=== PATIENT | female | born 1935 | race African-American/Black ===

== ENCOUNTER 2016-11-09 13:06 | Inpatient (IN) | payer MEDICARE, BC ==
[2016-11-09] MEDS ORDERED: NS 0.9% 1000 ML* 1,000 ML IV SCH (14:45)
[2016-11-09 14:47] LABS: Hematocrit 35 % (35-47); Hemoglobin 11.5 g/dl (12.0-16.0); Mean Corpuscular HGB Conc 33 g/dl (31-36); Mean Corpuscular Hemoglobin 30 pg (27-31); Mean Corpuscular Volume 89 fL (80-97); Mean Platelet Volume 7 um3 (7.4-10.4); Red Blood Count 3.87 10^6/ul (4.0-5.4); Red Cell Distribution Width 14 % (10.5-15)
[2016-11-09 14:59] LABS: Troponin I 0.01 ng/mL (<0.04)
[2016-11-09 15:09] LABS: TSH (Thyroid Stimulating Horm) 0.28 mcIU/mL (0.34-5.60)
[2016-11-09 15:13] LABS: ALT 6 U/L (7-52); Albumin 3.2 g/dL (3.2-5.2); Alkaline Phosphatase 106 U/L (34-104); Blood Urea Nitrogen 13 mg/dL (6-24); CO2 Carbon Dioxide 25 mmol/L (22-32); Calcium 10.3 mg/dL (8.6-10.3); Chloride 97 mmol/L (101-111); Creatine Kinase 19 U/L (10-223); EGFR African American 87.5 (>60); Globulin 4.2 g/dL (2-4); Glucose 292 mg/dL (70-100); Lipase 26 U/L (11.0-82.0); Sodium 131 mmol/L (133-145); Total Protein 7.4 g/dL (6.4-8.9)
--- NOTE | 2016-11-09 15:19 | RAD ---
HISTORY: Weakness COMPARISONS: November 04, 2014 VIEWS:1: Single frontal portable view of the chest at 2:57 PM FINDINGS: LINES AND TUBES: None. CARDIOMEDIASTINAL SILHOUETTE: The cardiomediastinal silhouette is normal for portable technique. PLEURA: The costophrenic angles are sharp. No pleural abnormalities are noted. LUNG PARENCHYMA: The lungs are clear. ABDOMEN: The upper abdomen is clear. There is no subphrenic gas. BONES AND SOFT TISSUES: Degenerative changes noted of the spine IMPRESSION: NO ACTIVE CARDIOPULMONARY DISEASE.
[2016-11-09 15:31] LABS: Anion Gap 9 mmol/L (2-11)
[2016-11-09 15:47] LABS: Urine Bacteria 1+ (Absent); Urine Bilirubin Negative (Negative); Urine Glucose Negative (Negative); Urine Nitrite Negative (Negative)
[2016-11-09] MEDS ORDERED: Acetaminophen TAB* 325 MG PO PRN (16:23)
[2016-11-09] MEDS ORDERED: Ondansetron INJ* 2 MG/ML VIAL IV PRN (16:23)
[2016-11-09] MEDS ORDERED: Diazepam TAB(*) 5 MG PO ONE (16:23)
[2016-11-09] MEDS ORDERED: Cefepime(*) 2 GM in NS 0.9% 50 ML* 50 ML IVPB ONE (16:30)
[2016-11-09] MEDS ORDERED: Meclizine TAB* 12.5 MG ONE (16:30)
[2016-11-09] MEDS: Meclizine TAB* 12.5 MG PO SCH ×2 (16:33→21:25)
[2016-11-09] MEDS ORDERED: NS 0.9% 50 ML* 50 ML ONE (16:37)
--- NOTE | 2016-11-09 17:23 | ED ---
Stanton Coyle Benjamin, scribed for Ike Longoria MD on 11/09/16 at 1443 . Dizziness - HPI Summary HPI Summary: 81yo female with hx of vertigo c/o having vertigo like symptoms this morning. Pt states that she couldnt get out of her apartment so she called EMS for help. Pt felt nauseous and is unable to keep anything down due to N/V. Pt is diabetic and hasnt been taking her meds because she cant keep anything down. Pt also reports fainting once few days ago when she tried to get to her chair from bed. Pt hasnt had any BM, again because she hasnt been able to eat lately. Pt has a colostomy bag put in. Pt reports weakness and room spinning, and has hx of CHF. Pt took Meclizine 50mg today at 11am. - History Of Current Complaint Chief Complaint: EDDizziness Stated Complaint: VERTIGO Time Seen by Provider: 11/09/16 13:39 Hx Obtained From: Patient Onset/Duration: Still Present, Suddenly Timing: Constant Severity Initially: Mild Severity Currently: Mild Character: Room Spinning, Weak Aggravating Factor(s): Nothing Alleviating Factor(s): Lying Down Associated Signs And Symptoms: Positive: Nausea, Vomiting, Decreased Oral Intake - Allergies/Home Medications Allergies/Adverse Reactions: Allergies Allergy/AdvReac Type Severity Reaction Status Date / Time Adhesive Tape Allergy Blisters Verified 11/11/15 15:23 Nitrofurantoin Allergy vomitting Verified 11/11/15 15:23 [From Furadantin] Nystatin Allergy Blisters Verified 11/11/15 15:23 Penicillins Allergy Anaphylatic Verified 11/11/15 15:23 Shock Home Medications: Home Medications Ergocalciferol CAP* [Drisdol CAP*] 50,000 unit PO WEEKLY 11/09/16 [History Confirmed 11/09/16] Methimazole TAB* [Tapazole TAB*] 10 mg PO DAILY 11/09/16 [History Confirmed ] Ondansetron TAB* [Zofran 4 MG Tab*] 4 mg PO Q8HR PRN 11/09/16 [History Confirmed 11/09/16] PMH/Surg Hx/FS Hx/Imm Hx Endocrine/Hematology History: Reports: Hx Diabetes, Hx Thyroid Disease, Hx Unexplained Bleeding - during wound dressing changes. Denies: Hx Systemic Lupus Erythematosus, Hx Anemia Cardiovascular History: Reports: Hx Congestive Heart Failure, Hx Hypercholesterolemia, Hx Hypertension, Other Cardiovascular Problems/Disorders - SEPSIS Denies: Hx Pacemaker/ICD Respiratory History: Reports: Hx Asthma, Hx Chronic Bronchitis GI History: Reports: Hx Gastroesophageal Reflux Disease, Hx Ileostomy - diverted colostomy, Other GI Disorders History: Reports: Hx Acute Renal Failure, Hx Kidney Stones, Other Problems /Disorders - renal failure Denies: Hx Dialysis, Hx Renal Disease Musculoskeletal History: Reports: Hx Arthritis, Hx Back Problems - Spinal stenosis, Other Musculoskeletal History - CERVICAL FUSION Denies: Hx Rheumatoid Arthritis Sensory History: Reports: Hx Cataracts - cataracts removed, Hx Contacts or Glasses Denies: Hx Glaucoma, Hx Legally Blind, Hx Deafness, Hx Hearing Aid Opthamlomology History: Reports: Hx Cataracts - cataracts removed, Hx Contacts or Glasses Denies: Hx Glaucoma, Hx Legally Blind Neurological History: Reports: 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 ABDONINAL TUMOR POSTERIOR UTERUS REMOVED(1975). HYSTERECTOMY(1975), CERVICAL SPINE(2000), cataract removal, diverted colostomy Hx Anesthesia Reactions: No Infectious Disease History: No Infectious Disease History: Reports: Hx of Known/Suspected MRSA, Hx Tuberculosis Denies: Hx Shingles, Traveled Outside the [place] in Last 30 Days - Family History Known Family History: Positive: Diabetes Negative: Hypertension - Social History Occupation: Disabled Lives: Alone Alcohol Use: None Substance Use Type: Reports: None Smoking Status (MU): Former Smoker Type: Cigarettes Have You Smoked in the Last Year: No Review of Systems Constitutional: Negative Negative: Fever, Chills Eyes: Negative ENT: Negative Cardiovascular: Negative Respiratory: Negative Positive: Vomiting, Nausea Genitourinary: Negative Musculoskeletal: Negative Skin: Negative Neurological: Other - room spinning Positive: Weakness - generalized , Syncope - vertigo Psychological: Normal All Other Systems Reviewed And Are Negative: Yes Physical Exam Triage Information Reviewed: Yes Vital Signs On Initial Exam: Initial Vitals Temp Pulse Resp BP Pulse Ox 97.2 F 86 15 103/65 100 11/09/16 13:30 11/09/16 13:30 11/09/16 13:30 11/09/16 13:30 11/09/16 13:30 Vital Signs Reviewed: Yes Appearance: Positive: No Pain Distress, Well-Nourished. Negative: Well- Appearing - dehydrated Skin: Positive: Warm, Skin Color Reflects Adequate Perfusion, Dry Head/Face: Positive: Normal Head/Face Inspection Eyes: Positive: Normal ENT: Positive: Hearing grossly normal, Pharynx normal, Other - dry oral musoca Neck: Positive: Supple, Nontender Respiratory/Lung Sounds: Positive: Clear to Auscultation, Breath Sounds Present Cardiovascular: Positive: RRR, Pulses are Symmetrical in both Upper and Lower Extremities Abdomen Description: Positive: Nontender, Soft, Other: - colostomy bag placed Bowel Sounds: Positive: Present Musculoskeletal: Negative: Strength/ROM Intact - generalized weakness Neurological: Positive: Sensory/Motor Intact - able to move all four extremities , Alert, Oriented to Person Place, Time. Negative: Facial Droop, Focal Deficit @ Psychiatric: Positive: Affect/Mood Appropriate - Sebastien Coma Scale Coma Scale Total: 15 Diagnostics - Vital Signs Vital Signs Temp Pulse Resp BP Pulse Ox 11/09/16 13:30 97.2 F 86 15 103/65 100 - Laboratory Lab Results: Lab Results 11/09/16 11/09/16 11/09/16 Range/Units 14:15 14:15 14:15 WBC 14.0 H (3.5-10.8) 10^3/ul RBC 3.87 L (4.0-5.4) 10^6/ul Hgb 11.5 L (12.0-16.0) g/dl Hct 35 (35-47) % MCV 89 (80-97) fL MCH 30 (27-31) pg MCHC 33 (31-36) g/dl RDW 14 (10.5-15) % Plt Count 414 (150-450) 10^3/ul MPV 7 L (7.4-10.4) um3 Neut % (Auto) 81.5 (38-83) % Lymph % (Auto) 10.3 L (25-47) % [place] % (Auto) 7.6 (1-9) % Eos % (Auto) 0.4 (0-6) % Baso % (Auto) 0.2 (0-2) % Absolute Neuts (auto) 11.4 H (1.5-7.7) 10^3/ul Absolute Lymphs (auto) 1.4 (1.0-4.8) 10^3/ul Absolute Monos (auto) 1.1 H (0-0.8) 10^3/ul Absolute Eos (auto) 0.1 (0-0.6) 10^3/ul Absolute Basos (auto) 0 (0-0.2) 10^3/ul Absolute Nucleated RBC 0 10^3/ul Nucleated RBC % 0 INR (Anticoag Therapy) 1.06 (0.89-1.11) APTT 27.9 (26.0-36.3) seconds Sodium 131 L (133-145) mmol/L Potassium TNP Chloride 97 L (101-111) mmol/L Carbon Dioxide 25 (22-32) mmol/L Anion Gap 9 (2-11) mmol/L BUN 13 (6-24) mg/dL Creatinine 0.81 (0.51-0.95) mg/dL Est GFR ( Amer) 87.5 (>60) Est GFR (Non-Af Amer) 68.0 (>60) BUN/Creatinine Ratio 16.0 (8-20) Glucose 292 H (70-100) mg/dL Lactic Acid (0.5-2.0) mmol/L Calcium 10.3 (8.6-10.3) mg/dL Magnesium TNP Total Bilirubin 0.60 (0.2-1.0) mg/dL AST TNP ALT 6 L (7-52) U/L Alkaline Phosphatase 106 H (34-104) U/L Total Creatine Kinase 19 (10-223) U/L CK-MB (CK-2) 2.1 (0.6-6.3) ng/mL Troponin I 0.01 (<0.04) ng/mL C-Reactive Protein 29.70 H (< 5.00) mg/L B-Natriuretic Peptide ( - 100) pg/mL Total Protein 7.4 (6.4-8.9) g/dL Albumin 3.2 (3.2-5.2) g/dL Globulin 4.2 H (2-4) g/dL Albumin/Globulin Ratio 0.8 L (1-3) Lipase 26 (11.0-82.0) U/L TSH 0.28 L (0.34-5.60) mcIU/mL Urine Color Urine Appearance Urine pH (5-9) Ur Specific [place] (1.010-1.030) Urine Protein (Negative) Urine Ketones (Negative) Urine Blood (Negative) Urine Nitrate (Negative) Urine Bilirubin (Negative) Urine Urobilinogen (Negative) Ur Leukocyte Esterase (Negative) Urine WBC (Auto) (Absent) Urine RBC (Auto) (Absent) Urine Bacteria (Absent) Urine Glucose (Negative) Urine Ascorbic Acid (Negative) 11/09/16 11/09/16 11/09/16 Range/Units 14:15 14:15 15:30 WBC (3.5-10.8) 10^3/ul RBC (4.0-5.4) 10^6/ul Hgb (12.0-16.0) g/dl Hct (35-47) % MCV (80-97) fL MCH (27-31) pg MCHC (31-36) g/dl RDW (10.5-15) % Plt Count (150-450) 10^3/ul MPV (7.4-10.4) um3 Neut % (Auto) (38-83) % Lymph % (Auto) (25-47) % [place] % (Auto) (1-9) % Eos % (Auto) (0-6) % Baso % (Auto) (0-2) % Absolute Neuts (auto) (1.5-7.7) 10^3/ul Absolute Lymphs (auto) (1.0-4.8) 10^3/ul Absolute Monos (auto) (0-0.8) 10^3/ul Absolute Eos (auto) (0-0.6) 10^3/ul Absolute Basos (auto) (0-0.2) 10^3/ul Absolute Nucleated RBC 10^3/ul Nucleated RBC % INR (Anticoag Therapy) (0.89-1.11) APTT (26.0-36.3) seconds Sodium (133-145) mmol/L Potassium Chloride (101-111) mmol/L Carbon Dioxide (22-32) mmol/L Anion Gap (2-11) mmol/L BUN (6-24) mg/dL Creatinine (0.51-0.95) mg/dL Est GFR ( Amer) (>60) Est GFR (Non-Af Amer) (>60) BUN/Creatinine Ratio (8-20) Glucose (70-100) mg/dL Lactic Acid 2.1 H* (0.5-2.0) mmol/L Calcium (8.6-10.3) mg/dL Magnesium Total Bilirubin (0.2-1.0) mg/dL AST ALT (7-52) U/L Alkaline Phosphatase (34-104) U/L Total Creatine Kinase (10-223) U/L CK-MB (CK-2) (0.6-6.3) ng/mL Troponin I (<0.04) ng/mL C-Reactive Protein (< 5.00) mg/L B-Natriuretic Peptide 97 ( - 100) pg/mL Total Protein (6.4-8.9) g/dL Albumin (3.2-5.2) g/dL Globulin (2-4) g/dL Albumin/Globulin Ratio (1-3) Lipase (11.0-82.0) U/L TSH (0.34-5.60) mcIU/mL Urine Color Yellow Urine Appearance Turbid Urine pH 5.0 (5-9) Ur Specific [place] 1.019 (1.010-1.030) Urine Protein 2+(100 mg/dl) H (Negative) Urine Ketones Trace H (Negative) Urine Blood 2+ H (Negative) Urine Nitrate Negative (Negative) Urine Bilirubin Negative (Negative) Urine Urobilinogen Negative (Negative) Ur Leukocyte Esterase 3+ H (Negative) Urine WBC (Auto) 3+(>20/hpf) H (Absent) Urine RBC (Auto) 3+(>10/hpf) H (Absent) Urine Bacteria 1+ H (Absent) Urine Glucose Negative (Negative) Urine Ascorbic Acid * H (Negative) 11/09/16 Range/Units 15:50 WBC (3.5-10.8) 10^3/ul RBC (4.0-5.4) 10^6/ul Hgb (12.0-16.0) g/dl Hct (35-47) % MCV (80-97) fL MCH (27-31) pg MCHC (31-36) g/dl RDW (10.5-15) % Plt Count (150-450) 10^3/ul MPV (7.4-10.4) um3 Neut % (Auto) (38-83) % Lymph % (Auto) (25-47) % [place] % (Auto) (1-9) % Eos % (Auto) (0-6) % Baso % (Auto) (0-2) % Absolute Neuts (auto) (1.5-7.7) 10^3/ul Absolute Lymphs (auto) (1.0-4.8) 10^3/ul Absolute Monos (auto) (0-0.8) 10^3/ul Absolute Eos (auto) (0-0.6) 10^3/ul Absolute Basos (auto) (0-0.2) 10^3/ul Absolute Nucleated RBC 10^3/ul Nucleated RBC % INR (Anticoag Therapy) (0.89-1.11) APTT (26.0-36.3) seconds Sodium (133-145) mmol/L Potassium 3.9 Chloride (101-111) mmol/L Carbon Dioxide (22-32) mmol/L Anion Gap (2-11) mmol/L BUN (6-24) mg/dL Creatinine (0.51-0.95) mg/dL Est GFR ( Amer) (>60) Est GFR (Non-Af Amer) (>60) BUN/Creatinine Ratio (8-20) Glucose (70-100) mg/dL Lactic Acid (0.5-2.0) mmol/L Calcium (8.6-10.3) mg/dL Magnesium Total Bilirubin (0.2-1.0) mg/dL AST 14 ALT (7-52) U/L Alkaline Phosphatase (34-104) U/L Total Creatine Kinase (10-223) U/L CK-MB (CK-2) (0.6-6.3) ng/mL Troponin I (<0.04) ng/mL C-Reactive Protein (< 5.00) mg/L B-Natriuretic Peptide ( - 100) pg/mL Total Protein (6.4-8.9) g/dL Albumin (3.2-5.2) g/dL Globulin (2-4) g/dL Albumin/Globulin Ratio (1-3) Lipase (11.0-82.0) U/L TSH (0.34-5.60) mcIU/mL Urine Color Urine Appearance Urine pH (5-9) Ur Specific [place] (1.010-1.030) Urine Protein (Negative) Urine Ketones (Negative) Urine Blood (Negative) Urine Nitrate (Negative) Urine Bilirubin (Negative) Urine Urobilinogen (Negative) Ur Leukocyte Esterase (Negative) Urine WBC (Auto) (Absent) Urine RBC (Auto) (Absent) Urine Bacteria (Absent) Urine Glucose (Negative) Urine Ascorbic Acid (Negative) Result Diagrams: 11/09/16 14:15 11/09/16 15:50 Lab Statement: Any lab studies that have been ordered have been reviewed, and results considered in the medical decision making process. - Radiology CXR Xray Interpretation: No Acute Changes Radiology Interpretation Completed By: Radiologist - ED physician has reviewed this radiology report and agrees. - EKG 1356. Cardiac Rate: NL - 82bpm Ectopy: None EKG Interpretation: borderline T abnormalities in diffuse leads. Dizzy Course/Dx - Course Course Of Treatment: Reviewed pts medication and allergy lists. Blood pressure noted. ADMIT HOSPITALIST STABLE. NO CRITICAL CARE TIME. - Diagnoses Provider Diagnoses: Weakness, Dehydration Discharge - Discharge Plan Condition: Stable Disposition: ADMITTED TO [facility] documentation as recorded by the Stanton may Benjamin accurately reflects the service I personally performed and the decisions made by me, Ike Longoria MD.
[2016-11-09] MEDS: Cefepime(*) 2 GM in NS 0.9% 50 ML* 50 ML IVPB SCH ×2 (17:47→19:33)
[2016-11-09 19:07] LABS: Troponin I 0.01 ng/mL (<0.04)
[2016-11-09] MEDS: NS 0.9% 1000 ML* 1,000 ML IV SCH (19:35)
--- NOTE | 2016-11-09 20:45 | RAD ---
HISTORY: Dizziness, vertigo and weakness COMPARISONS: None TECHNIQUE: The following sequences were obtained of the head: Sagittal T1-weighted images, axial T2-weighted images, axial FLAIR images, axial susceptibility weighted images, axial T1-weighted images. Additionally, axial diffusion-weighted images were obtained with calculated apparent diffusion coefficients. FINDINGS: The study is limited by patient motion artifact. HEMORRHAGE/INFARCT: There is a punctate focus of restricted diffusion within the inferior vermis. Elsewhere, there is no hemorrhage or acute infarct MASSES/SHIFT: There is no mass or shift. EXTRA-AXIAL SPACES/MENINGES: There are no extra-axial fluid collections. SULCI AND VENTRICLES: The sulci and ventricles are normal in size and position for the patient's stated age. CEREBRUM: There are multiple scattered small foci of elevated T2/FLAIR signal within the periventricular and subcortical white matter. BRAINSTEM: There is elevated T2/FLAIR signal within the benigno.. CEREBELLUM: As noted above, there is a punctate focus of restricted diffusion within the inferior vermis to the right of midline The cerebellar tonsils are normal in size and position. SELLA: There is an approximately 1.7 x 1.5 cm sellar and suprasellar mass with mass effect on optic chiasm. PINEAL: The pineal region is clear. CP ANGLE/TEMPORAL BONES: The labyrinthine structures are grossly normal. VESSELS: Normal flow-voids are noted within the visualized vertebral vasculature. DIFFUSION ABNORMALITIES: As noted above, there is a punctate focus of restricted diffusion within the inferior vermis to the right of midline. PARANASAL SINUSES/MASTOIDS: The paranasal sinuses are clear. ORBITS: The orbits are unremarkable. BONES AND SOFT TISSUE: No bone or soft tissue abnormalities are noted. OTHER: None IMPRESSION: 1. 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 2. 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 RECOMMEND CONSIDERATION OF FURTHER EVALUATION WITH CONTRAST-ENHANCED PITUITARY PROTOCOL MRI OF THE BRAIN. 3. CHRONIC SMALL VESSEL ISCHEMIC CHANGES
[2016-11-09] MEDS ORDERED: Insulin GLARGINE(*) 1 UNITS UNIT SUBCUT SCH (21:00)
[2016-11-09] MEDS: Insulin LISPRO* 1 UNITS UNIT SUBCUT SCH (21:26)
[2016-11-09] MEDS: Insulin GLARGINE(*) 1 UNITS UNIT SUBCUT SCH (21:26)
[2016-11-09] MEDS ORDERED: Aspirin Low Dose CHEW TAB* 81 MG PO ONE (21:51)
[2016-11-09] MEDS ORDERED: Heparin VIAL(*) 5000 UNITS/ML VIAL (FIVE THOUSAND) SUBCUT SCH (22:00)
--- NOTE | 2016-11-09 23:23 | HP ---
CC: Dr. Davidson * HISTORY AND PHYSICAL: DATE OF ADMISSION: 11/09/16 PRIMARY CARE PROVIDER: Dr. Davidson. ATTENDING PHYSICIAN WHILE IN THE HOSPITAL: Dr. Ramona Clinton * (report dictated by Aren Willis NP). CHIEF COMPLAINT: 1. Dizziness. 2. Weakness. HISTORY OF PRESENT ILLNESS: Ms. Hurd is an 81-year-old female patient. She is diabetic, hypertensive, has chronic decubitus ulcer. She has not seen the wound clinic since April of this year. She has a chronic indwelling Valera catheter. She has a history of paraplegia, hypothyroidism, CAD, CHF, and history of NC. She really has not seen any medical care since the spring. She comes in to the ER today stating that she has been feeling dizzy now for the last several months, but it has gotten worse over the last few days. She has been noticing that at any times she try to change the positions, it gets worse and she becomes nauseated. She has not actually been taking her medications because she has been feeling nauseated. She says the only thing she takes is a Percocet and Zanaflex. She says that she has not been having any fevers or chills. She did vomit with position change and it feels like the room has been spinning. She does states that she has to take an Antivert at times and she says it does not usually help and she says she also been having double vision for several weeks now and she has noticed that at times she has had difficulty with swallowing particularly on the right side. She denied any facial drooping and she denied having any weakness to one side, although she cannot move her lower extremities because of the paraplegia. She was getting dressed today with her aide and her aide got her into the wheelchair and she started using the wheelchair, but she could not open her eyes because any time she opened them , she was feeling dizzy and when she was controlling the wheelchair, she was bumping into the trevino. She was trying to go to see her primary, but unfortunately she could not make it, so she came into the ER. She says that she again stopped taking most of her medications because she was feeling nauseated. She was concerned today because of dizziness was not getting any better and she decided to come into the ER. PAST MEDICAL HISTORY: Significant for: 1. Diabetes. 2. Hypertension. 3. Chronic sacral decubitus. 4. Chronic Valera catheter. 5. Paraplegia. 6. Hypothyroidism. 7. CAD. 8. CHF. 9. History of NC. 10. Her last echo from 3 years ago revealed an EF of 50% to 55%. PAST SURGICAL HISTORY: 1. She has a history of cervical fusion. 2. Appendectomy. 3. Tonsillectomy. 4. Colostomy. 5. She has had a partial bowel resection. HOME MEDICATIONS: This is the list that we got from her doctor's office, but all she said she is taking is: 1. Percocet 5/325 mg t.i.d. as needed. 2. Zanaflex 4 mg p.o. t.i.d. as needed, which she is supposed to be taking, but has not been. 3. Lantus 25 units subcu at bedtime. 4. Metformin 1000 mg p.o. b.i.d. 5. Zofran 4 mg p.o. every 8 hours as needed. 6. Tapazole 10 mg p.o. daily. 7. Lasix 40 mg daily. 8. Ergocalciferol 50,000 units p.o. weekly. 9. Tylenol 650 mg p.r.n. every 4 hours as needed. ALLERGIES TO MEDICATIONS: Include TAPE, NITROFURANTOIN, NYSTATIN, and PENICILLIN. FAMILY HISTORY: Both her parents had a history of heart disease. SOCIAL HISTORY: She is a former smoker. She quit back in the 70s. She does not drink alcohol. Her surrogate decision maker is her friend, Polina. REVIEW OF SYSTEMS: There is no documented fever. She denied having any significant weight change. There was no double vision. She denies having any rhinorrhea, no sore throat or thyroid enlargement. Denies having any chest pain. There was no orthopnea, no nocturnal dyspnea. She denies having any abdominal pain. There was nausea and also vomiting particularly with the dizziness. No loss of consciousness. No pruritus and no skin ulcerations. Review of 14 systems completed, all others negative. PHYSICAL EXAMINATION GENERAL: At this time, Mrs. Hurd is an 81-year-old female patient. She appears to be chronically ill appearing. She appears to be malnourished. She is sitting in the ER stretcher. She does not appear to be in any acute distress. VITAL SIGNS: Reveal blood pressure 127/67, pulse 79, respirations 20, O2 sat 100%, temperature 97.2. HEENT: Head: Atraumatic. Eyes: Pupils are equal and reactive to light. Sclerae anicteric. Throat: Oral mucosa appeared to be dry. No oropharyngeal erythema. NECK: Supple. LUNGS: Clear to auscultation bilaterally. No wheezes, rales, or rhonchi. HEART: Sounds S1, S2. Regular rate and rhythm. No murmurs, rubs, or gallops. ABDOMEN: Soft, it was flat. Her colostomy, which appeared to be benign. EXTREMITIES: She did have what appeared to be atrophy to the lower extremities. She does have sensation, but she is unable to lift the lower extremities. She had no peripheral edema. Upper extremity, she did have 5/5 strength. NEUROLOGIC: She is awake, alert, and oriented x3. Her speech is clear. Tongue is midline. She had no facial drooping. She had limited ataxia with [id number] in the upper extremities bilaterally. We are trying to perform EOMs. Anytime she tried to follow my fingers, she became very dizzy, nauseated , and had to close her eyes immediately and she said my finger did appear to be double. She had no facial drooping. Her tongue was not deviated and again her speech was fluent and clear. She had no other gross focal deficits. SKIN: She had a stage 3 decubitus ulcer to the sacrum, which measures about approximately 10 cm x 8 cm. She has seen the [facility]ound Clinic in the past, but has not seen them since April of this year. No other wounds were noted. Otherwise, skin was intact. DIAGNOSTIC STUDIES/LAB DATA: Labs WBC of 14.0, RBC of 3.87, hemoglobin 11.5, hematocrit of 35, platelet count of 414. INR 1.06. PTT of 27.9. Sodium of 131 , potassium 3.9, chloride of 97, bicarb 25, BUN 13, creatinine 0.81, glucose of 292, lactic 2.1, calcium 10.3. Mag pending. Total bili 0.6, AST 14, ALT 6, alk phos 106, CK 19, CK-MB 2.1, troponin 0.01. CRP of 29. BNP of 97. Albumin of 3.2. TSH of 0.28. She had 2+ protein, 2+ blood, 3+ leukocyte esterase, 3+ wbc's, 3+ rbc's, 1+ bacteria in her urine. She had a chest x-ray obtained today , which revealed no active cardiopulmonary disease. There was an EKG obtained today as well, which showed a normal sinus rhythm, rate of 82. She did have some slight ST depressions in lead I and II and also leads V5 and V6. I did review it from an EKG 2 years ago, that depression is now new in V5 and V6, it was present in leads I and II in the past. She did have an echo again 3 years ago, which showed an EF of 50% to 55%. Old medical records were reviewed. ASSESSMENT AND PLAN: Mrs. Hurd is an 81-year-old female patient with multiple medical problems coming into the ER today with complaints of dizziness worsening with position change and double vision. Hospitalist service was asked to evaluate for admission. She will be admitted under inpatient status for: 1. Dizziness: Again, my concern now it has been going on for a long time, it seems to be chronic and now with the double vision, I do worry about possible posterior strokes. I would like to get an MRI of the brain. If this is positive, then obviously I will get Neurology involved and do a more excessive neuro work. My plan is to go ahead and give her some 5 of Valium, some meclizine to see if this helps her symptoms and we will do neuro checks, place her on telemetry and we will continue to follow her. 2. Diabetes: We will put her on a lispro sliding scale and continue her Lantus. 3. Chronic decubitus ulcer: I did order a wound consult. 4. Leukocytosis: Again, I do worry that she might have an underlying infection. The source may be her urine or her wounds, so I thought cefepime would be a good choice. I did order blood cultures and we will continue to follow this closely. 5. Dehydration: She does appear to be profoundly dehydrated, I am going to get orthostatics. I will hydrate her and see if the hydration may improve her dizziness. 6. Paraplegia: Supportive care. 7. Hypothyroidism: Continue home meds as prescribed. 8. Coronary artery disease: I did order an aspirin. She is not having any chest pain. We will monitor. 9. Congestive heart failure: Again, I am going to give her fluids. She normally does take a diuretic, but we are going to hold that for now and hydrate her. 10. DVT prophylaxis. She is high risk. She will be placed on heparin subcu. 11. Code status. She is a full code. 12. Fluids, electrolytes, and nutrition. She can have a consistent carb diet. TIME SPENT: Time spent on the admission was approximately 60 minutes, greater than half the time was spent [id number] with the patient obtaining my history and physical; the other half time was spent going over the plan of care with the patient and implementing the plan of care. I did discuss the plan of care with my attending, Dr. Clinton; who is in agreement. AREN WILLIS NP [id number]/CPS #: [id number] WILBUR
[2016-11-10] MEDS: tiZANidine TAB* 2 MG PO PRN (00:13)
[2016-11-10] MEDS: oxyCODONE/Acetamin 5/325 MG* TAB PO PRN ×2 (00:13→09:07)
[2016-11-10] MEDS ORDERED: predniSONE TAB* 50 MG PO ONE ×3 (02:00→14:00)
[2016-11-10] MEDS: NS 0.9% 1000 ML* 1,000 ML IV SCH (04:43)
[2016-11-10 04:55] LABS: Hematocrit 30 % (35-47); Hemoglobin 10.2 g/dl (12.0-16.0); Mean Corpuscular HGB Conc 34 g/dl (31-36); Mean Corpuscular Hemoglobin 30 pg (27-31); Mean Corpuscular Volume 89 fL (80-97); Mean Platelet Volume 7 um3 (7.4-10.4); Red Blood Count 3.41 10^6/ul (4.0-5.4); Red Cell Distribution Width 15 % (10.5-15); White Blood Count 10.1 10^3/ul (3.5-10.8)
[2016-11-10] MEDS: Cefepime(*) 2 GM in NS 0.9% 50 ML* 50 ML IVPB SCH ×2 (05:01→17:22)
[2016-11-10] MEDS: Meclizine TAB* 12.5 MG PO SCH ×3 (05:01→21:12)
[2016-11-10 05:10] LABS: BUN/Creatinine Ratio 16.4 (8-20); Calcium 9.3 mg/dL (8.6-10.3); EGFR African American 108.9 (>60); EGFR Non-African American 84.7 (>60); HDL Cholesterol 22.7 mg/dL
[2016-11-10] MEDS: Methimazole TAB* 5 MG PO SCH (08:25)
[2016-11-10] MEDS: Aspirin EC Low Dose* 81 MG TAB.EC PO SCH (08:25)
[2016-11-10] MEDS: Insulin LISPRO* 1 UNITS UNIT SUBCUT SCH ×3 (08:26→17:22)
[2016-11-10] MEDS ORDERED: Gadoteridol* (CONTRAST) 279.3 MG/ML 10 ML IV ONE (10:32)
--- NOTE | 2016-11-10 12:51 | PN ---
Subjective Date of Service: 11/10/16 Interval History: This is an 81 yo female with multiple medical problems who presented with c/o worsening vertigo and double vision. These complaints are somewhat chronic for her, but worse recently. She has been having increasing dizziness over the last week and the double vision has become worse in the last few days, which prompted her evaluation. 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 The pituitary tumor is previously known, but she has not been seen by her track repairer in ~12 years. Today, she reports she has persist vertigo that is not resolved with closing her eyes. She denies any new weakness, but she chronically weak with some use of her UEs but no use of her LEs. No new symptoms noted today. Objective Active Medications: Acetaminophen (Tylenol Tab*) 650 mg PO Q4H PRN PRN Reason: FEVER/PAIN Aspirin (Aspirin Ec Low Dose*) 81 mg PO DAILY [facility] Last Admin: 11/10/16 08:25 Dose: 81 mg Dextrose (D50w Syringe 50 Ml*) 12.5 gm IV PUSH .FOR FS < 60 - SS PRN PRN Reason: FS < 60 Diphenhydramine HCl (Benadryl Po*) 50 mg PO 1400 ONE Stop: 11/10/16 14:01 Sodium Chloride (Ns 0.9% 1000 Ml*) 1,000 mls @ 100 mls/hr IV PER RATE [facility] Last Admin: 11/10/16 04:43 Dose: 100 mls/hr Cefepime HCl 2 gm/ Sodium (Chloride) 50 mls @ 100 mls/hr IVPB Q12HR@0600,1800 HARJIT Last Admin: 11/10/16 05:01 Dose: 100 mls/hr Insulin Glargine (Lantus(*)) 12 units SUBCUT BEDTIME [facility] Last Admin: 11/09/16 21:26 Dose: 12 units Insulin Human Lispro (Humalog*) 0 units SUBCUT AC HARJIT PRN Reason: Protocol Last Admin: 11/10/16 12:40 Dose: 6 units Meclizine HCl (Antivert Tab*) 25 mg PO Q8HR [facility] Last Admin: 11/10/16 05:01 Dose: 25 mg Methimazole (Tapazole Tab*) 10 mg PO DAILY [facility] Last Admin: 11/10/16 08:25 Dose: 10 mg Ondansetron HCl (Zofran Inj*) 4 mg IV Q6H PRN PRN Reason: NAUSEA Oxycodone/Acetaminophen (Percocet 5/325 Tab*) 2 tab PO TID PRN PRN Reason: PAIN Last Admin: 11/10/16 09:07 Dose: 2 tab Prednisone (Deltasone Tab*) 50 mg PO 1400 ONE Stop: 11/10/16 14:01 Tizanidine HCl (Zanaflex Tab*) 4 mg PO TID PRN PRN Reason: SPASMS Last Admin: 11/10/16 00:13 Dose: 4 mg Vital Signs: Temp Pulse Resp BP Pulse Ox 97.5 F 66 18 106/46 99 11/10/16 11:15 11/10/16 11:15 11/10/16 11:15 11/10/16 11:15 11/10/16 11:15 Oxygen Devices in Use Now: None Appearance: Well appearing elderly female in NAD, lying flat in her hospital bed. Respiratory: Symmetrical Chest Expansion and Respiratory Effort, Clear to Auscultation Cardiovascular: NL Sounds; No Murmurs; No JVD, RRR Extremities: No Edema Neurological: Alert and Oriented x 3, - - symmetric UE weakness and little strength in LEs which is not new for her Result Diagrams: 11/10/16 04:32 11/10/16 04:32 Additional Lab and Data: . Diagnostic Imaging: MRI brain - subacute infarct of the vermis with a 1.7 cm spurcellar mass with compression of the optic chiasm MRI brain with contrast - pend CTA neck/brain - pend Echo - pend Assess/Plan/Problems-Billing Assessment: This is an 81 yo female with multiple medical problems including 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 - Patient Problems (1) Cerebellar infarct Comment: Subacute cerebellar infarct noted on MRI with c/o vertigo Vertigo is not entirely acute, but rather worse than prior episodes No significant response to meclizine, she does not want to trial benzos CTA and echo are pending at this time Appreciate neuro involvement LDL <70 mg/dl Start ASA Provide supportive measures for persistent vertigo while waiting for symptom improvement (2) Pituitary tumor Comment: 1.7 cm tumor with impingement of optic chiasm Pituitary tumor is previously known, but she has not seen her neurologist in 12 years Working to track down old MRI for comparison Will request neurosurgery consultation, but this is not emergent at this time (3) HTN (hypertension) Comment: Normotensive Cont home medications, she is outside the window where permissive hypertension is indicated (4) Decubitus ulcer Comment: Chronic sacral decubitus ulcer (5) Hypothyroidism Comment: TSH 0.28 (6) Paraplegia Comment: Prior cervical injury WC bound (7) S/P colostomy Comment: diverting colostomy for chronic sacral decubitis ulcer (8) Diastolic heart failure Comment: No acute exacerbation (9) DVT prophylaxis Comment: SQ heparin (10) Full code status Status and Disposition: Inpatient. Persistent symptoms and pending further workup. Anticipate dc in 1- 2 d
[2016-11-10] MEDS ORDERED: diPHENhydraMINE PO* 50 MG PO ONE (14:00)
[2016-11-10] MEDS ORDERED: Iodixanol* (CONTRAST) 320 MG/ML 100 ML SDV IV ONE (14:06)
--- NOTE | 2016-11-10 14:24 | RAD ---
HISTORY: Blurred vision, pituitary tumor COMPARISONS: MRI of the brain dated November 09, 2016 TECHNIQUE: The following sequences were obtained of the head: Thin section sagittal T2-weighted images and sagittal and coronal T1-weighted images were obtained through the sella. Additionally, axial diffusion-weighted images were obtained with calculated apparent diffusion coefficients. Additionally, axial T1-weighted images were obtained through the brain after contrast enhancement with a gadolinium-based intravenous contrast agent. Thin section coronal and sagittal T1-weighted images were obtained through the sella, with coronal dynamic enhanced scans through the sella. FINDINGS: HEMORRHAGE/INFARCT: There is no hemorrhage or acute infarct. MASSES/SHIFT: There is a sellar and suprasellar mass further described below. There is no shift. EXTRA-AXIAL SPACES/MENINGES: There are no extra-axial fluid collections. SULCI AND VENTRICLES: The sulci and ventricles are normal in size and position for the patient's stated age. CEREBRUM: The T2/FLAIR signal changes noted on the previous study are not well visualized on this pituitary protocol examination. BRAINSTEM: There are no focal parenchymal abnormalities. CEREBELLUM: There are no focal parenchymal abnormalities. The cerebellar tonsils are normal in size and position. SELLA: There is lobulated mass of the sella with suprasellar extension. This is isointense to the adenohypophysis on all sequences and is heterogeneously enhancing. There is superior displacement of the optic chiasm. Including the sellar portion, this lesion measures approximately 2.2 x 1.6 x 1.2 cm in size. There is probable bilateral cavernous extension. This mass partially circumscribes the cavernous segments of internal carotid arteries bilaterally. The vessels are patent without narrowing. There is a mild dural tail noted along the planum sphenoidale. PINEAL: The pineal region is clear. CP ANGLE/TEMPORAL BONES: The labyrinthine structures are grossly normal. VESSELS: Normal flow-voids are noted within the visualized vertebral vasculature. DIFFUSION ABNORMALITIES: There are no diffusion abnormalities. PARANASAL SINUSES/MASTOIDS: The paranasal sinuses are clear. ORBITS: The orbits are unremarkable. BONES AND SOFT TISSUE: No bone or soft tissue abnormalities are noted. OTHER: None IMPRESSION: THERE IS A LOBULATED 2.2 CM SELLAR AND SUPRASELLAR MASS WITH MASS EFFECT UPON THE OPTIC CHIASM. 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 THERE IS PROBABLE BILATERAL CAVERNOUS EXTENSION
[2016-11-10] MEDS: Heparin VIAL(*) 5000 UNITS/ML VIAL (FIVE THOUSAND) SUBCUT SCH ×2 (14:25→21:13)
--- NOTE | 2016-11-10 16:01 | CONS ---
CONSULTATION REPORT: DATE OF CONSULT: 11/10/16 LOCATION: She is currently in bed 452 bed 1. REASON FOR CONSULT: Worsening dizziness. HISTORY OF PRESENT ILLNESS: Ms. Hurd is a very nice 81-year-old female patient with a history of multiple medical problems including a history of cervical spine injury with resultant paraplegia, and loss of sensation from the neck down. This happened years ago. She also has a history of hypertension, diabetes, sacral ulcers, hypothyroidism, CAD, CHF, history of WA in the past. She apparently has been poorly compliant with her medications, and came to the ER yesterday with dizziness and a complaint of "I can't get out of bed." She noted vomiting that had worsened over the last several days, but seemed to be acutely worsened that day. She is somewhat of a poor historian. She states that she had dizziness for years and that it waxed and waned. She is on meclizine which does not help much. She notes occasional nausea. She also has a history of diplopia and has known pituitary tumor. She states that this has been followed for some time by an wholesale account executive, and that her double vision has seems have worsened over the last few weeks. She was previously able to focus, but at this point she has double vision at all times. She has little to no movement of her legs, as some functioning in her arms bilaterally. She has noticed no new weakness in her arms. No new numbness or tingling in her arms. She feels that when she looks left to right she gets more dizzy. She describes the room spinning, somewhat better with her eyes closed, worse with her eyes open, associated with nausea and vomiting. She denies any headaches. She denies any speech changes but notes that she has been having some problem swallowing thin liquids. She denies any new vision symptoms other than the worsening of her diplopia. No changes in her voice or speech. She notes some heaviness in her chest when she breaths, shortness of breath when she is trying to talk. She has a colostomy in placed and a chronic Valera in place. But has no control of her bladder or bowel. She states that she really cannot feel much from her C3-4 level down, but does feel pain. She denies any worsening pain in her upper and lower extremities. She states that she has chronic spasticity of her lower extremities and took baclofen in the past which helped her but was subsequently were put on Zanaflex because insurance would approve it , which does help some. She normally uses a power wheelchair to mobilize and notes that in the last few days she has been bumping into things, having a difficult time focusing. PAST MEDICAL HISTORY: As above. PAST SURGICAL HISTORY: Includes partial bowel resection with colostomy, tonsillectomy, appendectomy. She has a history of cervical spine surgery as well. ALLERGIES: She has allergies to TAPE, PENICILLIN, NYSTATIN, NITROFURANTOIN. HOME MEDICATIONS: 1. Tylenol 650 mg p.r.n. 4 hours as needed. 2. Ergocalciferol 5000 units weekly. 3. Zofran 4 mg p.o. q. 8 hours p.r.n. 4. Metformin 1000 mg p.o. b.i.d. 5. Kefzol 10 mg p.o. daily. 6 Lasix 40 mg daily. 7. Lantus. 8. Zanaflex 4 mg p.o. t.i.d. 9. Percocet 5/325 mg t.i.d. There are additional medications apparently but she is not been taking them regularly. FAMILY HISTORY: She notes a history of coronary artery disease in her family. SOCIAL HISTORY: She denies any tobacco, alcohol, or drug use, previous smoker. REVIEW OF SYSTEMS: A 14-organ systems as above, otherwise negative. PHYSICAL EXAMINATION Vital Signs: Temperature 97.5, blood pressure 106/46, ranging in the upper 90s to low 100s in general systolic, 40 to 60 diastolic; O2 saturation 99%; respiratory rate is 18. In general she is a well-nourished, well-developed obese female in no acute distress. She is lying in her hospital bed. She is pleasant. HEENT: She is normocephalic, atraumatic. Her sclerae are anicteric. Her mucous membranes are moist. Her oropharynx is clear. Nares are patent. Neck is somewhat stiff. No meningismus. Chest is clear to auscultation bilaterally. Cardiovascular: Regular rate and rhythm. Abdomen is obese. Extremities: She has significant edema in the lower extremities, generally nonpitting. But had no movement in her legs. Her skin is dry and flaky. Decubitus ulcers in the sacral area. On neurologic exam she is awake, alert and oriented x3. Her speech is fluent. There is no dysarthria, repetition is intact. Recall of recent and remote events is intact. Cranial Nerves: Her pupils were equally round and reactive to light. Her visual cooney are full. Extraocular muscles appear intact but she notes double vision , in all visual cooney. There is no nystagmus noted with lateral gaze or vertical gaze. No rotational nystagmus noted. Her face has symmetric sensation to light touch. Appears symmetric with movement in the upper and lower face. Her hearing is intact. Her palate elevates symmetrically. Her tongue is midline. She notes worsening of her dizziness with movement of her head from side to side. Her motor exam she has little movement of her legs. She can wiggle her toes but otherwise has no movement. She is spastic in her lower extremities throughout. In the upper extremities she has some movement against gravity, 4/5 in the proximal upper extremities, 4/5 distally in the upper extremities. She is able to lift her arms off the bed, but does drift bilaterally. The tone in her arms appears normal. She has lost significant muscle mass in her legs as well as her arms. Sensation, she has a sensory level at C3-4 is able to feel pain, but otherwise has no feeling below that level. In her hands she has diminished light touch and pinprick symmetrically. [id number]-cycv and rapid alternating movements were difficult and slow. She has no significant dysdiadochokinesis, some mild dysmetria bilaterally. But again a difficult examination. DTR's I cannot elicit them in the lower extremities. She had no movement with Babinski, upper extremities 2+ at the biceps, brachioradialis, triceps. Gait cannot be tested. LABORATORY DATA: Lab work includes CBC, a hemoglobin of 10.2, hematocrit is 30. INR of 1.06, PTT of 27.9. Chemistry, potassium at 3.0, glucose of 118, hemoglobin A1c is 7.9. HDL cholesterol 22.7, LDL 64, cholesterol 117, triglycerides of 154. TH of 0.28, calcium at 9.3. Urine showed 3+ leukocyte esterase, 3+ white blood cells, 1+ bacteria. 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 Recommend consideration of further evaluation with contrast enhanced pituitary protocol MRI of the brain, which she received today. ASSESSMENT AND PLAN: Ms. Hurd is an 81-year-old female with significant past medical history multiple medical problems, history of cervical spine injury with paraplegia of the lower extremities, some movement of the upper extremities , loss of sensation at C3-4 level. Also a long history of double vision with a known pituitary tumor. A long history of vertigo, positional in nature,which waxes and wanes, presents to the hospital with worsening vertigo, some nausea and vomiting, feels that it has worsened dramatically in the last several days, but is unable to pinpoint the exact time. MRI of the brain showed a stroke in the vermis which is likely contributing to her symptoms. At this point, I would treat conservatively. She is getting a stroke work up, she is to have another MRI of her brain to evaluate the pituitary, although this is a known issue. Consider endocrine consultation as well as neurosurgery. From a stroke standpoint we will start her on a baby aspirin. Her LDL cholesterol is 64. I will hold on a statin at this point, given her poly pharmacy. We can try for good blood pressure control as this is a subacute stroke. Strive for tight blood sugar control, we will need for reinforce compliance as an outpatient. She is a nonsmoker. As far as her dizziness is concerned I would continue to treat with meclizine/benzodiazepines as necessary, the less we have to use these medications, generally the faster she will start to recover, although this is a very chronic issue can use antiemetics as necessary. We will obtain a swallowing study as well given her recent history of dysphagia. She is to have an echocardiogram as well. Consider the possibility of paradoxical emboli with limited movement in her lower extremities, bubble will be done. I will continue to follow her closely and make further recommendations as necessary. Thank you for the opportunity to participate in the care of this very interesting patient. [id number]/[facility] #: [id number] WILBUR
--- NOTE | 2016-11-10 16:24 | RAD ---
HISTORY: Stroke COMPARISONS: MRI dated November 10, 2016 TECHNIQUE: Multiple contiguous axial CT scans were obtained of the head and neck After the administration of nonionic intravenous contrast timed to the systemic arterial phase of contrast enhancement. Coronal and sagittal multiplanar reformations are submitted for review. Multiple 3-D maximum intensity projection reconstructions are also submitted for review. FINDINGS: CTA NECK: AORTIC ARCH: The aortic arch is not completely visualized within the [id number] the current examination. There is no proximal stenosis of the cephalic great vessels. RIGHT VERTEBRAL ARTERY: The right vertebral artery is patent along its course, without stenosis. LEFT VERTEBRAL ARTERY: The left vertebral artery is patent along its course, without stenosis. DOMINANCE: The vertebral arteries are codominant. RIGHT COMMON CAROTID ARTERY: The right common carotid artery is patent. The right carotid bifurcation occurs at C5-C6 RIGHT INTERNAL CAROTID ARTERY: There is atheromatous disease of the right carotid bifurcation, without right internal carotid artery stenosis by NASCET criteria. RIGHT EXTERNAL CAROTID ARTERY: The right external carotid artery is unremarkable. LEFT COMMON CAROTID ARTERY: The left common carotid artery is patent. The left carotid bifurcation occurs at C4-C5 LEFT INTERNAL CAROTID ARTERY: There is atheromatous disease of the left carotid bifurcation, without left internal carotid artery stenosis by NASCET criteria. LEFT EXTERNAL CAROTID ARTERY: The left external carotid artery is unremarkable. VENOUS CIRCULATION: The venous system is unremarkable. SALIVARY GLANDS: There is fatty atrophy of the parotid and submandibular glands bilaterally. NASAL CAVITY/NASOPHARYNX: The nasal cavity and nasopharynx are normal. ORAL CAVITY/OROPHARYNX: The oral cavity and oropharynx are unremarkable. LARYNGEAL APPARATUS/HYPOPHARYNX: The laryngeal apparatus and hypopharynx are normal. UPPER AIRWAY/UPPER ESOPHAGUS: The visualized upper airway and esophagus are normal. LUNG APICES: The lung apices are clear. THYROID GLAND: The thyroid gland is diffusely and heterogeneously enlarged, measuring up to 9.5 cm in greatest dimension LYMPH NODES: There are scattered small, less than 1 cm short axis, lymph nodes noted along the anterior and posterior cervical chain. There is no lymphadenopathy by size criteria. BONES AND SOFT TISSUES: The patient is status post decompressive laminectomy of the upper cervical spine. Degenerative changes are noted. CTA HEAD: INTRACRANIAL CIRCULATION: There is no aneurysm, vascular malformation, occlusion, or stenosis of the visualized intracranial circulation. As noted on MRI, there is a sellar and suprasellar mass with cavernous extension. This partially circumscribed but does not occlude the internal carotid arteries the left cavernous internal carotid artery is ectatic. The anterior communicating artery complex is clear. Bilateral posterior communicating arteries are identified. VENOUS CIRCULATION: The venous system is unremarkable. PERFUSION: There is no obvious parenchymal perfusion deficit. HEMORRHAGE/INFARCT: There is no hemorrhage or acute infarct. MASSES/SHIFT: As noted on MRI, there is a sellar and suprasellar mass. There is no shift. EXTRA-AXIAL SPACES: There are no extra-axial fluid collections. SULCI AND VENTRICLES: The sulci and ventricles are normal in size and position for the patient's stated age. CEREBRUM: As noted on MRI, there is a sellar and suprasellar mass BRAINSTEM: There are no focal parenchymal abnormalities. CEREBELLUM: There are no focal parenchymal abnormalities. PARANASAL SINUSES: The paranasal sinuses are clear. ORBITS: The orbits are unremarkable. BONES AND SOFT TISSUE: No bone or soft tissue abnormalities are noted. OTHER: There is no abnormal enhancement. IMPRESSION: 1. NO INTERNAL CAROTID ARTERY STENOSIS BY NASCET CRITERIA. 2. NO ANEURYSM, VASCULAR MALFORMATION, OCCLUSION, OR STENOSIS OF THE VISUALIZED INTRACRANIAL CIRCULATION.. 3. AGAIN NOTED IS A SELLAR AND SUPRASELLAR MASS WITH CAVERNOUS SINUS EXTENSION. 4. THE THYROID GLAND IS MARKEDLY AND HETEROGENEOUSLY ENLARGED BILATERALLY. CPT II Codes: 3100F
--- NOTE | 2016-11-10 17:17 | ECHO ---
Patient: TRUDY FERNANDES [facility] Rec#: [id number] : 1935 Date: 11/10/2016 Age: 81y Height: 160.02 cm / 63.0 in Weight: 77.11 kg / 170.0 lbs Sex: F BSA: 1.8 Room#: 452 Admit Date#: 11/09/2016 Type: Inpatient Referring: Aren Willis NP Reading: Chance Talley DO Production Aide: Dyan Armenta RDCS CC: LOTTIE DUGAN Transthoracic Echocardiogram Indication: CVA BP: 102/44 HR: 65 Rhythm: NSR Findings History: DM, HTN, chronic decubitus ulcer, paraplegia, hypothyroidism, CAD, CHF, former smoker. Technical Comments: The study quality is fair. The study is technically limited due to patient body habitus. Completed at 1535. The study was technically limited due to the patient's inability to lay in the left lateral decubitus position. Left Ventricle: The left ventricular chamber size is decreased. Mild concentric left ventricular hypertrophy is observed. There is normal left ventricular systolic function. The estimated ejection fraction is 60-65%. Abnormal left ventricular diastolic function is observed. There is an E to A reversal in the mitral valve flow pattern suggestive of diastolic dysfunction. Left Atrium: The left atrium is slightly dilated. Right Ventricle: The right ventricle is slightly dilated. The right ventricular global systolic function is normal. Right Atrium: The right atrial cavity size is normal. Interatrial septum appears intact without evidence of shunting. A patent foramen ovale is not demonstrated with color Doppler and agitated contrast. Aortic Valve: The aortic valve is trileaflet. The aortic valve leaflets are mildly thickened. There is a trace of aortic regurgitation. There is no evidence of aortic stenosis. Mitral Valve: Mild mitral annular calcification present. The mitral valve leaflets are mildly thickened. There is a trace of mitral regurgitation. There is no evidence of mitral stenosis. Tricuspid Valve: The tricuspid valve structure is not well visualized. There is a physiologic tricuspid regurgitation. No pulmonary hypertension is noted. There is no tricuspid stenosis. Pulmonic Valve: The pulmonic valve structure is not well visualized. There is a trace pulmonic regurgitation. There is no pulmonic stenosis. Pericardium: There is no significant pericardial effusion. A pericardial fat pad is visualized. Aorta: There is no dilatation of the ascending aorta. There is no dilatation of the aortic arch. There is no dilation of the aortic root. Pulmonary Artery: The main pulmonary artery is not well visualized. Venous: The inferior vena cava is not visualized. Contrast: Normal saline was used as contrast for the bubble study. Images 1 and 2. Intravenous contrast was used to help determine presence of intracardiac shunting. Conclusions The left ventricular chamber size is decreased. Mild concentric left ventricular hypertrophy is observed. There is normal left ventricular systolic function. The estimated ejection fraction is 60-65%. The left atrium is slightly dilated. The right ventricle is slightly dilated. The right ventricular global systolic function is normal. A patent foramen ovale is not demonstrated with color Doppler and agitated saline (negative bubble study) No functionally significant valvular abnormalities noted No pulmonary hypertension is noted. Compared to prior study from 07/2013, no significant changes noted Measurements Name Value Normal Range RVIDd (AP) 2D 2.4 cm (0.9 - 2.6) RVDdMajor (2D) 4.2 cm (2.2 - 4.4) RVAW (2D) 0.9 cm (0.2 - 0.5) RAd ISD 4CH 4.6 cm (3.4 - 4.9) RA (A4C)W 4.1 cm (2.9 - 4.6) IVSd (2D) 1.1 cm (0.6 - 1) LVPWd (2D) 1.1 cm (0.6 - 1) LVIDd (2D) 3.4 cm (3.6 - 5.4) LVIDs (2D) 2.7 cm - LV FS (2D) 18 % (25 - 45) Aortic Annulus 1.7 cm (1.4 - 2.6) Ao root diameter (2D) 2.6 cm (2.1 - 3.5) Ascending Ao 2.8 cm (2.1 - 3.4) Aortic arch 2.4 cm (1.8 - 3.4) LA dimension (AP) 2D 3.5 cm (2.3 - 3.8) LAd ISD 4CH 3.8 cm (2.9 - 5.3) LA ISD 4CH W 4.2 cm (2.5 - 4.5) Name Value Normal Range LA ESV SP 4CH (A/L) 48 ml - LA ESV SP 2CH (A/L) 55 ml - LA ESV BP (A/L) 57 ml - LA ESV BP (A/L) index 31.45 ml/m2 - LA ESV SP 4CH (MOD) 44 ml - LA ESV SP 2CH (MOD) 51 ml - Name Value Normal Range MV E-wave Vmax 0.7 m/sec - MV deceleration time 221.8 msec - MV A-wave Vmax 1.22 m/sec - MV E:A ratio 0.57 ratio - LV septal e' Vmax 0.05 m/sec - LV lateral e' Vmax 0.05 m/sec - LV E:e' septal ratio 14 ratio - LV E:e' lateral ratio 14 ratio - Name Value Normal Range AV Vmax 1.26 m/sec - AV VTI 24.2 cm - AV peak gradient 6.3 mmHg - AV mean gradient 3.88 mmHg - LVOT Vmax 1.1 m/sec - LVOT VTI 22.64 cm - LVOT peak gradient 5.26 mmHg - LVOT mean gradient 2.3 mmHg - JUAN Vmax 0.59 m/sec - Name Value Normal Range TR Vmax 1.84 m/sec - TR peak gradient 14 mmHg - RAP 8 mmHg - RVSP 22 mmHg - Name Value Normal Range PV Vmax 1.1 m/sec - PV peak gradient 5.1 mmHg -
[2016-11-10 19:00] LABS: Free T4 2.86 ng/dL (0.61-1.12)
[2016-11-10] MEDS: Insulin GLARGINE(*) 1 UNITS UNIT SUBCUT SCH (21:12)
[2016-11-11] MEDS: tiZANidine TAB* 2 MG PO PRN (00:33)
[2016-11-11] MEDS: oxyCODONE/Acetamin 5/325 MG* TAB PO PRN (00:34)
[2016-11-11] MEDS: Cefepime(*) 2 GM in NS 0.9% 50 ML* 50 ML IVPB SCH ×2 (05:18→17:50)
[2016-11-11] MEDS: Meclizine TAB* 12.5 MG PO SCH ×3 (05:20→21:29)
[2016-11-11] MEDS: Heparin VIAL(*) 5000 UNITS/ML VIAL (FIVE THOUSAND) SUBCUT SCH ×3 (05:22→21:29)
[2016-11-11] MEDS: Aspirin EC Low Dose* 81 MG TAB.EC PO SCH (08:50)
[2016-11-11] MEDS: Methimazole TAB* 5 MG PO SCH (08:51)
[2016-11-11] MEDS: Insulin LISPRO* 1 UNITS UNIT SUBCUT SCH ×3 (08:56→16:54)
[2016-11-11] MEDS ORDERED: Diazepam TAB(*) 5 MG PO ONE (12:32)
[2016-11-11] MEDS ORDERED: Diazepam TAB(*) 2 MG PO PRN (12:32)
--- NOTE | 2016-11-11 14:50 | PN ---
Subjective Date of Service: 11/11/16 Interval History: Patient seen and examined at bedside. She reports persistent vertiginous symptoms, unrelieved by meclizine. Denies fever/chills, new weakness, CP, SOB. No new symptoms today Family History: Unchanged from Admission Social History: Unchanged from Admission Past Medical History: Unchanged from Admission Objective Active Medications: Acetaminophen (Tylenol Tab*) 650 mg PO Q4H PRN PRN Reason: FEVER/PAIN Aspirin (Aspirin Ec Low Dose*) 81 mg PO DAILY [facility] Last Admin: 11/11/16 08:50 Dose: 81 mg Dextrose (D50w Syringe 50 Ml*) 12.5 gm IV PUSH .FOR FS < 60 - SS PRN PRN Reason: FS < 60 Diazepam (Valium Tab(*)) 2.5 mg PO Q8H PRN PRN Reason: DIZZINESS Heparin Sodium (Porcine) (Heparin Vial(*)) 5,000 units SUBCUT Q8HR [facility] Last Admin: 11/11/16 14:22 Dose: 5,000 units Sodium Chloride (Ns 0.9% 1000 Ml*) 1,000 mls @ 100 mls/hr IV PER RATE [facility] Last Admin: 11/10/16 04:43 Dose: 100 mls/hr Cefepime HCl 2 gm/ Sodium (Chloride) 50 mls @ 100 mls/hr IVPB Q12HR@0600,1800 [facility] Last Admin: 11/11/16 05:18 Dose: 100 mls/hr Insulin Glargine (Lantus(*)) 12 units SUBCUT BEDTIME [facility] Last Admin: 11/10/16 21:12 Dose: 12 units Insulin Human Lispro (Humalog*) 0 units SUBCUT AC [facility] PRN Reason: Protocol Last Admin: 11/11/16 13:04 Dose: 3 units Meclizine HCl (Antivert Tab*) 25 mg PO Q8HR [facility] Last Admin: 11/11/16 14:21 Dose: 25 mg Methimazole (Tapazole Tab*) 10 mg PO DAILY [facility] Last Admin: 11/11/16 08:51 Dose: 10 mg Ondansetron HCl (Zofran Inj*) 4 mg IV Q6H PRN PRN Reason: NAUSEA Oxycodone/Acetaminophen (Percocet 5/325 Tab*) 2 tab PO TID PRN PRN Reason: PAIN Last Admin: 11/11/16 00:34 Dose: 2 tab Tizanidine HCl (Zanaflex Tab*) 4 mg PO TID PRN PRN Reason: SPASMS Last Admin: 11/11/16 00:33 Dose: 4 mg Vital Signs 11/10/16 11/10/16 11/10/16 15:37 16:24 19:57 Temperature 98.7 F 98.1 F Pulse Rate 82 85 Respiratory 16 16 16 Rate Blood Pressure 126/51 131/47 (mmHg) O2 Sat by Pulse 100 100 Oximetry 11/10/16 11/11/16 11/11/16 20:00 00:24 00:34 Temperature 98.2 F Pulse Rate 94 Respiratory 16 16 16 Rate Blood Pressure 160/77 (mmHg) O2 Sat by Pulse 100 Oximetry 11/11/16 11/11/16 11/11/16 02:34 04:49 07:39 Temperature 97.4 F 97.5 F Pulse Rate 64 55 Respiratory 18 16 18 Rate Blood Pressure 113/56 124/54 (mmHg) O2 Sat by Pulse 99 100 Oximetry 11/11/16 11/11/16 08:00 13:56 Temperature Pulse Rate Respiratory 18 16 Rate Blood Pressure (mmHg) O2 Sat by Pulse Oximetry Oxygen Devices in Use Now: None Appearance: Female patient, lying in bed, NAD Eyes: PERRLA Ears/Nose/Mouth/Throat: Mucous Membranes Moist Neck: NL Appearance and Movements; NL JVP Respiratory: Symmetrical Chest Expansion and Respiratory Effort, Clear to Auscultation Cardiovascular: NL Sounds; No Murmurs; No JVD, RRR Neurological: Alert and Oriented x 3, - - BUE weakness that is symmetric, BLE with minimal activity Lines/Tubes/Other Access: Clean, Dry and Intact Peripheral IV Nutrition: Taking PO's Result Diagrams: 11/10/16 04:32 11/10/16 04:32 Additional Lab and Data: . Microbiology and Other Data: Microbiology 11/10/16 01:01 Urine Culture - Preliminary Urine Escherichia Coli Pseudomonas Aeruginosa 11/09/16 21:47 Aerobic Blood Culture - Preliminary Blood Venous No Growth Day 1 Anaerobic Blood Culture - Preliminary No Growth Day 1 11/09/16 18:40 Aerobic Blood Culture - Preliminary Blood Venous No Growth Day 1 Anaerobic Blood Culture - Preliminary No Growth Day 1 Diagnostic Imaging: MRI brain - subacute infarct of the vermis with a 1.7 cm spurcellar mass with compression of the optic chiasm MRI brain with contrast - pend CTA neck/brain - pend Echo - pend Assess/Plan/Problems-Billing Assessment: This is an 81 yo female with multiple medical problems including 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 - Patient Problems (1) Cerebellar infarct Code(s): I63.9 - CEREBRAL INFARCTION, UNSPECIFIED Comment: Subacute cerebellar infarct noted on MRI with c/o vertigo Vertigo is not entirely acute, but rather worse than prior episodes No significant response to meclizine, pt agrees to try diazepam CTA head/neck shows no significant carotid artery stenosis Echo shows preserved EF 60-65% and negative bubble study, no significant valvular abnormalities and no pulm htn. Appreciate neuro involvement LDL <70 mg/dl Start ASA Provide supportive measures for persistent vertigo while waiting for symptom improvement (2) Pituitary tumor Comment: 1.7 cm tumor with impingement of optic chiasm Pituitary tumor is previously known, but she has not seen her neurologist in 12 years MRI (2000) - identified pituitary mass measuring 1.2cm at that time. Strong neurosurgery phone consultation on 11/[address] Bagley, who suggested getting pituitary function studies to determine whether the tumor is non- functional. He did not think the mass was related to her acute complaints. He was happy to see her in follow up in the pituitary clinic which can be reached at [phone] for an appointment. She does not require urgent intervention (3) HTN (hypertension) Code(s): I10 - ESSENTIAL (PRIMARY) HYPERTENSION Comment: Normotensive Cont home medications, she is outside the window where permissive hypertension is indicated (4) Decubitus ulcer Code(s): L89.90 - PRESSURE ULCER OF UNSPECIFIED SITE, UNSPECIFIED STAGE Comment: Chronic sacral decubitus ulcer (5) Hypothyroidism Code(s): E03.9 - HYPOTHYROIDISM, UNSPECIFIED Comment: TSH 0.28 (6) Paraplegia Code(s): G82.20 - PARAPLEGIA, UNSPECIFIED Comment: Prior cervical injury WC bound (7) S/P colostomy Code(s): Z93.3 - COLOSTOMY STATUS Comment: diverting colostomy for chronic sacral decubitis ulcer (8) Diastolic heart failure Code(s): I50.30 - UNSPECIFIED DIASTOLIC (CONGESTIVE) HEART FAILURE Comment: No acute exacerbation (9) DVT prophylaxis Comment: SQ heparin (10) Full code status Code(s): Z78.9 - OTHER SPECIFIED HEALTH STATUS Status and Disposition: Inpatient. Persistent symptoms and pending further workup. Anticipate dc in 1- 2 d
--- NOTE | 2016-11-11 15:10 | PN ---
Subjective Family History: Unchanged from Admission Social History: Unchanged from Admission Past Medical History: Unchanged from Admission Objective Active Medications: Acetaminophen (Tylenol Tab*) 650 mg PO Q4H PRN PRN Reason: FEVER/PAIN Aspirin (Aspirin Ec Low Dose*) 81 mg PO DAILY [facility] Last Admin: 11/11/16 08:50 Dose: 81 mg Dextrose (D50w Syringe 50 Ml*) 12.5 gm IV PUSH .FOR FS < 60 - SS PRN PRN Reason: FS < 60 Diazepam (Valium Tab(*)) 2.5 mg PO Q8H PRN PRN Reason: DIZZINESS Heparin Sodium (Porcine) (Heparin Vial(*)) 5,000 units SUBCUT Q8HR [facility] Last Admin: 11/11/16 14:22 Dose: 5,000 units Sodium Chloride (Ns 0.9% 1000 Ml*) 1,000 mls @ 100 mls/hr IV PER RATE [facility] Last Admin: 11/10/16 04:43 Dose: 100 mls/hr Cefepime HCl 2 gm/ Sodium (Chloride) 50 mls @ 100 mls/hr IVPB Q12HR@0600,1800 [facility] Last Admin: 11/11/16 05:18 Dose: 100 mls/hr Insulin Glargine (Lantus(*)) 12 units SUBCUT BEDTIME [facility] Last Admin: 11/10/16 21:12 Dose: 12 units Insulin Human Lispro (Humalog*) 0 units SUBCUT AC [facility] PRN Reason: Protocol Last Admin: 11/11/16 13:04 Dose: 3 units Meclizine HCl (Antivert Tab*) 25 mg PO Q8HR [facility] Last Admin: 11/11/16 14:21 Dose: 25 mg Methimazole (Tapazole Tab*) 10 mg PO DAILY [facility] Last Admin: 11/11/16 08:51 Dose: 10 mg Ondansetron HCl (Zofran Inj*) 4 mg IV Q6H PRN PRN Reason: NAUSEA Oxycodone/Acetaminophen (Percocet 5/325 Tab*) 2 tab PO TID PRN PRN Reason: PAIN Last Admin: 11/11/16 00:34 Dose: 2 tab Tizanidine HCl (Zanaflex Tab*) 4 mg PO TID PRN PRN Reason: SPASMS Last Admin: 11/11/16 00:33 Dose: 4 mg Vital Signs 11/10/16 11/10/16 11/10/16 15:37 16:24 19:57 Temperature 98.7 F 98.1 F Pulse Rate 82 85 Respiratory 16 16 16 Rate Blood Pressure 126/51 131/47 (mmHg) O2 Sat by Pulse 100 100 Oximetry 11/10/16 11/11/16 11/11/16 20:00 00:24 00:34 Temperature 98.2 F Pulse Rate 94 Respiratory 16 16 16 Rate Blood Pressure 160/77 (mmHg) O2 Sat by Pulse 100 Oximetry 11/11/16 11/11/16 11/11/16 02:34 04:49 07:39 Temperature 97.4 F 97.5 F Pulse Rate 64 55 Respiratory 18 16 18 Rate Blood Pressure 113/56 124/54 (mmHg) O2 Sat by Pulse 99 100 Oximetry 11/11/16 11/11/16 08:00 13:56 Temperature Pulse Rate Respiratory 18 16 Rate Blood Pressure (mmHg) O2 Sat by Pulse Oximetry Oxygen Devices in Use Now: None Result Diagrams: 11/10/16 04:32 11/10/16 04:32 Additional Lab and Data: . Microbiology and Other Data: Microbiology 11/10/16 01:01 Urine Culture - Preliminary Urine Escherichia Coli Pseudomonas Aeruginosa 11/09/16 21:47 Aerobic Blood Culture - Preliminary Blood Venous No Growth Day 1 Anaerobic Blood Culture - Preliminary No Growth Day 1 11/09/16 18:40 Aerobic Blood Culture - Preliminary Blood Venous No Growth Day 1 Anaerobic Blood Culture - Preliminary No Growth Day 1 Diagnostic Imaging: MRI brain - subacute infarct of the vermis with a 1.7 cm spurcellar mass with compression of the optic chiasm MRI brain with contrast - pend CTA neck/brain - pend Echo - pend Assess/Plan/Problems-Billing Assessment: This is an 81 yo female with multiple medical problems including 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 Status and Disposition: Inpatient. Persistent symptoms and pending further workup. Anticipate dc in 1- 2 d
[2016-11-11] MEDS: Insulin GLARGINE(*) 1 UNITS UNIT SUBCUT SCH (21:28)
[2016-11-12] MEDS: tiZANidine TAB* 2 MG PO PRN ×2 (00:37→22:09)
[2016-11-12] MEDS: oxyCODONE/Acetamin 5/325 MG* TAB PO PRN ×2 (00:39→22:10)
--- NOTE | 2016-11-12 02:30 | PN ---
PROGRESS NOTE: DATE OF PROGRESS NOTE: 11/11/16 LOCATION: Currently in [facility], bed 1. SUBJECTIVE: The patient has had no new changes overnight. She states that her dizziness is slightly better, but she has been very still overnight. She notes no new focal weakness in her arms. She continues to have diplopia, which she states has been there for years. She states that the room continues to spin when she turns her head. This started sometime during the summer. No other new issues overnight. OBJECTIVE: Vital Signs: Temperatures have been afebrile, pulse rate in the 60s to 80s in general, blood pressures high of 166 systolic, low of 47 diastolic ; respiratory rate 16 to 18; O2 sats have been high 90s to 100%. Current vital signs: Temperature of 97.4, pulse rate of 64, respiratory rate of 16, O2 sat of 99%, blood pressure of 113/56. In general: She is a well-nourished, obese female, lying in her hospital bed. She is pleasant, awake, on her phone. HEENT : She is normocephalic, atraumatic. Sclerae anicteric. Mucous membranes moist. Neck is somewhat stiff. Oropharynx is clear. Chest: Clear to auscultation bilaterally. Cardiovascular: Regular rate and rhythm. Abdomen: Obese, nontender. Extremities: She has marked edema of the lower extremities to the knees. Her skin is dry and flaky. Neurologic Exam: She is awake, alert , oriented x3. Her speech is fluent. There is no dysarthria. Repetition is intact. Cranial nerves II through XII: Her visual cooney are limited. She has no strong evidence of a bitemporal hemianopsia, but does have some limited vision loss in all quadrants, appears to be symmetric, although the examination is difficult. She states she has diplopia in all visual cooney at all times. Pupils are equal, round, and reactive to light. Her face is symmetric. Sensation in her face is intact. Tongue is midline. Oropharynx, her palate raises symmetrically. Motor Exam: She can wiggle her toes slightly on the lower extremities, otherwise, no movement in the lower extremities. He has a history of cervical spine fracture. Upper extremity, she has some movement 4/5 distally, 4/5 proximally. She has no changes on exam. Her DTRs are increased on the left side, 3+ at the left biceps, 1+ at the right biceps, 1+ at the left knee, trace at the right knee, and no Babinski response. Sensation: She has C3- 4 level on examination, but a difficult exam. DIAGNOSTIC STUDIES/LAB DATA: Blood sugars 185 to 215 to 175. LDL 64. Free T4 of 2.86. TSH of 0.28. FSH, luteinizing hormone, and cortisol were normal. She did have a transthoracic echocardiogram, which showed no significant changes from July of 2013. She does have chronic changes, likely hypertension related. No PFO was noted. No functionally significant valvular abnormalities noted. No pulmonary hypertension noted. Ejection fraction 60% to 65%. Her CT angiogram showed no evidence of carotid or intracerebral aneurysm or significant stenosis. Her brain MRI without contrast from 11/09/16 showed a punctate subacute nonhemorrhagic infarct in the vermis and a sella mass. 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 ASSESSMENT AND PLAN: Ms. Hurd is an 81-year-old female who presents with a number of medical issues including a history of a cervical spine injury with resultant paraplegia and sensory level. She has significant diabetes, hypertension, sacral ulcers, hypothyroidism, coronary artery disease, CHF. 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 She was admitted with worsening dizziness and vertigo and MRI of the brain showed a small punctate nonhemorrhagic stroke in the vermis. 1. I suspect that her nonhemorrhagic punctate infarct in the vermis is not playing a large role in her worsening dizziness. She has had vertigo and dizziness for years, she states that it started to worsen in the early summer, but over the last few days worsened more. She states that she deals with this on and off, currently better without much head movement. I would continue conservative care for this. She does get meclizine. 2. 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 She has had a workup. Echocardiogram has no change. CTA shows no evidence of stenosis. At this point, secondary stroke risk factor reduction including tight blood pressure control, tight diabetes control, her LDL is good, continue her low dose aspirin, and she is a nonsmoker. 3. Pituitary mass. Apparently, this has been present for years. I do think it needs to be followed by Neurosurgery. She does have diplopia. I do not get a good sense for bitemporal hemianopsia, but certainly this mass could be enlarging and I think she needs to be followed with serial studies. It should be noted that her examination, specifically her visual examination is extremely difficult to get a good picture. 4. Her hypothyroidism is being followed by her primary care physician. 5. Her history of cervical spine injury with resultant paraplegia, this is a chronic condition. She does take Zanaflex for spasms and she takes pain medications as well. Dr. Cruz is coming on service this afternoon. I will discuss the case with him. [id number]/[facility] #: [id number] WILBUR
[2016-11-12] MEDS: Cefepime(*) 2 GM in NS 0.9% 50 ML* 50 ML IVPB SCH (06:22)
[2016-11-12] MEDS: Meclizine TAB* 12.5 MG PO SCH ×3 (06:24→21:59)
[2016-11-12] MEDS: Heparin VIAL(*) 5000 UNITS/ML VIAL (FIVE THOUSAND) SUBCUT SCH ×3 (06:24→22:00)
[2016-11-12] MEDS: Insulin LISPRO* 1 UNITS UNIT SUBCUT SCH ×3 (08:41→17:47)
[2016-11-12] MEDS ORDERED: Ondansetron INJ* 2 MG/ML VIAL IV ONE (10:15)
--- NOTE | 2016-11-12 10:15 | PN ---
Subjective Date of Service: 11/12/16 Interval History: Patient seen and examined at bedside. Ms. Hurd reports nausea and increased dizziness. Also reports increased muscle spasms in legs overnight and this AM. She reports that she takes Zanaflex 12 mg at night time at home. Denies any other new complaints. Family History: Unchanged from Admission Social History: Unchanged from Admission Past Medical History: Unchanged from Admission Objective Active Medications: Acetaminophen (Tylenol Tab*) 650 mg PO Q4H PRN PRN Reason: FEVER/PAIN Aspirin (Aspirin Ec Low Dose*) 81 mg PO DAILY [facility] Last Admin: 11/11/16 08:50 Dose: 81 mg Dextrose (D50w Syringe 50 Ml*) 12.5 gm IV PUSH .FOR FS < 60 - SS PRN PRN Reason: FS < 60 Diazepam (Valium Tab(*)) 5 mg PO Q8H [facility] Heparin Sodium (Porcine) (Heparin Vial(*)) 5,000 units SUBCUT Q8HR [facility] Last Admin: 11/12/16 06:24 Dose: 5,000 units Sodium Chloride (Ns 0.9% 1000 Ml*) 1,000 mls @ 100 mls/hr IV PER RATE [facility] Last Admin: 11/10/16 04:43 Dose: 100 mls/hr Cefepime HCl 2 gm/ Sodium (Chloride) 50 mls @ 100 mls/hr IVPB Q12HR@0600,1800 [facility] Last Admin: 11/12/16 06:22 Dose: 100 mls/hr Insulin Glargine (Lantus(*)) 12 units SUBCUT BEDTIME [facility] Last Admin: 11/11/16 21:28 Dose: 12 units Insulin Human Lispro (Humalog*) 0 units SUBCUT AC [facility] PRN Reason: Protocol Last Admin: 11/12/16 08:41 Dose: Not Given Meclizine HCl (Antivert Tab*) 25 mg PO Q8HR [facility] Last Admin: 11/12/16 06:24 Dose: 25 mg Methimazole (Tapazole Tab*) 10 mg PO DAILY [facility] Last Admin: 11/11/16 08:51 Dose: 10 mg Ondansetron HCl (Zofran Inj*) 4 mg IV Q6H PRN PRN Reason: NAUSEA Ondansetron HCl (Zofran Inj*) 4 mg IV ONCE ONE Stop: 11/12/16 10:16 Oxycodone/Acetaminophen (Percocet 5/325 Tab*) 2 tab PO TID PRN PRN Reason: PAIN Last Admin: 11/12/16 00:39 Dose: 2 tab Tizanidine HCl (Zanaflex Tab*) 4 mg PO TID PRN PRN Reason: SPASMS Last Admin: 11/12/16 00:37 Dose: 4 mg Tizanidine HCl (Zanaflex Tab*) 12 mg PO BEDTIME PRN PRN Reason: SPASMS Vital Signs 11/11/16 11/11/16 11/11/16 11:05 13:56 15:24 Temperature 97.8 F 98.5 F Pulse Rate 81 78 Respiratory 18 16 12 Rate Blood Pressure 138/50 112/47 (mmHg) O2 Sat by Pulse 100 100 Oximetry 11/11/16 11/11/16 11/11/16 15:56 19:12 20:00 Temperature 98.8 F Pulse Rate 87 Respiratory 18 16 16 Rate Blood Pressure 125/47 (mmHg) O2 Sat by Pulse 100 Oximetry 11/12/16 11/12/16 11/12/16 00:22 00:39 02:39 Temperature 98.2 F Pulse Rate 90 Respiratory 16 18 16 Rate Blood Pressure 144/59 (mmHg) O2 Sat by Pulse 100 Oximetry 11/12/16 11/12/16 03:59 04:07 Temperature 97.8 F Pulse Rate 63 Respiratory 16 Rate Blood Pressure 85/40 108/46 (mmHg) O2 Sat by Pulse 97 Oximetry Oxygen Devices in Use Now: None Appearance: Elderly female, lying in bed, in NAD Eyes: No Scleral Icterus Ears/Nose/Mouth/Throat: Mucous Membranes Moist Neck: NL Appearance and Movements; NL JVP Respiratory: Symmetrical Chest Expansion and Respiratory Effort, Clear to Auscultation Cardiovascular: NL Sounds; No Murmurs; No JVD, RRR Neurological: Alert and Oriented x 3 Lines/Tubes/Other Access: Clean, Dry and Intact Peripheral IV Nutrition: Taking PO's Result Diagrams: 11/10/16 04:32 11/10/16 04:32 Additional Lab and Data: . Microbiology and Other Data: Microbiology 11/10/16 01:01 Urine Culture - Preliminary Urine Escherichia Coli Pseudomonas Aeruginosa 11/09/16 21:47 Aerobic Blood Culture - Preliminary Blood Venous No Growth Day 1 Anaerobic Blood Culture - Preliminary No Growth Day 1 11/09/16 18:40 Aerobic Blood Culture - Preliminary Blood Venous No Growth Day 1 Anaerobic Blood Culture - Preliminary No Growth Day 1 Diagnostic Imaging: MRI brain - subacute infarct of the vermis with a 1.7 cm spurcellar mass with compression of the optic chiasm MRI brain with contrast - pend CTA neck/brain - pend Echo - pend Assess/Plan/Problems-Billing Assessment: This is an 81 yo female with multiple medical problems including 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 - Patient Problems (1) Cerebellar infarct Code(s): I63.9 - CEREBRAL INFARCTION, UNSPECIFIED Comment: Subacute cerebellar infarct noted on MRI with c/o vertigo Vertigo is not entirely acute, but rather worse than prior episodes Improved with 5 mg diazepam dose but then worsened, nausea improved Will increase to diazepam 5 mg q8h CTA head/neck shows no significant carotid artery stenosis Echo shows preserved EF 60-65% and negative bubble study, no significant valvular abnormalities and no pulm htn. Appreciate neuro involvement LDL <70 mg/dl Start ASA Provide supportive measures for persistent vertigo while waiting for symptom improvement (2) Pituitary tumor Comment: 1.7 cm tumor with impingement of optic chiasm Pituitary tumor is previously known, but she has not seen her neurologist in 12 years MRI (2000) - identified pituitary mass measuring 1.2cm at that time. Strong neurosurgery phone consultation on 11/[address] Bagley, who suggested getting pituitary function studies to determine whether the tumor is non- functional. He did not think the mass was related to her acute complaints. He was happy to see her in follow up in the pituitary clinic which can be reached at [phone] for an appointment. She does not require urgent intervention (3) HTN (hypertension) Code(s): I10 - ESSENTIAL (PRIMARY) HYPERTENSION Comment: Normotensive Cont home medications, she is outside the window where permissive hypertension is indicated (4) Decubitus ulcer Code(s): L89.90 - PRESSURE ULCER OF UNSPECIFIED SITE, UNSPECIFIED STAGE Comment: Chronic sacral decubitus ulcer (5) Hypothyroidism Code(s): E03.9 - HYPOTHYROIDISM, UNSPECIFIED Comment: TSH 0.28 (6) Paraplegia Code(s): G82.20 - PARAPLEGIA, UNSPECIFIED Comment: Prior cervical injury WC bound (7) S/P colostomy Code(s): Z93.3 - COLOSTOMY STATUS Comment: diverting colostomy for chronic sacral decubitis ulcer (8) Diastolic heart failure Code(s): I50.30 - UNSPECIFIED DIASTOLIC (CONGESTIVE) HEART FAILURE Comment: No acute exacerbation (9) DVT prophylaxis Comment: SQ heparin (10) Full code status Code(s): Z78.9 - OTHER SPECIFIED HEALTH STATUS Status and Disposition: Inpatient. PT/OT eval to aide with c/o vertigo. Dc planning in progress.
[2016-11-12] MEDS: Methimazole TAB* 5 MG PO SCH (10:21)
[2016-11-12] MEDS: Aspirin EC Low Dose* 81 MG TAB.EC PO SCH (10:21)
[2016-11-12] MEDS: Diazepam TAB(*) 5 MG PO SCH ×2 (11:17→20:30)
[2016-11-12] MEDS: Meropenem 500MG PREMIX(*) 500 MG/50 ML BAG IV SCH ×2 (15:01→20:23)
[2016-11-12] MEDS: Insulin GLARGINE(*) 1 UNITS UNIT SUBCUT SCH (20:30)
[2016-11-12] MEDS: Dextrose 50% Syringe 50 ML* 25 GM/50 ML SYRINGE IV PUSH PRN ×2 (22:17→23:13)
--- NOTE | 2016-11-12 22:36 | PN ---
Progress Note - Progress Note Date of Service: 11/12/16 Note: Nursing reports irregular rhythm. ECG shows sinus tachycardia with frequent PACs. Diffuse non-diagnostic ST-T abnormalities similar to previous.
[2016-11-12] MEDS ORDERED: Dextrose 50% Syringe 50 ML* 25 GM/50 ML SYRINGE IV PUSH ONE (23:00)
[2016-11-13] MEDS ORDERED: NS 0.9% 250 ML* 250 ML IV SCH (00:40)
[2016-11-13] MEDS: Diazepam TAB(*) 5 MG PO SCH ×3 (04:22→20:03)
[2016-11-13] MEDS: Meclizine TAB* 12.5 MG PO SCH ×3 (05:25→21:54)
[2016-11-13] MEDS: Meropenem 500MG PREMIX(*) 500 MG/50 ML BAG IV SCH ×3 (05:25→21:48)
[2016-11-13] MEDS: Heparin VIAL(*) 5000 UNITS/ML VIAL (FIVE THOUSAND) SUBCUT SCH ×3 (05:25→21:52)
[2016-11-13] MEDS: Insulin LISPRO* 1 UNITS UNIT SUBCUT SCH ×3 (08:14→16:54)
[2016-11-13] MEDS: Aspirin EC Low Dose* 81 MG TAB.EC PO SCH (08:23)
[2016-11-13] MEDS: Methimazole TAB* 5 MG PO SCH (08:23)
--- NOTE | 2016-11-13 10:16 | PN ---
Subjective Date of Service: 11/13/16 Interval History: Patient seen and examined at bedside. She endorses feeling tired - had hypoglycemia last night. Reports "not eating much" for dinner but was still covered with insulin. We discussed talking with nursing if she is not going to eat much in order to adjust insulin dosing. Reports worsening dizziness this morning, skipped overnight diazepam dose. I expressed concern that patient does not appear to be improving and is not safe for discharge home by herself. She is adamant about not going to senior care or rehab. We discussed using the medications to help with symptom control. Patient is to get up to chair today; she uses demetris at home at baseline. Family History: Unchanged from Admission Social History: Unchanged from Admission Past Medical History: Unchanged from Admission Objective Active Medications: Acetaminophen (Tylenol Tab*) 650 mg PO Q4H PRN PRN Reason: FEVER/PAIN Aspirin (Aspirin Ec Low Dose*) 81 mg PO DAILY [facility] Last Admin: 11/13/16 08:23 Dose: 81 mg Dextrose (D50w Syringe 50 Ml*) 12.5 gm IV PUSH .FOR FS < 60 - SS PRN PRN Reason: FS < 60 Last Admin: 11/12/16 23:13 Dose: 12.5 gm Diazepam (Valium Tab(*)) 5 mg PO Q8H [facility] Last Admin: 11/13/16 04:22 Dose: Not Given Heparin Sodium (Porcine) (Heparin Vial(*)) 5,000 units SUBCUT Q8HR [facility] Last Admin: 11/13/16 05:25 Dose: 5,000 units Sodium Chloride (Ns 0.9% 1000 Ml*) 1,000 mls @ 100 mls/hr IV PER RATE [facility] Last Admin: 11/10/16 04:43 Dose: 100 mls/hr Meropenem (Merrem 500mg Premix(*)) 500 mg in 50 mls @ 100 mls/hr IV Q8H [facility] Last Admin: 11/13/16 05:25 Dose: 100 mls/hr Insulin Glargine (Lantus(*)) 12 units SUBCUT BEDTIME [facility] Last Admin: 11/12/16 20:30 Dose: 12 units Insulin Human Lispro (Humalog*) 0 units SUBCUT AC [facility] PRN Reason: Protocol Last Admin: 11/13/16 08:14 Dose: 6 units Meclizine HCl (Antivert Tab*) 25 mg PO Q8HR [facility] Last Admin: 11/13/16 05:25 Dose: 25 mg Methimazole (Tapazole Tab*) 10 mg PO DAILY [facility] Last Admin: 11/13/16 08:23 Dose: 10 mg Ondansetron HCl (Zofran Inj*) 4 mg IV Q6H PRN PRN Reason: NAUSEA Oxycodone/Acetaminophen (Percocet 5/325 Tab*) 2 tab PO TID PRN PRN Reason: PAIN Last Admin: 11/12/16 22:10 Dose: 2 tab Tizanidine HCl (Zanaflex Tab*) 4 mg PO TID PRN PRN Reason: SPASMS Last Admin: 11/12/16 00:37 Dose: 4 mg Tizanidine HCl (Zanaflex Tab*) 12 mg PO BEDTIME PRN PRN Reason: SPASMS Last Admin: 11/12/16 22:09 Dose: 12 mg Vital Signs 11/12/16 11/12/16 11/12/16 11:17 12:03 13:17 Temperature 97.7 F Pulse Rate 69 Respiratory 16 16 16 Rate Blood Pressure 102/47 (mmHg) O2 Sat by Pulse 99 Oximetry 11/12/16 11/12/16 11/12/16 15:27 19:29 20:00 Temperature 99.3 F 99.1 F Pulse Rate 88 92 Respiratory 16 16 16 Rate Blood Pressure 107/39 116/54 (mmHg) O2 Sat by Pulse 99 100 Oximetry 11/12/16 11/12/16 11/12/16 20:30 22:10 22:18 Temperature Pulse Rate 104 Respiratory 16 18 Rate Blood Pressure 147/50 (mmHg) O2 Sat by Pulse Oximetry 11/12/16 11/13/16 11/13/16 22:30 00:10 00:22 Temperature 98.0 F Pulse Rate 73 Respiratory 16 16 18 Rate Blood Pressure 73/37 (mmHg) O2 Sat by Pulse 100 Oximetry 11/13/16 11/13/16 00:30 03:22 Temperature 97.6 F Pulse Rate 60 Respiratory 18 Rate Blood Pressure 88/50 108/48 (mmHg) O2 Sat by Pulse 100 Oximetry Oxygen Devices in Use Now: None Appearance: Female patient, lying in bed, appears tired but in NAD Eyes: No Scleral Icterus, PERRLA Ears/Nose/Mouth/Throat: Mucous Membranes Moist Respiratory: Symmetrical Chest Expansion and Respiratory Effort, Clear to Auscultation Cardiovascular: NL Sounds; No Murmurs; No JVD, RRR Abdominal: NL Sounds; No Tenderness; No Distention Neurological: Alert and Oriented x 3 Lines/Tubes/Other Access: Clean, Dry and Intact Peripheral IV Nutrition: Taking PO's Result Diagrams: 11/10/16 04:32 11/10/16 04:32 Additional Lab and Data: . Microbiology and Other Data: Microbiology 11/10/16 01:01 Urine Culture - Preliminary Urine Escherichia Coli Pseudomonas Aeruginosa 11/09/16 21:47 Aerobic Blood Culture - Preliminary Blood Venous No Growth Day 1 Anaerobic Blood Culture - Preliminary No Growth Day 1 11/09/16 18:40 Aerobic Blood Culture - Preliminary Blood Venous No Growth Day 1 Anaerobic Blood Culture - Preliminary No Growth Day 1 Diagnostic Imaging: MRI brain - subacute infarct of the vermis with a 1.7 cm spurcellar mass with compression of the optic chiasm MRI brain with contrast - pend CTA neck/brain - pend Echo - pend Assess/Plan/Problems-Billing Assessment: This is an 81 yo female with multiple medical problems including 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 - Patient Problems (1) Cerebellar infarct Code(s): I63.9 - CEREBRAL INFARCTION, UNSPECIFIED Comment: Subacute cerebellar infarct noted on MRI with c/o vertigo Vertigo is not entirely acute, but rather worse than prior episodes Continue meclizine, diazepam - encourage activity with PT/OT ? dc plan, as patient is reluctant to get OOB CTA head/neck shows no significant carotid artery stenosis Echo shows preserved EF 60-65% and negative bubble study, no significant valvular abnormalities and no pulm htn. Appreciate neuro involvement LDL <70 mg/dl Start ASA Provide supportive measures for persistent vertigo while waiting for symptom improvement (2) Pituitary tumor Comment: 1.7 cm tumor with impingement of optic chiasm Pituitary tumor is previously known, but she has not seen her neurologist in 12 years MRI (2000) - identified pituitary mass measuring 1.2cm at that time. Strong neurosurgery phone consultation on 11/[address] Bagley, who suggested getting pituitary function studies to determine whether the tumor is non- functional. He did not think the mass was related to her acute complaints. He was happy to see her in follow up in the pituitary clinic which can be reached at [phone] for an appointment. She does not require urgent intervention (3) HTN (hypertension) Code(s): I10 - ESSENTIAL (PRIMARY) HYPERTENSION Comment: Normotensive Cont home medications, she is outside the window where permissive hypertension is indicated (4) Decubitus ulcer Code(s): L89.90 - PRESSURE ULCER OF UNSPECIFIED SITE, UNSPECIFIED STAGE Comment: Chronic sacral decubitus ulcer (5) Hypothyroidism Code(s): E03.9 - HYPOTHYROIDISM, UNSPECIFIED Comment: TSH 0.28 (6) Paraplegia Code(s): G82.20 - PARAPLEGIA, UNSPECIFIED Comment: Prior cervical injury WC bound (7) S/P colostomy Code(s): Z93.3 - COLOSTOMY STATUS Comment: diverting colostomy for chronic sacral decubitis ulcer (8) Diastolic heart failure Code(s): I50.30 - UNSPECIFIED DIASTOLIC (CONGESTIVE) HEART FAILURE Comment: No acute exacerbation (9) DVT prophylaxis Comment: SQ heparin (10) Full code status Code(s): Z78.9 - OTHER SPECIFIED HEALTH STATUS Status and Disposition: Inpatient. PT/OT eval to aide with c/o vertigo. Dc planning in progress.
[2016-11-13] MEDS: oxyCODONE/Acetamin 5/325 MG* TAB PO PRN ×2 (10:26→23:10)
[2016-11-13] MEDS ORDERED: NS 0.9% 500 ML BAG* 500 ML IV ONE (15:21)
[2016-11-13] MEDS: Insulin GLARGINE(*) 1 UNITS UNIT SUBCUT SCH (21:52)
[2016-11-13] MEDS: tiZANidine TAB* 2 MG PO PRN (23:10)
[2016-11-14] MEDS: Diazepam TAB(*) 5 MG PO SCH (03:26)
[2016-11-14] MEDS: Meropenem 500MG PREMIX(*) 500 MG/50 ML BAG IV SCH (04:57)
[2016-11-14] MEDS: Heparin VIAL(*) 5000 UNITS/ML VIAL (FIVE THOUSAND) SUBCUT SCH ×3 (05:38→21:30)
[2016-11-14] MEDS: Meclizine TAB* 12.5 MG PO SCH ×2 (05:38→13:49)
[2016-11-14 06:08] LABS: Hematocrit 29 % (35-47); Hemoglobin 9.6 g/dl (12.0-16.0); Mean Corpuscular HGB Conc 33 g/dl (31-36); Mean Corpuscular Hemoglobin 30 pg (27-31); Mean Corpuscular Volume 90 fL (80-97); Mean Platelet Volume 7 um3 (7.4-10.4); Red Blood Count 3.21 10^6/ul (4.0-5.4); Red Cell Distribution Width 15 % (10.5-15); White Blood Count 13.4 10^3/ul (3.5-10.8)
[2016-11-14 06:18] LABS: BUN/Creatinine Ratio 19.6 (8-20); Calcium 8.9 mg/dL (8.6-10.3); EGFR Non-African American 104.2 (>60); Potassium 3.1 mmol/L (3.5-5.0)
[2016-11-14] MEDS: Methimazole TAB* 5 MG PO SCH ×2 (08:36→12:06)
[2016-11-14] MEDS: Potassium Chlor TAB* 20 MEQ TAB.ER PO SCH ×2 (09:08→21:30)
[2016-11-14] MEDS: Aspirin EC Low Dose* 81 MG TAB.EC PO SCH (09:09)
--- NOTE | 2016-11-14 10:00 | PN ---
Subjective Date of Service: 11/14/16 Interval History: This is an 81 yo female admitted with vertigo related to cerebellar infarct. Patient has been unable/unwilling to move from a supine position. She has been treated with scheduled meclizine and diazepam for symptom relief. She did participate with PT yesterday but reported her dizziness was unbearable with sitting upright. Recommendations at this time include bed repositioning and rolling from side to side. Was asked to evaluated the patient by nursing staff this am for lethargy and hypotension. Patient reports that she is "having trouble organizing her thoughts" but denies "lethargy". She reports no change to her dizziness. Objective Active Medications: Acetaminophen (Tylenol Tab*) 650 mg PO Q4H PRN PRN Reason: FEVER/PAIN Aspirin (Aspirin Ec Low Dose*) 81 mg PO DAILY [facility] Last Admin: 11/14/16 09:09 Dose: 81 mg Dextrose (D50w Syringe 50 Ml*) 12.5 gm IV PUSH .FOR FS < 60 - SS PRN PRN Reason: FS < 60 Last Admin: 11/12/16 23:13 Dose: 12.5 gm Diazepam (Valium Tab(*)) 2.5 mg PO Q8H [facility] Heparin Sodium (Porcine) (Heparin Vial(*)) 5,000 units SUBCUT Q8HR [facility] Last Admin: 11/14/16 05:38 Dose: 5,000 units Sodium Chloride (Ns 0.9% 1000 Ml*) 1,000 mls @ 100 mls/hr IV PER RATE [facility] Last Admin: 11/10/16 04:43 Dose: 100 mls/hr Insulin Glargine (Lantus(*)) 12 units SUBCUT BEDTIME [facility] Last Admin: 11/13/16 21:52 Dose: 12 units Insulin Human Lispro (Humalog*) 0 units SUBCUT AC [facility] PRN Reason: Protocol Last Admin: 11/13/16 16:54 Dose: 3 units Meclizine HCl (Antivert Tab*) 25 mg PO Q8HR [facility] Last Admin: 11/14/16 05:38 Dose: 25 mg Methimazole (Tapazole Tab*) 10 mg PO DAILY [facility] Last Admin: 11/14/16 08:36 Dose: Not Given Ondansetron HCl (Zofran Inj*) 4 mg IV Q6H PRN PRN Reason: NAUSEA Oxycodone/Acetaminophen (Percocet 5/325 Tab*) 2 tab PO TID PRN PRN Reason: PAIN Last Admin: 11/13/16 23:10 Dose: 2 tab Potassium Chloride (Klor Con Er Tab*) 20 meq PO BID [facility] Stop: 11/15/16 21:01 Last Admin: 11/14/16 09:08 Dose: 20 meq Tizanidine HCl (Zanaflex Tab*) 4 mg PO TID PRN PRN Reason: SPASMS Last Admin: 11/12/16 00:37 Dose: 4 mg Tizanidine HCl (Zanaflex Tab*) 12 mg PO BEDTIME PRN PRN Reason: SPASMS Last Admin: 11/13/16 23:10 Dose: 12 mg Vital Signs: Temp Pulse Resp BP Pulse Ox 98 F 63 16 90/54 100 11/14/16 08:01 11/14/16 07:31 11/14/16 07:31 11/14/16 08:31 11/14/16 07:31 Oxygen Devices in Use Now: None Appearance: Lethargic, clear speech, no acute distress. Asking to end interview early so she may enjoy her "poached eggs before they get cold" Result Diagrams: 11/14/16 05:15 11/14/16 05:15 Additional Lab and Data: . Microbiology and Other Data: Microbiology 11/10/16 01:01 Urine Culture - Preliminary Urine Escherichia Coli Pseudomonas Aeruginosa 11/09/16 21:47 Aerobic Blood Culture - Preliminary Blood Venous No Growth Day 1 Anaerobic Blood Culture - Preliminary No Growth Day 1 11/09/16 18:40 Aerobic Blood Culture - Preliminary Blood Venous No Growth Day 1 Anaerobic Blood Culture - Preliminary No Growth Day 1 Diagnostic Imaging: MRI brain - subacute infarct of the vermis with a 1.7 cm spurcellar mass with compression of the optic chiasm MRI brain with contrast - pend CTA neck/brain - pend Echo - pend Assess/Plan/Problems-Billing Assessment: This is an 81 yo female with multiple medical problems including 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 - Patient Problems (1) Cerebellar infarct Comment: Subacute cerebellar infarct noted on MRI with c/o vertigo Vertigo is not entirely acute, but rather worse than prior episodes CTA head/neck shows no significant carotid artery stenosis Echo shows preserved EF 60-65% and negative bubble study, no significant valvular abnormalities and no pulm htn. Appreciate neuro involvement LDL <70 mg/dl Started ASA Unable to tolerate sitting up - continue to encourage activity with PT/OT Noted lethargy without significant improvement in symptoms, plan to decrease dose of diazepam (2) Pituitary tumor Comment: 1.7 cm tumor with impingement of optic chiasm Pituitary tumor is previously known, but she has not seen her neurologist in 12 years MRI (2000) - identified pituitary mass measuring 1.2cm at that time. Strong neurosurgery phone consultation on 11/[address] Bagley. He did not think the mass was related to her acute complaints. He was happy to see her in follow up in the pituitary clinic which can be reached at [phone] for an appointment. She does not require urgent intervention Tumor appears non-functional at this time, slightly low TSH, high T4, nl FSH, LH , and cortisol Prolactin and ILGF pending at this time (3) UTI (urinary tract infection) Comment: Initial UA suggestive of UTI Culture grew ESBL + EColi, initial empiric treatment was cefepime, switched to meropenem Discussed with ID MD, Evan Rose, who suggested in the setting of a chronic indwelling Valera catheter without fever or leukocytosis to stop abx at this time (4) HTN (hypertension) Comment: Hypotensive over the last 48 hrs Perhaps related to benzo use Holding lasix at this time (5) Decubitus ulcer Comment: Chronic sacral decubitus ulcer (6) Hypothyroidism Comment: TSH 0.28 (7) Paraplegia Comment: Prior cervical injury WC bound (8) S/P colostomy Comment: diverting colostomy for chronic sacral decubitis ulcer (9) Diastolic heart failure Comment: No acute exacerbation (10) DVT prophylaxis Comment: SQ heparin (11) Full code status Status and Disposition: Inpatient. Cont to work on symptom management
[2016-11-14] MEDS: Insulin LISPRO* 1 UNITS UNIT SUBCUT SCH ×3 (10:08→17:25)
[2016-11-14] MEDS ORDERED: Diazepam TAB(*) 5 MG PO SCH (11:00)
[2016-11-14 11:17] LABS: IGF1 Z-score <-3.00 SD
[2016-11-14] MEDS ORDERED: Scopolamine 1.5 mg* PATCH TRANSDERM SCH (17:00)
[2016-11-14] MEDS: Insulin GLARGINE(*) 1 UNITS UNIT SUBCUT SCH (22:01)
[2016-11-14] MEDS: oxyCODONE/Acetamin 5/325 MG* TAB PO PRN (22:07)
[2016-11-14] MEDS: tiZANidine TAB* 2 MG PO PRN (22:07)
[2016-11-15] MEDS: Heparin VIAL(*) 5000 UNITS/ML VIAL (FIVE THOUSAND) SUBCUT SCH ×3 (06:11→20:46)
[2016-11-15] MEDS: Insulin LISPRO* 1 UNITS UNIT SUBCUT SCH ×3 (07:52→17:44)
[2016-11-15] MEDS: Potassium Chlor TAB* 20 MEQ TAB.ER PO SCH ×2 (09:21→20:45)
[2016-11-15] MEDS: Aspirin EC Low Dose* 81 MG TAB.EC PO SCH (09:23)
[2016-11-15] MEDS: Clotrimazole 1% CREAM* 45 GM TOPICAL SCH ×2 (09:24→20:46)
[2016-11-15] MEDS: Methimazole TAB* 5 MG PO SCH (09:25)
--- NOTE | 2016-11-15 10:27 | PN ---
Subjective Date of Service: 11/15/16 Interval History: Patient reports a new RUIZ with nausea and L sided ear/facial pain. Symptoms started overnight. She was able to eat breakfast this am. Denies new weakness. She is lethargic this am, reporting that she did not sleep well last night. She states she is still dizzy this am, but the quality of the dizziness is different somehow. Objective Active Medications: Acetaminophen (Tylenol Tab*) 650 mg PO Q4H PRN PRN Reason: FEVER/PAIN Aspirin (Aspirin Ec Low Dose*) 81 mg PO DAILY [facility] Last Admin: 11/15/16 09:23 Dose: 81 mg Clotrimazole (Clotrimazole 1%*) 1 applic TOPICAL BID [facility] Last Admin: 11/15/16 09:24 Dose: 1 applic Dextrose (D50w Syringe 50 Ml*) 12.5 gm IV PUSH .FOR FS < 60 - SS PRN PRN Reason: FS < 60 Last Admin: 11/12/16 23:13 Dose: 12.5 gm Heparin Sodium (Porcine) (Heparin Vial(*)) 5,000 units SUBCUT Q8HR [facility] Last Admin: 11/15/16 06:11 Dose: 5,000 units Insulin Glargine (Lantus(*)) 12 units SUBCUT BEDTIME [facility] Last Admin: 11/14/16 22:01 Dose: 12 units Insulin Human Lispro (Humalog*) 0 units SUBCUT AC [facility] PRN Reason: Protocol Last Admin: 11/15/16 07:52 Dose: Not Given Methimazole (Tapazole Tab*) 10 mg PO DAILY [facility] Last Admin: 11/15/16 09:25 Dose: 10 mg Ondansetron HCl (Zofran Inj*) 4 mg IV Q6H PRN PRN Reason: NAUSEA Oxycodone/Acetaminophen (Percocet 5/325 Tab*) 2 tab PO TID PRN PRN Reason: PAIN Last Admin: 11/14/16 22:07 Dose: 2 tab Potassium Chloride (Klor Con Er Tab*) 20 meq PO BID [facility] Stop: 11/15/16 21:01 Last Admin: 11/15/16 09:21 Dose: 20 meq Scopolamine (Transderm-Scop 1.5 Mg Patch*) 1 patch TRANSDERM Q72H [facility] Last Admin: 11/14/16 21:29 Dose: 1 patch Tizanidine HCl (Zanaflex Tab*) 4 mg PO TID PRN PRN Reason: SPASMS Last Admin: 11/12/16 00:37 Dose: 4 mg Tizanidine HCl (Zanaflex Tab*) 12 mg PO BEDTIME PRN PRN Reason: SPASMS Last Admin: 11/14/16 22:07 Dose: 12 mg Vital Signs: Temp Pulse Resp BP Pulse Ox 98.2 F 57 20 86/44 99 11/15/16 03:12 11/15/16 07:36 11/15/16 07:36 11/15/16 08:31 11/15/16 07:36 Oxygen Devices in Use Now: None Appearance: Lethargic appearing elderly female in NAD Respiratory: Symmetrical Chest Expansion and Respiratory Effort, Clear to Auscultation, - - limited exam secondary to body habitus Cardiovascular: NL Sounds; No Murmurs; No JVD, RRR Abdominal: NL Sounds; No Tenderness; No Distention Extremities: No Edema Skin: No Rash or Ulcers Neurological: Alert and Oriented x 3, - - lethargic appearing, 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 Microbiology and Other Data: Microbiology 11/10/16 01:01 Urine Culture - Preliminary Urine Escherichia Coli Pseudomonas Aeruginosa 11/09/16 21:47 Aerobic Blood Culture - Preliminary Blood Venous No Growth Day 1 Anaerobic Blood Culture - Preliminary No Growth Day 1 11/09/16 18:40 Aerobic Blood Culture - Preliminary Blood Venous No Growth Day 1 Anaerobic Blood Culture - Preliminary No Growth Day 1 Diagnostic Imaging: MRI brain - subacute infarct of the vermis with a 1.7 cm spurcellar mass with compression of the optic chiasm MRI brain with contrast - pend CTA neck/brain - pend Echo - pend Assess/Plan/Problems-Billing Assessment: This is an 81 yo female with multiple medical problems including 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 - Patient Problems (1) Cerebellar infarct Comment: Subacute cerebellar infarct noted on MRI with c/o vertigo Vertigo is not entirely acute, but rather worse than prior episodes CTA head/neck shows no significant carotid artery stenosis Echo shows preserved EF 60-65% and negative bubble study, no significant valvular abnormalities and no pulm htn. Appreciate neuro involvement LDL <70 mg/dl Started ASA Unable to tolerate sitting up - continue to encourage activity with PT/OT She reports new RUIZ and nausea this am, will repeat CT of the head to evaluate for hemorrhage, no new neuro deficits Requested re-evaluation by neurology today, appreciate input Diazepam and meclizine have been stopped, scopolamine patch in place in hopes of controlling vertigo sx's (2) Hypotension Comment: Patient has been hypotensive intermittently over the last 48-72 hrs Mentating well, but lethargic this am which patient blames on poor sleep last night Am cortisol checked earlier in her hosp stay and WNL Diazepam has been stopped Consider infectious etiology, will repeat CBC, BMP, CRP and blood cultures at this time (3) Pituitary tumor Comment: 1.7 cm tumor with impingement of optic chiasm Pituitary tumor is previously known, but she has not seen her neurologist in 12 years MRI (2000) - identified pituitary mass measuring 1.2cm at that time. Strong neurosurgery phone consultation on 11/[address] Bagley. He did not think the mass was related to her acute complaints. He was happy to see her in follow up in the pituitary clinic which can be reached at [phone] for an appointment. She does not require urgent intervention Tumor appears non-functional at this time, slightly low TSH, high T4, nl FSH, LH , prolactin, and cortisol ILGF pending at this time (4) UTI (urinary tract infection) Comment: Initial UA suggestive of UTI Culture grew ESBL + EColi, initial empiric treatment was cefepime, switched to meropenem Discussed with ID MD, Evan Rose, who suggested in the setting of a chronic indwelling Valera catheter without other signs of infection Repeat labs pending in the setting of persistent hypotension (5) HTN (hypertension) Comment: Hypotensive over the last 48 hrs Perhaps related to benzo use Holding lasix at this time (6) Decubitus ulcer Comment: Chronic sacral decubitus ulcer Stage III, 10cm in diameter without associated infection (7) Hypothyroidism Comment: TSH 0.28 (8) Paraplegia Comment: Prior cervical injury WC bound (9) S/P colostomy Comment: diverting colostomy for chronic sacral decubitis ulcer (10) Diastolic heart failure Comment: No acute exacerbation (11) DVT prophylaxis Comment: SQ heparin (12) Full code status Status and Disposition: Inpatient. Pending repeat CT and repeat neuro eval. Patient will likely require MARBIN/LTC which she is quite resistant to
--- NOTE | 2016-11-15 11:12 | RAD ---
Indication: New headache and nausea. Status post ischemic CVA. Sellar and suprasellar mass. Comparison: November 10, 2016 Technique: Noncontrast CT vertex of skull through foramen magnum. Report: Mild prominence of the cerebral sulci reflecting atrophy. Unremarkable ventricles. 1.3 x 1.3 cm hyperdense mass extending from the pituitary fossa into the suprasellar cistern as previously documented without change. No additional abnormality of the basal cisterns. Decreased density in the periventricular and subcortical white matter while non-specific is most likely due to chronic microangiopathy. Atherosclerotic calcification of the intracranial internal carotid arteries and vertebral arteries at the skull base. Negative for paredes matter white matter obscuration, intra or extra-axial hemorrhage, or mass effect. No suspicious calvarial or skull base lesion. Clear visualized paranasal sinuses and mastoid air spaces. IMPRESSION: 1. Negative for CT stigmata of ischemic stroke or intracranial hemorrhage. 2. Mild atrophy and stigmata of chronic small vessel ischemic disease. 3. 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
[2016-11-15 11:26] LABS: Hematocrit 28 % (35-47); Hemoglobin 9.4 g/dl (12.0-16.0); Mean Corpuscular HGB Conc 33 g/dl (31-36); Mean Corpuscular Hemoglobin 30 pg (27-31); Mean Corpuscular Volume 91 fL (80-97); Mean Platelet Volume 7 um3 (7.4-10.4); Red Cell Distribution Width 15 % (10.5-15); White Blood Count 13.9 10^3/ul (3.5-10.8)
[2016-11-15 11:27] LABS: Add Diff/Slide Review? Slide Review Added; Comments Flag Yes
[2016-11-15 11:53] LABS: Eosinophils % 4 % (0-6); Immature Granulocytes 2 % (0-9); Myelocytes % 2 % (0-1); Neutrophil % 69 % (38-83); RBC Morphology Normal (Normal)
[2016-11-15 13:56] LABS: BUN/Creatinine Ratio 24.4 (8-20); C Reactive Protein 26.08 mg/L (< 5.00); Calcium 9.3 mg/dL (8.6-10.3); EGFR Non-African American 149.3 (>60)
--- NOTE | 2016-11-15 15:49 | CONS ---
NEUROLOGY FOLLOWUP NOTE: DATE OF FOLLOWUP: 11/15/16 HOSPITALIST: BRANDON Tobias. LOCATION: She is an inpatient in [place]. CHIEF COMPLAINT: Dizziness. INTERVAL HISTORY: I was asked to follow up on Ms. Hurd because of persistent dizziness. She was seen initially on our service by Dr. Tristin Hernandez. She has continued to complain of dizziness in spite of trials of benzodiazepine and meclizine. Currently, she reports dizziness that she has had for quite a long time, but it is much worse. She states any movement aggravates it. She describes both a "seasick" type of sensation and a to and fro sensation and also a sense that she might faint. Of note, her blood pressure is quite labile as has been as low as 86/44 and at other times, is upwards of 160/60. MEDICATIONS: Medications were reviewed and she is on: 1. Methimazole. 2. Tizanidine. 3. Scopolamine patch, which was just started. 4. Percocet 5/325 two t.i.d. p.r.n. pain. 5. Insulin. 6. Heparin 5000 units subcu q.8 hours. 7. Aspirin 81 mg. PHYSICAL EXAM: On most recent blood pressure is 94/43, temperature 97.6, heart rates running in the 50s. Neck is supple. Skin is warm and dry. Eye movement seen full when she is visually tracking and carrying on a conversation with me, but when formally tested, she squints and exhibits erratic eye movements. I cannot see evidence of nystagmus and I cannot get her to look to the right or left or up. She appears to have full versions. Visual field testing is unreliable. Specifically, with double simultaneous stimulation , she reports seeing one image to her left, one to her right, and one in the middle of her visual field. Facial musculature is symmetric and speech is clear. 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 She has minimal movement in her legs. DIAGNOSTIC STUDIES/LAB DATA: Laboratory data is reviewed and her urinalysis is abnormal and on urine culture, she had multiple organisms including an extended spectrum beta lactamase egg producer, E. coli, and Pseudomonas. Other laboratory data is notable for glucose of 135 today, fairly unremarkable chemistry profile otherwise. CRP was elevated at 26.08 today, cortisol when she just came in was in the lower range of 7.68. TSH is low and free T4 is elevated. Prolactin level from 11/14/16 was normal at 19.1. IMPRESSION: Her exam is difficult to sort out as there appears to be a functional component; however, she has a number of medical problems including a pituitary macroadenoma, paraplegia, and diabetes. Her blood pressure is very labile as well. Currently, scopolamine is just been a try today. She might benefit by treatment of a possible urinary tract infection, although she has a chronic indwelling Valera and it is hard to say if she actually has an active infection or just colonization. Her macroadenoma will need addressing, but apparently the case was discussed with Dr. Yudi mo in [place] who has felt this could be done as an outpatient. I will discuss the case with Jeff Loza. [id number]/[facility] #: [id number] WILBUR
[2016-11-15] MEDS: Insulin GLARGINE(*) 1 UNITS UNIT SUBCUT SCH (20:46)
[2016-11-15] MEDS: oxyCODONE/Acetamin 5/325 MG* TAB PO PRN (23:49)
[2016-11-15] MEDS: tiZANidine TAB* 2 MG PO PRN (23:49)
[2016-11-16] MEDS: Heparin VIAL(*) 5000 UNITS/ML VIAL (FIVE THOUSAND) SUBCUT SCH ×3 (06:21→22:25)
[2016-11-16] MEDS: Insulin LISPRO* 1 UNITS UNIT SUBCUT SCH ×3 (08:21→16:40)
[2016-11-16] MEDS: Aspirin EC Low Dose* 81 MG TAB.EC PO SCH (08:21)
[2016-11-16] MEDS: Methimazole TAB* 5 MG PO SCH (08:21)
[2016-11-16] MEDS: Clotrimazole 1% CREAM* 45 GM TOPICAL SCH ×2 (12:44→22:24)
--- NOTE | 2016-11-16 14:09 | PN ---
Subjective Date of Service: 11/16/16 Interval History: Patient offers no new complaints. She is persistently dizzy and reports "not feeling well" today. Objective Active Medications: Acetaminophen (Tylenol Tab*) 650 mg PO Q4H PRN PRN Reason: FEVER/PAIN Aspirin (Aspirin Ec Low Dose*) 81 mg PO DAILY [facility] Last Admin: 11/16/16 08:21 Dose: 81 mg Clotrimazole (Clotrimazole 1%*) 1 applic TOPICAL BID [facility] Last Admin: 11/16/16 12:44 Dose: 1 applic Dextrose (D50w Syringe 50 Ml*) 12.5 gm IV PUSH .FOR FS < 60 - SS PRN PRN Reason: FS < 60 Last Admin: 11/12/16 23:13 Dose: 12.5 gm Heparin Sodium (Porcine) (Heparin Vial(*)) 5,000 units SUBCUT Q8HR [facility] Last Admin: 11/16/16 06:21 Dose: 5,000 units Insulin Glargine (Lantus(*)) 12 units SUBCUT BEDTIME [facility] Last Admin: 11/15/16 20:46 Dose: 12 units Insulin Human Lispro (Humalog*) 0 units SUBCUT AC [facility] PRN Reason: Protocol Last Admin: 11/16/16 12:44 Dose: 2 units Methimazole (Tapazole Tab*) 10 mg PO DAILY [facility] Last Admin: 11/16/16 08:21 Dose: 10 mg Ondansetron HCl (Zofran Inj*) 4 mg IV Q6H PRN PRN Reason: NAUSEA Last Admin: 11/15/16 10:28 Dose: 4 mg Oxycodone/Acetaminophen (Percocet 5/325 Tab*) 2 tab PO TID PRN PRN Reason: PAIN Last Admin: 11/15/16 23:49 Dose: 2 tab Scopolamine (Transderm-Scop 1.5 Mg Patch*) 1 patch TRANSDERM Q72H [facility] Last Admin: 11/14/16 21:29 Dose: 1 patch Tizanidine HCl (Zanaflex Tab*) 4 mg PO TID PRN PRN Reason: SPASMS Last Admin: 11/12/16 00:37 Dose: 4 mg Tizanidine HCl (Zanaflex Tab*) 12 mg PO BEDTIME PRN PRN Reason: SPASMS Last Admin: 11/15/16 23:49 Dose: 12 mg Vital Signs: Temp Pulse Resp BP Pulse Ox 98.2 F 64 15 100/43 100 11/16/16 11:42 11/16/16 11:42 11/16/16 11:42 11/16/16 11:42 11/16/16 11:42 Oxygen Devices in Use Now: None Appearance: Elderly female in NAD lying in hospital bed Respiratory: Symmetrical Chest Expansion and Respiratory Effort, Clear to Auscultation Cardiovascular: RRR Abdominal: NL Sounds; No Tenderness; No Distention Extremities: No Edema Neurological: Alert and Oriented x 3 Result Diagrams: 11/15/16 11:14 11/15/16 11:15 Additional Lab and Data: . Microbiology and Other Data: Microbiology 11/10/16 01:01 Urine Culture - Preliminary Urine Escherichia Coli Pseudomonas Aeruginosa 11/09/16 21:47 Aerobic Blood Culture - Preliminary Blood Venous No Growth Day 1 Anaerobic Blood Culture - Preliminary No Growth Day 1 11/09/16 18:40 Aerobic Blood Culture - Preliminary Blood Venous No Growth Day 1 Anaerobic Blood Culture - Preliminary No Growth Day 1 Diagnostic Imaging: MRI brain - subacute infarct of the vermis with a 1.7 cm spurcellar mass with compression of the optic chiasm CTA neck/brain - no sig stenosis or aneurysm Echo - mild LVH, nl LVEF 60-65% Assess/Plan/Problems-Billing Assessment: This is an 81 yo female with multiple medical problems including 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 - Patient Problems (1) Cerebellar infarct Comment: Subacute cerebellar infarct noted on MRI with c/o vertigo Vertigo is not entirely acute, but rather worse than prior episodes CTA head/neck shows no significant carotid artery stenosis Echo shows preserved EF 60-65% and negative bubble study, no significant valvular abnormalities and no pulm htn. Appreciate neuro involvement LDL <70 mg/dl Started ASA Unable to tolerate sitting up - continue to encourage activity with PT/OT No acute changes noted on CT yesterday Patient has showed no improvement with trials of meclizine, diazepam and scopolamine patch (2) Hypotension Comment: Seems to have resolved without specific intervention, likely due to diazepam W/u unremarkable (3) Pituitary tumor Comment: 1.7 cm tumor with impingement of optic chiasm Pituitary tumor is previously known, but she has not seen her neurologist in 12 years MRI (2000) - identified pituitary mass measuring 1.2cm at that time. Strong neurosurgery phone consultation on 11/[address] Bagley. He did not think the mass was related to her acute complaints. He was happy to see her in follow up in the pituitary clinic which can be reached at [phone] for an appointment. She does not require urgent intervention Tumor appears non-functional at this time, slightly low TSH, high T4, nl FSH, LH , prolactin, and cortisol ILGF pending at this time (4) UTI (urinary tract infection) Comment: Initial UA suggestive of UTI Culture grew ESBL + EColi, initial empiric treatment was cefepime, switched to meropenem Discussed with ID MD, Evan Rose, who suggested in the setting of a chronic indwelling Valera catheter without other signs of infection Repeat labs pending in the setting of persistent hypotension (5) HTN (hypertension) Comment: Now normotensive, but recently hypotensive Holding lasix at this time (6) Decubitus ulcer Comment: Chronic sacral decubitus ulcer Stage III, 10cm in diameter without associated infection (7) Hypothyroidism Comment: TSH 0.28 (8) Paraplegia Comment: Prior cervical injury WC bound (9) S/P colostomy Comment: diverting colostomy for chronic sacral decubitis ulcer (10) Diastolic heart failure Comment: No acute exacerbation (11) DVT prophylaxis Comment: SQ heparin (12) Full code status Status and Disposition: Inpatient. No additional treatment options, patient is stable for dc but unsafe to return home. Patient is agreeable to consider [facility] for a rehab stay, pending referral
[2016-11-16] MEDS ORDERED: Insulin GLARGINE(*) 1 UNITS UNIT SUBCUT ONE (22:00)
[2016-11-17] MEDS: oxyCODONE/Acetamin 5/325 MG* TAB PO PRN ×2 (00:47→21:15)
[2016-11-17] MEDS: tiZANidine TAB* 2 MG PO PRN ×2 (00:51→21:15)
[2016-11-17] MEDS: Insulin GLARGINE(*) 1 UNITS UNIT SUBCUT SCH ×2 (02:08→21:17)
[2016-11-17] MEDS: Heparin VIAL(*) 5000 UNITS/ML VIAL (FIVE THOUSAND) SUBCUT SCH ×3 (05:35→21:15)
--- NOTE | 2016-11-17 08:17 | PN ---
Subjective Date of Service: 11/17/16 Interval History: Patient seen and examined at bedside. Pt states that her nausea is better this morning then it was yesterday. Pt still continues to complain of dizziness that she describes as an up and down motion. She states that she removed the scopolamine patch because of an allergy to adhesive. Denies fever, chills, shortness of breath, chest discomfort, V/D. Pt states that she was able to sit up last night for a few hours, but felt very nauseous while sitting up. Family History: Unchanged from Admission Social History: Unchanged from Admission Past Medical History: Unchanged from Admission Objective Active Medications: Acetaminophen (Tylenol Tab*) 650 mg PO Q4H PRN Reason: FEVER/PAIN Aspirin (Aspirin Ec Low Dose*) 81 mg PO DAILY [facility] Clotrimazole (Clotrimazole 1%*) 1 applic TOPICAL BID [facility] Dextrose (D50w Syringe 50 Ml*) 12.5 gm IV PUSH .FOR FS < 60 - SS PRN Reason: FS < 60 Heparin Sodium (Porcine) (Heparin Vial(*)) 5,000 units SUBCUT Q8HR [facility] Insulin Glargine (Lantus(*)) 12 units SUBCUT BEDTIME [facility] Insulin Human Lispro (Humalog*) 0 units SUBCUT AC [facility] Methimazole (Tapazole Tab*) 10 mg PO DAILY [facility] Ondansetron HCl (Zofran Inj*) 4 mg IV Q6H PRN Reason: NAUSEA Oxycodone/Acetaminophen (Percocet 5/325 Tab*) 2 tab PO TID PRN Reason: PAIN Tizanidine HCl (Zanaflex Tab*) 4 mg PO TID PRN Reason: SPASMS Tizanidine HCl (Zanaflex Tab*) 12 mg PO BEDTIME PRN Reason: SPASMS Vital Signs 11/16/16 11/16/16 11/16/16 11:42 15:31 19:29 Temperature 98.2 F 98.0 F 98.5 F Pulse Rate 64 58 25 Respiratory 15 20 20 Rate Blood Pressure 100/43 88/39 113/45 (mmHg) O2 Sat by Pulse 100 97 85 Oximetry 11/16/16 11/16/16 11/16/16 19:31 20:00 23:08 Temperature 98.4 F Pulse Rate 74 83 Respiratory 18 14 Rate Blood Pressure 125/45 (mmHg) O2 Sat by Pulse 100 95 Oximetry 11/17/16 11/17/16 11/17/16 00:47 03:29 07:25 Temperature 98.2 F 98.5 F Pulse Rate 68 63 Respiratory 18 14 16 Rate Blood Pressure 96/38 127/37 (mmHg) O2 Sat by Pulse 96 98 Oximetry Oxygen Devices in Use Now: None Appearance: NAD, laying in bed Ears/Nose/Mouth/Throat: Mucous Membranes Moist Respiratory: Symmetrical Chest Expansion and Respiratory Effort, Clear to Auscultation Cardiovascular: NL Sounds; No Murmurs; No JVD, RRR Abdominal: NL Sounds; No Tenderness; No Distention Extremities: No Edema Neurological: Alert and Oriented x 3 Lines/Tubes/Other Access: Clean, Dry and Intact Peripheral IV - site benign Nutrition: Taking PO's Result Diagrams: 11/15/16 11:14 11/15/16 11:15 Microbiology and Other Data: Microbiology 11/10/16 01:01 Urine Culture - Preliminary Urine Escherichia Coli Pseudomonas Aeruginosa 11/09/16 21:47 Aerobic Blood Culture - Preliminary Blood Venous No Growth Day 1 Anaerobic Blood Culture - Preliminary No Growth Day 1 11/09/16 18:40 Aerobic Blood Culture - Preliminary Blood Venous No Growth Day 1 Anaerobic Blood Culture - Preliminary No Growth Day 1 Diagnostic Imaging: MRI brain - subacute infarct of the vermis 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 - Patient Problems (1) Cerebellar infarct Code(s): I63.9 - CEREBRAL INFARCTION, UNSPECIFIED SNOMED Code(s): 73520580 Comment: - Subacute cerebellar infarct noted on MRI with c/o vertigo - Vertigo is not entirely acute, but rather worse than prior episodes - CTA head/neck shows no significant carotid artery stenosis - Echo shows preserved EF 60-65% and negative bubble study, no significant valvular abnormalities and no pulm htn. - Appreciate neuro involvement - LDL <70 mg/dl - Unable to tolerate sitting up - continue to encourage activity with PT/OT - No acute changes noted on CT 11/15 - Patient has showed no improvement with trials of meclizine, diazepam and scopolamine patch - Continue ASA (2) Hypotension Comment: - Seems to have resolved without specific intervention, likely due to diazepam - Workup unremarkable (3) Pituitary tumor Comment: - Pituitary tumor is previously known, but she has not seen her neurologist in 12 years MRI (2000) - identified pituitary mass measuring 1.2cm at that time. 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 He did not think the mass was related to her acute complaints. He was happy to see her in follow up in the pituitary clinic which can be reached at [phone] for an appointment. She does not require urgent intervention - Tumor appears non-functional at this time, slightly low TSH, high T4, nl FSH, LH, prolactin, and cortisol - ILGF pending at this time (4) UTI (urinary tract infection) Comment: - Initial UA suggestive of UTI - Culture grew ESBL + EColi, initial empiric treatment was cefepime, switched to meropenem - Discussed with ID, Dr. Evan Rose, who suggested in the setting of a chronic indwelling Valera catheter without other signs of infection, she may be colonized (5) HTN (hypertension) Code(s): I10 - ESSENTIAL (PRIMARY) HYPERTENSION SNOMED Code(s): 85277159 Comment: - Now normotensive, but hypotensive at times over the last 24 hours - Holding lasix at this time (6) Decubitus ulcer Code(s): L89.90 - PRESSURE ULCER OF UNSPECIFIED SITE, UNSPECIFIED STAGE SNOMED Code(s): 345596074 Comment: - Chronic sacral decubitus ulcer - Stage III, 10cm in diameter without associated infection (7) Diastolic heart failure Code(s): I50.30 - UNSPECIFIED DIASTOLIC (CONGESTIVE) HEART FAILURE SNOMED Code (s): 227538034 Comment: - No acute exacerbation - Daily weights and strict I+O's (8) Paraplegia Code(s): G82.20 - PARAPLEGIA, UNSPECIFIED SNOMED Code(s): 10011488 Comment: - Prior cervical injury - WC bound (9) S/P colostomy Code(s): Z93.3 - COLOSTOMY STATUS SNOMED Code(s): 244520519 Comment: - Diverting colostomy for chronic sacral decubitis ulcer (10) Type II diabetes mellitus Comment: - Glucose 80-130's - Continue to hold metformin - Continue Lantus with Lispro SS and glucose checks AC (11) Hypothyroidism Code(s): E03.9 - HYPOTHYROIDISM, UNSPECIFIED SNOMED Code(s): 73831383 Comment: - 11/09/16 TSH 0.28 (12) DVT prophylaxis Code(s): FWV4204 - SNOMED Code(s): 961527016 Comment: - SQ heparin (13) Full code status Onset Date: 05/01/14 Code(s): Z78.9 - OTHER SPECIFIED HEALTH STATUS SNOMED Code(s): 980957846 Status and Disposition: Inpatient. No additional treatment options, patient is stable for dc but unsafe to return home. Patient is agreeable to consider [facility] for a rehab stay, pending referral.
[2016-11-17] MEDS: Insulin LISPRO* 1 UNITS UNIT SUBCUT SCH ×3 (08:26→17:30)
[2016-11-17] MEDS: Aspirin EC Low Dose* 81 MG TAB.EC PO SCH (08:27)
[2016-11-17] MEDS: Methimazole TAB* 5 MG PO SCH (08:27)
[2016-11-17] MEDS: Clotrimazole 1% CREAM* 45 GM TOPICAL SCH ×2 (08:30→21:20)
[2016-11-18] MEDS: Heparin VIAL(*) 5000 UNITS/ML VIAL (FIVE THOUSAND) SUBCUT SCH ×2 (06:29→13:32)
[2016-11-18] MEDS: Aspirin EC Low Dose* 81 MG TAB.EC PO SCH (08:27)
[2016-11-18] MEDS: Insulin LISPRO* 1 UNITS UNIT SUBCUT SCH ×2 (08:27→13:31)
[2016-11-18] MEDS: Methimazole TAB* 5 MG PO SCH (08:27)
[2016-11-18] MEDS: Clotrimazole 1% CREAM* 45 GM TOPICAL SCH (08:28)
--- NOTE | 2016-11-18 12:10 | PN ---
Subjective Date of Service: 11/18/16 Interval History: Patient seen and examined at bedside. Pt states that she continues to have dizziness and nausea. She describes her dizziness as a spinning and rocking sensation. Denies fever, chills, shortness of breath, chest discomfort, V/D. Pt has a chronic indwelling and colostomy. Pt feels that she will be able to go home and manage with an aide coming in 3 times daily to check on her. She feels that she can go 3 days without any help from aides at home. Discussed with Pt that this is a poor plan and that she risks getting skin breakdown if she is unable to move for 3 days in bed (Pt is unable to roll in the bed herself). It is also unclear how she would get meals if she returns home alone. Family History: Unchanged from Admission Social History: Unchanged from Admission Past Medical History: Unchanged from Admission Objective Active Medications: Acetaminophen (Tylenol Tab*) 650 mg PO Q4H PRN Reason: FEVER/PAIN Aspirin (Aspirin Ec Low Dose*) 81 mg PO DAILY [facility] Clotrimazole (Clotrimazole 1%*) 1 applic TOPICAL BID [facility] Dextrose (D50w Syringe 50 Ml*) 12.5 gm IV PUSH .FOR FS < 60 - SS PRN Reason: FS < 60 Heparin Sodium (Porcine) (Heparin Vial(*)) 5,000 units SUBCUT Q8HR [facility] Insulin Glargine (Lantus(*)) 12 units SUBCUT BEDTIME [facility] Insulin Human Lispro (Humalog*) 0 units SUBCUT AC [facility] Methimazole (Tapazole Tab*) 10 mg PO DAILY [facility] Ondansetron HCl (Zofran Inj*) 4 mg IV Q6H PRN Reason: NAUSEA Oxycodone/Acetaminophen (Percocet 5/325 Tab*) 2 tab PO TID PRN Reason: PAIN Tizanidine HCl (Zanaflex Tab*) 4 mg PO TID PRN Reason: SPASMS Tizanidine HCl (Zanaflex Tab*) 12 mg PO BEDTIME PRN Reason: SPASMS Vital Signs 11/17/16 11/17/16 11/17/16 15:21 19:35 21:00 Temperature 98.5 F 99.3 F Pulse Rate 79 109 Respiratory 16 14 20 Rate Blood Pressure 110/41 130/39 (mmHg) O2 Sat by Pulse 99 100 Oximetry 08/31/17 08/31/17 08/31/17 21:15 23:04 23:15 Temperature 98.6 F Pulse Rate 77 Respiratory 18 16 16 Rate Blood Pressure 106/44 (mmHg) O2 Sat by Pulse 96 Oximetry 11/18/16 11/18/16 11/18/16 03:30 07:24 08:51 Temperature 98.2 F 98.2 F Pulse Rate 65 63 Respiratory 16 16 16 Rate Blood Pressure 132/49 120/50 (mmHg) O2 Sat by Pulse 99 100 Oximetry Oxygen Devices in Use Now: None Appearance: NAD, laying in bed Eyes: PERRLA, - - No nystagmus Ears/Nose/Mouth/Throat: Mucous Membranes Moist Respiratory: Symmetrical Chest Expansion and Respiratory Effort, Clear to Auscultation Cardiovascular: NL Sounds; No Murmurs; No JVD, RRR Abdominal: NL Sounds; No Tenderness; No Distention Extremities: No Edema Neurological: Alert and Oriented x 3 Lines/Tubes/Other Access: Clean, Dry and Intact Peripheral IV - site benign Nutrition: Taking PO's Result Diagrams: 11/15/16 11:14 11/15/16 11:15 Microbiology and Other Data: Microbiology 11/10/16 01:01 Urine Culture - Preliminary Urine Escherichia Coli Pseudomonas Aeruginosa 11/09/16 21:47 Aerobic Blood Culture - Preliminary Blood Venous No Growth Day 1 Anaerobic Blood Culture - Preliminary No Growth Day 1 11/09/16 18:40 Aerobic Blood Culture - Preliminary Blood Venous No Growth Day 1 Anaerobic Blood Culture - Preliminary No Growth Day 1 Diagnostic Imaging: MRI brain - subacute infarct of the vermis 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 - Patient Problems (1) Cerebellar infarct Code(s): I63.9 - CEREBRAL INFARCTION, UNSPECIFIED SNOMED Code(s): 26542807 Comment: - Subacute cerebellar infarct noted on MRI with c/o vertigo - Vertigo is not entirely acute, but rather worse than prior episodes - CTA head/neck shows no significant carotid artery stenosis - Echo shows preserved EF 60-65% and negative bubble study, no significant valvular abnormalities and no pulm htn. - Appreciate neuro involvement - LDL <70 mg/dl - Unable to tolerate sitting up - continue to encourage activity with PT/OT - No acute changes noted on CT 11/15 - Patient has showed no improvement with trials of meclizine, diazepam and scopolamine patch - Continue ASA (2) Hypotension Comment: - Seems to have resolved without specific intervention, likely due to diazepam - Workup unremarkable (3) Pituitary tumor Comment: - Pituitary tumor is previously known, but she has not seen her neurologist in 12 years MRI (2000) - identified pituitary mass measuring 1.2cm at that time. 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 He did not think the mass was related to her acute complaints. He was happy to see her in follow up in the pituitary clinic which can be reached at [phone] for an appointment. She does not require urgent intervention - Tumor appears non-functional at this time, slightly low TSH, high T4, nl FSH, LH, prolactin, and cortisol - ILGF pending at this time (4) UTI (urinary tract infection) Comment: - Initial UA suggestive of UTI - Culture grew ESBL + EColi, initial empiric treatment was cefepime, switched to meropenem - Discussed with ID, Dr. Evan Rose, who suggested in the setting of a chronic indwelling Valera catheter without other signs of infection, she may be colonized (5) HTN (hypertension) Code(s): I10 - ESSENTIAL (PRIMARY) HYPERTENSION SNOMED Code(s): 44398355 Comment: - Now normotensive - Resume lasix in the AM (6) Decubitus ulcer Code(s): L89.90 - PRESSURE ULCER OF UNSPECIFIED SITE, UNSPECIFIED STAGE SNOMED Code(s): 235435014 Comment: - Chronic sacral decubitus ulcer - Stage III, 10cm in diameter without associated infection (7) Diastolic heart failure Code(s): I50.30 - UNSPECIFIED DIASTOLIC (CONGESTIVE) HEART FAILURE SNOMED Code (s): 207719807 Comment: - No acute exacerbation - Daily weights and strict I+O's - Resume Lasix (8) Paraplegia Code(s): G82.20 - PARAPLEGIA, UNSPECIFIED SNOMED Code(s): 00610325 Comment: - Prior cervical injury - WC bound (9) S/P colostomy Code(s): Z93.3 - COLOSTOMY STATUS SNOMED Code(s): 237096200 Comment: - Diverting colostomy for chronic sacral decubitis ulcer (10) Type II diabetes mellitus Comment: - Glucose 80-130's - Continue to hold metformin - Continue Lantus with Lispro SS and glucose checks AC (11) Hypothyroidism Code(s): E03.9 - HYPOTHYROIDISM, UNSPECIFIED SNOMED Code(s): 75726910 Comment: - 11/09/16 TSH 0.28 (12) DVT prophylaxis Code(s): DXS7199 - SNOMED Code(s): 508590650 Comment: - SQ heparin (13) Full code status Onset Date: 05/01/14 Code(s): Z78.9 - OTHER SPECIFIED HEALTH STATUS SNOMED Code(s): 846811247 Status and Disposition: Inpatient. No additional treatment options, patient is stable for dc but unsafe to return home. Patient is agreeable to consider [facility] for a rehab stay, pending referral.
--- NOTE | 2016-11-18 16:23 | CONSULT ---
Consult Consult: S: Consult for Medical Decision Making Capacity Psychiatry is asked to determine decision making capacity on this 81 y.o. AA female with multiple medical problems, admitted secondary to dizziness and need for neurological workup. Patient is essentially bed-ridden with limited mobility and several fdc needs in all areas of ADLs. Primary team feels that the patient, who has [place] home health aid coverage, would benefit from placement in an SNF. My understanding is that, at times, the patient has been agreeable with this disposition, but is declining it today and is essentially medically ready for discharge. On exam the patient is cooperative and quite sharp, cognitively, for her age. She is able to enumerate many of the primary team's concerns about her safety in the home setting, including inability to address ADLs, reposition herself to avoid further stasis ulcers or get assistance when she needs it. She insists that she has friends, neighbors, home health providers and community supports such as the local fire department, that will help her maintain her independence in her apartment. O: overweight, aging AA female lying supine in bed; calm and cooperative. Scores 30/30 on MMSE that is modified for her lack of movement. A/P: Capacity: Psychiatry feels that the patient maintains medical decision making capacity, although her judgment is certainly suspect. We can be reconsulted if her circumstances change.
[2016-11-18 17:03] VITALS: BP 121/46
--- NOTE | 2016-11-18 21:57 | DS ---
CC: Viviana Davidson MD; [facility] * DISCHARGE SUMMARY: DATE OF ADMISSION: 11/09/16 DATE OF DISCHARGE: 11/18/16 ATTENDING PHYSICIAN: Demar Thornton MD * (dictated by Evan Palafox NP) PRIMARY CARE PROVIDER: Viviana Davidson MD PRIMARY DIAGNOSES: 1. Subacute cerebrovascular accident. 2. Vertigo. 3. Hypotension, resolved. 4. Pituitary tumor. 5. Urinary tract infection. SECONDARY DIAGNOSES: 1. Hypertension. 2. Decubitus ulcer, chronic, sacral. 3. Diastolic heart failure. 4. Paraplegia. 5. Status post colostomy. 6. Diabetes mellitus type 2. 7. Hypothyroidism. CONSULTATIONS WHILE IN THE HOSPITAL: 1. Dr. Cyril Hernandez with Neurology. 2. Dr. Carlitos Raza with neurology. STUDIES WHILE IN THE HOSPITAL: 1. Chest x-ray on 11/09/16. Radiologist's impression: No active cardiopulmonary disease. 2. Brain MRI on 11/09/16. Radiologist's impression: Punctate subacute nonhemorrhagic infarct of the vermis. 1.7 cm sellar and suprasellar mass with mass effect upon the optic chiasm. Recommend consideration of further evaluation with contrast enhanced pituitary protocol MRI of the brain. Chronic small vessel ischemic changes. 3. Transthoracic echocardiogram on 10/21/16. 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 There is normal left ventricular systolic function. The estimated ejection fraction is 60% to 65%. The left atrium is slightly dilated. The right ventricle is slightly dilated. The right ventricular global systolic function is normal. A patent foramen ovale is not demonstrated with color Doppler and agitated saline (negative bubble study). No functionally significant valvular abnormalities noted. No pulmonary hypertension is noted. Compared to prior study from 08/06/13, no significant changes noted. 4. Brain MRI on 11/10/16. Radiologist's impression: There is a lobulated 2.2 cm sellar and suprasellar mass with mass effect upon the optic chiasm. 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 There is a probable bilateral cavernous extension. 5. Head CTA on 11/10/16. Radiologist's impression: No internal carotid artery stenosis by NASCET criteria. No aneurysmal, vascular malformation, occlusion or stenosis of visualized intracranial circulation. Again, noted is a sellar and suprasellar mass with cavernous sinus extension. The thyroid gland is markedly and heterogeneously enlarged, bilateral. 6. Brain CT on 11/15/16. Radiologist's impression: Negative CT stigmata of ischemic stroke or intracranial hemorrhage. Mild atrophy and stigmata of chronic small vessel ischemic disease. A 1.3 x 1.3 cm hyperdense mass extending from the pituitary fossa into the suprasellar cistern and previously documented most consistent with a pituitary macroadenoma or possibly a meningioma without change. DISCHARGE MEDICATIONS: New home medications: 1. Aspirin 81 mg oral daily. 2. Clotrimazole 1% cream apply twice daily under the breasts and abdominal fold. Continued home medications: 1. Furosemide 40 mg oral daily. 2. Tizanidine 4 mg oral 3 times daily. 3. Acetaminophen 650 mg oral every 4 hours as needed for pain. 4. Lantus insulin 25 units subcutaneous daily at bedtime. 5. Percocet 5/325 two tablets oral 3 times daily as needed for pain. 6. Metformin 1000 mg oral twice daily. 7. Ergocalciferol 50,000 units oral weekly. 8. Methimazole 10 mg oral daily. Changed home medications: Zofran 4 mg oral every 6 hours as needed for nausea. HISTORY OF PRESENT ILLNESS/HOSPITAL COURSE: Ms. Hurd is an 81-year-old female with past medical history significant for diabetes mellitus, hypertension, chronic decubitus ulcer, chronic indwelling catheter, status post colostomy placement, paraplegia, hypothyroidism, coronary artery disease, congestive heart failure, history of myocardial infarction, who presented to the emergency room with complaints of dizziness over the last several months that had gotten worse over the past few days. The patient has also noticed increased dizziness when she changed positions. She also noted nausea. The patient had not been taking her medications due to the nausea she was having. The only thing she had been taking was her Percocet and Zanaflex. The patient denied any fever, chills. She described the room is spinning. The patient had tried Antivert and that did not help. She was also reporting double vision for several weeks and noticed at times she had weakness on one side, although she is unable to move her lower extremities at baseline due to her paraplegia. When the patient' s home health aide was helping her get dressed and into her wheelchair, she would not open her eyes and she felt that she was dizzy. She was also unable to properly control her wheelchair and was bumping into trevino. The patient was trying to be seen by her primary care provider, but was unable to get into the office, so she decided to present to the emergency room for further evaluation of her symptoms. While in the emergency room, the patient had labs significant for an elevated white blood cell count of 14. She had a urinalysis positive for 2+ protein, 2+ blood, 3+ leukocyte esterase, 3+ wbc's, 3+ rbc's, and 1+ bacteria. She had a chest x-ray showing no active cardiopulmonary disease. She had an EKG showing a normal sinus rhythm and a rate of 82. There was some slight ST depressions in leads I and II and leads V5 and 6. The ST depressions were new when compared to previous EKG from 2 years ago. The patient's last echo was approximately 3 years ago showing an EF of 50% to 55%. The hospitalists are asked to evaluate the patient for admission. While in the hospital, the patient was seen in consultation by Dr. Cyril Hernandez with Neurology. The patient has a known pituitary tumor. As far as the patient's cerebrovascular accident, she was started on a baby aspirin. No statin was started due to the patient's LDL being 64. It is recommended for tight blood glucose control and good blood pressure control. As far as the patient's dizziness, it is recommended to continue meclizine and benzodiazepines as necessary. It was felt that the less the patient was given these medications, the faster she would recover, although it is noted that vertigo is a chronic issue and not necessarily an acute issue, just seemed to be worse. She had a swallow study. During the patient's time, she also had a CT of her neck with no significant carotid artery stenosis. She had an echo showing a preserved EF of 60% to 65% and a negative bubble study and no significant valvular abnormalities. The patient continued to be unable to tolerate sitting up, even though she was encouraged activity and was being seen by Physical Therapy and Occupational Therapy. The patient had a repeat CT on showing no acute changes. The patient had no improvement with trials of meclizine, diazepam, and scopolamine patch. The patient removed her own scopolamine patches. She reported a history of a contact dermatitis from the adhesive. Diazepam was discontinued as the patient was hypotensive. It was felt that this was likely causing the patient's hypotension. As far as the patient's pituitary tumor, [facility], Dr. Bagley was phone consulted. He did not feel the mass was related to her acute complaints, but he would be happy to follow her up in the pituitary clinic as an outpatient. The tumor appeared to be nonfunctional at this time. The patient's urine culture grew ESBL E. coli. Initially, empiric treatment was started of cefepime and then switched to meropenem. The case was discussed with Dr. Emre Rose with Infectious Disease who suggested that in the setting of a chronic indwelling Valera catheter, no other signs of infections that she may be colonized and it was recommended to discontinue antibiotics. The patient continued to be unable to sit up, was minimally participating with physical therapy and occupational therapy. It was felt that it was unsafe for her to go home at this time. She does not have 24-hour care, is unable to get meals or up to her wheelchair. The patient was seen in consultation by Dr. Carlitos Raza who felt that she was competent to make her own decisions. The patient was offered a bed at [facility] today and she will be discharged to [facility] today. Ms. Hurd is stable for discharge to [facility] today. Vital signs are as follows: Temperature 97.8, heart rate 67, respiratory rate 16, O2 sat 99% on room air, blood pressure 119/61. DISCHARGE PLAN: Ms. Hurd will be discharged to [facility] today. Activity as tolerated. The patient should be on a low sodium, heart healthy, consistent carbohydrate diet. As far as the patient's vertigo, I think she just needs further time. She has trialed meclizine, scopolamine patch and diazepam with no help with her symptoms. As far as the patient's cerebellar infarct, she has been started on an aspirin. Her LDL is at goal at less than 70. She does not need to be placed on a statin at this time. As far as the patient's pituitary tumor, she should be seen as an outpatient by Dr. Bagley. He can be reached at [phone] to be set up for an appointment. As far as the patient's urine culture growing an ESBL, positive E. coli, the patient has a chronic indwelling urinary catheter. This was just changed on her admission and is suspected she is colonized and does not need further treatment for that. For the patient's chronic sacral decubitus ulcer, it is a stage 3, approximately 10 cm in diameter without associated infection. She should be encouraged to change positions frequently to prevent any further breakdown. For the patient's diastolic heart failure, she is resumed on her furosemide. She should have daily weights and strict I's and O's. The patient's paraplegia is a result of a prior cervical injury. She is wheelchair bound. For the patient's diabetes mellitus, she will be resumed on her metformin and continued on Lantus at discharge. For her hypothyroidism, she is not currently on any medications and her last TSH was 0.28. The patient should be seen in followup by her primary care provider, Dr. Viviana Davidson, a provider at [facility] in the next week. The patient should return to the emergency room for any chest pain, shortness of breath, or signs of further cerebrovascular accidents. This is a summarized report of a complex medical history and hospital stay. Please see the entire medical record for further details. TIME SPENT: Time for this discharge was approximately 50 minutes, greater than half of that was spent with the patient discussing discharge plans and instructions. CONDITION ON DISCHARGE: Stable. EVAN PRESTON NP [id number]/[facility] #: [id number] WILBUR
[2016-11-19] MEDS ORDERED: Furosemide TAB* 20 MG PO SCH (09:00)
== END 2016-11-18 17:05 | DRG 64 ==
LOC: ED 13:06 → MEDTELE 15:44 → OBSVTOIN 16:43 → MED 11-14 03:47
PROVIDERS: ADMIT Internal Medicine; ATTEND Internal Medicine
DX: I63.9 Cerebral infarction, unspecified (principal); L89.153 Pressure ulcer of sacral region, stage 3; I95.9 Hypotension, unspecified; I11.0 Hypertensive heart disease with heart failure; I50.32 Chronic diastolic (congestive) heart failure; N31.9 Neuromuscular dysfunction of bladder, unspecified; E86.0 Dehydration; N39.0 Urinary tract infection, site not specified; T83.518A Infection and inflammatory reaction due to other urinary catheter, initial encounter; E11.9 Type 2 diabetes mellitus without complications; D72.829 Elevated white blood cell count, unspecified; E03.9 Hypothyroidism, unspecified; D35.2 Benign neoplasm of pituitary gland; F44.4 Conversion disorder with motor symptom or deficit; Z93.3 Colostomy status; Z88.0 Allergy status to penicillin; Z88.8 Allergy status to other drugs, medicaments and biological substances; Z91.048 Other nonmedicinal substance allergy status; E78.00 Pure hypercholesterolemia, unspecified; J45.909 Unspecified asthma, uncomplicated; J42 Unspecified chronic bronchitis; K21.9 Gastro-esophageal reflux disease without esophagitis; Z87.442 Personal history of urinary calculi; M19.90 Unspecified osteoarthritis, unspecified site; Z98.1 Arthrodesis status; Z98.42 Cataract extraction status, left eye; Z98.41 Cataract extraction status, right eye; Z86.14 Personal history of Methicillin resistant Staphylococcus aureus infection; Z83.3 Family history of diabetes mellitus; Z87.891 Personal history of nicotine dependence; I25.10 Atherosclerotic heart disease of native coronary artery without angina pectoris; I25.2 Old myocardial infarction; H53.2 Diplopia; Z82.49 Family history of ischemic heart disease and other diseases of the circulatory system; R42 Dizziness and giddiness; Y73.1 Therapeutic (nonsurgical) and rehabilitative gastroenterology and urology devices associated with adverse incidents; Y92.9 Unspecified place or not applicable; B96.20 Unspecified Escherichia coli [E. coli] as the cause of diseases classified elsewhere; Z79.82 Long term (current) use of aspirin; Z79.4 Long term (current) use of insulin; Z99.3 Dependence on wheelchair
CPT/HCPCS: 36415; 70450; 70496; 70498; 70551; 70553; 71010; 80048; 80053; 80061; 81003; 81015; 82533; 82550; 82553; 82947; 83001; 83002; 83036; 83605; 83690; 83880; 84146; 84305; 84439; 84443; 84484; 85025; 85610; 85730; 86140; 87040; 87077; 87086; 87186; 93005; 93306; A9270-GY; A9579; J0692; J1644; J2405; J7512; Q9967

== ENCOUNTER 2017-04-22 12:13 | Inpatient (IN) | payer MEDICARE, BC ==
[2017-04-22] MEDS ORDERED: NS 0.9% 1000 ML* 1,000 ML IV ONE ×2 (12:25→16:17)
[2017-04-22 13:04] LABS: Hematocrit 33 % (35-47); Hemoglobin 10.3 g/dl (12.0-16.0); Mean Corpuscular HGB Conc 32 g/dl (31-36); Mean Corpuscular Hemoglobin 27 pg (27-31); Mean Corpuscular Volume 84 fL (80-97); Mean Platelet Volume 7 um3 (7.4-10.4); Platelet Count 914 10^3/ul (150-450); Red Blood Count 3.87 10^6/ul (4.0-5.4); Red Cell Distribution Width 16 % (10.5-15); White Blood Count 27.8 10^3/ul (3.5-10.8)
[2017-04-22 13:13] LABS: INR 1.14 (0.77-1.02)
[2017-04-22 13:14] LABS: EGFR Non-African American 29.9 (>60)
--- NOTE | 2017-04-22 13:18 | RAD ---
INDICATION: 2 days of epigastric pain COMPARISON: Chest x-ray dated November 09, 2016 TECHNIQUE: Single AP portable view of the chest was obtained. FINDINGS: Image quality is compromised due to the relative inferiority of a portable chest x-ray. The heart and mediastinum exhibit normal size and contour. The lungs are grossly clear. There is no evidence of a large pleural effusion. Visualized bones are normal for the patient's age. IMPRESSION: No radiographic evidence for acute cardiopulmonary abnormality on this portable chest x-ray.
[2017-04-22 13:27] LABS: ABS Basophils 0.1 10^3/ul (0-0.2); ABS Eosinophils 0 10^3/ul (0-0.6); ABS Lymphocytes 2.7 10^3/ul (1.0-4.8); ABS Monocytes 1.7 10^3/ul (0-0.8); ABS Neutrophils 23.3 10^3/ul (1.5-7.7); ABS Nucleated RBC 0 10^3/ul; Eosinophil % 0 % (0-6); Lymphocyte % 9.7 % (25-47); Nucleated Red Blood Cells % 0.1
--- NOTE | 2017-04-22 15:15 | RAD ---
CLINICAL HISTORY: Abdominal pain and emesis and a patient with a colostomy. Additional surgical history includes appendectomy, hysterectomy and a ventriculostomy. COMPARISON: CT abdomen pelvis April 08, 2014 TECHNIQUE: Noncontrast CT examination of the abdomen and pelvis from the lung bases through the initial tuberosities. FINDINGS: Streak artifact by the patient's wrist watch overlying the lung bases and upper abdomen somewhat limits evaluation. VISUALIZED LUNG BASES: Stable linear based density is seen at the dependent left lower lobe unchanged in the prior CT most consistent with atelectasis or scarring. Atherosclerotic calcification is noted in the coronary arteries and aortic ring. ABDOMEN AND PELVIS: Evaluation of the solid organs and vasculature is limited without intravenous contrast. The liver, spleen and adrenal glands are grossly normal in appearance. Hyperattenuating material in the dependent gallbladder is consistent with sludge and/or stones. There is questionable fatty infiltration surrounding the head and midline body the pancreas. The pancreas is otherwise largely replaced by fatty involution. There is fairly symmetric mild atrophy of the bilateral kidneys. Renal calculi are noted bilaterally without signs of hydronephrosis. A Valera catheter is noted in the urinary bladder decompressing the bladder and limiting evaluation. There is no pathologic bowel dilatation. A small amount of dry appearing stool is noted in the rectum. There is no free peritoneal gas. There is no gross retroperitoneal or mesenteric lymphadenopathy. The uterus is surgically absent. The abdominal aorta and iliac arteries are normal in course and diameter. Degenerative changes include multilevel loss of intervertebral disc height involving the lower thoracic and lumbar spine.There are no sinister bone lesions. IMPRESSION: 1. Mild infiltration at the head of the pancreas can be seen in the setting of pancreatitis. 2. Bilateral renal calculi without signs of obstruction. 3. Likely cholelithiasis without signs of biliary obstruction. 4. Additional chronic, degenerative and iatrogenic changes described in body the report unlikely to be directly related to the patient's current presentation.
[2017-04-22 15:30] LABS: Urine Appearance Turbid; Urine Blood 3+ (Negative); Urine Color Yellow; Urine Ketones Trace (Negative); Urine Protein 2+(100 mg/dL) (Negative); Urine Specific Gravity 1.026 (1.010-1.030); Urine Urobilinogen Negative (Negative)
[2017-04-22] MEDS ORDERED: Acetaminophen TAB* 325 MG PO PRN (16:17)
[2017-04-22] MEDS ORDERED: Dextrose 50% Syringe 50 ML* 25 GM/50 ML SYRINGE IV PUSH PRN (16:17)
[2017-04-22] MEDS ORDERED: oxyCODONE/Acetamin 5/325 MG* TAB PO PRN (16:22)
[2017-04-22] MEDS ORDERED: Magnesium Sulfate 2 GM IV* 2 GM/50 ML BAG IVPB ONE (16:26)
[2017-04-22] MEDS ORDERED: NS 0.9% 1000 ML* 1,000 ML IV SCH (16:30)
--- NOTE | 2017-04-22 16:53 | ED ---
Alexandro Coyle Jennifer, scribed for Ike Longoria MD on 04/22/17 at 1235 . Complex/Multi-Sys Presentation - HPI Summary HPI Summary: The patient is an 82 year old female who was brought to the ED for general illness in the last two days. The patient has poor appetite and fluid intake, nausea, and vomiting. She additionally complains of a abdominal pain and dry mouth. The patient has a colostomy and catheter and has her appendix removed. She reports normal bowel movement and urination. The patient denies fever, chills, blood in the stool, shortness of breath, and chest pain. She is currently living at [facility]. - History Of Current Complaint Time Seen by Provider: 04/22/17 12:15 Hx Obtained From: Patient Onset/Duration: Lasting Days - two days, Still Present Timing: Constant Severity Currently: Mild Severity Initially: Mild Associated Signs And Symptoms: Positive: Other - Nausea, vomiting, dry mouth, abdominal pain. NEGATIVE: fever, chills, blood in the stool, shortness of breath , and chest painl. - Allergies/Home Medications Allergies/Adverse Reactions: Allergies Allergy/AdvReac Type Severity Reaction Status Date / Time Adhesive Tape Allergy Blisters Verified 11/11/15 15:23 MS Metronidazole Allergy Vomiting Verified 11/11/16 14:36 [From Flagyl] MS Nitrofurantoin Allergy vomitting Verified 11/11/15 15:23 [From Furadantin] MS Nystatin [Nystatin] Allergy Blisters Verified 11/11/15 15:23 MS Penicillins [Penicillins] Allergy Anaphylatic Verified 11/11/15 15:23 Shock Home Medications: Home Medications Aspirin EC Low Dose* [Ecotrin EC Low Dose 81 MG*] 81 mg PO DAILY 04/22/17 [ History Confirmed 04/22/17] Atorvastatin* [Lipitor*] 40 mg PO BEDTIME 04/22/17 [History Confirmed 04/22/17] Furosemide TAB* [Lasix TAB*] 80 mg PO DAILY 04/22/17 [History Confirmed 04/22/17 ] Meclizine TAB* [Antivert 12.5 TAB*] 25 mg PO QAM 04/22/17 [History Confirmed 06/04] Sulfamethox/Trimethoprim DS* [Bactrim DS 800/160 TAB*] 1 tab PO BID 04/22/17 [ History Confirmed 04/22/17] oxyCODONE/Acetamin 5/325 MG* [Percocet 5/325 TAB*] 2 tab PO TID PRN 04/22/17 [ History Confirmed 04/22/17] tiZANidine TAB* [Zanaflex TAB*] 4 mg PO BEDTIME 04/22/17 [History Confirmed 06/04] PMH/Surg Hx/FS Hx/Imm Hx Endocrine/Hematology History: Reports: Hx Diabetes, Hx Thyroid Disease, Hx Unexplained Bleeding - during wound dressing changes. Denies: Hx Systemic Lupus Erythematosus, Hx Anemia Cardiovascular History: Reports: Hx Congestive Heart Failure, Hx Hypercholesterolemia, Hx Hypertension, Other Cardiovascular Problems/Disorders - SEPSIS Denies: Hx Pacemaker/ICD Respiratory History: Reports: Hx Asthma, Hx Chronic Bronchitis GI History: Reports: Hx Gastroesophageal Reflux Disease, Hx Ileostomy - diverted colostomy, Other GI Disorders History: Reports: Hx Acute Renal Failure, Hx Kidney Stones, Other Problems /Disorders - renal failure Denies: Hx Dialysis, Hx Renal Disease Musculoskeletal History: Reports: Hx Arthritis, Hx Back Problems - Spinal stenosis, Other Musculoskeletal History - CERVICAL FUSION Denies: Hx Rheumatoid Arthritis Sensory History: Reports: Hx Cataracts - cataracts removed, Hx Contacts or Glasses Denies: Hx Glaucoma, Hx Legally Blind, Hx Deafness, Hx Hearing Aid Opthamlomology History: Reports: Hx Cataracts - cataracts removed, Hx Contacts or Glasses Denies: Hx Glaucoma, Hx Legally Blind Neurological History: Reports: 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 ABDONINAL TUMOR POSTERIOR UTERUS REMOVED(1975). HYSTERECTOMY(1975), CERVICAL SPINE(2000), cataract removal, diverted colostomy Hx Anesthesia Reactions: No Infectious Disease History: Reports: Hx of Known/Suspected MRSA, Hx Tuberculosis Denies: Hx Shingles - Family History Known Family History: Positive: Diabetes Negative: Hypertension - Social History Alcohol Use: None Substance Use Type: Reports: None Smoking Status (MU): Former Smoker Type: Cigarettes Have You Smoked in the Last Year: No Review of Systems Positive: Other - Poor appetite and fluid intake. Negative: Fever, Chills Negative: Chest Pain Negative: Shortness Of Breath Positive: Abdominal Pain, Vomiting, Nausea Genitourinary: Negative - bloody stool All Other Systems Reviewed And Are Negative: Yes Physical Exam - Summary Physical Exam Summary: General: well-appearing, no pain distress, no acute distress, mild confusion Skin: warm, color reflects adequate perfusion, dry Head: normal Eyes: EOMI, YUNG ENT: oral mucosa dry Neck: supple, nontender Respiratory: CTA, breath sounds present Cardiovascular: RRR Abdomen: soft, mild upper abdominal tenderness to palpation. Bowel: present, empty colostomy bag Musculoskeletal: normal, strength/ROM intact Neurological: normal, sensory/motor intact, A&O x3 Psychological: affect/mood appropriate Triage Information Reviewed: Yes Vital Signs On Initial Exam: Initial Vitals Temp Pulse Resp BP Pulse Ox 99.2 F 98 20 131/72 100 04/22/17 12:23 04/22/17 12:23 04/22/17 12:23 04/22/17 12:23 04/22/17 12:23 Vital Signs Reviewed: Yes Diagnostics - Vital Signs Vital Signs Temp Pulse Resp BP Pulse Ox 04/22/17 15:00 12 130/68 04/22/17 14:30 7 140/75 04/22/17 14:00 7 144/74 04/22/17 13:30 7 142/72 04/22/17 13:00 7 132/80 04/22/17 12:57 95 04/22/17 12:30 6 132/72 04/22/17 12:27 106 100 04/22/17 12:23 99.2 F 98 20 131/72 100 - Laboratory Lab Results: Lab Results 04/22/17 04/22/17 04/22/17 Range/Units 12:42 12:42 12:42 WBC (3.5-10.8) 10^3/ul RBC (4.0-5.4) 10^6/ul Hgb (12.0-16.0) g/dl Hct (35-47) % MCV (80-97) fL MCH (27-31) pg MCHC (31-36) g/dl RDW (10.5-15) % Plt Count (150-450) 10^3/ul MPV (7.4-10.4) um3 Neut % (Auto) (38-83) % Lymph % (Auto) (25-47) % Charlton % (Auto) (1-9) % Eos % (Auto) (0-6) % Baso % (Auto) (0-2) % Absolute Neuts (auto) (1.5-7.7) 10^3/ul Absolute Lymphs (auto) (1.0-4.8) 10^3/ul Absolute Monos (auto) (0-0.8) 10^3/ul Absolute Eos (auto) (0-0.6) 10^3/ul Absolute Basos (auto) (0-0.2) 10^3/ul Absolute Nucleated RBC 10^3/ul Nucleated RBC % INR (Anticoag Therapy) 1.14 H (0.77-1.02) APTT 26.3 (26.0-36.3) seconds Sodium 133 (133-145) mmol/L Potassium 3.8 (3.5-5.0) mmol/L Chloride 92 L (101-111) mmol/L Carbon Dioxide 19 L (22-32) mmol/L Anion Gap 22 H (2-11) mmol/L BUN 36 H (6-24) mg/dL Creatinine 1.65 H (0.51-0.95) mg/dL Est GFR ( Amer) 38.4 (>60) Est GFR (Non-Af Amer) 29.9 (>60) BUN/Creatinine Ratio 21.8 H (8-20) Glucose 132 H (70-100) mg/dL Lactic Acid (0.5-2.0) mmol/L Calcium 10.6 H (8.6-10.3) mg/dL Magnesium 1.6 L (1.9-2.7) mg/dL Total Bilirubin 0.20 (0.2-1.0) mg/dL AST 9 L (13-39) U/L ALT 4 L (7-52) U/L Alkaline Phosphatase 108 H (34-104) U/L Troponin I 0.04 H* (<0.04) ng/mL C-Reactive Protein 70.96 H (< 5.00) mg/L B-Natriuretic Peptide 106 H ( - 100) pg/mL Total Protein 7.8 (6.4-8.9) g/dL Albumin 3.2 (3.2-5.2) g/dL Globulin 4.6 H (2-4) g/dL Albumin/Globulin Ratio 0.7 L (1-3) Lipase 520 H (11.0-82.0) U/L TSH 0.51 (0.34-5.60) mcIU/mL 04/22/17 04/22/17 Range/Units 12:42 12:42 WBC 27.8 H (3.5-10.8) 10^3/ul RBC 3.87 L (4.0-5.4) 10^6/ul Hgb 10.3 L (12.0-16.0) g/dl Hct 33 L (35-47) % MCV 84 (80-97) fL MCH 27 (27-31) pg MCHC 32 (31-36) g/dl RDW 16 H (10.5-15) % Plt Count 914 H D (150-450) 10^3/ul MPV 7 L (7.4-10.4) um3 Neut % (Auto) 83.9 H (38-83) % Lymph % (Auto) 9.7 L (25-47) % Charlton % (Auto) 6.0 (1-9) % Eos % (Auto) 0 (0-6) % Baso % (Auto) 0.4 (0-2) % Absolute Neuts (auto) 23.3 H (1.5-7.7) 10^3/ul Absolute Lymphs (auto) 2.7 (1.0-4.8) 10^3/ul Absolute Monos (auto) 1.7 H (0-0.8) 10^3/ul Absolute Eos (auto) 0 (0-0.6) 10^3/ul Absolute Basos (auto) 0.1 (0-0.2) 10^3/ul Absolute Nucleated RBC 0 10^3/ul Nucleated RBC % 0.1 INR (Anticoag Therapy) (0.77-1.02) APTT (26.0-36.3) seconds Sodium (133-145) mmol/L Potassium (3.5-5.0) mmol/L Chloride (101-111) mmol/L Carbon Dioxide (22-32) mmol/L Anion Gap (2-11) mmol/L BUN (6-24) mg/dL Creatinine (0.51-0.95) mg/dL Est GFR ( Amer) (>60) Est GFR (Non-Af Amer) (>60) BUN/Creatinine Ratio (8-20) Glucose (70-100) mg/dL Lactic Acid 1.8 (0.5-2.0) mmol/L Calcium (8.6-10.3) mg/dL Magnesium (1.9-2.7) mg/dL Total Bilirubin (0.2-1.0) mg/dL AST (13-39) U/L ALT (7-52) U/L Alkaline Phosphatase (34-104) U/L Troponin I (<0.04) ng/mL C-Reactive Protein (< 5.00) mg/L B-Natriuretic Peptide ( - 100) pg/mL Total Protein (6.4-8.9) g/dL Albumin (3.2-5.2) g/dL Globulin (2-4) g/dL Albumin/Globulin Ratio (1-3) Lipase (11.0-82.0) U/L TSH (0.34-5.60) mcIU/mL Result Diagrams: 04/22/17 12:42 04/22/17 12:42 Lab Statement: Any lab studies that have been ordered have been reviewed, and results considered in the medical decision making process. - Radiology CXR Xray Interpretation: No Acute Changes - No radiographic evidence for acute cardiopulmonary abnormality on this portable chest x-ray. Dr. Longoria has reviewed this report. Radiology Interpretation Completed By: Radiologist - CT CT Abd/Pel CT Interpretation: Positive (See Comments) - 1. Mild infiltration at the head of the pancreas can be seen in the setting of pancreatitis. 2. Bilateral renal calculi without signs of obstruction. 3. Likely cholelithiasis without signs of biliary obstruction. 4. Additional chronic, degenerative and iatrogenic changes described in body the report unlikely to be directly related to the patient's current presentation. Dr. Longoria has reviewed this report. CT Interpretation Completed By: Radiologist - EKG 12:27 Cardiac Rate: Tachycardia EKG Rhythm: Sinus Tachycardia - 103 BPM EKG Interpretation: Diffuse T wave abnormalities Complex Multi-Symp Course/Dx Course Of Treatment: BP noted and advised to follow up with PCP. Allergies noted. Medications reviewed. DISCUSSED STARTING ANTIBIOTIC WHEN CBC RETURNED. AT THAT TIME THERE WAS NO SOURCE IDENTIFIED. ANTIBIOTIC HELD UNTIL URINE RETURNED POSITIVE. ADMIT HOSPITALIST. CRITICAL CARE TIME LESS THAN 30 MINUTES. - Diagnoses Provider Diagnoses: Uncontrolled hypertension, Abdominal pain, Pancreatitis, UTI (urinary tract infection) Discharge - Discharge Plan Condition: Stable Disposition: ADMITTED TO [facility] documentation as recorded by the Alexandro may Jennifer accurately reflects the service I personally performed and the decisions made by me, Ike Longoria MD.
[2017-04-22] MEDS ORDERED: Vancomycin(*) 1,000 MG in NS 0.9% 250 ML* 250 ML IVPB ONE (18:00)
[2017-04-22] MEDS: Insulin LISPRO* 1 UNITS UNIT SUBCUT SCH (18:12)
[2017-04-22] MEDS: Meropenem 1 GM PREMIX(*) 1 GM/50 ML BAG IV SCH (18:51)
[2017-04-22] MEDS ORDERED: Atorvastatin* 40 MG TAB PO SCH (21:00)
[2017-04-22] MEDS: tiZANidine TAB* 2 MG PO SCH (21:21)
[2017-04-22] MEDS: Heparin VIAL(*) 5000 UNITS/ML VIAL (FIVE THOUSAND) SUBCUT SCH (21:21)
--- NOTE | 2017-04-22 22:33 | HP ---
CC: Dr. Chapman * HISTORY AND PHYSICAL: DATE OF ADMISSION: 04/22/17 PRIMARY CARE PROVIDER: Dr. Chapman. ATTENDING PHYSICIAN WHILE IN THE HOSPITAL: Temitope Pardo MD * (report dictated by Ivan Willis NP). CHIEF COMPLAINT: 1. Dizziness. 2. Not feeling well. HISTORY OF PRESENT ILLNESS: Mrs. Hurd is an 82-year-old female patient. She has a history of diabetes, hypertension. She also carries a history of CAD. She does have a remote history of CHF, last EF of 50% to 55%, history of CVA, pituitary tumor, chronic indwelling Valera. She is paraplegic. She has a history of hypothyroidism and history of chronic sacral decubitus. She comes in to the ED today stating that over the last 24 hours, she has had increasing worsening dizziness. Of note, she did have a recent increase in her Lasix from 40 mg to 80 mg. She states she has been on this for the last couple of weeks. She states that today she wanted to come to the ED because she noticed that she was feeling increasingly dizzy and not feeling well. There has been no report of vomiting. No reports of abdominal pain. She denied having any chest pain. She denies having any shortness of breath. No orthopnea. She denies having any weight gain. She states she has had a decreased appetite and decreased intake over the last 24 hours. She states that she has also been told that her urine has been foul smelling. She is unaware how long this has been going on for. She denies any pain, again below her rib cage because she has no sensation here. She denied having any chest pain or any palpitations. There was concern though because she was just continuing to feel dizzy like she had with her previous CVA back in November. The patient came in to the ED today, it was noted that she appeared to have elevated white count of 27,000. She appeared to be dehydrated. Her BUN and creatinine were elevated significantly and in addition to this, her lipase was elevated and there was concern for UTI. We were asked to evaluate for admission. PAST MEDICAL HISTORY: Significant for: 1. Diabetes. 2. Hypertension. 3. Sacral decubitus. 4. Chronic Valera. 5. Paraplegia. 6. Hypothyroidism. 7. CAD. 8. History of [place]. 9. CHF, EF of 55% to 60% 10. CVA. 11. Pituitary tumor. PAST SURGICAL HISTORY: 1. The patient has had a cervical spine fusion. 2. She has had an appendectomy. 3. Tonsillectomy. 4. She has had bowel resection with colostomy. HOME MEDICATIONS: Include: 1. Percocet 2 tablets p.o. t.i.d. as needed. 2. Metformin 1000 mg p.o. b.i.d. 3. Meclizine 25 mg p.o. daily. 4. Aspirin 81 mg daily. 5. Zanaflex 4 mg p.o. at bedtime. 6. Bactrim 1 tablet p.o. b.i.d. 7. Tapazole 10 mg p.o. b.i.d. 8. Lasix 80 mg daily. 9. Lipitor 40 mg p.o. b.i.d. ALLERGIES: Allergies to medications include TAPE, FLAGYL, NITROFURANTOIN, PENICILLIN, and NYSTATIN. FAMILY HISTORY: Both her parents had heart disease. SOCIAL HISTORY: She is a former smoker, she quit in 1969. She does not drink alcohol. Surrogate decision maker is her daughter, Polina. REVIEW OF SYSTEMS: There is no significant weight change. She denied having any double vision. She does admit to feeling dizzy like the room is spinning. She denies having any ear discharge. There was no rhinorrhea. No sore throat. No thyroid enlargement. Denies having any chest pain. There is no orthopnea. There is no nocturnal dyspnea. She denies having any abdominal pain. There has been no nausea or vomiting. She denied having again any dysuria, but again she has no sensation of this. She does have a colostomy, which she states, her output has not changed from this. She denies having any lower extremity swelling. No loss of consciousness. No pruritus. No skin ulcerations. Review of 14 systems was completed, all others negative. PHYSICAL EXAMINATION GENERAL: At this time, Mrs. Hurd is an 82-year-old female patient. She is chronically ill appearing. She is sitting in the ED stretcher. She does not appear to be in any acute distress. VITAL SIGNS: Blood pressure 132/75, pulse 109, respirations were 18, O2 sat 100 %, temperature 99.2. HEENT: Head atraumatic. Eyes: Sclerae are anicteric and not pale. Throat: Oral mucosa appears to be dry. No oropharyngeal erythema. NECK: Supple. LUNGS: Clear to auscultation bilaterally. No wheezes, rales, or rhonchi. HEART: Sounds S1 and S2. Regular rate and rhythm. She is tachycardic. ABDOMEN: Soft, flat. There is tenderness in the right upper quadrant. She does have a colostomy noted in the left lower quadrant, which again appears to be in place and the stoma does not appear to be dusky. EXTREMITIES: Pulses were 2+ throughout. She is moving all upper extremities with 5/5 strength. She is not moving the lower extremities as she is paraplegic. NEUROLOGIC: She is awake, alert, oriented x3. She has no gross focal deficits. No nystagmus. Pupils are equal and reactive to light. Again, not moving the lower extremities due to the paraplegia. She has upper extremity strength 5/5. SKIN: Intact with the exception she has a stage 3 pressure ulcer noted to the sacrum and she has also pressure ulcer noted to her thoracic spine area as well. LABORATORY DATA/DIAGNOSTIC STUDIES: WBC of 23.8, RBC of 3.87, hemoglobin of 10.3, hematocrit of 33, and platelet count of 914,000. Her INR was 1.14. PTT of 26.3. Sodium 133, potassium 3.8, chloride 92, bicarb 19, BUN 36, creatinine 1.65 which is up from her baseline of 0.6. Glucose is 132, lactate 1.8, calcium 10.6, mag 1.6, total bili 0.2, AST 9, ALT 4, alk phos 108, troponin 0.04. CRP was 70. BNP of 106, lipase was 520. Urine showed 2+ protein, trace ketones, 3+ blood, 3+ leukocyte esterase, 3+ wbc's, 3+ bacteria. She did have abdominal pelvis CT obtained today, impression: Mild infiltration of the head of the pancreas can be seen in the setting of pancreatitis. Bilateral renal calculi without signs of obstruction. Likely cholelithiasis without signs of biliary obstruction. Additional chronic degenerative and iatrogenic changes as described in the body of the report. She had chest x-ray obtained as well. Impression: No radiographic evidence for acute cardiopulmonary disease. She had an EKG as well which is showing sinus tachycardia. She had inverted T waves in V4, V5, and V6 which she has had in the past. Old medical records were reviewed. ASSESSMENT AND PLAN: Mrs. Hurd is an 82-year-old female patient with multiple medical problems coming in to the ED today with complaints of dizziness, recently had an increase in her Lasix. We were asked to evaluate for admission. She will be admitted under inpatient status for: 1. Pancreatitis. Again, the etiology could be related to increase in the Lasix as this med has been associated with this. Plan is to go ahead and hydrate her, repeat the lipase in the morning. I do not think that this is obstructive as her bili is normal and her LFTs are normal, so we will monitor her LFTs in the morning. We will place her on n.p.o. We will repeat the lipase in the morning and we will continue to follow this closely. 2. Sepsis. Severe sepsis as evidenced by she has acute renal failure, indeterminate troponin which is probably demand ischemia related to the underlying dehydration and pancreatitis and also appears to have urinary tract infection. We will go ahead and put her on meropenem and vancomycin as she did grow out ESBL previously and Enterococcus as well in her urine. We will replace the Valera, hydrate her, repeat the white cell count in the morning and we will continue to follow. 3. Acute renal failure. This is probably multifactorial, there is probably some acute tubular necrosis and dehydration going on here and some prerenal failure. I will get a FENA. We will go ahead and hydrate her and we will continue to follow. Hold the Lasix. 4. Diabetes. We will place her on a lispro sliding scale. 5. Hypertension. We will continue to hold her meds. 6. Sacral decubitus. We will go ahead and get a wound care consult. We will continue to follow. 7. Chronic Valera. We will go ahead and change this out. 8. Paraplegia. Continue supportive care. 9. Hypothyroidism. Continue Synthroid. 10. History of CAD. She is on aspirin therapy and atorvastatin. 11. History of congestive heart failure. We will hydrate her slowly and we will diurese as needed, but at this point I am holding the Lasix. 12. History of cerebrovascular accident. We will go ahead and continue with secondary prevention. 13. Pituitary tumor. Follow with the primary. 14. Dizziness. I suspect this is probably related to the fact that she is dehydrated and the increase in her Lasix. We will hydrate her. We will see if this improves with hydration. We will follow. 15. DVT prophylaxis. Heparin subcu. 16. Code status. Full code. 17. Fluids, electrolytes, and nutrition. She is n.p.o. Given the pancreatitis , we will hydrate her and we will follow. TIME SPENT: On the admission was approximately 60 minutes, greater than half the time spent [id number] with the patient obtaining my history and physical, other half time spent going over the plan of care with the patient and implementing plan of care. I did discuss the plan of care with my attending, Dr. Pardo; she is in agreement. IVAN WILLIS NP [id number]/CPS #: [id number] MTDD
[2017-04-22] MEDS: Methimazole TAB* 5 MG PO SCH (23:10)
[2017-04-23 04:04] LABS: Urine Appearance Cloudy; Urine Blood 3+ (Negative); Urine Color Yellow; Urine Ketones Trace (Negative); Urine Protein 2+(100 mg/dL) (Negative); Urine Specific Gravity 1.016 (1.010-1.030); Urine Urobilinogen Negative (Negative)
[2017-04-23] MEDS: Meropenem 1 GM PREMIX(*) 1 GM/50 ML BAG IV SCH ×2 (06:07→17:36)
[2017-04-23] MEDS: Heparin VIAL(*) 5000 UNITS/ML VIAL (FIVE THOUSAND) SUBCUT SCH ×3 (06:10→20:14)
[2017-04-23 07:43] LABS: Hematocrit 27 % (35-47); Hemoglobin 8.6 g/dl (12.0-16.0); Mean Corpuscular HGB Conc 31 g/dl (31-36); Mean Corpuscular Hemoglobin 27 pg (27-31); Mean Corpuscular Volume 86 fL (80-97); Mean Platelet Volume 6 um3 (7.4-10.4); Platelet Count 620 10^3/ul (150-450); Red Blood Count 3.21 10^6/ul (4.0-5.4); Red Cell Distribution Width 16 % (10.5-15); White Blood Count 24.3 10^3/ul (3.5-10.8)
[2017-04-23 07:50] LABS: ABS Basophils 0 10^3/ul (0-0.2); ABS Eosinophils 0 10^3/ul (0-0.6); ABS Lymphocytes 1.4 10^3/ul (1.0-4.8); ABS Monocytes 1.4 10^3/ul (0-0.8); ABS Neutrophils 21.5 10^3/ul (1.5-7.7); ABS Nucleated RBC 0 10^3/ul; Eosinophil % 0 % (0-6); Lymphocyte % 5.9 % (25-47); Nucleated Red Blood Cells % 0
[2017-04-23 07:54] LABS: INR 1.22 (0.77-1.02)
[2017-04-23] MEDS: Insulin LISPRO* 1 UNITS UNIT SUBCUT SCH ×3 (08:10→17:59)
[2017-04-23] MEDS: Methimazole TAB* 5 MG PO SCH ×3 (08:48→20:02)
[2017-04-23] MEDS: Vancomycin(*) 750 MG in NS 0.9% 250 ML* 250 ML IVPB SCH ×2 (08:49→19:53)
[2017-04-23] MEDS: Pantoprazole IV* 40 MG IV SCH (08:49)
[2017-04-23] MEDS ORDERED: Meclizine TAB* 12.5 MG PO SCH (09:00)
[2017-04-23] MEDS ORDERED: KCL 20 MEQ/100 ML IVPREMIX* 20 MEQ/100 ML BAG IV SCH (09:00)
[2017-04-23] MEDS ORDERED: KCL premix 10MEQ/50 ML x 3 RUNS IV SCH (09:00)
[2017-04-23] MEDS ORDERED: Aspirin EC Low Dose* 81 MG TAB.EC PO SCH (09:00)
[2017-04-23] MEDS ORDERED: POTASSIUM CHLORIDE IVPB ONE (09:30)
[2017-04-23] MEDS ORDERED: NS 0.9% IVPB ONE (09:30)
--- NOTE | 2017-04-23 15:01 | PN ---
Subjective Date of Service: 04/23/17 Interval History: Pt c/o no abd pain but during exam turning lathe tender. Objective Active Medications: Dextrose (D50w Syringe 50 Ml*) 12.5 gm IV PUSH .FOR FS < 60 - SS PRN PRN Reason: FS < 60 Heparin Sodium (Porcine) (Heparin Vial(*)) 5,000 units SUBCUT Q8HR [facility] Last Admin: 04/23/17 13:22 Dose: 5,000 units Meropenem (Merrem 1 Gm Premix(*)) 1 gm in 50 mls @ 100 mls/hr IV Q12H [facility] Last Admin: 04/23/17 06:07 Dose: 100 mls/hr Sodium Chloride (Ns 0.9% 1000 Ml*) 1,000 mls @ 100 mls/hr IV PER RATE [facility] Last Admin: 04/22/17 16:54 Dose: 100 mls/hr Vancomycin HCl 750 mg/ Sodium (Chloride) 250 mls @ 166.667 mls/hr IVPB Q12H [facility] Last Admin: 04/23/17 08:49 Dose: 166.667 mls/hr Potassium Chloride 60 meq/ (Sodium Chloride) 300 mls @ 50 mls/hr IVPB ONCE ONE Stop: 04/23/17 15:29 Last Admin: 04/23/17 10:14 Dose: 50 mls/hr Insulin Human Lispro (Humalog*) 0 units SUBCUT Q6HR HARJ[facility] PRN Reason: Protocol Last Admin: 04/23/17 12:43 Dose: Not Given Methimazole (Tapazole Tab*) 10 mg PO BID [facility] Last Admin: 04/23/17 08:51 Dose: Not Given Ondansetron HCl (Zofran Inj*) 4 mg IV Q6H PRN PRN Reason: NAUSEA Pantoprazole Sodium (Protonix Iv*) 40 mg IV Q24H [facility] Last Admin: 04/23/17 08:49 Dose: 40 mg Pharmacy Profile Note (Vancomycin Trough Check) 1 note FOLLOW UP 729 ONE Stop: 04/24/17 07:31 Tizanidine HCl (Zanaflex Tab*) 4 mg PO BEDTIME [facility] Last Admin: 04/22/17 21:21 Dose: 4 mg Vital Signs - 8 hr 04/23/17 04/23/17 04/23/17 07:23 07:58 08:32 Temperature 97.1 F Pulse Rate Respiratory 16 Rate Blood Pressure (mmHg) O2 Sat by Pulse 94 Oximetry 04/23/17 09:23 Temperature Pulse Rate 80 Respiratory 12 Rate Blood Pressure 113/50 (mmHg) O2 Sat by Pulse 95 Oximetry Oxygen Devices in Use Now: Nasal Cannula Appearance: 82 yo f in nAD, aAOx3 Eyes: No Scleral Icterus, PERRLA Ears/Nose/Mouth/Throat: NL Teeth, Lips, Gums, Mucous Membranes Moist Neck: NL Appearance and Movements; NL JVP, Trachea Midline Respiratory: Symmetrical Chest Expansion and Respiratory Effort, Clear to Auscultation Cardiovascular: NL Sounds; No Murmurs; No JVD, RRR Abdominal: - - tender in epigastrium and LUQ, no rebound, no guarding, BS+, colostomy in place in r mid abdomen Lymphatic: No Cervical Adenopathy Extremities: No Edema, No Clubbing, Cyanosis Skin: - - large sacral decub at 20 x 15 cm -stage 4, 2 lower buttock decubiti covered with mepilex and one smaller on lower thoracic spine at 4 cm in diam Neurological: Alert and Oriented x 3, - - paraplegic Result Diagrams: 04/23/17 07:27 04/23/17 07:27 Additional Lab and Data: Lab Results 04/22/17 04/22/17 04/22/17 Range/Units 12:42 12:42 12:42 WBC (3.5-10.8) 10^3/ul RBC (4.0-5.4) 10^6/ul Hgb (12.0-16.0) g/dl Hct (35-47) % MCV (80-97) fL MCH (27-31) pg MCHC (31-36) g/dl RDW (10.5-15) % Plt Count (150-450) 10^3/ul MPV (7.4-10.4) um3 Neut % (Auto) (38-83) % Lymph % (Auto) (25-47) % Kemper % (Auto) (1-9) % Eos % (Auto) (0-6) % Baso % (Auto) (0-2) % Absolute Neuts (auto) (1.5-7.7) 10^3/ul Absolute Lymphs (auto) (1.0-4.8) 10^3/ul Absolute Monos (auto) (0-0.8) 10^3/ul Absolute Eos (auto) (0-0.6) 10^3/ul Absolute Basos (auto) (0-0.2) 10^3/ul Absolute Nucleated RBC 10^3/ul Nucleated RBC % INR (Anticoag Therapy) 1.14 H (0.77-1.02) APTT 26.3 (26.0-36.3) seconds Sodium 133 (133-145) mmol/L Potassium 3.8 (3.5-5.0) mmol/L Chloride 92 L (101-111) mmol/L Carbon Dioxide 19 L (22-32) mmol/L Anion Gap 22 H (2-11) mmol/L BUN 36 H (6-24) mg/dL Creatinine 1.65 H (0.51-0.95) mg/dL Est GFR ( Amer) 38.4 (>60) Est GFR (Non-Af Amer) 29.9 (>60) BUN/Creatinine Ratio 21.8 H (8-20) Glucose 132 H (70-100) mg/dL Lactic Acid (0.5-2.0) mmol/L Calcium 10.6 H (8.6-10.3) mg/dL Magnesium 1.6 L (1.9-2.7) mg/dL Total Bilirubin 0.20 (0.2-1.0) mg/dL AST 9 L (13-39) U/L ALT 4 L (7-52) U/L Alkaline Phosphatase 108 H (34-104) U/L Troponin I 0.04 H* (<0.04) ng/mL C-Reactive Protein 70.96 H (< 5.00) mg/L B-Natriuretic Peptide 106 H ( - 100) pg/mL Total Protein 7.8 (6.4-8.9) g/dL Albumin 3.2 (3.2-5.2) g/dL Globulin 4.6 H (2-4) g/dL Albumin/Globulin Ratio 0.7 L (1-3) Lipase 520 H (11.0-82.0) U/L TSH 0.51 (0.34-5.60) mcIU/mL 04/22/17 04/22/17 Range/Units 12:42 12:42 WBC 27.8 H (3.5-10.8) 10^3/ul RBC 3.87 L (4.0-5.4) 10^6/ul Hgb 10.3 L (12.0-16.0) g/dl Hct 33 L (35-47) % MCV 84 (80-97) fL MCH 27 (27-31) pg MCHC 32 (31-36) g/dl RDW 16 H (10.5-15) % Plt Count 914 H D (150-450) 10^3/ul MPV 7 L (7.4-10.4) um3 Neut % (Auto) 83.9 H (38-83) % Lymph % (Auto) 9.7 L (25-47) % Kemper % (Auto) 6.0 (1-9) % Eos % (Auto) 0 (0-6) % Baso % (Auto) 0.4 (0-2) % Absolute Neuts (auto) 23.3 H (1.5-7.7) 10^3/ul Absolute Lymphs (auto) 2.7 (1.0-4.8) 10^3/ul Absolute Monos (auto) 1.7 H (0-0.8) 10^3/ul Absolute Eos (auto) 0 (0-0.6) 10^3/ul Absolute Basos (auto) 0.1 (0-0.2) 10^3/ul Absolute Nucleated RBC 0 10^3/ul Nucleated RBC % 0.1 INR (Anticoag Therapy) (0.77-1.02) APTT (26.0-36.3) seconds Sodium (133-145) mmol/L Potassium (3.5-5.0) mmol/L Chloride (101-111) mmol/L Carbon Dioxide (22-32) mmol/L Anion Gap (2-11) mmol/L BUN (6-24) mg/dL Creatinine (0.51-0.95) mg/dL Est GFR ( Amer) (>60) Est GFR (Non-Af Amer) (>60) BUN/Creatinine Ratio (8-20) Glucose (70-100) mg/dL Lactic Acid 1.8 (0.5-2.0) mmol/L Calcium (8.6-10.3) mg/dL Magnesium (1.9-2.7) mg/dL Total Bilirubin (0.2-1.0) mg/dL AST (13-39) U/L ALT (7-52) U/L Alkaline Phosphatase (34-104) U/L Troponin I (<0.04) ng/mL C-Reactive Protein (< 5.00) mg/L B-Natriuretic Peptide ( - 100) pg/mL Total Protein (6.4-8.9) g/dL Albumin (3.2-5.2) g/dL Globulin (2-4) g/dL Albumin/Globulin Ratio (1-3) Lipase (11.0-82.0) U/L TSH (0.34-5.60) mcIU/mL Microbiology and Other Data: Microbiology 04/22/17 15:13 Urine Culture - Preliminary Urine Escherichia Coli Morganella Morganii 04/22/17 18:12 Nasal Screen MRSA (PCR)(LENNY) - Final Nasal Mrsa Detected Assess/Plan/Problems-Billing Assessment: Ms. Hurd is an 81 yo female with multiple medical problems including paraplegia with functional paraplegia, sacral decubitus ulcer, neurogenic bladder with chronic Valera in place, HTN, hyperthyroidism, CAD and CHF, pituitary adenoma, ESBL UTI's presents with c/o abd pain - Patient Problems (1) Acute pancreatitis Comment: Asked DR. Denton to see pt in consult suspect Bactrim could be the culprit. Cont NPO except sips of water. cont IVF and IV Prototnix for GI prophylaxis. lipase is improving (2) Decubitus ulcer Comment: Chronic sacral decubitus ulcer Stage 4, cont Vancomycin for now for h/o MRSA wound consult requested (3) UTI (urinary tract infection) Comment: h/o recent ESBL E.coli cont meropenem. WBC level slightly decreased today Valera associated (4) Hyperthyroidism Comment: cont methimazole, TSH WNL at 0.5 (5) Acute kidney injury Comment: due to UTI and pancreatitis, resolving with IVF tx. (6) Type II diabetes mellitus Comment: Lispro SS and glucose checks AC (7) Troponin level elevated Comment: no CP, at 0.04-suspect demand ischemia, d/c telem (8) DVT prophylaxis Comment: - SQ heparin Status and Disposition: inpatient
[2017-04-23] MEDS: tiZANidine TAB* 2 MG PO SCH (20:02)
--- NOTE | 2017-04-23 22:49 | CONS ---
GASTROENTEROLOGY CONSULT: DATE: 04/23/17 CONSULTING PHYSICIAN: Temitope Pardo MD REASON FOR CONSULT: Abdominal pain with elevated lipase. 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 She was seen by Dr. Chapman, her primary on 06/04 and he felt that she just was not thriving and sent her to the emergency room. In the ER, her white count was up at 27.8 and lipase 520. LFTs were normal. CT scan showed stranding around the head of the pancreas. She has no prior history of pancreatitis on chart review and she does have a history of gallstones. The pancreas is atrophic and shrunken on the CT of 04/22. Her most recent admission here October 2016 was for dizziness ascribed to a "subacute cerebrovascular accident." She is known to have a pituitary tumor. At the skilled nursing she has been on Lasix 40 mg b.i.d. The first mention of Lasix appears to be in Aren Willis NP's admission note in 2013 where it was 40 and 20 for a total daily dose of 60. Bactrim appears in the hospital pharmacy record 5 times in 2013 and 2014, was a part of her outpatient meds. Other meds are methimazole, atorvastatin, low-dose aspirin, metformin 1000 b.i.d., and oxycodone. PAST MEDICAL HISTORY: Extensive: 1. History of CVA - October 2016. 2. Pituitary tumor. 3. Chronic sacral decubitus - followed in the wound clinic and known to Dr. Alonso. 4. Status post diverting colostomy - to assist in the decubitus care. 5. AODM. 6. Debilitation and chronic immobility. 7. Known gallstones. 8. Hypothyroidism. 9. History of laparotomy and resection of benign tumor - details unavailable. 10. History of appendectomy. 11. Hypertension. MEDICATIONS: See above and patient care summary reviewed. SOCIAL HISTORY: She is from [place], never and has no children. 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 REVIEW OF SYSTEMS: No prior history of pancreatitis with 7 or 8 prior lipase values, all normal prior to this admission. No history of alcohol abuse. She is a nonsmoker. No history of seizures, remote CVAs, [place], hepatitis, or jaundice. She had a workup for iron-deficiency anemia by Dr. Francisco in 1999. At that time, he had been followed by Dr. Danika Cadena for many years. Iron deficiency anemia workup was repeated in 2009. PHYSICAL EXAM: She is a debilitated obese woman in bed, immobile, though able to answer questions slowly with a fair amount of detail. She is afebrile, pulse 80 and regular, blood pressure 113/50. Mucous membranes are moist. She has no adenopathy. Breath sounds are present bilaterally, but exam is limited by her configuration. Heart sounds are regular. Breath sounds, no masses. The abdomen has a well-healed midline scar in the left lower quadrant ostomy. The bag is empty. Bowel sounds are diminished, but present in her lower abdomen. Her decubitus was not uncovered. Extremities show 2+ edema. DIAGNOSTIC STUDIES/LAB DATA: Today white count 24.3; hemoglobin 8.6; hematocrit 27, down from hemoglobin 10.3 yesterday; platelets 620,000, down from 914,000; MCV 86. It is notable her MCV was 77 to 78 in October 2014. LFTs normal. IMPRESSION: Pancreatitis, etiology unclear. Two of her medications had been identified as somewhat suspect, Lasix and Bactrim. It seems doubtful that they are related since she has had Bactrim numerous times through the years and similarly there are doubts about furosemide being causative since it has been given for 3.5 years at least. Raising the dose from 60 to 80 would not be expected to lead to pancreatitis. Even though the LFTs are normal, gallstones have to be at the top of the list. Given her general debilitation, I would not , however, recommend cholecystectomy at this time. Conservative care as has already been started is appropriate. [id number]/[facility] #: [id number] [facility]
[2017-04-24] MEDS ORDERED: NS 0.9% 1000 ML* 1,000 ML IV ONE (01:25)
[2017-04-24] MEDS: Meropenem 1 GM PREMIX(*) 1 GM/50 ML BAG IV SCH (05:47)
[2017-04-24] MEDS: Heparin VIAL(*) 5000 UNITS/ML VIAL (FIVE THOUSAND) SUBCUT SCH ×3 (06:05→20:03)
[2017-04-24] MEDS: Insulin LISPRO* 1 UNITS UNIT SUBCUT SCH ×4 (06:40→18:09)
[2017-04-24] MEDS ORDERED: Vancomycin Trough Check NOTE FOLLOW UP ONE (07:30)
[2017-04-24 07:56] LABS: EGFR Non-African American 74.2 (>60)
[2017-04-24] MEDS ORDERED: Promethazine TAB* 25 MG PO PRN (08:48)
[2017-04-24] MEDS: Pantoprazole IV* 40 MG IV SCH (09:19)
[2017-04-24] MEDS: Methimazole TAB* 5 MG PO SCH ×2 (09:19→20:02)
[2017-04-24] MEDS: Vancomycin(*) 750 MG in NS 0.9% 250 ML* 250 ML IVPB SCH (09:20)
[2017-04-24] MEDS ORDERED: NS 0.9% 1000 ML* 1,000 ML IV SCH (09:39)
[2017-04-24 12:35] LABS: Hematocrit 26 % (35-47); Hemoglobin 8.1 g/dl (12.0-16.0); Mean Corpuscular HGB Conc 31 g/dl (31-36); Mean Corpuscular Hemoglobin 26 pg (27-31); Mean Corpuscular Volume 85 fL (80-97); Mean Platelet Volume 8 um3 (7.4-10.4); Platelet Count 540 10^3/ul (150-450); Red Blood Count 3.08 10^6/ul (4.0-5.4); Red Cell Distribution Width 16 % (10.5-15); White Blood Count 30.3 10^3/ul (3.5-10.8)
[2017-04-24 12:42] LABS: Monocytes % 9 % (0-13)
--- NOTE | 2017-04-24 17:35 | PN ---
Subjective Date of Service: 04/24/17 Interval History: poor po intake, nausea. she says zofran usually does not work for her. has scheduled f/u in [place] to discuss her pituitary tumor 04/26. Dr. Alonso wanting her to go to [place] for plastic surgery flap for chronic sacral decub. Dr. Renner not currently treating with any antibiotics for this. wbc up. lipase improving. states she was given 1 dose of bactrim day prior to admission. Objective Active Medications: Dextrose (D50w Syringe 50 Ml*) 12.5 gm IV PUSH .FOR FS < 60 - SS PRN PRN Reason: FS < 60 Heparin Sodium (Porcine) (Heparin Vial(*)) 5,000 units SUBCUT Q8HR [facility] Last Admin: 04/24/17 13:23 Dose: 5,000 units Sodium Chloride (Ns 0.9% 1000 Ml*) 1,000 mls @ 50 mls/hr IV PER RATE [facility] Stop: 04/24/17 19:38 Last Admin: 04/24/17 10:24 Dose: 50 mls/hr Insulin Human Lispro (Humalog*) 0 units SUBCUT Q6HR [facility] PRN Reason: Protocol Last Admin: 04/24/17 12:01 Dose: Not Given Methimazole (Tapazole Tab*) 10 mg PO BID [facility] Last Admin: 04/24/17 09:19 Dose: 10 mg Ondansetron HCl (Zofran Inj*) 4 mg IV Q6H PRN PRN Reason: NAUSEA Pantoprazole Sodium (Protonix Iv*) 40 mg IV Q24H [facility] Last Admin: 04/24/17 09:19 Dose: 40 mg Promethazine HCl (Phenergan Tab*) 25 mg PO Q6H PRN PRN Reason: NAUSEA Tizanidine HCl (Zanaflex Tab*) 4 mg PO BEDTIME [facility] Last Admin: 04/23/17 20:02 Dose: 4 mg Vital Signs - 8 hr 04/24/17 04/24/17 04/24/17 09:35 15:15 16:00 Temperature Pulse Rate 104 Respiratory 16 16 Rate Blood Pressure 108/45 (mmHg) O2 Sat by Pulse 100 100 Oximetry 04/24/17 16:23 Temperature 99.7 F Pulse Rate Respiratory Rate Blood Pressure (mmHg) O2 Sat by Pulse Oximetry Oxygen Devices in Use Now: Nasal Cannula Appearance: chronically ill appearing Eyes: No Scleral Icterus, PERRLA Ears/Nose/Mouth/Throat: NL Teeth, Lips, Gums Neck: NL Appearance and Movements; NL JVP Respiratory: Symmetrical Chest Expansion and Respiratory Effort, Clear to Auscultation Cardiovascular: NL Sounds; No Murmurs; No JVD, RRR Abdominal: NL Sounds; No Tenderness; No Distention, - - s/p colectomy Extremities: No Edema, No Clubbing, Cyanosis Skin: - - sacral decub stage 4. small area of necrosis on toe Neurological: Alert and Oriented x 3, - - 0/5 strength b/l LE. Lines/Tubes/Other Access: Clean, Dry and Intact Valera - chronic Nutrition: Taking PO's Result Diagrams: 04/24/17 07:27 04/24/17 07:27 Additional Lab and Data: Laboratory Results - last 24 hr 04/23/17 04/24/17 04/24/17 23:55 05:55 07:27 WBC RBC Hgb Hct MCV MCH MCHC RDW Plt Count MPV Neutrophils % Lymphocytes % Monocytes % Eosinophils % Basophils % Abs Neuts (Manual) Abs Monocytes (Manual) Absolute Eos (Manual) Abs Basophils (Manual) Normal RBC Morphology Sodium Potassium Chloride Carbon Dioxide Anion Gap BUN Creatinine Est GFR ( Amer) Est GFR (Non-Af Amer) BUN/Creatinine Ratio Glucose POC Glucose (mg/dL) 129 H 143 H Calcium Total Bilirubin AST ALT Alkaline Phosphatase Total Protein Albumin Globulin Albumin/Globulin Ratio Lipase Vancomycin Trough 15.6 04/24/17 04/24/17 04/24/17 07:27 07:27 11:56 WBC 30.3 H RBC 3.08 L Hgb 8.1 L Hct 26 L MCV 85 MCH 26 L MCHC 31 RDW 16 H Plt Count 540 H D MPV 8 Neutrophils % 86 H Lymphocytes % 5 L Monocytes % 9 Eosinophils % 0 Basophils % 0 Abs Neuts (Manual) 26.1 H Abs Monocytes (Manual) 2.7 H Absolute Eos (Manual) 0 Abs Basophils (Manual) 0 Normal RBC Morphology Normal Sodium 140 Potassium 3.7 Chloride 105 Carbon Dioxide 16 L Anion Gap 19 H BUN 20 Creatinine 0.75 Est GFR ( Amer) 95.4 Est GFR (Non-Af Amer) 74.2 BUN/Creatinine Ratio 26.7 H Glucose 106 H POC Glucose (mg/dL) 184 H Calcium 9.6 Total Bilirubin 0.20 AST 8 L ALT 4 L Alkaline Phosphatase 87 Total Protein 6.1 L Albumin 2.6 L Globulin 3.5 Albumin/Globulin Ratio 0.7 L Lipase 224 H Vancomycin Trough 04/24/17 18:06 WBC RBC Hgb Hct MCV MCH MCHC RDW Plt Count MPV Neutrophils % Lymphocytes % Monocytes % Eosinophils % Basophils % Abs Neuts (Manual) Abs Monocytes (Manual) Absolute Eos (Manual) Abs Basophils (Manual) Normal RBC Morphology Sodium Potassium Chloride Carbon Dioxide Anion Gap BUN Creatinine Est GFR ( Amer) Est GFR (Non-Af Amer) BUN/Creatinine Ratio Glucose POC Glucose (mg/dL) 171 H Calcium Total Bilirubin AST ALT Alkaline Phosphatase Total Protein Albumin Globulin Albumin/Globulin Ratio Lipase Vancomycin Trough Microbiology and Other Data: Microbiology 04/22/17 15:13 Urine Urine Culture - Final Esbl Escherichia Coli Morganella Morganii Aerococcus Species 04/23/17 00:44 Blood Venous Aerobic Blood Culture - Preliminary No Growth Day 1 04/23/17 00:44 Blood Venous Anaerobic Blood Culture - Preliminary No Growth Day 1 04/23/17 00:44 Blood Venous Aerobic Blood Culture - Preliminary No Growth Day 1 04/23/17 00:44 Blood Venous Anaerobic Blood Culture - Preliminary No Growth Day 1 04/22/17 18:12 Nasal Nasal Screen MRSA (PCR)(LENNY) - Final Mrsa Detected Assess/Plan/Problems-Billing Assessment: 81 yo female PMH paraplegia with functional paraplegia, sacral decubitus ulcer stage 4, neurogenic bladder with chronic Valera in place, HTN, hyperthyroidism, CAD and CHF, pituitary adenoma, ESBL UTI's presents with c/o abd pain. Pancreatitis. - Patient Problems (1) Acute pancreatitis Current Visit: Yes Status: Acute Code(s): K85.90 - ACUTE PANCREATITIS WITHOUT NECROSIS OR INFECTION, UNSP SNOMED Code(s): 057075027 Comment: appreciate GI recs. f/u IgG4 and Trigyclerides. ?Bactrim could be the culprit. says got just 1 dose clear liquid diet lipase is improving LFTs wnl (2) Acute kidney injury Current Visit: No Status: Acute Priority: High Onset Date: 05/01/14 Code (s): N17.9 - ACUTE KIDNEY FAILURE, UNSPECIFIED SNOMED Code(s): 94628232 Comment: due to UTI and pancreatitis, resolved with IVF tx. (3) UTI (urinary tract infection) Current Visit: No Status: Acute Comment: - Initial UA suggestive of UTI - Culture grew ESBL + EColi and morganlla, initial empiric treatment was meropenem - Discussed with ID, Dr. Evan Renner, - in setting of indwelling Valera catheter this may be colonization. concurrent pancreatitis muddies picture. does have leukocytosis and occascional tachycardia. (4) Decubitus ulcer Current Visit: No Status: Chronic Priority: High Onset Date: 02/05/14 Code(s): L89.90 - PRESSURE ULCER OF UNSPECIFIED SITE, UNSPECIFIED STAGE SNOMED Code(s): 515492983 Comment: Chronic sacral decubitus ulcer Stage 4, hold Vancomycin for now wound consult requested (5) Pituitary tumor Current Visit: No Status: Chronic Comment: Had appointment 04/26 in [place] to discuss. - Pituitary tumor is previously known, but she has not seen her neurologist in 12 years MRI (2000) - identified pituitary mass measuring 1.2cm at that time. 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 He did not think the mass was related to her acute complaints. He was happy to see her in follow up in the pituitary clinic which can be reached at [phone] for an appointment. She does not require urgent intervention - Tumor appeared non-functional Oct 2016: slightly low TSH, high T4, nl FSH, LH , prolactin, and cortisol (6) Hyperthyroidism Current Visit: Yes Status: Acute Code(s): E05.90 - THYROTOXICOSIS, UNSP WITHOUT THYROTOXIC CRISIS OR STORM SNOMED Code(s): 35454198 Comment: cont methimazole, TSH WNL at 0.5 (7) Troponin level elevated Current Visit: Yes Status: Acute Code(s): R74.8 - ABNORMAL LEVELS OF OTHER SERUM ENZYMES SNOMED Code(s): 681434822 Comment: no CP, at 0.04-suspect demand ischemia, (8) Type II diabetes mellitus Current Visit: No Status: Chronic Comment: Lispro SS and glucose checks AC Status and Disposition: inpatient
[2017-04-24] MEDS: tiZANidine TAB* 2 MG PO SCH (20:03)
[2017-04-25] MEDS: Insulin LISPRO* 1 UNITS UNIT SUBCUT SCH ×4 (03:04→18:41)
[2017-04-25] MEDS: Heparin VIAL(*) 5000 UNITS/ML VIAL (FIVE THOUSAND) SUBCUT SCH ×3 (05:32→22:05)
[2017-04-25 07:00] LABS: ABS Basophils 0 10^3/ul (0-0.2); ABS Eosinophils 0 10^3/ul (0-0.6); ABS Lymphocytes 1.9 10^3/ul (1.0-4.8); ABS Monocytes 1.5 10^3/ul (0-0.8); ABS Nucleated RBC 0 10^3/ul; Eosinophil % 0.1 % (0-6); Hematocrit 23 % (35-47); Hemoglobin 7.3 g/dl (12.0-16.0); Lymphocyte % 9.1 % (25-47); Mean Corpuscular HGB Conc 32 g/dl (31-36); Mean Corpuscular Hemoglobin 26 pg (27-31); Mean Corpuscular Volume 82 fL (80-97); Mean Platelet Volume 6 um3 (7.4-10.4); Nucleated Red Blood Cells % 0.1; Platelet Count 514 10^3/ul (150-450); Red Blood Count 2.76 10^6/ul (4.0-5.4); Red Cell Distribution Width 16 % (10.5-15); White Blood Count 20.4 10^3/ul (3.5-10.8)
[2017-04-25] MEDS: Methimazole TAB* 5 MG PO SCH ×2 (09:10→22:05)
[2017-04-25] MEDS: Pantoprazole IV* 40 MG IV SCH (09:10)
[2017-04-25] MEDS: tiZANidine TAB* 2 MG PO SCH (22:05)
--- NOTE | 2017-04-25 23:29 | PN ---
Subjective Date of Service: 04/25/17 Interval History: Does not feel improved. Nausea unchanged, not improved with phenergan or zofran. Abdominal pain still in LUQ. Leukocytosis improved. Afebrile. TG 103 refusing some meds and interventions (like repositioning) with RNs. "wants to be left alone" Objective Active Medications: Dextrose (D50w Syringe 50 Ml*) 12.5 gm IV PUSH .FOR FS < 60 - SS PRN PRN Reason: FS < 60 Heparin Sodium (Porcine) (Heparin Vial(*)) 5,000 units SUBCUT Q8HR [facility] Last Admin: 04/25/17 22:05 Dose: 5,000 units Insulin Human Lispro (Humalog*) 0 units SUBCUT Q6HR [facility]JIT PRN Reason: Protocol Last Admin: 04/25/17 18:41 Dose: Not Given Methimazole (Tapazole Tab*) 10 mg PO BID [facility] Last Admin: 04/25/17 22:05 Dose: 10 mg Ondansetron HCl (Zofran Inj*) 4 mg IV Q6H PRN PRN Reason: NAUSEA Pantoprazole Sodium (Protonix Iv*) 40 mg IV Q24H [facility] Last Admin: 04/25/17 09:10 Dose: 40 mg Promethazine HCl (Phenergan Tab*) 25 mg PO Q6H PRN PRN Reason: NAUSEA Tizanidine HCl (Zanaflex Tab*) 4 mg PO BEDTIME [facility] Last Admin: 04/25/17 22:05 Dose: 4 mg Vital Signs - 8 hr 04/25/17 04/25/17 04/25/17 15:32 22:05 22:48 Temperature 98.5 F Pulse Rate 95 97 Respiratory 16 Rate Blood Pressure 114/48 (mmHg) O2 Sat by Pulse 100 100 100 Oximetry 04/25/17 04/25/17 22:49 23:15 Temperature 99.6 F Pulse Rate 105 Respiratory 16 16 Rate Blood Pressure 127/51 (mmHg) O2 Sat by Pulse 100 Oximetry Oxygen Devices in Use Now: None Appearance: chronically ill appearing. Eyes: No Scleral Icterus, PERRLA Neck: NL Appearance and Movements; NL JVP Respiratory: Symmetrical Chest Expansion and Respiratory Effort, Clear to Auscultation Cardiovascular: NL Sounds; No Murmurs; No JVD, RRR Abdominal: - - LUQ tenderness, soft, no guarding Extremities: No Edema Skin: - - per report sacral decubitis stage 4, large. small necrosis b/l 1st toes laterally. Neurological: Alert and Oriented x 3, - - paraplegic below waist. Nutrition: Taking PO's Result Diagrams: 04/25/17 06:39 04/24/17 07:27 Additional Lab and Data: Laboratory Results - last 24 hr 04/25/17 04/25/17 04/25/17 00:32 05:22 05:22 WBC Cancelled RBC Cancelled Hgb Cancelled Hct Cancelled MCV Cancelled MCH Cancelled MCHC Cancelled RDW Cancelled Plt Count Cancelled MPV Cancelled Neut % (Auto) Cancelled Lymph % (Auto) Cancelled [place] % (Auto) Cancelled Eos % (Auto) Cancelled Baso % (Auto) Cancelled Absolute Neuts (auto) Cancelled Absolute Lymphs (auto) Cancelled Absolute Monos (auto) Cancelled Absolute Eos (auto) Cancelled Absolute Basos (auto) Cancelled Absolute Nucleated RBC Cancelled CBC Comment Cancelled Nucleated RBC % Cancelled Diff Slide Review Cancelled Hypogranular Platelets Cancelled Clumped Platelets Cancelled Large Platelets Cancelled Giant Platelets Cancelled POC Glucose (mg/dL) 220 H Triglycerides 103 04/25/17 04/25/17 04/25/17 05:32 06:39 12:04 WBC 20.4 H RBC 2.76 L Hgb 7.3 L Hct 23 L MCV 82 MCH 26 L MCHC 32 RDW 16 H Plt Count 514 H MPV 6 L Neut % (Auto) 83.1 H Lymph % (Auto) 9.1 L [place] % (Auto) 7.5 Eos % (Auto) 0.1 Baso % (Auto) 0.2 Absolute Neuts (auto) 17.0 H Absolute Lymphs (auto) 1.9 Absolute Monos (auto) 1.5 H Absolute Eos (auto) 0 Absolute Basos (auto) 0 Absolute Nucleated RBC 0 CBC Comment Nucleated RBC % 0.1 Diff Slide Review Hypogranular Platelets Clumped Platelets Large Platelets Giant Platelets POC Glucose (mg/dL) 182 H 184 H Triglycerides 04/25/17 18:38 WBC RBC Hgb Hct MCV MCH MCHC RDW Plt Count MPV Neut % (Auto) Lymph % (Auto) [place] % (Auto) Eos % (Auto) Baso % (Auto) Absolute Neuts (auto) Absolute Lymphs (auto) Absolute Monos (auto) Absolute Eos (auto) Absolute Basos (auto) Absolute Nucleated RBC CBC Comment Nucleated RBC % Diff Slide Review Hypogranular Platelets Clumped Platelets Large Platelets Giant Platelets POC Glucose (mg/dL) 119 H Triglycerides Microbiology and Other Data: Microbiology 04/23/17 00:44 Blood Venous Aerobic Blood Culture - Preliminary No Growth Day 2 04/23/17 00:44 Blood Venous Anaerobic Blood Culture - Preliminary No Growth Day 2 04/23/17 00:44 Blood Venous Aerobic Blood Culture - Preliminary No Growth Day 2 04/23/17 00:44 Blood Venous Anaerobic Blood Culture - Preliminary No Growth Day 2 04/22/17 15:13 Urine Urine Culture - Final Esbl Escherichia Coli Morganella Morganii Aerococcus Species 04/22/17 18:12 Nasal Nasal Screen MRSA (PCR)(LENNY) - Final Mrsa Detected Assess/Plan/Problems-Billing Assessment: 81 yo female PMH paraplegia with functional paraplegia, sacral decubitus ulcer stage 4, neurogenic bladder with chronic Valera in place, HTN, hyperthyroidism, CAD and CHF, pituitary adenoma, ESBL UTI's (thought colonization) presents with c/o abd pain and acute on chronic nausea. Pancreatitis of unknown etiology. - Patient Problems (1) Acute pancreatitis Current Visit: Yes Status: Acute Code(s): K85.90 - ACUTE PANCREATITIS WITHOUT NECROSIS OR INFECTION, UNSP SNOMED Code(s): 498436332 Comment: appreciate GI recs. f/u IgG4. Trigyclerides wnl. ?Bactrim could be the culprit. says got just 1 dose consideration for MRCP? clear liquid diet lipase is improving LFTs wnl (2) Nausea Current Visit: Yes Status: Acute Code(s): R11.0 - NAUSEA SNOMED Code(s): 264469805 Comment: zofran and now phenergan appear not effective. trial of compazine. (3) Acute kidney injury Current Visit: No Status: Acute Priority: High Onset Date: 05/01/14 Code (s): N17.9 - ACUTE KIDNEY FAILURE, UNSPECIFIED SNOMED Code(s): 38586516 Comment: due to UTI and pancreatitis, resolved with IVF tx. (4) UTI (urinary tract infection) Current Visit: No Status: Acute Comment: - Initial UA suggestive of UTI - Culture grew ESBL + EColi and morganlla, initial empiric treatment was meropenem - Discussed with ID, Dr. Evan Rose, who recommended no abx. - in setting of indwelling Valera catheter this may be colonization. concurrent pancreatitis muddies picture. does have leukocytosis (improving) and occascional tachycardia. (5) Decubitus ulcer Current Visit: No Status: Chronic Priority: High Onset Date: 02/05/14 Code(s): L89.90 - PRESSURE ULCER OF UNSPECIFIED SITE, UNSPECIFIED STAGE SNOMED Code(s): 053901726 Comment: Chronic sacral decubitus ulcer Stage 4, hold Vancomycin for now wound consult requested (6) Pituitary tumor Current Visit: No Status: Chronic Comment: Has appointment 04/26 9:30 AM in [place] to discuss with Neurosurgeon Dr. Bagley. Unfortunately will miss it. Rearrange when not in acute pancreatitis prior w/u: - Pituitary tumor is previously known, but she has not seen her neurologist in 12 years MRI (2000) - identified pituitary mass measuring 1.2cm at that time. 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 He did not think the mass was related to her acute complaints. He was happy to see her in follow up in the pituitary clinic which can be reached at [phone] for an appointment. She does not require urgent intervention - Tumor appeared non-functional Oct 2016: slightly low TSH, high T4, nl FSH, LH , prolactin, and cortisol (7) Hyperthyroidism Current Visit: Yes Status: Acute Code(s): E05.90 - THYROTOXICOSIS, UNSP WITHOUT THYROTOXIC CRISIS OR STORM SNOMED Code(s): 85666898 Comment: cont methimazole, TSH WNL at 0.5 (8) Troponin level elevated Current Visit: Yes Status: Acute Code(s): R74.8 - ABNORMAL LEVELS OF OTHER SERUM ENZYMES SNOMED Code(s): 384725333 Comment: no CP, at 0.04-suspect demand ischemia, (9) Type II diabetes mellitus Current Visit: No Status: Chronic Comment: Lispro SS and glucose checks AC Status and Disposition: inpatient Attending: Salty Velasco
[2017-04-25] MEDS ORDERED: Prochlorperazine TAB* 5 MG PO PRN (23:57)
[2017-04-26] MEDS ORDERED: oxyCODONE/Acetamin 5/325 MG* TAB ONE (00:12)
[2017-04-26] MEDS: oxyCODONE/Acetamin 5/325 MG* TAB PO PRN ×2 (00:25→22:49)
[2017-04-26] MEDS: Insulin LISPRO* 1 UNITS UNIT SUBCUT SCH ×4 (00:27→17:51)
[2017-04-26] MEDS: Heparin VIAL(*) 5000 UNITS/ML VIAL (FIVE THOUSAND) SUBCUT SCH ×3 (05:37→22:50)
[2017-04-26 07:24] LABS: Hematocrit 22 % (35-47); Hemoglobin 7.1 g/dl (12.0-16.0); Mean Corpuscular HGB Conc 32 g/dl (31-36); Mean Corpuscular Hemoglobin 27 pg (27-31); Mean Corpuscular Volume 82 fL (80-97); Mean Platelet Volume 7 um3 (7.4-10.4); Platelet Count 460 10^3/ul (150-450); Red Blood Count 2.67 10^6/ul (4.0-5.4); Red Cell Distribution Width 16 % (10.5-15); White Blood Count 17.1 10^3/ul (3.5-10.8)
[2017-04-26 07:37] LABS: ABS Basophils 0 10^3/ul (0-0.2); ABS Eosinophils 0 10^3/ul (0-0.6); ABS Lymphocytes 1.4 10^3/ul (1.0-4.8); ABS Monocytes 1.2 10^3/ul (0-0.8); ABS Neutrophils 14.5 10^3/ul (1.5-7.7); ABS Nucleated RBC 0 10^3/ul; Eosinophil % 0.1 % (0-6); Lymphocyte % 8.1 % (25-47); Nucleated Red Blood Cells % 0
[2017-04-26 07:39] LABS: EGFR Non-African American 137.2 (>60)
[2017-04-26] MEDS ORDERED: NS 0.9% 500 ML* 500 ML IV ONE (07:39)
[2017-04-26] MEDS: Pantoprazole IV* 40 MG IV SCH (07:50)
[2017-04-26] MEDS: Methimazole TAB* 5 MG PO SCH ×2 (07:50→20:46)
[2017-04-26] MEDS ORDERED: Magnesium Sulfate IV* 3 GM in NS 0.9% 100 ML* 100 ML IVPB ONE (08:22)
[2017-04-26] MEDS ORDERED: Vancomycin(*) 1,250 MG in NS 0.9% 250 ML* 250 ML IVPB ONE (08:35)
[2017-04-26] MEDS ORDERED: Vancomycin per Pharmacy* NOTE FOLLOW UP PRN (08:58)
[2017-04-26] MEDS ORDERED: Vancomycin(*) 0 MG in NS 0.9% 250 ML* 250 ML IVPB SCH (09:00)
--- NOTE | 2017-04-26 09:23 | PN ---
Subjective Date of Service: 04/26/17 Interval History: hypotensive this AM. improved after 500cc bolus. low grade fevers hgb to 7.1. typed and screened. pt consents to blood transfusion. vancomycin restarted. still with nausea (compazine added last night but has not gotten. ) abdominal pain in band across top of abdomen. refusing insulin Objective Active Medications: Dextrose (D50w Syringe 50 Ml*) 12.5 gm IV PUSH .FOR FS < 60 - SS PRN PRN Reason: FS < 60 Heparin Sodium (Porcine) (Heparin Vial(*)) 5,000 units SUBCUT Q8HR [facility] Last Admin: 04/26/17 05:37 Dose: 5,000 units Magnesium Sulfate 3 gm/ Sodium (Chloride) 106 mls @ 53 mls/hr IVPB ONCE ONE Stop: 04/26/17 10:21 Vancomycin HCl 1,250 mg/ (Sodium Chloride) 250 mls @ 166.667 mls/hr IVPB ONCE ONE Stop: 04/26/17 10:04 Insulin Human Lispro (Humalog*) 0 units SUBCUT Q6HR [facility] PRN Reason: Protocol Last Admin: 04/26/17 06:20 Dose: Not Given Methimazole (Tapazole Tab*) 10 mg PO BID [facility] Last Admin: 04/26/17 07:50 Dose: 10 mg Ondansetron HCl (Zofran Inj*) 4 mg IV Q6H PRN PRN Reason: NAUSEA Oxycodone/Acetaminophen (Percocet 5/325 Tab*) 1 tab PO Q4H PRN PRN Reason: PAIN Last Admin: 04/26/17 00:25 Dose: 1 tab Pantoprazole Sodium (Protonix Iv*) 40 mg IV Q24H [facility] Last Admin: 04/26/17 07:50 Dose: 40 mg Pharmacy Consult (Vancomycin Per Pharmacy*) 1 note FOLLOW UP . PRN PRN Reason: PER PROTOCOL Prochlorperazine (Compazine Tab*) 5 mg PO Q8H PRN PRN Reason: NAUSEA Promethazine HCl (Phenergan Tab*) 25 mg PO Q6H PRN PRN Reason: NAUSEA Tizanidine HCl (Zanaflex Tab*) 4 mg PO BEDTIME [facility] Last Admin: 04/25/17 22:05 Dose: 4 mg Vital Signs - 8 hr 04/26/17 04/26/17 04/26/17 03:14 03:34 07:34 Temperature 97.8 F 97.5 F Pulse Rate 74 62 Respiratory 16 16 18 Rate Blood Pressure 97/47 84/34 (mmHg) O2 Sat by Pulse 100 100 Oximetry Oxygen Devices in Use Now: None Appearance: Eyes closed. no acute distress. Eyes: No Scleral Icterus Respiratory: Symmetrical Chest Expansion and Respiratory Effort, Clear to Auscultation Cardiovascular: NL Sounds; No Murmurs; No JVD, RRR Abdominal: - - slight tenderness LUQ, epigastric. Extremities: No Edema Skin: No Rash or Ulcers Neurological: Alert and Oriented x 3, - - paraplegic below waist. Nutrition: Taking PO's Result Diagrams: 04/26/17 06:51 04/26/17 06:51 Additional Lab and Data: Laboratory Results - last 24 hr 04/25/17 04/26/17 04/26/17 18:38 00:16 06:20 WBC RBC Hgb Hct MCV MCH MCHC RDW Plt Count MPV Neut % (Auto) Lymph % (Auto) [place] % (Auto) Eos % (Auto) Baso % (Auto) Absolute Neuts (auto) Absolute Lymphs (auto) Absolute Monos (auto) Absolute Eos (auto) Absolute Basos (auto) Absolute Nucleated RBC Nucleated RBC % Sodium Potassium Chloride Carbon Dioxide Anion Gap BUN Creatinine Est GFR ( Amer) Est GFR (Non-Af Amer) BUN/Creatinine Ratio Glucose POC Glucose (mg/dL) 119 H 179 H 210 H Calcium Magnesium Total Bilirubin Direct Bilirubin Indirect Bilirubin AST ALT Alkaline Phosphatase Total Protein Albumin Globulin Albumin/Globulin Ratio Lipase Blood Type Antibody Screen 04/26/17 04/26/17 04/26/17 06:51 06:51 06:51 WBC 17.1 H RBC 2.67 L Hgb 7.1 L Hct 22 L MCV 82 MCH 27 MCHC 32 RDW 16 H Plt Count 460 H D MPV 7 L Neut % (Auto) 84.4 H Lymph % (Auto) 8.1 L [place] % (Auto) 7.1 Eos % (Auto) 0.1 Baso % (Auto) 0.3 Absolute Neuts (auto) 14.5 H Absolute Lymphs (auto) 1.4 Absolute Monos (auto) 1.2 H Absolute Eos (auto) 0 Absolute Basos (auto) 0 Absolute Nucleated RBC 0 Nucleated RBC % 0 Sodium 141 Potassium 2.9 L Chloride 110 Carbon Dioxide 24 Anion Gap 7 BUN 11 Creatinine 0.44 L Est GFR ( Amer) 176.5 Est GFR (Non-Af Amer) 137.2 BUN/Creatinine Ratio 25.0 H Glucose 180 H POC Glucose (mg/dL) Calcium 9.3 Magnesium 1.5 L Total Bilirubin 0.30 Direct Bilirubin 0.10 Indirect Bilirubin 0.2 L AST 9 L ALT 5 L Alkaline Phosphatase 109 H Total Protein 5.4 L Albumin 2.3 L Globulin 3.1 Albumin/Globulin Ratio 0.7 L Lipase 159 H Blood Type B Positive Antibody Screen Negative 04/26/17 04/26/17 12:02 17:28 WBC RBC Hgb Hct MCV MCH MCHC RDW Plt Count MPV Neut % (Auto) Lymph % (Auto) [place] % (Auto) Eos % (Auto) Baso % (Auto) Absolute Neuts (auto) Absolute Lymphs (auto) Absolute Monos (auto) Absolute Eos (auto) Absolute Basos (auto) Absolute Nucleated RBC Nucleated RBC % Sodium Potassium Chloride Carbon Dioxide Anion Gap BUN Creatinine Est GFR ( Amer) Est GFR (Non-Af Amer) BUN/Creatinine Ratio Glucose POC Glucose (mg/dL) 176 H 158 H Calcium Magnesium Total Bilirubin Direct Bilirubin Indirect Bilirubin AST ALT Alkaline Phosphatase Total Protein Albumin Globulin Albumin/Globulin Ratio Lipase Blood Type Antibody Screen Microbiology and Other Data: Microbiology 04/23/17 00:44 Blood Venous Aerobic Blood Culture - Preliminary No Growth Day 3 04/23/17 00:44 Blood Venous Anaerobic Blood Culture - Preliminary No Growth Day 3 04/23/17 00:44 Blood Venous Aerobic Blood Culture - Preliminary No Growth Day 3 04/23/17 00:44 Blood Venous Anaerobic Blood Culture - Preliminary No Growth Day 3 04/22/17 15:13 Urine Urine Culture - Final Esbl Escherichia Coli Morganella Morganii Aerococcus Species 04/22/17 18:12 Nasal Nasal Screen MRSA (PCR)(LENNY) - Final Mrsa Detected Assess/Plan/Problems-Billing Assessment: 81 yo female H paraplegia with functional paraplegia, sacral decubitus ulcer stage 4, neurogenic bladder with chronic Valera in place, HTN, hyperthyroidism, CAD and CHF, pituitary adenoma, ESBL UTI's (thought colonization) presents with c/o abd pain and acute on chronic nausea. Pancreatitis of unknown etiology. Back on vanc - Patient Problems (1) Acute pancreatitis Current Visit: Yes Status: Acute Code(s): K85.90 - ACUTE PANCREATITIS WITHOUT NECROSIS OR INFECTION, UNSP SNOMED Code(s): 493569004 Comment: appreciate GI recs. f/u IgG4. Trigyclerides wnl. ?Bactrim could be the culprit. says got just 1 dose consideration for MRCP? clear liquid diet lipase is improving still. LFTs wnl IVF bolus for hypotension. (2) Nausea Current Visit: Yes Status: Acute Code(s): R11.0 - NAUSEA SNOMED Code(s): 507211326 Comment: zofran and now phenergan appear not effective. trial of compazine. (3) Acute kidney injury Current Visit: No Status: Acute Priority: High Onset Date: 05/01/14 Code (s): N17.9 - ACUTE KIDNEY FAILURE, UNSPECIFIED SNOMED Code(s): 87415101 Comment: due to UTI and pancreatitis, resolved with IVF tx. (4) UTI (urinary tract infection) Current Visit: No Status: Acute Comment: - Initial UA suggestive of UTI - Culture grew ESBL + EColi and morganlla, initial empiric treatment was meropenem - Discussed with ID, Dr. Evan Rose, who recommended no abx. - in setting of indwelling Valera catheter this may be colonization. concurrent pancreatitis muddies picture. does have leukocytosis (improving) and occascional tachycardia. (5) Decubitus ulcer Current Visit: No Status: Chronic Priority: High Onset Date: 02/05/14 Code(s): L89.90 - PRESSURE ULCER OF UNSPECIFIED SITE, UNSPECIFIED STAGE SNOMED Code(s): 561076575 Comment: Chronic sacral decubitus ulcer Stage 4, restarted Vancomycin given hypotension today. wound consult requested (6) Pituitary tumor Current Visit: No Status: Chronic Comment: Has appointment 04/26 9:30 AM in [place] to discuss with Neurosurgeon Dr. Bagley. Unfortunately missed it (and with winter storm might not have made it there anyway). Rearrange when not in acute pancreatitis prior w/u: - Pituitary tumor is previously known, but she has not seen her neurologist in 12 years MRI (2000) - identified pituitary mass measuring 1.2cm at that time. 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 He did not think the mass was related to her acute complaints. He was happy to see her in follow up in the pituitary clinic which can be reached at [phone] for an appointment. She does not require urgent intervention - Tumor appeared non-functional Oct 2016: slightly low TSH, high T4, nl FSH, LH , prolactin, and cortisol (7) Hyperthyroidism Current Visit: Yes Status: Acute Code(s): E05.90 - THYROTOXICOSIS, UNSP WITHOUT THYROTOXIC CRISIS OR STORM SNOMED Code(s): 54960533 Comment: cont methimazole, TSH WNL at 0.5 (8) Troponin level elevated Current Visit: Yes Status: Acute Code(s): R74.8 - ABNORMAL LEVELS OF OTHER SERUM ENZYMES SNOMED Code(s): 176974587 Comment: no CP, at 0.04-suspect demand ischemia, (9) Type II diabetes mellitus Current Visit: No Status: Chronic Comment: Lispro SS and glucose checks AC Status and Disposition: inpatient Attending: Salty Velasco
[2017-04-26] MEDS ORDERED: NS 0.9% IVPB ONE (18:00)
[2017-04-26] MEDS ORDERED: KCL 20 MEQ/100 ML IVPREMIX* 20 MEQ/100 ML BAG IV SCH (18:00)
[2017-04-26] MEDS ORDERED: POTASSIUM CHLORIDE IVPB ONE (18:00)
[2017-04-26] MEDS: tiZANidine TAB* 2 MG PO SCH (20:46)
[2017-04-26] MEDS: Vancomycin(*) 750 MG in NS 0.9% 250 ML* 250 ML IVPB SCH (22:50)
[2017-04-27] MEDS: Insulin LISPRO* 1 UNITS UNIT SUBCUT SCH ×4 (00:08→17:17)
[2017-04-27] MEDS: Heparin VIAL(*) 5000 UNITS/ML VIAL (FIVE THOUSAND) SUBCUT SCH ×2 (06:21→15:03)
[2017-04-27 07:01] LABS: ABS Basophils 0 10^3/ul (0-0.2); ABS Eosinophils 0.1 10^3/ul (0-0.6); ABS Lymphocytes 1.5 10^3/ul (1.0-4.8); ABS Monocytes 1.3 10^3/ul (0-0.8); ABS Neutrophils 13.2 10^3/ul (1.5-7.7); ABS Nucleated RBC 0 10^3/ul; Eosinophil % 0.4 % (0-6); Hematocrit 22 % (35-47); Lymphocyte % 9.2 % (25-47); Mean Corpuscular HGB Conc 32 g/dl (31-36); Mean Corpuscular Hemoglobin 27 pg (27-31); Mean Corpuscular Volume 83 fL (80-97); Mean Platelet Volume 7 um3 (7.4-10.4); Nucleated Red Blood Cells % 0; Platelet Count 457 10^3/ul (150-450); Red Blood Count 2.61 10^6/ul (4.0-5.4); Red Cell Distribution Width 16 % (10.5-15); White Blood Count 16.1 10^3/ul (3.5-10.8)
[2017-04-27] MEDS: Methimazole TAB* 5 MG PO SCH ×2 (09:44→21:46)
[2017-04-27] MEDS: Vancomycin(*) 750 MG in NS 0.9% 250 ML* 250 ML IVPB SCH ×2 (09:45→21:47)
[2017-04-27] MEDS: Pantoprazole IV* 40 MG IV SCH (09:45)
--- NOTE | 2017-04-27 16:54 | PN ---
Subjective Date of Service: 04/27/17 Interval History: Nausea, abdominal pain continue. agreed to compazine then refused. Hgb 7.0 wound examined. ID saw. blood pressure better, wbc 16.1 Objective Active Medications: Dextrose (D50w Syringe 50 Ml*) 12.5 gm IV PUSH .FOR FS < 60 - SS PRN PRN Reason: FS < 60 Vancomycin HCl 750 mg/ Sodium (Chloride) 250 mls @ 166.667 mls/hr IVPB Q12H [facility] Last Admin: 04/27/17 09:45 Dose: 166.667 mls/hr Insulin Human Lispro (Humalog*) 0 units SUBCUT Q6HR [facility] PRN Reason: Protocol Last Admin: 04/27/17 12:43 Dose: Not Given Methimazole (Tapazole Tab*) 10 mg PO BID [facility] Last Admin: 04/27/17 09:44 Dose: 10 mg Ondansetron HCl (Zofran Inj*) 4 mg IV Q6H PRN PRN Reason: NAUSEA Oxycodone/Acetaminophen (Percocet 5/325 Tab*) 1 tab PO Q4H PRN PRN Reason: PAIN Last Admin: 04/26/17 22:49 Dose: 1 tab Pantoprazole Sodium (Protonix Iv*) 40 mg IV Q24H [facility] Last Admin: 04/27/17 09:45 Dose: 40 mg Pharmacy Consult (Vancomycin Per Pharmacy*) 1 note FOLLOW UP . PRN PRN Reason: PER PROTOCOL Pharmacy Profile Note (Vancomycin Trough Check) 1 note FOLLOW UP ONCE ONE Stop: 04/28/17 09:31 Prochlorperazine (Compazine Tab*) 5 mg PO Q8H PRN PRN Reason: NAUSEA Promethazine HCl (Phenergan Tab*) 25 mg PO Q6H PRN PRN Reason: NAUSEA Tizanidine HCl (Zanaflex Tab*) 4 mg PO BEDTIME [facility] Last Admin: 04/26/17 20:46 Dose: 4 mg Vital Signs - 8 hr 04/27/17 16:14 Temperature 99 F Pulse Rate 84 Blood Pressure 135/60 (mmHg) O2 Sat by Pulse 100 Oximetry Oxygen Devices in Use Now: None Appearance: NAD, deferred full exam as pt rotated on side with sacral decub care. Eyes: No Scleral Icterus Neck: NL Appearance and Movements; NL JVP Extremities: No Edema Skin: - - Sacral decubitis examined. approximately 7-8 inches diameter with pink muscle and exposed tendon near coccyx. no isaac purulence. two ~1in ulcers b/l lateral buttocks. Neurological: Alert and Oriented x 3, NL Sensation, NL Gait Result Diagrams: 04/27/17 06:23 04/26/17 06:51 Additional Lab and Data: Laboratory Results - last 24 hr 04/26/17 04/27/17 04/27/17 23:28 06:15 06:23 WBC 16.1 H RBC 2.61 L Hgb 7.0 L Hct 22 L MCV 83 MCH 27 MCHC 32 RDW 16 H Plt Count 457 H MPV 7 L Neut % (Auto) 82.4 Lymph % (Auto) 9.2 L [place] % (Auto) 7.9 Eos % (Auto) 0.4 Baso % (Auto) 0.1 Absolute Neuts (auto) 13.2 H Absolute Lymphs (auto) 1.5 Absolute Monos (auto) 1.3 H Absolute Eos (auto) 0.1 Absolute Basos (auto) 0 Absolute Nucleated RBC 0 Nucleated RBC % 0 POC Glucose (mg/dL) 105 H 122 H 04/27/17 04/27/17 04/27/17 07:25 12:30 17:16 WBC RBC Hgb Hct MCV MCH MCHC RDW Plt Count MPV Neut % (Auto) Lymph % (Auto) [place] % (Auto) Eos % (Auto) Baso % (Auto) Absolute Neuts (auto) Absolute Lymphs (auto) Absolute Monos (auto) Absolute Eos (auto) Absolute Basos (auto) Absolute Nucleated RBC Nucleated RBC % POC Glucose (mg/dL) 206 H 176 H 246 H Microbiology and Other Data: Microbiology 04/23/17 00:44 Blood Venous Aerobic Blood Culture - Preliminary No Growth Day 4 04/23/17 00:44 Blood Venous Anaerobic Blood Culture - Preliminary No Growth Day 4 04/23/17 00:44 Blood Venous Aerobic Blood Culture - Preliminary No Growth Day 4 04/23/17 00:44 Blood Venous Anaerobic Blood Culture - Preliminary No Growth Day 4 04/22/17 15:13 Urine Urine Culture - Final Esbl Escherichia Coli Morganella Morganii Aerococcus Species 04/22/17 18:12 Nasal Nasal Screen MRSA (PCR)(LENNY) - Final Mrsa Detected Assess/Plan/Problems-Billing Assessment: 81 yo female PMH paraplegia, sacral decubitus ulcer stage 4, neurogenic bladder with chronic Valera in place, HTN, hyperthyroidism, CAD, pituitary adenoma, ESBL UTI's (thought colonization) presents with c/o abd pain and acute on chronic nausea. Pancreatitis of unknown etiology. Anemic. - Patient Problems (1) Acute pancreatitis Current Visit: Yes Status: Acute Code(s): K85.90 - ACUTE PANCREATITIS WITHOUT NECROSIS OR INFECTION, UNSP SNOMED Code(s): 033547368 Comment: appreciate GI recs. f/u IgG4. Trigyclerides wnl. ?Bactrim could be the culprit. says got just 1 dose consideration for MRCP if continued abdominal pain advnced diet from clear liquid diet to mechanical ground 2/8 lipase improvid. LFTs wnl (2) Nausea Current Visit: Yes Status: Acute Code(s): R11.0 - NAUSEA SNOMED Code(s): 049409752 Comment: zofran and now phenergan appear not effective. trial of compazine. she has refused to try. (3) Acute kidney injury Current Visit: No Status: Acute Priority: High Onset Date: 05/01/14 Code (s): N17.9 - ACUTE KIDNEY FAILURE, UNSPECIFIED SNOMED Code(s): 43683866 Comment: due to UTI and pancreatitis, resolved with IVF tx. (4) UTI (urinary tract infection) Current Visit: No Status: Acute Comment: - Initial UA suggestive of UTI - Culture grew ESBL + EColi and morganlla, initial empiric treatment was meropenem - Discussed with ID, Dr. Evan Rose, who recommended no abx. - in setting of indwelling Valera catheter this may be colonization. concurrent pancreatitis muddies picture. does have leukocytosis (improving) and occascional tachycardia. (5) Decubitus ulcer Current Visit: No Status: Chronic Priority: High Onset Date: 02/05/14 Code(s): L89.90 - PRESSURE ULCER OF UNSPECIFIED SITE, UNSPECIFIED STAGE SNOMED Code(s): 164401983 Comment: Chronic sacral decubitus ulcer Stage 4, appreciate ID recs. will stop Vancomycin. wound consult requested (6) Pituitary tumor Current Visit: No Status: Chronic Comment: Has appointment 04/26 9:30 AM in [place] to discuss with Neurosurgeon Dr. Bagley. Unfortunately missed it (and with winter storm might not have made it there anyway). Rearrange when not in acute pancreatitis prior w/u: - Pituitary tumor is previously known, but she has not seen her neurologist in 12 years MRI (2000) - identified pituitary mass measuring 1.2cm at that time. 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 He did not think the mass was related to her acute complaints. He was happy to see her in follow up in the pituitary clinic which can be reached at [phone] for an appointment. She does not require urgent intervention - Tumor appeared non-functional Oct 2016: slightly low TSH, high T4, nl FSH, LH , prolactin, and cortisol (7) Hyperthyroidism Current Visit: Yes Status: Acute Code(s): E05.90 - THYROTOXICOSIS, UNSP WITHOUT THYROTOXIC CRISIS OR STORM SNOMED Code(s): 49862999 Comment: cont methimazole, TSH WNL at 0.5 (8) Troponin level elevated Current Visit: Yes Status: Acute Code(s): R74.8 - ABNORMAL LEVELS OF OTHER SERUM ENZYMES SNOMED Code(s): 632320369 Comment: no CP, at 0.04-suspect demand ischemia, (9) Type II diabetes mellitus Current Visit: No Status: Chronic Comment: Lispro SSI (refusing) and glucose checks AC (10) Anemia in chronic illness Current Visit: No Status: Chronic Priority: High Code(s): D63.8 - ANEMIA IN OTHER CHRONIC DISEASES CLASSIFIED ELSEWHERE SNOMED Code(s): 519744284 Comment: downtrending slowly. normocytic. Typed and screened. Transfuse >7. borderline. consider re-CT abd/pelvis to rule out pancreatic pseudocysts. no e/o gi bleeding. Status and Disposition: inpatient Attending: Salty Velasco
--- NOTE | 2017-04-27 21:33 | CONS ---
CONSULTATION REPORT: DATE OF CONSULT: 04/27/17 REQUESTING PHYSICIAN: Dr. Velasco. CONSULTING SERVICE: Infectious Disease. REASON FOR CONSULT: Leukocytosis. IMPRESSION: 1. Leukocytosis and thrombocytosis due to pancreatitis. She has a chronic Valera catheter and multiple organisms grew there, those were colonization of the catheter, non-infection. She has a large chronic decubitus ulceration, which is not grossly infected; I do not think that is the source of infection either. Her blood cultures were negative. 2. Chronic sacral and lower back decubitus ulcer. 3. Diabetes. 4. Paraplegia. 5. Chronic Valera catheter. 6. Coronary artery disease. RECOMMENDATION: 1. Day 2 of 4 of vancomycin assuming the recent blood culture comes back negative. 2. Topical wound treatments as you have been doing and directed by the wound center. HISTORY OF PRESENT ILLNESS: An 82-year-old woman with chronic decubitus ulcer admitted to the hospital on 04/22/17 with abdominal pain, nausea, vomiting. CT of the abdomen and pelvis showed inflammation of the head of the pancreas. Her white count was 27,000. Her lipase was 520, which was trended down to 100. ALT was 4, bilirubin 0.1. She was initially on meropenem, which was stopped about 3 days ago. Urine culture growing ESBL E. coli, morganella, and aerococcus from the chronic Valera catheter. Urinalysis shows trace ketones, blood, leukocyte esterase; no nitrites. Her blood cultures on admission have been negative and nasal swab for MRSA was positive. Her white count was high as 30,000 on 04/24/17 and it is down to 16,000 today, platelet count was high as 625; 450 today. She has ongoing ischial pain. No pain at her chronic wound site. PAST MEDICAL HISTORY: 1. Paraplegia. 2. Chronic Valera catheter in the setting of neurogenic bladder. 3. Type 2 diabetes. 4. Hypertension. 5. Chronic sacral decubitus ulceration. 6. Coronary artery disease with history of AR and congestive heart failure. 7. History of stroke. 8. Pituitary tumor. 9. Status post cervical spine fusion. 10. Status post appendectomy. 11. Status post tonsillectomy. 12. Status post colectomy and colostomy. MEDICATIONS: 1. Heparin subcutaneous injection. 2. Methimazole. 3. Pantoprazole. 4. Promethazine. 5. Tizanidine. 6. Vancomycin 750 mg every 12 hours. ALLERGIES: TAPE, FLAGYL, NITROFURANTOIN, PENICILLIN, NYSTATIN. FAMILY HISTORY: Both parents had coronary artery disease. SOCIAL HISTORY: She lives at [facility]. She is a nonsmoker. REVIEW OF SYSTEMS: A 14-point review of systems was negative except as noted above in the history of present illness. PHYSICAL EXAM: Vital Signs: Temperature 37, heart rate 70, respiratory rate 16 , blood pressure 100/40, oxygen saturation 100% on room air. General: She is awake, and not in distress. Neurologic: She is oriented x3. Follows all commands. HEENT: There is no conjunctival hemorrhage. Oropharynx without lesions. Neck: Supple. Lymph Nodes: There is no inguinal, axillary, or epitrochlear lymphadenopathy. Heart has regular rate and rhythm without murmurs , rubs, or gallops. Lungs are clear to auscultation bilaterally. Abdomen: Soft, nontender, nondistended. There are bowel sounds present. Skin: There is no rash or splinter hemorrhages. Musculoskeletal: There is no spine tenderness to palpation. There is lumbar and sacral about 8-cm decubitus ulceration with well-demarcated borders underlying some granulation tissue, no surrounding erythema, no foul odor or drainage or discharge. LABORATORY DATA: White blood cell count 16, hemoglobin 7, platelets 457. Creatinine is 0.4. Please see impressions and recommendations as outlined above, which I have discussed with Dr. Velasco. Thank you for asking me to see Ms. Hurd in consultation. [id number]/[facility] #: [id number] WILBUR
[2017-04-27] MEDS: tiZANidine TAB* 2 MG PO SCH (21:46)
[2017-04-27] MEDS ORDERED: NS 0.9% 500 ML* 500 ML IV ONE (23:16)
[2017-04-28] MEDS: Insulin LISPRO* 1 UNITS UNIT SUBCUT SCH ×5 (00:29→22:11)
[2017-04-28] MEDS ORDERED: NS 0.9% 500 ML* 500 ML IV ONE (05:47)
[2017-04-28] MEDS: Methimazole TAB* 5 MG PO SCH (08:13)
[2017-04-28] MEDS: Pantoprazole IV* 40 MG IV SCH (08:13)
[2017-04-28] MEDS ORDERED: Vancomycin Trough Check NOTE FOLLOW UP ONE (09:30)
[2017-04-28 09:31] LABS: Hematocrit 23 % (35-47); Hemoglobin 7.4 g/dl (12.0-16.0); Mean Corpuscular HGB Conc 32 g/dl (31-36); Mean Corpuscular Hemoglobin 26 pg (27-31); Mean Corpuscular Volume 83 fL (80-97); Mean Platelet Volume 7 um3 (7.4-10.4); Platelet Count 382 10^3/ul (150-450); Red Blood Count 2.81 10^6/ul (4.0-5.4); Red Cell Distribution Width 17 % (10.5-15); White Blood Count 18.1 10^3/ul (3.5-10.8)
[2017-04-28 09:45] LABS: EGFR Non-African American 127.2 (>60)
[2017-04-28 09:59] LABS: ABS Basophils 0.1 10^3/ul (0-0.2); ABS Eosinophils 0.3 10^3/ul (0-0.6); ABS Lymphocytes 1.7 10^3/ul (1.0-4.8); ABS Monocytes 1.5 10^3/ul (0-0.8); ABS Neutrophils 14.6 10^3/ul (1.5-7.7); ABS Nucleated RBC 0 10^3/ul; Eosinophil % 1.4 % (0-6); Lymphocyte % 9.5 % (25-47); Nucleated Red Blood Cells % 0.1
--- NOTE | 2017-04-28 17:14 | PN ---
Subjective Date of Service: 04/28/17 Interval History: no events, still complains of terrible abdominal pain that is worse on the right but diffuse. some nausea, but she has always had nausea. no fevers Family History: Unchanged from Admission Social History: Unchanged from Admission Past Medical History: Unchanged from Admission Objective Active Medications: Dextrose (D50w Syringe 50 Ml*) 12.5 gm IV PUSH .FOR FS < 60 - SS PRN PRN Reason: FS < 60 Insulin Human Lispro (Humalog*) 0 units SUBCUT Q6HR [facility] PRN Reason: Protocol Last Admin: 04/28/17 13:12 Dose: Not Given Methimazole (Tapazole Tab*) 10 mg PO BID [facility] Last Admin: 04/28/17 08:13 Dose: 10 mg Ondansetron HCl (Zofran Inj*) 4 mg IV Q6H PRN PRN Reason: NAUSEA Oxycodone/Acetaminophen (Percocet 5/325 Tab*) 1 tab PO Q4H PRN PRN Reason: PAIN Last Admin: 04/26/17 22:49 Dose: 1 tab Pantoprazole Sodium (Protonix Iv*) 40 mg IV Q24H [facility] Last Admin: 04/28/17 08:13 Dose: 40 mg Prochlorperazine (Compazine Tab*) 5 mg PO Q8H PRN PRN Reason: NAUSEA Promethazine HCl (Phenergan Tab*) 25 mg PO Q6H PRN PRN Reason: NAUSEA Tizanidine HCl (Zanaflex Tab*) 4 mg PO BEDTIME [facility] Last Admin: 04/27/17 21:46 Dose: 4 mg Vital Signs - 8 hr 04/28/17 04/28/17 11:53 15:01 Temperature 98.8 F 98.3 F Pulse Rate 85 86 Respiratory 17 16 Rate Blood Pressure 128/51 134/59 (mmHg) O2 Sat by Pulse 100 100 Oximetry Oxygen Devices in Use Now: None Appearance: resting in bed, no distress, flat affect Eyes: No Scleral Icterus Ears/Nose/Mouth/Throat: - - edentulous Neck: NL Appearance and Movements; NL JVP Respiratory: Symmetrical Chest Expansion and Respiratory Effort, Clear to Auscultation Cardiovascular: NL Sounds; No Murmurs; No JVD, RRR Abdominal: - - tender diffusely, but she does not guard. no rebound. no murphys Lymphatic: No Cervical Adenopathy Extremities: No Edema Skin: - - i did not roll her to look at decub Lines/Tubes/Other Access: Clean, Dry and Intact Valera Result Diagrams: 04/28/17 09:24 04/28/17 09:24 Additional Lab and Data: Laboratory Results - last 24 hr 04/26/17 04/27/17 04/27/17 23:28 06:15 06:23 WBC 16.1 H RBC 2.61 L Hgb 7.0 L Hct 22 L MCV 83 MCH 27 MCHC 32 RDW 16 H Plt Count 457 H MPV 7 L Neut % (Auto) 82.4 Lymph % (Auto) 9.2 L Crook % (Auto) 7.9 Eos % (Auto) 0.4 Baso % (Auto) 0.1 Absolute Neuts (auto) 13.2 H Absolute Lymphs (auto) 1.5 Absolute Monos (auto) 1.3 H Absolute Eos (auto) 0.1 Absolute Basos (auto) 0 Absolute Nucleated RBC 0 Nucleated RBC % 0 POC Glucose (mg/dL) 105 H 122 H 04/27/17 04/27/17 04/27/17 07:25 12:30 17:16 WBC RBC Hgb Hct MCV MCH MCHC RDW Plt Count MPV Neut % (Auto) Lymph % (Auto) Crook % (Auto) Eos % (Auto) Baso % (Auto) Absolute Neuts (auto) Absolute Lymphs (auto) Absolute Monos (auto) Absolute Eos (auto) Absolute Basos (auto) Absolute Nucleated RBC Nucleated RBC % POC Glucose (mg/dL) 206 H 176 H 246 H Microbiology and Other Data: Microbiology 04/23/17 00:44 Blood Venous Aerobic Blood Culture - Preliminary No Growth Day 4 04/23/17 00:44 Blood Venous Anaerobic Blood Culture - Preliminary No Growth Day 4 04/23/17 00:44 Blood Venous Aerobic Blood Culture - Preliminary No Growth Day 4 04/23/17 00:44 Blood Venous Anaerobic Blood Culture - Preliminary No Growth Day 4 04/22/17 15:13 Urine Urine Culture - Final Esbl Escherichia Coli Morganella Morganii Aerococcus Species 04/22/17 18:12 Nasal Nasal Screen MRSA (PCR)(LENNY) - Final Mrsa Detected Assess/Plan/Problems-Billing Assessment: 81 yo female H paraplegia, sacral decubitus ulcer stage 4, neurogenic bladder with chronic Valera in place, HTN, hyperthyroidism, CAD, pituitary adenoma, ESBL in the urine presents with c/o abd pain and acute on chronic nausea. Pancreatitis of unknown etiology. Anemic. - Patient Problems (1) Acute pancreatitis Current Visit: Yes Status: Acute Code(s): K85.90 - ACUTE PANCREATITIS WITHOUT NECROSIS OR INFECTION, UNSP SNOMED Code(s): 459900457 Comment: IgG4 normal. Trigyclerides wnl. No clear inciting medication that would have caused it May need MRCP advnced diet from clear liquid diet to mechanical ground 04/27 but only taking liquids still LFTs wnl (2) Nausea Current Visit: Yes Status: Acute Code(s): R11.0 - NAUSEA SNOMED Code(s): 260987195 Comment: this is a chronic problem for her and predates the pain (3) Acute kidney injury Current Visit: No Status: Acute Priority: High Onset Date: 05/01/14 Code (s): N17.9 - ACUTE KIDNEY FAILURE, UNSPECIFIED SNOMED Code(s): 05470985 Comment: due to UTI and pancreatitis, resolved with IVF tx. (4) Cerebellar infarct Current Visit: No Status: Acute Code(s): I63.9 - CEREBRAL INFARCTION, UNSPECIFIED SNOMED Code(s): 88215445 Comment: old. (found october 2016) she suffers from chronic "dizziness" from this which may contribute to her nausea abnormalities and no pulm htn. Continue ASA (5) Decubitus ulcer Current Visit: No Status: Chronic Priority: High Onset Date: 02/05/14 Code(s): L89.90 - PRESSURE ULCER OF UNSPECIFIED SITE, UNSPECIFIED STAGE SNOMED Code(s): 116805052 Comment: Chronic sacral decubitus ulcer Stage 4, not thought to be infected continue dressing changes per wound care (6) Diastolic heart failure Current Visit: No Status: Chronic Code(s): I50.30 - UNSPECIFIED DIASTOLIC ( CONGESTIVE) HEART FAILURE SNOMED Code(s): 597649591 Comment: stable, not decompensated (7) Pituitary tumor Current Visit: No Status: Chronic Comment: Missed appointment 04/26 9:30 AM in [place] to discuss with Neurosurgeon Dr. Bagley. Rearrange when not in acute pancreatitis prior w/u: - Pituitary tumor is previously known, but she has not seen her neurologist in 12 years MRI (2000) - identified pituitary mass measuring 1.2cm at that time. 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 He did not think the mass was related to her acute complaints. He was happy to see her in follow up in the pituitary clinic which can be reached at [phone] for an appointment. She does not require urgent intervention - Tumor appeared non-functional Oct 2016: slightly low TSH, high T4, nl FSH, LH , prolactin, and cortisol (8) Type II diabetes mellitus - poor control Current Visit: No Status: Chronic Code(s): E11.65 - TYPE 2 DIABETES MELLITUS WITH HYPERGLYCEMIA SNOMED Code(s): 99347983 Status and Disposition: inpatient
[2017-04-29] MEDS: Methimazole TAB* 5 MG PO SCH ×2 (00:28→09:46)
[2017-04-29] MEDS: oxyCODONE/Acetamin 5/325 MG* TAB PO PRN (00:29)
[2017-04-29] MEDS: tiZANidine TAB* 2 MG PO SCH (00:29)
[2017-04-29 08:45] LABS: ABS Basophils 0 10^3/ul (0-0.2); ABS Eosinophils 0.3 10^3/ul (0-0.6); ABS Monocytes 1.5 10^3/ul (0-0.8); ABS Nucleated RBC 0 10^3/ul; Eosinophil % 1.9 % (0-6); Hematocrit 22 % (35-47); Hemoglobin 6.9 g/dl (12.0-16.0); Lymphocyte % 11.1 % (25-47); Mean Corpuscular HGB Conc 31 g/dl (31-36); Mean Corpuscular Hemoglobin 26 pg (27-31); Mean Corpuscular Volume 85 fL (80-97); Mean Platelet Volume 7 um3 (7.4-10.4); Nucleated Red Blood Cells % 0; Platelet Count 359 10^3/ul (150-450); Red Blood Count 2.63 10^6/ul (4.0-5.4); Red Cell Distribution Width 17 % (10.5-15); White Blood Count 17.9 10^3/ul (3.5-10.8)
[2017-04-29 08:52] LABS: INR 1.26 (0.77-1.02)
[2017-04-29 08:56] LABS: EGFR Non-African American 118.4 (>60)
[2017-04-29] MEDS: Insulin LISPRO* 1 UNITS UNIT SUBCUT SCH ×3 (09:00→18:55)
[2017-04-29] MEDS: Pantoprazole IV* 40 MG IV SCH (09:46)
[2017-04-29] MEDS ORDERED: Potassium Chloride LIQUID* 20 MEQ PACKET PO SCH (13:00)
--- NOTE | 2017-04-29 14:40 | PN ---
Subjective Date of Service: 04/29/17 Interval History: feels the same, tearful when asked about the pain. Says she just wants the pain to go away. Complains of severe pain in the LUQ that is constant. Unable to eat except had some radha mist and tomato soup. Nausea but no vomiting. Family History: Unchanged from Admission Social History: Unchanged from Admission Past Medical History: Unchanged from Admission Objective Active Medications: Dextrose (D50w Syringe 50 Ml*) 12.5 gm IV PUSH .FOR FS < 60 - SS PRN PRN Reason: FS < 60 Potassium Chloride (Potassium Chloride 10 Meq/50 Ml Ivpremix*) 10 meq in 50 mls @ 50 mls/hr IV Q1H [facility] Stop: 04/29/17 18:29 Insulin Human Lispro (Humalog*) 0 units SUBCUT ACHS [facility] PRN Reason: Protocol Last Admin: 04/29/17 12:24 Dose: Not Given Methimazole (Tapazole Tab*) 10 mg PO BID [facility] Last Admin: 04/29/17 09:46 Dose: 10 mg Ondansetron HCl (Zofran Inj*) 4 mg IV Q6H PRN PRN Reason: NAUSEA Oxycodone/Acetaminophen (Percocet 5/325 Tab*) 1 tab PO Q4H PRN PRN Reason: PAIN Last Admin: 04/29/17 00:29 Dose: 1 tab Pantoprazole Sodium (Protonix Iv*) 40 mg IV Q24H [facility] Last Admin: 04/29/17 09:46 Dose: 40 mg Prochlorperazine (Compazine Tab*) 5 mg PO Q8H PRN PRN Reason: NAUSEA Promethazine HCl (Phenergan Tab*) 25 mg PO Q6H PRN PRN Reason: NAUSEA Tizanidine HCl (Zanaflex Tab*) 4 mg PO BEDTIME [facility] Last Admin: 04/29/17 00:29 Dose: 4 mg Vital Signs - 8 hr 04/29/17 04/29/17 04/29/17 07:49 08:00 11:42 Temperature 98.7 F 98.4 F Pulse Rate 84 80 Respiratory 18 16 16 Rate Blood Pressure 102/44 113/50 (mmHg) O2 Sat by Pulse 99 99 100 Oximetry Oxygen Devices in Use Now: None Appearance: chronically ill appearing. no distress Eyes: No Scleral Icterus Ears/Nose/Mouth/Throat: - - edentulous Neck: NL Appearance and Movements; NL JVP Respiratory: Symmetrical Chest Expansion and Respiratory Effort Cardiovascular: NL Sounds; No Murmurs; No JVD, RRR Abdominal: - - ostomy LLQ, diffusely tender to light palpation but no guarding or rebound Lymphatic: No Cervical Adenopathy Extremities: No Edema Skin: - - sacral wound dressed, with one wound on right low back and one on right upper thigh Result Diagrams: 04/29/17 08:10 04/29/17 08:10 Additional Lab and Data: Laboratory Results - last 24 hr 04/26/17 04/27/17 04/27/17 23:28 06:15 06:23 WBC 16.1 H RBC 2.61 L Hgb 7.0 L Hct 22 L MCV 83 MCH 27 MCHC 32 RDW 16 H Plt Count 457 H MPV 7 L Neut % (Auto) 82.4 Lymph % (Auto) 9.2 L Sullivan % (Auto) 7.9 Eos % (Auto) 0.4 Baso % (Auto) 0.1 Absolute Neuts (auto) 13.2 H Absolute Lymphs (auto) 1.5 Absolute Monos (auto) 1.3 H Absolute Eos (auto) 0.1 Absolute Basos (auto) 0 Absolute Nucleated RBC 0 Nucleated RBC % 0 POC Glucose (mg/dL) 105 H 122 H 04/27/17 04/27/17 04/27/17 07:25 12:30 17:16 WBC RBC Hgb Hct MCV MCH MCHC RDW Plt Count MPV Neut % (Auto) Lymph % (Auto) Sullivan % (Auto) Eos % (Auto) Baso % (Auto) Absolute Neuts (auto) Absolute Lymphs (auto) Absolute Monos (auto) Absolute Eos (auto) Absolute Basos (auto) Absolute Nucleated RBC Nucleated RBC % POC Glucose (mg/dL) 206 H 176 H 246 H Microbiology and Other Data: Microbiology 04/23/17 00:44 Blood Venous Aerobic Blood Culture - Preliminary No Growth Day 4 04/23/17 00:44 Blood Venous Anaerobic Blood Culture - Preliminary No Growth Day 4 04/23/17 00:44 Blood Venous Aerobic Blood Culture - Preliminary No Growth Day 4 04/23/17 00:44 Blood Venous Anaerobic Blood Culture - Preliminary No Growth Day 4 04/22/17 15:13 Urine Urine Culture - Final Esbl Escherichia Coli Morganella Morganii Aerococcus Species 04/22/17 18:12 Nasal Nasal Screen MRSA (PCR)(LENNY) - Final Mrsa Detected Assess/Plan/Problems-Billing Assessment: 81 yo female PMH paraplegia, sacral decubitus ulcer stage 4, neurogenic bladder with chronic Valera in place, HTN, hyperthyroidism, CAD, pituitary adenoma, ESBL in the urine presents with c/o abd pain and acute on chronic nausea. Pancreatitis of unknown etiology. Anemic. - Patient Problems (1) Acute pancreatitis Current Visit: Yes Status: Acute Code(s): K85.90 - ACUTE PANCREATITIS WITHOUT NECROSIS OR INFECTION, UNSP SNOMED Code(s): 021177876 Comment: IgG4 normal. Trigyclerides wnl. She had been on atorvastatin, which is known to cause drug-induced pancreatitis , but her pain is not improving off it, and her leukocytosis is not improving. She does have mild hypercalcemia, which can cause pancreatitis, but it is only mild and unlikely to cause it, but will work up hypercalcemia as below *Recheck CT with contrast today to rule out necrosis or pseudocyst. LFTs wnl Will discuss need for MRCP on Monday when GI is back (2) Normocytic anemia Current Visit: Yes Status: Acute Code(s): D64.9 - ANEMIA, UNSPECIFIED SNOMED Code(s): 794137506 Comment: no evidence of blood loss check iron/tibc, ferritin, b12 suspect chronic disease, she has required blood transfusions in the past transfuse 1U PRBCs now; her goal is >8 due to CAD (3) Nausea Current Visit: Yes Status: Acute Code(s): R11.0 - NAUSEA SNOMED Code(s): 168087625 Comment: this is a chronic problem for her and predates the pain (4) Acute kidney injury Current Visit: No Status: Acute Priority: High Onset Date: 05/01/14 Code (s): N17.9 - ACUTE KIDNEY FAILURE, UNSPECIFIED SNOMED Code(s): 15443974 Comment: due to UTI and pancreatitis, resolved with IVF tx. (5) Cerebellar infarct Current Visit: No Status: Acute Code(s): I63.9 - CEREBRAL INFARCTION, UNSPECIFIED SNOMED Code(s): 34582146 Comment: old. (found october 2016) she suffers from chronic "dizziness" from this which may contribute to her nausea abnormalities and no pulm htn. Continue ASA (6) Decubitus ulcer Current Visit: No Status: Chronic Priority: High Onset Date: 02/05/14 Code(s): L89.90 - PRESSURE ULCER OF UNSPECIFIED SITE, UNSPECIFIED STAGE SNOMED Code(s): 016933574 Comment: Chronic sacral decubitus ulcer Stage 4, not thought to be infected continue dressing changes per wound care (7) Hypercalcemia Current Visit: Yes Status: Acute Code(s): E83.52 - HYPERCALCEMIA SNOMED Code(s): 05236583 Comment: check iPTH, vitamin d, phos may need spep/upep (8) Diastolic heart failure Current Visit: No Status: Chronic Code(s): I50.30 - UNSPECIFIED DIASTOLIC ( CONGESTIVE) HEART FAILURE SNOMED Code(s): 884674915 Comment: stable, not decompensated (9) Pituitary tumor Current Visit: No Status: Chronic Comment: Missed appointment 04/26 9:30 AM in [place] to discuss with Neurosurgeon Dr. Bagley. Rearrange when not in acute pancreatitis prior w/u: - Pituitary tumor is previously known, but she has not seen her neurologist in 12 years MRI (2000) - identified pituitary mass measuring 1.2cm at that time. 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 He did not think the mass was related to her acute complaints. He was happy to see her in follow up in the pituitary clinic which can be reached at [phone] for an appointment. She does not require urgent intervention - Tumor appeared non-functional Oct 2016: slightly low TSH, high T4, nl FSH, LH , prolactin, and cortisol (10) Type II diabetes mellitus - poor control Current Visit: No Status: Chronic Code(s): E11.65 - TYPE 2 DIABETES MELLITUS WITH HYPERGLYCEMIA SNOMED Code(s): 99112935 (11) Nonsustained ventricular tachycardia Current Visit: Yes Status: Acute Code(s): I47.2 - VENTRICULAR TACHYCARDIA SNOMED Code(s): 954066078 Comment: she has a normal LV replete K, check mag Status and Disposition: inpatient
[2017-04-29] MEDS: KCL 10 MEQ/50 ML IVPREMIX* 10 MEQ/50 ML BAG IV SCH ×3 (15:43→22:03)
[2017-04-29] MEDS ORDERED: Iodixanol* (CONTRAST) 320 MG/ML 100 ML SDV IV ONE (18:18)
--- NOTE | 2017-04-29 20:08 | RAD ---
INDICATION: Pancreatitis. Assess for pancreatic necrosis and pseudocyst. Post appendectomy and hysterectomy. History of abdominal tumor resection. COMPARISON: April 22, 2017 TECHNIQUE: Multidetector CT images were obtained from the lung bases to the ischial tuberosities without and with 96 mL Visipaque 320 IV contrast. Oral contrast administered. Multiplanar reformation. REPORT: Small bilateral dependent pleural effusions with proportional atelectasis. Negative for pericardial effusion. Variant diminutive LEFT hepatic lobe. No suspicious CT rounded the liver. Innumerable small dependent stones in the gallbladder without additional CT abnormality of the gallbladder. Negative for biliary dilatation. Anteriorly positioned pancreas due to abundance of retroperitoneal fat. Moderate inflammatory change at the pancreatic head. Heterogeneous decrease in enhancement of the pancreatic head consistent with mild degree of pancreatic necrosis. Negative for pancreatic duct dilatation. No loculated peripancreatic fluid collections evident. Unremarkable spleen. Patent splenic artery and vein. Postsurgical change of Kobi pouch and LEFT lower quadrant descending colostomy. No CT abnormality of the upper GI or small bowel. Post appendectomy. Small volume of perihepatic ascites. Negative for free air. Laxity of the ventral abdominal wall. No hernia evident. Small nonobstructing bilateral renal stones. Small cortical cyst inferior pole RIGHT kidney. No suspicious focal renal lesions or hydronephrosis. Unremarkable nondilated ureters. Catheterized decompressed urinary bladder. Post hysterectomy. Unremarkable adnexal regions. Negative for lymphadenopathy. Atherosclerotic plaque of normal diameter abdominal aorta and iliac arteries. Physiologic distention of the IVC. Extensive nonfocal subcutaneous edema increasing in severity extending caudal. No superficial or deep soft tissue hematoma evident. Diffuse marked skeletal muscle atrophy. Permeative pattern of small lucencies throughout the visualized axial and appendicular skeleton. Negative for fracture. Polyarticular degenerative arthropathy. IMPRESSION: 1. New small bilateral dependent pleural effusions. 2. Cholelithiasis. Negative for biliary dilatation. 3. Findings of acute pancreatitis with increased inflammatory change compared with the prior exam and suggestion of patchy small foci of necrosis of the pancreatic head. No loculated peripancreatic fluid collection evident 4. Small volume of perihepatic ascites. 5. Negative for stigmata of ileus or bowel obstruction. 6. Nephrolithiasis without obstructive uropathy. 7. Permeative pattern of small lucencies throughout the visualized axial and appendicular skeleton. Lytic bone metastasis are not excluded.
[2017-04-30] MEDS ORDERED: KCL 10 MEQ/50 ML IVPREMIX* 10 MEQ/50 ML BAG ONE (02:30)
[2017-04-30] MEDS: KCL 10 MEQ/50 ML IVPREMIX* 10 MEQ/50 ML BAG IV SCH (02:31)
[2017-04-30] MEDS: oxyCODONE/Acetamin 5/325 MG* TAB PO PRN (02:37)
[2017-04-30] MEDS: Insulin LISPRO* 1 UNITS UNIT SUBCUT SCH ×5 (02:39→21:27)
[2017-04-30] MEDS: Methimazole TAB* 5 MG PO SCH ×3 (02:40→21:27)
[2017-04-30] MEDS: tiZANidine TAB* 2 MG PO SCH ×2 (02:40→21:27)
[2017-04-30 06:55] LABS: Hematocrit 29 % (35-47); Hemoglobin 9.4 g/dl (12.0-16.0); Mean Corpuscular HGB Conc 33 g/dl (31-36); Mean Corpuscular Hemoglobin 27 pg (27-31); Mean Corpuscular Volume 83 fL (80-97); Mean Platelet Volume 7 um3 (7.4-10.4); Platelet Count 373 10^3/ul (150-450); Red Blood Count 3.47 10^6/ul (4.0-5.4); Red Cell Distribution Width 16 % (10.5-15); White Blood Count 26.4 10^3/ul (3.5-10.8)
[2017-04-30 07:08] LABS: EGFR Non-African American 127.2 (>60)
[2017-04-30 07:27] LABS: ABS Basophils 0 10^3/ul (0-0.2); ABS Eosinophils 0.4 10^3/ul (0-0.6); ABS Lymphocytes 1.7 10^3/ul (1.0-4.8); ABS Monocytes 2.3 10^3/ul (0-0.8); ABS Neutrophils 21.9 10^3/ul (1.5-7.7); ABS Nucleated RBC 0 10^3/ul; Eosinophil % 1.4 % (0-6); Lymphocyte % 6.6 % (25-47); Nucleated Red Blood Cells % 0.1
[2017-04-30] MEDS ORDERED: Potassium Phosphate IV* 30 MMOLE in NS 0.9% 250 ML* 250 ML IVPB ONE (08:00)
--- NOTE | 2017-04-30 08:18 | PN ---
Subjective Date of Service: 04/30/17 Interval History: still with nausea, vomiting overnight. has ongoing severe abdominal pain. tearful. Family History: Unchanged from Admission Social History: Unchanged from Admission Past Medical History: Unchanged from Admission Objective Active Medications: Dextrose (D50w Syringe 50 Ml*) 12.5 gm IV PUSH .FOR FS < 60 - SS PRN PRN Reason: FS < 60 Potassium Phosphate 30 mmole/ (Sodium Chloride) 260 mls @ 42 mls/hr IVPB ONCE ONE Stop: 04/30/17 14:11 Ciprofloxacin/Dextrose (Cipro 400 Mg Ivpremix(*)) 400 mg in 200 mls @ 200 mls/ hr IVPB Q12H HARJIT Clindamycin HCl/Dextrose (Cleocin 600 Mg Ivpremix(*) Sdv) 600 mg in 50 mls @ 100 mls/hr IV Q8H [facility] Insulin Human Lispro (Humalog*) 0 units SUBCUT ACHS [facility] PRN Reason: Protocol Last Admin: 04/30/17 07:51 Dose: Not Given Methimazole (Tapazole Tab*) 10 mg PO BID [facility] Last Admin: 04/30/17 02:40 Dose: Not Given Ondansetron HCl (Zofran Inj*) 4 mg IV Q6H PRN PRN Reason: NAUSEA Oxycodone/Acetaminophen (Percocet 5/325 Tab*) 1 tab PO Q4H PRN PRN Reason: PAIN Last Admin: 04/30/17 02:37 Dose: 1 tab Pantoprazole Sodium (Protonix Iv*) 40 mg IV Q24H [facility] Last Admin: 04/29/17 09:46 Dose: 40 mg Prochlorperazine (Compazine Tab*) 5 mg PO Q8H PRN PRN Reason: NAUSEA Promethazine HCl (Phenergan Tab*) 25 mg PO Q6H PRN PRN Reason: NAUSEA Tizanidine HCl (Zanaflex Tab*) 4 mg PO BEDTIME [facility] Last Admin: 04/30/17 02:40 Dose: Not Given Vital Signs - 8 hr 04/30/17 04/30/17 04/30/17 00:24 02:37 03:44 Temperature 98.4 F 98.4 F Pulse Rate 100 97 Respiratory 13 18 18 Rate Blood Pressure 137/60 121/53 (mmHg) O2 Sat by Pulse 100 99 Oximetry 04/30/17 04/30/17 07:51 07:52 Temperature Pulse Rate Respiratory 18 18 Rate Blood Pressure (mmHg) O2 Sat by Pulse 94 Oximetry Oxygen Devices in Use Now: None Appearance: alert, ill appearing, no distress Eyes: No Scleral Icterus Ears/Nose/Mouth/Throat: - - edentulous, moist mucosa Neck: NL Appearance and Movements; NL JVP Respiratory: Symmetrical Chest Expansion and Respiratory Effort, Clear to Auscultation Cardiovascular: - - tachycardic, no murmurs Abdominal: - - diffusely tender to light palpation, no guarding. LLQ ostomy. Lymphatic: No Cervical Adenopathy Extremities: No Edema, - - flaccid lower extremities b/l Skin: - - sacral decub dressed, right posterior upper thigh and right mid-back Neurological: Alert and Oriented x 3 Lines/Tubes/Other Access: Clean, Dry and Intact Valera Result Diagrams: 04/30/17 06:39 04/30/17 06:39 Additional Lab and Data: Laboratory Results - last 24 hr 04/26/17 04/27/17 04/27/17 23:28 06:15 06:23 WBC 16.1 H RBC 2.61 L Hgb 7.0 L Hct 22 L MCV 83 MCH 27 MCHC 32 RDW 16 H Plt Count 457 H MPV 7 L Neut % (Auto) 82.4 Lymph % (Auto) 9.2 L [place] % (Auto) 7.9 Eos % (Auto) 0.4 Baso % (Auto) 0.1 Absolute Neuts (auto) 13.2 H Absolute Lymphs (auto) 1.5 Absolute Monos (auto) 1.3 H Absolute Eos (auto) 0.1 Absolute Basos (auto) 0 Absolute Nucleated RBC 0 Nucleated RBC % 0 POC Glucose (mg/dL) 105 H 122 H 04/27/17 04/27/17 04/27/17 07:25 12:30 17:16 WBC RBC Hgb Hct MCV MCH MCHC RDW Plt Count MPV Neut % (Auto) Lymph % (Auto) [place] % (Auto) Eos % (Auto) Baso % (Auto) Absolute Neuts (auto) Absolute Lymphs (auto) Absolute Monos (auto) Absolute Eos (auto) Absolute Basos (auto) Absolute Nucleated RBC Nucleated RBC % POC Glucose (mg/dL) 206 H 176 H 246 H Microbiology and Other Data: Microbiology 04/23/17 00:44 Blood Venous Aerobic Blood Culture - Preliminary No Growth Day 04/23/17 00:44 Blood Venous Anaerobic Blood Culture - Preliminary No Growth Day 04/23/17 00:44 Blood Venous Aerobic Blood Culture - Preliminary No Growth Day 4 04/23/17 00:44 Blood Venous Anaerobic Blood Culture - Preliminary No Growth Day 4 04/22/17 15:13 Urine Urine Culture - Final Esbl Escherichia Coli Morganella Morganii Aerococcus Species 04/22/17 18:12 Nasal Nasal Screen MRSA (PCR)(LENNY) - Final Mrsa Detected Assess/Plan/Problems-Billing Assessment: 81 yo female PMH paraplegia, sacral decubitus ulcer stage 4, neurogenic bladder with chronic Valera in place, HTN, hyperthyroidism, CAD, pituitary adenoma, ESBL in the urine presents with c/o abd pain and acute on chronic nausea. Pancreatitis of unknown etiology. Anemic. - Patient Problems (1) Acute pancreatitis Current Visit: Yes Status: Acute Code(s): K85.90 - ACUTE PANCREATITIS WITHOUT NECROSIS OR INFECTION, UNSP SNOMED Code(s): 166123614 Comment: Now with necrosis on CT with contrast. Consult surgery Start cipro/clinda (anaphylaxis to penicillins, allergy to metronidazole) Increase volume resuscitation Etiology unclear, may be hypercalcemia (mildly elevated) versus med related ( had been on atorvastatin and tmp/smx) IgG4 normal. Trigyclerides wnl. LFTs okay (2) Hypercalcemia Current Visit: Yes Status: Acute Code(s): E83.52 - HYPERCALCEMIA SNOMED Code(s): 59790008 Comment: phos is low, iPTH is low-normal, so will check spep/upep ( especially with the finding on ct concerning for lytic lesions) (3) Normocytic anemia Current Visit: Yes Status: Acute Code(s): D64.9 - ANEMIA, UNSPECIFIED SNOMED Code(s): 809717444 Comment: s/p 1U PRBCs yesterday with good response no evidence of blood loss check iron/tibc, ferritin, b12 suspect chronic disease her goal is >8 due to CAD (4) Nausea Current Visit: Yes Status: Acute Code(s): R11.0 - NAUSEA SNOMED Code(s): 476429316 Comment: this is a chronic problem for her and predates the pain, but is worsened due to pancreatitis. she declines anti-emetics (5) Acute kidney injury Current Visit: No Status: Acute Priority: High Onset Date: 05/01/14 Code (s): N17.9 - ACUTE KIDNEY FAILURE, UNSPECIFIED SNOMED Code(s): 94958659 Comment: resolved with IVF, but UOP is poor increase IVF resuscitation as above. (6) Cerebellar infarct Current Visit: No Status: Acute Code(s): I63.9 - CEREBRAL INFARCTION, UNSPECIFIED SNOMED Code(s): 81187700 Comment: old. (found october 2016) she suffers from chronic "dizziness" from this which may contribute to her nausea abnormalities and no pulm htn. Continue ASA (7) Hypophosphatemia Current Visit: Yes Status: Acute Code(s): E83.39 - OTHER DISORDERS OF PHOSPHORUS METABOLISM SNOMED Code(s): 3797568 Comment: needs aggressive repletion today (8) Nonsustained ventricular tachycardia Current Visit: Yes Status: Acute Code(s): I47.2 - VENTRICULAR TACHYCARDIA SNOMED Code(s): 985037339 Comment: she has a normal LV check mag (9) Decubitus ulcer Current Visit: No Status: Chronic Priority: High Onset Date: 02/05/14 Code(s): L89.90 - PRESSURE ULCER OF UNSPECIFIED SITE, UNSPECIFIED STAGE SNOMED Code(s): 638180087 Comment: Chronic sacral decubitus ulcer Stage 4, not thought to be infected continue dressing changes per wound care (10) Pituitary tumor Current Visit: No Status: Chronic Comment: Missed appointment 04/26 9:30 AM in [place] to discuss with Neurosurgeon Dr. Bagley. Rearrange when not in acute pancreatitis prior w/u: - Pituitary tumor is previously known, but she has not seen her neurologist in 12 years MRI (2000) - identified pituitary mass measuring 1.2cm at that time. 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 He did not think the mass was related to her acute complaints. He was happy to see her in follow up in the pituitary clinic which can be reached at [phone] for an appointment. She does not require urgent intervention - Tumor appeared non-functional Oct 2016: slightly low TSH, high T4, nl FSH, LH , prolactin, and cortisol (11) Diastolic heart failure Current Visit: No Status: Chronic Code(s): I50.30 - UNSPECIFIED DIASTOLIC ( CONGESTIVE) HEART FAILURE SNOMED Code(s): 043643124 Comment: stable, not decompensated Status and Disposition: inpatient inpatient, may need higher level of care today, will follow closely
[2017-04-30] MEDS ORDERED: Magnesium Sulfate 2 GM IV* 2 GM/50 ML BAG IVPB ONE (09:00)
[2017-04-30] MEDS: Pantoprazole IV* 40 MG IV SCH (09:24)
[2017-04-30] MEDS: Ondansetron INJ* 2 MG/ML VIAL IV PRN (09:24)
[2017-04-30] MEDS: HYDROmorphone INJ* 2 MG/ML CARPUJECT SYRINGE IV SLOW PU PRN (09:24)
[2017-04-30] MEDS: NS 0.9% 1000 ML* 1,000 ML IV SCH (09:27)
[2017-04-30] MEDS ORDERED: Ciprofloxacin 400MG IVPREMIX(* 400 MG/200 ML BAG IVPB SCH (09:30)
[2017-04-30] MEDS ORDERED: TPN* 24 HR with Dextrose 50% Water* 500 ML, Amino Acid Infusion 10%* 850 ML, Sterile Wa... CENTR SCH ×16 (17:00)
[2017-04-30] MEDS ORDERED: TPN* 24 HR with D10W 1000 ML BAG* 1,000 ML, Amino Acid Infusion 10%* 850 ML, Sterile Wa... IV SCH ×11 (17:00)
[2017-04-30] MEDS: Clindamycin 600 MG IVPREMIX(* 600 MG/50 ML SDV IV SCH ×2 (17:34→18:49)
[2017-04-30] MEDS: Ciprofloxacin 400MG IVPREMIX(* 400 MG/200 ML BAG IVPB SCH (20:32)
--- NOTE | 2017-04-30 21:02 | CONS ---
CC: Dr. Luis Antonio Chapman; [facility] * SURGICAL CONSULTATION REPORT: DATE OF CONSULT: 04/30/17 HISTORY OF PRESENT ILLNESS: I was contacted by the hospitalist service to evaluate Ms. Hurd, an 82-year-old female, well known to me for a longstanding sacral decubitus ulcer, who presented to the hospital on 04/22/17 with complaints of dizziness and generalized malaise. She was admitted with a diagnosis of pancreatitis and sepsis and acute renal failure, and started on vancomycin, followed by the infectious disease doctor and Gastroenterology. The patient's lipase is elevated at 520 upon arrival. She had elevated white blood cell count. She was treated expectantly with again 4 days of vancomycin and antinausea medications. The patient's diet had been advanced. She has been having multiple episodes of vomiting and was noted to have continued pain yesterday and a repeat CT scan was performed. These images as well as report reviewed and appeared to have what may be a mild degree of pancreatic necrosis based on radiology report. I discussed the case with the radiologist as well. For this reason, our service was contacted. Today, I see the patient, she is lying in bed, she is in pain mostly in the upper abdomen. She has had multiple episodes of vomiting. She has no appetite. Pain is under the left rib cage, it does radiate to the back. She is passing flatus. No fevers. The patient denies any previous similar symptoms. PAST MEDICAL HISTORY: Reviewed. PAST SURGICAL HISTORY: Reviewed. PHYSICAL EXAM: The patient's abdomen is soft, distended, tender in the upper abdomen. No rebound. Healed midline incision. Umbilicus is surgically absent. Colostomy has minimal stool and air. No ecchymosis on the flanks. Sacral decubitus ulcer is mostly unchanged from when I last saw her 3 weeks ago. DIAGNOSTIC STUDIES/LAB DATA: Labs reviewed show a creatinine of 0.47, the patient did arrive with a creatinine of 1.65. Magnesium and are low and her calcium is elevated. White blood cell count of 26 up from 18 yesterday with left shift, H and H 9.07/16. The patient did receive a unit of blood yesterday. No lipase was performed today but this was added on. CAT scan reviewed as above. IMPRESSION: Workup and symptoms consistent with acute pancreatitis, not improving after 8 days of admission. My recommendation is starting antibiotics , imipenem, n.p.o. status with IV fluids, electrolyte monitoring, and possibly repeat CT scan in 2 to 3 days. I believe the patient would benefit from parenteral nutrition and ICU admission. The patient meets systemic inflammatory response syndrome criteria. I do not believe the patient would benefit from necrosectomy at this time, which would require transfer to another institution. We will discuss the case with Interventional Radiology regarding sampling to see if the small amount of necrosis seen on CT scan would be infectious. I have no additional differential diagnosis. We will continue to follow. [id number]/[facility] #: [id number] [facility]ANG[facility] HEALTH SYSTEMDevon
[2017-05-01] MEDS: Clindamycin 600 MG IVPREMIX(* 600 MG/50 ML SDV IV SCH ×3 (01:07→17:38)
[2017-05-01] MEDS: HYDROmorphone INJ* 2 MG/ML CARPUJECT SYRINGE IV SLOW PU PRN ×2 (02:08→10:15)
[2017-05-01] MEDS: Ondansetron INJ* 2 MG/ML VIAL IV PRN (02:08)
[2017-05-01] MEDS: Ciprofloxacin 400MG IVPREMIX(* 400 MG/200 ML BAG IVPB SCH ×2 (06:09→18:47)
[2017-05-01 07:09] LABS: Hematocrit 25 % (35-47); Mean Corpuscular HGB Conc 31 g/dl (31-36); Mean Corpuscular Hemoglobin 27 pg (27-31); Mean Corpuscular Volume 86 fL (80-97); Mean Platelet Volume 7 um3 (7.4-10.4); Platelet Count 309 10^3/ul (150-450); Red Blood Count 2.96 10^6/ul (4.0-5.4); Red Cell Distribution Width 17 % (10.5-15); White Blood Count 22.4 10^3/ul (3.5-10.8)
[2017-05-01 07:30] LABS: EGFR Non-African American 90.7 (>60)
[2017-05-01 08:05] LABS: ABS Basophils 0.1 10^3/ul (0-0.2); ABS Eosinophils 0.1 10^3/ul (0-0.6); ABS Monocytes 1.5 10^3/ul (0-0.8); ABS Neutrophils 19.7 10^3/ul (1.5-7.7); ABS Nucleated RBC 0.1 10^3/ul; Eosinophil % 0.5 % (0-6); Lymphocyte % 4.3 % (25-47); Nucleated Red Blood Cells % 0.2
[2017-05-01] MEDS ORDERED: Dextrose 50% Syringe 50 ML* 25 GM/50 ML SYRINGE IV PUSH PRN (08:17)
[2017-05-01] MEDS ORDERED: Insulin LISPRO* 1 UNITS UNIT SUBCUT ONE (08:17)
[2017-05-01] MEDS: Insulin LISPRO* 1 UNITS UNIT SUBCUT SCH ×4 (08:20→21:37)
[2017-05-01] MEDS: Methimazole TAB* 5 MG PO SCH ×2 (09:13→21:37)
[2017-05-01] MEDS: Pantoprazole IV* 40 MG IV SCH (09:47)
[2017-05-01] MEDS: NS 0.9% 1000 ML* 1,000 ML IV SCH ×2 (10:29→16:22)
--- NOTE | 2017-05-01 11:35 | PN ---
Progress Note - Progress Note Date of Service: 05/01/17 Note: Critical Care Asked to see by Dr Katz in regards to care while in ICU Patient tranferred to ICU for closer monitoring in face of severe pancreatitis with pancreatic necrosis. Antibiotics initiated with Ciprofloxin and Clida as patient reportedly has experienced anaphylaxis to PCNs and also is allergic to Flagyl. Also was started on PPN ytdy and received a PICC today with plan for initiation of TPN A surgery consult was obtained ytlloyd from Dr Alonso regarding severe pancreatitis and GI has been involved too CT Scan of abdomen reveals gallstones however noted concern that pancreatitis may have come as a consequence of adverse response to one of her medications. Patient has been complaining of abdominal pain but has generally refused analgesic therapy and has also been refusing Insulin to manage her hyperglycemia. Nurse recently administered Dilaudid after patient conceded to receive. PMH includes: Paraplegia, Chronic sacral decubitus with chronic osteomyelitis, diverting colostomy, Cerebellar infarct, A Fib, CAD and SD, Diastolic Heart Failure, Hx NSVT, Diabetes, HTN, Pituitary Tumor SBP 104 HR 109 RR 12 SpO2 99 (NC) Skin no diaphoresis, no cyanosis Sclerae anicteric Oral mucosa pink, moist Lungs good air entry, no wheezes Cor RRR, no murmur, no rub Abd mild distension Ext chronic edema and skin changes RUE PICC LUE PIV WBC 22.4 Hgb 8.0 Plt 300 Alb 1.9 Mg 1.8 K 4.6 Pi 2.4 BUN/creat 10/0.63 IMP: Severe Pancreatitis with Pancreatic Necrosis 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 Hx CAD with SD Hx PAF and NSVT Hx Diastolic heart failure Hx Cerebellar stroke Hx Pituitary tumor Protein Calorie Malnutrition DM...patient quite hyperglycemic Hyperchloremic acidosis PLAN: Switch PPN to TPN....will not go to full caloric goals yet till have better control of glucose trends All Na as acetate salt Monitor electrolytes re development of re-feeding syndrome with electrolyte imbalances Continue IV Abx Continue NPO Analgesia Insulin Slide Scale Q 4 hrs 25% Albumin Keep HOB raised DVT prophyl Discussed with Nursing, Nutrition, and Pharmacy Discussed with Camryn Katz and Gavin T>35 min, [facility] services rendered
--- NOTE | 2017-05-01 12:25 | PN ---
Progress Note - Progress Note Date of Service: 05/01/17 SOAP: Subjective: CC: abd pain HPI: 82 year old woman with chronic decubitus ulcer and now with pancreatitis, had been improving abd pain and appetite, then over the weekend developed worsening pain and leukocytosis, had CT that showed pancreatic necrosis. She c/ o mid abd pain and nausea. Objective: Vital Signs Temp 37.9 C 05/01/17 10:23 Pulse 109 05/01/17 11:00 Resp 12 05/01/17 11:00 BP 104/46 05/01/17 11:00 Pulse Ox 100 05/01/17 11:00 Intake & Output 04/30/17 05/01/17 05/01/17 18:59 06:59 18:59 Intake Total 525 2341 Output Total 50 225 Balance 475 2116 Intake: IV Fluids 425 2185 NS (0.9%) 425 2185 IVPB 100 156 Magnesium Sulfate 3GM 100 NS (0.9%) 156 Oral 0 Output: [place] 50 225 Gen:awakens to voice, answers questions, not in distress HEENT:MMD, no thrush Neck: no mass Heart:Regular and tachycardic Lungs: ant BS clear Abd:+BS mid abd tender to palpation, ostomy Skin: no rash Laboratory Results - last 24 hr 04/30/17 04/30/17 05/01/17 17:20 18:48 06:54 WBC 22.4 H RBC 2.96 L Hgb 8.0 L Hct 25 L MCV 86 MCH 27 MCHC 31 RDW 17 H Plt Count 309 MPV 7 L Neut % (Auto) 88.1 H Lymph % (Auto) 4.3 L [place] % (Auto) 6.7 Eos % (Auto) 0.5 Baso % (Auto) 0.4 Absolute Neuts (auto) 19.7 H Absolute Lymphs (auto) 1.0 Absolute Monos (auto) 1.5 H Absolute Eos (auto) 0.1 Absolute Basos (auto) 0.1 Absolute Nucleated RBC 0.1 Nucleated RBC % 0.2 Sodium Potassium Chloride Carbon Dioxide Anion Gap BUN Creatinine Est GFR ( Amer) Est GFR (Non-Af Amer) BUN/Creatinine Ratio Glucose POC Glucose (mg/dL) 245 H Calcium Phosphorus 2.9 Magnesium Total Bilirubin AST ALT Alkaline Phosphatase Total Protein Albumin Globulin Albumin/Globulin Ratio 05/01/17 05/01/17 05/01/17 06:54 07:40 11:45 WBC RBC Hgb Hct MCV MCH MCHC RDW Plt Count MPV Neut % (Auto) Lymph % (Auto) [place] % (Auto) Eos % (Auto) Baso % (Auto) Absolute Neuts (auto) Absolute Lymphs (auto) Absolute Monos (auto) Absolute Eos (auto) Absolute Basos (auto) Absolute Nucleated RBC Nucleated RBC % Sodium 137 Potassium 4.6 Chloride 114 H Carbon Dioxide 16 L Anion Gap 7 BUN 10 Creatinine 0.63 Est GFR ( Amer) 116.6 Est GFR (Non-Af Amer) 90.7 BUN/Creatinine Ratio 15.9 Glucose 407 H POC Glucose (mg/dL) > 444 H* 383 H Calcium 8.3 L Phosphorus 2.4 L Magnesium 1.8 L Total Bilirubin 0.30 AST 9 L ALT 6 L Alkaline Phosphatase 129 H Total Protein 4.6 L Albumin 1.9 L Globulin 2.7 Albumin/Globulin Ratio 0.7 L Assessment: 1. acute pancreatitis complicated by necrosis 2. T2 diabetes 3. chronic cuenca catheter 4. chronic sacral decubitus ulcer Plan: 1. broad spectrum antibiotics, GI consult transfer to pancreato-biliary center Discussed with Dr Alonso and Dr Katz
[2017-05-01] MEDS: Albumin Human 25%* 25 GM/100 ML BTL IV SCH ×2 (12:42→21:45)
[2017-05-01] MEDS: Enoxaparin(*) 40 MG/0.4 ML SYR SUBCUT SCH (13:57)
--- NOTE | 2017-05-01 14:10 | PN ---
Hospitalist Progress Note Date of Service: 05/01/17 I saw and examined Ms. Hurd this morning and discussed her case with Dr. Farfan. I will transfer to ICU service for worsening pancreatitis with necrosis , now with increased work of breathing, decreased urine output, tachycardia, and hyperglycemia. I discussed code status with her again, and she wishes to be intubated and resuscitated if needed.
[2017-05-01] MEDS: Cyclobenzaprine TAB* 10 MG PO SCH ×2 (15:30→21:37)
[2017-05-01] MEDS ORDERED: TPN CENTRAL STANDARD BASE B CENT\\PICC SCH ×21 (17:00)
[2017-05-01] MEDS ORDERED: Furosemide IV* 10 MG/ML 2 ML VIAL (20 MG) IV ONE (20:00)
--- NOTE | 2017-05-01 20:01 | PN ---
Progress Note - Progress Note Date of Service: 05/01/17 Note: Paged for increase WOB - coarse rhonchi and rales on exam. Patient c/o SOB. Per staff refusing nursing care and suctioning. Will d/c fluids, Lasix 20 mg and obtain CxR
[2017-05-01] MEDS ORDERED: Furosemide IV* 10 MG/ML VIAL (40 MG) ONE (20:14)
--- NOTE | 2017-05-01 20:59 | RAD ---
INDICATION: Shortness of breath. COMPARISON: Measures in comparison chest x-rays dated April 22, 2017 TECHNIQUE: Single AP portable view of the chest was obtained. FINDINGS: Image quality is compromised due to the relative inferiority of a portable chest x-ray. There is a right arm PICC line with the tip terminating at the superior vena cava. The heart is mildly enlarged relative to the previous chest x-ray. The pulmonary vasculature is engorged and indistinct. There is density obscuring the left hemidiaphragm. There is bilateral costophrenic angle blunting. Visualized bones are normal for the patient's age. IMPRESSION: The constellation of chest x-ray findings are most consistent with cardiogenic pulmonary edema.
[2017-05-01] MEDS: tiZANidine TAB* 2 MG PO SCH (21:37)
[2017-05-02] MEDS ORDERED: Insulin REGULAR(*) 1 UNITS UNIT IV PUSH ONE ×2 (00:58→03:22)
[2017-05-02] MEDS ORDERED: Insulin REGULAR(*) 1 UNITS UNIT ONE (01:03)
[2017-05-02 01:19] LABS: EGFR Non-African American 76.5 (>60)
[2017-05-02] MEDS: Clindamycin 600 MG IVPREMIX(* 600 MG/50 ML SDV IV SCH ×3 (01:37→18:06)
--- NOTE | 2017-05-02 02:16 | PN ---
Progress Note - Progress Note Date of Service: 05/02/17 Note: BG > 700 - no anion gap acidosis - had to stop fluids due to volume overload. Will start Lantus 20 units and continue with lispro. Will hold TPN until sugars are under better control.
[2017-05-02] MEDS: Insulin GLARGINE(*) 1 UNITS UNIT SUBCUT SCH (03:49)
[2017-05-02 06:04] LABS: Hematocrit 22 % (35-47); Hemoglobin 7.1 g/dl (12.0-16.0); Mean Corpuscular HGB Conc 32 g/dl (31-36); Mean Corpuscular Hemoglobin 28 pg (27-31); Mean Corpuscular Volume 86 fL (80-97); Mean Platelet Volume 7 um3 (7.4-10.4); Platelet Count 204 10^3/ul (150-450); Red Blood Count 2.54 10^6/ul (4.0-5.4); Red Cell Distribution Width 18 % (10.5-15); White Blood Count 10.2 10^3/ul (3.5-10.8)
[2017-05-02] MEDS: Ciprofloxacin 400MG IVPREMIX(* 400 MG/200 ML BAG IVPB SCH ×2 (06:32→18:06)
[2017-05-02 06:52] LABS: ABS Basophils 0 10^3/ul (0-0.2); ABS Eosinophils 0 10^3/ul (0-0.6); ABS Lymphocytes 0.2 10^3/ul (1.0-4.8); ABS Monocytes 1.3 10^3/ul (0-0.8); ABS Neutrophils 8.6 10^3/ul (1.5-7.7); ABS Nucleated RBC 0 10^3/ul; Eosinophil % 0.4 % (0-6); Lymphocyte % 2.1 % (25-47); Nucleated Red Blood Cells % 0.1
--- NOTE | 2017-05-02 08:24 | RAD ---
Indication: Pleural effusions. Single frontal view of the chest performed at 0725 hours was reviewed. Comparison is made with previous exam dated May 01, 2017. Cardiomegaly is noted. Interstitial edema is noted. Right suprahilar density is unchanged. Central line is in place. Trace pleural effusions are noted. IMPRESSION: NO SIGNIFICANT CHANGE SINCE PREVIOUS EXAM WITH PROMINENT PULMONARY ARTERIES. THIS IS CONSISTENT WITH CHF.
[2017-05-02] MEDS: Albumin Human 25%* 25 GM/100 ML BTL IV SCH (09:32)
[2017-05-02] MEDS: Methimazole TAB* 5 MG PO SCH ×2 (09:34→22:22)
[2017-05-02] MEDS: Cyclobenzaprine TAB* 10 MG PO SCH ×2 (09:34→13:27)
[2017-05-02] MEDS: Pantoprazole IV* 40 MG IV SCH (09:34)
[2017-05-02] MEDS: HYDROmorphone INJ* 2 MG/ML CARPUJECT SYRINGE IV SLOW PU PRN ×2 (09:35→15:03)
[2017-05-02] MEDS ORDERED: Insulin LISPRO* 1 UNITS UNIT SUBCUT ONE ×2 (10:00→12:31)
[2017-05-02] MEDS ORDERED: Furosemide IV* 10 MG/ML 2 ML VIAL (20 MG) IV ONE (10:13)
[2017-05-02] MEDS: Insulin LISPRO* 1 UNITS UNIT SUBCUT SCH ×4 (10:34→22:17)
--- NOTE | 2017-05-02 11:31 | PN ---
Progress Note - Progress Note Date of Service: 05/02/17 Note: [facility] Progress Note Noted need for Lasix ytdy evening Is awake and alert this AM Generally weak Able to clear throat of phlegm with effort SBP 103 HR 104 RR 13 SpO2 98 (NC) Skin no diaphoresis, no cyanosis Sclerae anicteric Oral mucosa pink, moist Lungs good air entry, no wheezes Cor RRR, no murmur, no rub Abd mild distension, soft, generalized tenderness Ext chronic edema and skin changes RUE PICC LUE PIV WBC 10.2 Hgb 7.1 Plt 204 Alb 2.6 Mg 1.6 K 3.8 Pi 1.8 BUN/Creat 8/0.68 Gluc 193 TG 125 IMP: Severe Pancreatitis with Pancreatic Necrosis Leucocytosis ..improved with Abx Pulmonary Edema 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 (??acute now too??) Hx CAD with GA Hx PAF and NSVT Hx Diastolic heart failure Hx Cerebellar stroke Hx Pituitary tumor Protein Calorie Malnutrition DM...patient quite hyperglycemic Hyperchloremia Hypophosphatemia Hypomagnesemia PLAN: TPN...add 40 units Insulin to formula to assist in glycemic control All Na as acetate salt Replete Phos Replete Mg Monitor electrolytes daily re development of re-feeding syndrome with electrolyte imbalances Continue IV Abx Continue NPO Analgesia Insulin Slide Scale Q 4 hrs 25% Albumin Additional Lasix Keep HOB raised DVT prophyl To ask Palliative Care to see in light of advanced chronic disease and clinical frailty Discussed with Nursing, Nutrition, and Pharmacy T>30 min, [facility] services rendered
[2017-05-02] MEDS ORDERED: Dextrose 50% Syringe 50 ML* 25 GM/50 ML SYRINGE IV PUSH PRN (12:31)
[2017-05-02] MEDS: Enoxaparin(*) 40 MG/0.4 ML SYR SUBCUT SCH (12:43)
[2017-05-02] MEDS ORDERED: Furosemide IV* 10 MG/ML VIAL (40 MG) IV SLOW PU ONE (14:33)
--- NOTE | 2017-05-02 16:14 | CONSULT ---
Palliative / Hospice Consult Ordering Provider: Phani Ortiz Referal Reason: Serious life-threatening illness, no limitations on interventions, need to discuss goals of care - Subjective Code Status: Full Code-Needs Follow Up Advance Directives Location: In Chart MOLST Part A Completed: No MOLST Part E Completed:: No HCP Completed: No - History or Present Illness History or Present Illness: This 82 year old AA paraplegic female SNF resident with multiple medical problems is hospitalized for the tenth day, currently in the ICU, with serious illness and a downward illness trajectory. She has a history of DM, HTN, AF, CHF , hx CVA (cerebellar infarct), pituitary tumor, chronic Valera, hypothyroidism, paraplegia and chronic sacral decubitus ulceration with osteomyelitis. She has a colostomy. She was sent to the ER by Dr. Chapman from [facility] with a complaint of "dizziness" after her loop diuretic dose had been doubled from 40 mg Lasix to 80 mg Lasix QD. She also complained, on admission, of decreased appetite and foul smelling urine. She was found to have sepsis with a wbc of 27, 000, dehydration, acute renal compromise and elevated lipase. Abdominal CT on 04/22 revealed pancreatitis, renal calculi and cholithiasis. Repeat on 04/29 revealed new pleural effusions, increased inflammatory changes c/w worsening pancreatitis, perihepatic ascites and skeletal lucencies ppossibly representing skeletal metastatic disease. She was see by Dr. 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 She has additional anemia of chronic disease (H/H 10/08 with normocytic indices, low Fe and low TIBC), chronic and possibly acute osteomyelitis underlying her chronic severe decubitus, hyperchloremic acidosis and severe protein calorie malnutrition with an albumin of 2.6. She is now on TPN with a PICC line. The patient has a MOLST form from 12/28/16 specifying maximal interventions, including attempt at CPR, intubation, feeding tubes, etc. There is no HCP. When I went to interview the patient after reading her medical history, she had had a dressing change that required premedication with 1 mg Dilaudid, and she was totally obtunded, unable to open her eyes or say a single word. I called her "next of kin" from her face sheet, and got Polina Breen, a cousin, who had no knowledge of the patient's health status or hospitalization, and was not aware of having any status such as HCP. She told me the patient is very private and never asks for help. She was never , has no children and her only sibling , a brother, is . Lab Values: Abnormal Lab Results 05/01/17 05/01/17 05/02/17 16:21 21:23 00:04 WBC RBC Hgb Hct MCV MCH MCHC RDW Plt Count MPV Neut % (Auto) Lymph % (Auto) [place] % (Auto) Eos % (Auto) Baso % (Auto) Absolute Neuts (auto) Absolute Lymphs (auto) Absolute Monos (auto) Absolute Eos (auto) Absolute Basos (auto) Absolute Nucleated RBC Nucleated RBC % Hypochromasia Anisocytosis Sodium Potassium Chloride Carbon Dioxide Anion Gap BUN Creatinine Est GFR ( Amer) Est GFR (Non-Af Amer) BUN/Creatinine Ratio Glucose POC Glucose (mg/dL) 208 H 367 H > 444 H* Calcium Ionized Calcium Phosphorus Magnesium Total Bilirubin AST ALT Alkaline Phosphatase Total Protein Albumin Globulin Albumin/Globulin Ratio Triglycerides 05/02/17 05/02/17 05/02/17 00:09 02:12 02:12 WBC RBC Hgb Hct MCV MCH MCHC RDW Plt Count MPV Neut % (Auto) Lymph % (Auto) [place] % (Auto) Eos % (Auto) Baso % (Auto) Absolute Neuts (auto) Absolute Lymphs (auto) Absolute Monos (auto) Absolute Eos (auto) Absolute Basos (auto) Absolute Nucleated RBC Nucleated RBC % Hypochromasia Anisocytosis Sodium 132 L Potassium TNP 3.4 L Chloride 107 Carbon Dioxide 15 L Anion Gap 10 BUN 8 Creatinine 0.73 Est GFR ( Amer) 98.4 Est GFR (Non-Af Amer) 76.5 BUN/Creatinine Ratio 11.0 Glucose 796 H* 696 H* POC Glucose (mg/dL) > 444 H* Calcium 7.8 L Ionized Calcium Phosphorus Magnesium Total Bilirubin AST ALT Alkaline Phosphatase Total Protein Albumin Globulin Albumin/Globulin Ratio Triglycerides 05/02/17 05/02/17 05/02/17 05:00 05:46 05:46 WBC 10.2 RBC 2.54 L Hgb 7.1 L Hct 22 L MCV 86 MCH 28 MCHC 32 RDW 18 H Plt Count 204 MPV 7 L Neut % (Auto) 84.9 H Lymph % (Auto) 2.1 L [place] % (Auto) 12.5 H Eos % (Auto) 0.4 Baso % (Auto) 0.1 Absolute Neuts (auto) 8.6 H Absolute Lymphs (auto) 0.2 L Absolute Monos (auto) 1.3 H Absolute Eos (auto) 0 Absolute Basos (auto) 0 Absolute Nucleated RBC 0 Nucleated RBC % 0.1 Hypochromasia 2+ Anisocytosis 1+ Sodium Potassium Chloride Carbon Dioxide Anion Gap BUN Creatinine Est GFR ( Amer) Est GFR (Non-Af Amer) BUN/Creatinine Ratio Glucose POC Glucose (mg/dL) 208 H Calcium Ionized Calcium 5.25 Phosphorus Magnesium Total Bilirubin AST ALT Alkaline Phosphatase Total Protein Albumin Globulin Albumin/Globulin Ratio Triglycerides 05/02/17 05/02/17 05/02/17 05:46 09:33 12:29 WBC RBC Hgb Hct MCV MCH MCHC RDW Plt Count MPV Neut % (Auto) Lymph % (Auto) [place] % (Auto) Eos % (Auto) Baso % (Auto) Absolute Neuts (auto) Absolute Lymphs (auto) Absolute Monos (auto) Absolute Eos (auto) Absolute Basos (auto) Absolute Nucleated RBC Nucleated RBC % Hypochromasia Anisocytosis Sodium 141 D Potassium 3.8 Chloride 117 H Carbon Dioxide 18 L Anion Gap 6 BUN 8 Creatinine 0.68 Est GFR ( Amer) 106.8 Est GFR (Non-Af Amer) 83.0 BUN/Creatinine Ratio 11.8 Glucose 193 H POC Glucose (mg/dL) 403 H* 436 H* Calcium 8.4 L Ionized Calcium Phosphorus 1.8 L Magnesium 1.6 L Total Bilirubin 0.40 AST 17 ALT 4 L Alkaline Phosphatase 90 Total Protein 4.9 L Albumin 2.6 L Globulin 2.3 Albumin/Globulin Ratio 1.1 Triglycerides 125 05/02/17 12:40 WBC RBC Hgb Hct MCV MCH MCHC RDW Plt Count MPV Neut % (Auto) Lymph % (Auto) [place] % (Auto) Eos % (Auto) Baso % (Auto) Absolute Neuts (auto) Absolute Lymphs (auto) Absolute Monos (auto) Absolute Eos (auto) Absolute Basos (auto) Absolute Nucleated RBC Nucleated RBC % Hypochromasia Anisocytosis Sodium Potassium Chloride Carbon Dioxide Anion Gap BUN Creatinine Est GFR ( Amer) Est GFR (Non-Af Amer) BUN/Creatinine Ratio Glucose 356 H POC Glucose (mg/dL) Calcium Ionized Calcium Phosphorus Magnesium Total Bilirubin AST ALT Alkaline Phosphatase Total Protein Albumin Globulin Albumin/Globulin Ratio Triglycerides Laboratory Last Values WBC 10.2 10^3/ul (3.5-10.8) 05/02/17 05:46 RBC 2.54 10^6/ul (4.0-5.4) L 05/02/17 05:46 Hgb 7.1 g/dl (12.0-16.0) L 05/02/17 05:46 Hct 22 % (35-47) L 05/02/17 05:46 MCV 86 fL (80-97) 05/02/17 05:46 MCH 28 pg (27-31) 05/02/17 05:46 MCHC 32 g/dl (31-36) 05/02/17 05:46 RDW 18 % (10.5-15) H 05/02/17 05:46 Plt Count 204 10^3/ul (150-450) 05/02/17 05:46 MPV 7 um3 (7.4-10.4) L 05/02/17 05:46 Neut % (Auto) 84.9 % (38-83) H 05/02/17 05:46 Lymph % (Auto) 2.1 % (25-47) L 05/02/17 05:46 [place] % (Auto) 12.5 % (1-9) H 05/02/17 05:46 Eos % (Auto) 0.4 % (0-6) 05/02/17 05:46 Baso % (Auto) 0.1 % (0-2) 05/02/17 05:46 Absolute Neuts (auto) 8.6 10^3/ul (1.5-7.7) H 05/02/17 05:46 Absolute Lymphs (auto) 0.2 10^3/ul (1.0-4.8) L 05/02/17 05:46 Absolute Monos (auto) 1.3 10^3/ul (0-0.8) H 05/02/17 05:46 Absolute Eos (auto) 0 10^3/ul (0-0.6) 05/02/17 05:46 Absolute Basos (auto) 0 10^3/ul (0-0.2) 05/02/17 05:46 Absolute Nucleated RBC 0 10^3/ul 05/02/17 05:46 CBC Comment Cancelled 04/25/17 05:22 Neutrophils % 86 % (38-83) H 04/24/17 07:27 Lymphocytes % 5 % (25-47) L 04/24/17 07:27 Monocytes % 9 % (0-13) 04/24/17 07:27 Eosinophils % 0 % (0-6) 04/24/17 07:27 Basophils % 0 % (0-2) 04/24/17 07:27 Nucleated RBC % 0.1 05/02/17 05:46 Abs Neuts (Manual) 26.1 10^3/ul (1.5-7.7) H 04/24/17 07:27 Abs Monocytes (Manual) 2.7 10^3/ul (0-0.8) H 04/24/17 07:27 Absolute Eos (Manual) 0 10^3/ul (0-0.6) 04/24/17 07:27 Abs Basophils (Manual) 0 10^3/ul (0-0.2) 04/24/17 07:27 Diff Slide Review Cancelled 04/25/17 05:22 Hypogranular Platelets Cancelled 04/25/17 05:22 Clumped Platelets Cancelled 04/25/17 05:22 Large Platelets Cancelled 04/25/17 05:22 Giant Platelets Cancelled 04/25/17 05:22 Normal RBC Morphology Normal (Normal) 04/24/17 07:27 Hypochromasia 2+ 05/02/17 05:46 Anisocytosis 1+ 05/02/17 05:46 INR (Anticoag Therapy) 1.26 (0.77-1.02) H 04/29/17 08:10 APTT 26.3 seconds (26.0-36.3) 04/22/17 12:42 Sodium 141 mmol/L (133-145) D 05/02/17 05:46 Potassium 3.8 mmol/L (3.5-5.0) 05/02/17 05:46 Chloride 117 mmol/L (101-111) H 05/02/17 05:46 Carbon Dioxide 18 mmol/L (22-32) L 05/02/17 05:46 Anion Gap 6 mmol/L (2-11) 05/02/17 05:46 BUN 8 mg/dL (6-24) 05/02/17 05:46 Creatinine 0.68 mg/dL (0.51-0.95) 05/02/17 05:46 Est GFR ( Amer) 106.8 (>60) 05/02/17 05:46 Est GFR (Non-Af Amer) 83.0 (>60) 05/02/17 05:46 BUN/Creatinine Ratio 11.8 (8-20) 05/02/17 05:46 Glucose 356 mg/dL (70-100) H 05/02/17 12:40 POC Glucose (mg/dL) 436 mg/dL (70-100) H* 05/02/17 12:29 Lactic Acid 1.8 mmol/L (0.5-2.0) 04/22/17 12:42 Calcium 8.4 mg/dL (8.6-10.3) L 05/02/17 05:46 Ionized Calcium 5.25 mg/dL (4.65-5.28) 05/02/17 05:46 Phosphorus 1.8 mg/dL (2.5-5.0) L 05/02/17 05:46 Magnesium 1.6 mg/dL (1.9-2.7) L 05/02/17 05:46 Iron 26 ug/dL (50-212) L 04/29/17 08:10 TIBC 161 mcg/dL (250-450) L 04/29/17 08:10 % Saturation 16 % (15-55) 04/29/17 08:10 Unsat Iron Binding 135 ug/dL 04/29/17 08:10 Ferritin 116.7 ng/mL (11-307) 04/29/17 08:10 Total Bilirubin 0.40 mg/dL (0.2-1.0) 05/02/17 05:46 Direct Bilirubin 0.10 mg/dL (0.03-0.18) 04/26/17 06:51 Indirect Bilirubin 0.2 mg/dL (0.3-1.0) L 04/26/17 06:51 AST 17 U/L (13-39) 05/02/17 05:46 ALT 4 U/L (7-52) L 05/02/17 05:46 Alkaline Phosphatase 90 U/L (34-104) 05/02/17 05:46 Troponin I 0.04 ng/mL (<0.04) H* 04/23/17 00:44 C-Reactive Protein 70.96 mg/L (< 5.00) H 04/22/17 12:42 B-Natriuretic Peptide 106 pg/mL (-100) H 04/22/17 12:42 Total Protein 4.9 g/dL (6.4-8.9) L 05/02/17 05:46 Albumin 2.6 g/dL (3.2-5.2) L 05/02/17 05:46 Globulin 2.3 g/dL (2-4) 05/02/17 05:46 Albumin/Globulin Ratio 1.1 (1-3) 05/02/17 05:46 Triglycerides 125 mg/dL 05/02/17 05:46 Lipase 97 U/L (11.0-82.0) H 04/30/17 06:39 Vitamin B12 201 pg/mL (180-914) 04/29/17 08:10 25-OH Vitamin D Total 48.7 ng/mL (20-50) 04/30/17 06:39 TSH 0.51 mcIU/mL (0.34-5.60) 04/22/17 12:42 PTH Intact 2.5 pmol/L (1.3-9.3) 04/30/17 06:39 Calcium (PTH Intact) 9.3 mg/dL (8.6-10.3) 04/30/17 06:39 Urine Color Yellow 04/22/17 23:55 Urine Appearance Cloudy 04/22/17 23:55 Urine pH 5.0 (5-9) 04/22/17 23:55 Ur Specific [place] 1.016 (1.010-1.030) 04/22/17 23:55 Urine Protein 2+(100 mg/dl) (Negative) H 04/22/17 23:55 Urine Ketones Trace (Negative) H 04/22/17 23:55 Urine Blood 3+ (Negative) H 04/22/17 23:55 Urine Nitrate Negative (Negative) 04/22/17 23:55 Urine Bilirubin Negative (Negative) 04/22/17 23:55 Urine Urobilinogen Negative (Negative) 04/22/17 23:55 Ur Leukocyte Esterase 3+ (Negative) H 04/22/17 23:55 Urine WBC (Auto) 3+(>20/hpf) (Absent) H 04/22/17 23:55 Urine RBC (Auto) 3+(>10/hpf) (Absent) H 04/22/17 23:55 Urine Bacteria 1+ (Absent) H 04/22/17 23:55 Ur Random Creatinine 44.38 mg/dL 04/22/17 23:55 Ur Random Sodium 68 mmol/L 04/22/17 23:55 Urine Glucose Negative (Negative) 04/22/17 23:55 Urine Ascorbic Acid * (Negative) H 04/22/17 15:13 Vancomycin Trough 20.7 mcg/mL 04/28/17 09:24 IgG 1110 mg/dL (767 - 1590) 04/25/17 05:23 IgA 420 mg/dL (61 - 356) H 04/25/17 05:23 IgM 296 mg/dL (37 - 286) H 04/25/17 05:23 Blood Type B Positive 04/29/17 08:10 Antibody Screen Negative 04/29/17 08:10 Crossmatch See Detail 04/29/17 08:10 - Objective Active Medications: Cyclobenzaprine HCl (Flexeril Tab*) 5 mg PO TID [facility] Last Admin: 05/02/17 13:27 Dose: 5 mg Dextrose (D50w Syringe 50 Ml*) 12.5 gm IV PUSH .FOR FS < 60 - SS PRN PRN Reason: FS < 60 Enoxaparin Sodium (Lovenox(*)) 40 mg SUBCUT Q24H [facility] Last Admin: 05/02/17 12:43 Dose: 40 mg Heparin Sodium (Porcine) (Heparin Flush Picc/Ml/Cvc(*)) 1 - 3 ml FLUSH 0600, 1800 [facility] PRN Reason: Protocol Last Admin: 05/02/17 06:32 Dose: Not Given Hydromorphone HCl (Dilaudid Inj*) 1 mg IV SLOW PU Q4H PRN PRN Reason: PAIN Last Admin: 05/02/17 15:03 Dose: 1 mg Clindamycin HCl/Dextrose (Cleocin 600 Mg Ivpremix(*) Sdv) 600 mg in 50 mls @ 100 mls/hr IV Q8H [facility] Last Admin: 05/02/17 09:34 Dose: 100 mls/hr Ciprofloxacin/Dextrose (Cipro 400 Mg Ivpremix(*)) 400 mg in 200 mls @ 200 mls/ hr IVPB 0600,1800 [facility] Last Admin: 05/02/17 06:32 Dose: 200 mls/hr Sodium Acetate 100 meq/Potassium Chloride 20 meq/Potassium Phosphate 15 mmole/ Magnesium Sulfate 10 meq/Multivitamins 10 ml/ Trace Metals 1 ml/ Dextrose 750 ml /Amino Acids 500 ml/ Fat Emulsion Intravenous 250 ml/Nutrition (Parenteral) 1, 578.463 mls @ 65.769 mls/hr CENT\\PICC 1700 [facility] Stop: 05/02/17 16:59 Last Admin: 05/01/17 17:43 Dose: 65.769 mls/hr Fat Emulsion Intravenous 250 ml/ Multivitamins 10 ml/ Trace Metals 1 ml/ Insulin Human Regular 40 units/ Amino Acid 4 .25/D10 TPN LEFTY* 1,261.4 mls @ 52.558 mls/hr CENTR 1700 [facility] PRN Reason: Protocol Stop: 05/03/17 16:59 Insulin Glargine (Lantus(*)) 20 units SUBCUT Q24H [facility] Last Admin: 05/02/17 03:49 Dose: 20 units Insulin Human Lispro (Humalog*) 0 units SUBCUT ACHS [facility] PRN Reason: Protocol Last Admin: 05/02/17 13:26 Dose: Not Given Methimazole (Tapazole Tab*) 10 mg PO BID [facility] Last Admin: 05/02/17 09:34 Dose: 10 mg Ondansetron HCl (Zofran Inj*) 4 mg IV Q6H PRN PRN Reason: NAUSEA Last Admin: 05/01/17 02:08 Dose: 4 mg Pantoprazole Sodium (Protonix Iv*) 40 mg IV Q24H [facility] Last Admin: 05/02/17 09:34 Dose: 40 mg Prochlorperazine (Compazine Tab*) 5 mg PO Q8H PRN PRN Reason: NAUSEA Promethazine HCl (Phenergan Tab*) 25 mg PO Q6H PRN PRN Reason: NAUSEA Tizanidine HCl (Zanaflex Tab*) 2 mg PO BEDTIME [facility] Last Admin: 02/12/18 21:37 Dose: Not Given Vital Signs: Vital Signs: Temp Pulse Resp BP Pulse Ox 97.9 F 107 25 107/61 99 05/02/17 12:00 05/02/17 15:00 05/02/17 15:03 05/02/17 15:00 05/02/17 15:00 Patient Weight: Weight 175 lb 14.862 oz Intake and Output: Intake & Output 04/30/17 05/01/17 05/02/17 05/03/17 06:59 06:59 06:59 06:59 Intake Total 1860 2866 3256 900 Output Total 450 275 875 350 Balance 1410 2591 2381 550 Weight 175 lb 14.862 oz Intake: IV Fluids 440 2610 2567 145 ABX - CIPROFLOXACIN 265 ABX - CLINDAMYCIN 143 NS (0.9%) 440 2610 2159 145 IVPB 440 256 55 ABX - CLINDAMYCIN 55 Magnesium Sulfate 3GM 100 NS (0.9%) 156 Potassium 60meq 440 Medicated IV 200 700 GEN - Albumin 200 100 TPN 600 TPN/PPN 489 Oral 680 0 Packed Cells 300 Output: Urine 0 100 [place] 450 275 875 250 Ileostomy 0 ADLs: Meal Record Start: 04/22/17 16: 11 Freq: DAILY@0900,1400,1800 Status: Complete Protocol: Document 04/22/17 18:00 [id number] (Rec: 04/22/17 18:[id number] [facility]-RDC2) Document 04/23/17 09:00 [id number] (Rec: 04/23/17 11:22 [id number] TELE-C03) Document 04/23/17 14:00 [id number] (Rec: 04/23/17 18:20 [id number] TELE-C06) Document 04/23/17 18:00 [id number] (Rec: 04/23/17 22:49 [id number] TELE-C03) Document 04/24/17 09:00 [id number] (Rec: 04/24/17 13:10 [id number] TELE-C03) Document 04/24/17 13:10 [id number] (Rec: 04/24/17 13:11 SFM1575 TELE-C03) Document 04/24/17 18:00 XPP2676 (Rec: 04/24/17 18:46 SUE2593 TELE-C01) Document 04/25/17 09:00 [id number] (Rec: 04/25/17 09:37 JVH7109 TELE-C08) Document 04/25/17 14:00 TTZ2618 (Rec: 04/25/17 14:17 [id number] TELE-C08) Document 04/25/17 18:00 UOI6031 (Rec: 04/25/17 18:54 [id number] TELE-C01) Document 04/26/17 09:00 [id number] (Rec: 04/26/17 11:23 [id number] MED-C09) Document 04/26/17 14:00 CEQ1573 (Rec: 04/26/17 15:14 [id number] MED-C11) Document 04/26/17 18:00 [id number] (Rec: 04/26/17 19:23 [id number] MED-C07) Document 04/27/17 09:00 QPP7005 (Rec: 04/27/17 10:02 [id number] MED-C09) Document 04/27/17 14:00 ZUB5842 (Rec: 04/27/17 14:41 CIG1542 MED-C11) Document 04/27/17 18:00 IMQ2297 (Rec: 04/27/17 18:42 EQT0249 MED-C07) Document 04/28/17 09:00 RQP1750 (Rec: 04/28/17 09:55 [id number] MED-C11) Document 04/28/17 14:00 [id number] (Rec: 04/28/17 14:[id number] [facility]-RD) Document 04/28/17 18:00 ZTR1910 (Rec: 04/28/17 22:17 [id number] MED-C11) Document 04/29/17 09:00 [id number] (Rec: 04/29/17 11:08 TCC6950 MED-C11) Document 04/29/17 14:00 CPL1288 (Rec: 04/29/17 14:23 [id number] MED-C11) Document 04/29/17 18:00 AYF2292 (Rec: 04/29/17 20:07 POQ5953 MED-M16) ADLs: Meal Record Start: 04/30/17 12: 03 Freq: ,13,18 Status: Active Protocol: Created 04/30/17 12:03 [id number] (Rec: 04/30/17 12:03 [id number] ICU-M01) Document 04/30/17 13:00 WIZ5909 (Rec: 04/30/17 18:31 HHQ4618 ICU-M09) Document 04/30/17 18:00 NZH1166 (Rec: 04/30/17 18:31 KIK0474 ICU-M09) Document 05/01/17 09:00 NVL7398 (Rec: 05/01/17 09:13 KWH1300 ICU-C16) Document 05/01/17 13:00 ZEH4387 (Rec: 05/01/17 15:05 KYL5744 ICU-C15) Document 05/01/17 18:00 DHC0806 (Rec: 05/01/17 18:02 BAW0961 ICU-C15) Document 05/02/17 09:00 SVX0851 (Rec: 05/02/17 15:37 FRV6179 ICU-C15) Document 05/02/17 13:00 MSD5764 (Rec: 05/02/17 15:45 UIC6148 ICU-C15) Intake and Output Start: 04/22/17 16: 11 Freq: DAILY@0600,1400,2200 Status: Complete Protocol: Document 04/22/17 22:00 LZO1613 (Rec: 04/22/17 22:13 STP9869 TELE-C05) Document 04/23/17 05:18 BEF7198 (Rec: 04/23/17 05:18 GLW9300 TELE-C35) Document 04/23/17 14:00 PFY1244 (Rec: 04/23/17 18:20 AFZ4818 TELE-C06) Document 04/23/17 22:00 EML2211 (Rec: 04/23/17 22:20 DAD8860 TELE-C03) Document 04/24/17 06:00 IYM7808 (Rec: 04/24/17 06:44 JFT6346 TELE-C08) Document 04/24/17 14:00 DMN1721 (Rec: 04/24/17 14:17 XRC8289 TELE-C11) Document 04/24/17 22:00 LNU7484 (Rec: 04/24/17 22:20 QRF8401 TELE-C01) Document 04/25/17 05:31 HAM7226 (Rec: 04/25/17 05:38 FOF6290 TELE-C32) Document 04/25/17 14:00 JDO1471 (Rec: 04/25/17 14:17 FXB4218 TELE-C08) Document 04/25/17 22:00 DPK4523 (Rec: 04/25/17 22:37 AWP5279 MED-C07) Document 04/26/17 05:57 KLH1983 (Rec: 04/26/17 05:58 NOX1063 MED-C26) Document 04/26/17 14:00 BBJ5296 (Rec: 04/26/17 15:14 QIN9869 MED-C11) Document 04/26/17 20:27 VLE6765 (Rec: 04/26/17 20:28 PCV0489 MED-C07) Document 04/27/17 05:31 VJD3253 (Rec: 04/27/17 05:31 EQS6235 MED-C26) Document 04/27/17 14:00 EWT0086 (Rec: 04/27/17 14:41 GDC2188 MED-C11) Document 04/27/17 21:51 [id number] (Rec: 04/27/17 21:51 [id number] MED-C07) Document 04/28/17 05:40 [id number] (Rec: 04/28/17 05:41 HMZ9493 MED-C26) Document 04/28/17 14:00 GIN3379 (Rec: 04/28/17 14:11 RJK1977 [facility]-RDC2) Document 04/28/17 22:00 GKP6060 (Rec: 04/28/17 22:19 [id number] MED-C11) Document 04/29/17 06:00 RXY8286 (Rec: 04/29/17 06:45 YWO3611 MED-C11) Document 04/29/17 14:00 ALU6646 (Rec: 04/29/17 14:23 LSU6478 MED-C11) Document 04/29/17 17:28 AKI5772 (Rec: 04/29/17 17:35 KYW2241 [facility]-RDC2) Document 04/29/17 22:00 GEC7626 (Rec: 04/29/17 23:41 [id number] MED-C11) Document 04/30/17 06:00 HFT3825 (Rec: 04/30/17 06:46 [id number] MED-C11) Intake and Output Start: 04/30/17 12: 03 Freq: 06,14,22 Status: Active Protocol: Created 04/30/17 12:03 [id number] (Rec: 04/30/17 12:03 TSM2303 ICU-M01) Document 04/30/17 14:00 QZE8443 (Rec: 04/30/17 14:32 WWG7471 ICU-C20) Document 04/30/17 22:00 PJA0688 (Rec: 05/01/17 02:24 [id number] ICU-C15) Document 05/01/17 06:00 FMT4870 (Rec: 05/01/17 07:49 [id number] ICU-C15) Document 05/01/17 14:00 BKL1544 (Rec: 05/01/17 16:04 WTU5547 ICU-C15) Document 05/01/17 21:09 XJJ0499 (Rec: 05/01/17 21:09 [id number] ICU-C16) Document 05/01/17 22:00 AFP1925 (Rec: 05/01/17 23:09 TMS8566 ICU-C10) Document 05/02/17 06:00 OHM0454 (Rec: 05/02/17 06:20 DDQ3159 ICU-C10) Document 05/02/17 11:01 [id number] (Rec: 05/02/17 11:01 LAX8320 ICU-C15) Document 05/02/17 14:00 MJK0999 (Rec: 05/02/17 14:48 [id number] ICU-C16) General Impression: Obtunded elderly woman lying in bed with rattling respirations, hypotensive and tachycardic. Head: Symmetrical Eyes: No Scleral Icterus Ears/Nose/Mouth/Throat: - - edentulous, moist mucosa Neck: NL Appearance and Movements; NL JVP Cardiovascular: - - tachycardic, no murmurs Respiratory: Symmetrical Chest Expansion and Respiratory Effort Abdominal: - - No tenderness elicited with palpation, midline scar, LLQ ostomy. 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 She has minimal reserves and would be extremely unlikely to survive interventions such as attempts at CPR. She has no HCP and no next of kin that is familiar with her circumstances. Her code status is not reasonable for a person with her health issues, and is likely to impose a greater burden on her with attendant suffering, and is unlikely to prolong her life. Unfortunately the patient can not speak with me at all at present, because of her sedation, but I understand that when she is alert she is oriented and competent. She needs a conversation about her goals of care. If she is unable to participate in such a conversation, I think a [facility] would need to be convened to protect her from excessive futile interventions. I appreciate the opportunity to consult on this patient, Dr. Ortiz, and will continue to follow as well as I am able, given limited presence at [facility]. - Plan Consult Plan (MU): Palliative - Time On Unit Date of Evaluation: 05/02/17 Hospice Consult Time in: 15:20 Hospice Consult Time Out: 16:35 Hospice Consult Time Total: 75 > 50% of Time Spend In Counseling or Coordinating Care: Yes
[2017-05-02] MEDS ORDERED: LIPID EMULSION CENTR SCH ×5 (17:00)
[2017-05-02] MEDS ORDERED: [UNRECOGNIZED DRUG - OTHER] CENTR SCH ×5 (17:00)
[2017-05-02] MEDS ORDERED: AMINO ACID CENTR SCH ×5 (17:00)
[2017-05-02] MEDS ORDERED: TPN CENTR SCH ×5 (17:00)
[2017-05-02] MEDS: tiZANidine TAB* 2 MG PO SCH (22:22)
[2017-05-02] MEDS ORDERED: NS 0.9% 500 ML* 500 ML IV ONE (23:26)
[2017-05-03] MEDS: Clindamycin 600 MG IVPREMIX(* 600 MG/50 ML SDV IV SCH ×3 (01:34→17:49)
[2017-05-03] MEDS: Insulin GLARGINE(*) 1 UNITS UNIT SUBCUT SCH (04:07)
[2017-05-03] MEDS: Ciprofloxacin 400MG IVPREMIX(* 400 MG/200 ML BAG IVPB SCH ×2 (05:24→18:34)
[2017-05-03 05:36] LABS: ABS Basophils 0 10^3/ul (0-0.2); ABS Eosinophils 0.1 10^3/ul (0-0.6); ABS Lymphocytes 0.4 10^3/ul (1.0-4.8); ABS Monocytes 0.8 10^3/ul (0-0.8); ABS Neutrophils 5.9 10^3/ul (1.5-7.7); ABS Nucleated RBC 0 10^3/ul; Eosinophil % 1.1 % (0-6); Hematocrit 20 % (35-47); Hemoglobin 6.5 g/dl (12.0-16.0); Lymphocyte % 5.5 % (25-47); Mean Corpuscular HGB Conc 32 g/dl (31-36); Mean Corpuscular Hemoglobin 28 pg (27-31); Mean Corpuscular Volume 86 fL (80-97); Mean Platelet Volume 8 um3 (7.4-10.4); Nucleated Red Blood Cells % 0.1; Platelet Count 164 10^3/ul (150-450); Red Blood Count 2.35 10^6/ul (4.0-5.4); Red Cell Distribution Width 17 % (10.5-15); White Blood Count 7.3 10^3/ul (3.5-10.8)
[2017-05-03 05:50] LABS: EGFR Non-African American 84.5 (>60)
[2017-05-03] MEDS ORDERED: Potassium Phosphate IV* 15 MMOLE in NS 0.9% 250 ML* 250 ML IVPB ONE (08:00)
[2017-05-03] MEDS ORDERED: Magnesium Sulf 4 GM/100 ML IV* 4,000 MG/100 ML BAG IVPB ONE (08:00)
[2017-05-03] MEDS: Insulin LISPRO* 1 UNITS UNIT SUBCUT SCH ×4 (08:53→22:36)
--- NOTE | 2017-05-03 08:57 | PN ---
Progress Note - Progress Note Date of Service: 05/03/17 Note: [facility] [place] Progress Note Quite somnolent ytdy PM after Dilaudid inafternoon Is awake and alert this AM Says abdominal pain is better Generally weak Discussed fact that she is anemic and will need transfusion...she understood and agreed to receive Self limitted period of A Fib ytdy....back in Palliative Care input noted SBP 115 HR 92 RR 22 SpO2 99 (NC) UO OK (with Lasix) I/Os (+)700 ml Audible congestion in airway Skin no diaphoresis, no cyanosis Sclerae anicteric Oral mucosa pink, moist Lungs diminished BS in bases, no wheezes Cor RRR, no murmur, no rub Abd mild distension, soft, generalized tenderness Ext chronic edema and skin changes RUE PICC LUE PIV WBC 7.3 Hgb 6.5 Plt 164 Alb 2.5 Mg 1.4 K 3.2 Pi 2.1 BUN/Creat 11/0.67 Gluc 160-250 IMP: Severe Pancreatitis with Pancreatic Necrosis Leucocytosis ..resolved Pulmonary Edema Critical anemia...multifactorial 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 (??acute now too??) Hx CAD with KS Hx PAF and NSVT Hx Diastolic heart failure Hx Cerebellar stroke Hx Pituitary tumor Protein Calorie Malnutrition DM...patient quite hyperglycemic Hyperchloremia Hypophosphatemia...better Hypomagnesemia Hypokalemia Peripheral edema PLAN: Transfuse PRBC to Hgb >7 TPN All Na as acetate salt Replete Phos Replete Mg Replete K Monitor electrolytes daily re development of re-feeding syndrome with electrolyte imbalances Continue IV Abx Continue NPO Reduced Dilaudid to 0.5 mg IV Q4 hrs PRN Insulin Slide Scale Q 4 hrs Stopped Albumin Additional Lasix with transfusion once electrolytes supplemented Keep HOB raised DVT prophyl...daily Lovenox Encourage cough, expectoration, etc Discussed with Nursing and Pharmacy T>30 min, [facility] [place] services rendered
[2017-05-03] MEDS: Methimazole TAB* 5 MG PO SCH ×2 (10:37→22:36)
[2017-05-03] MEDS: KCL 10 MEQ/50 ML IVPREMIX* 10 MEQ/50 ML BAG IV SCH ×5 (10:42→22:32)
[2017-05-03] MEDS: Pantoprazole IV* 40 MG IV SCH (10:46)
[2017-05-03] MEDS ORDERED: Furosemide IV* 10 MG/ML 10 ML VIAL (100 MG) IV ONE (12:06)
[2017-05-03] MEDS ORDERED: Furosemide IV* 10 MG/ML VIAL (40 MG) IV SLOW PU ONE (12:06)
[2017-05-03] MEDS ORDERED: Furosemide IV* 10 MG/ML 10 ML VIAL (100 MG) ONE (12:13)
[2017-05-03] MEDS: HYDROmorphone INJ* 2 MG/ML CARPUJECT SYRINGE IV SLOW PU PRN ×2 (12:32→17:13)
[2017-05-03] MEDS: Ondansetron INJ* 2 MG/ML VIAL IV PRN (12:37)
[2017-05-03] MEDS ORDERED: AMINO ACID CENTR SCH ×6 (17:00)
[2017-05-03] MEDS ORDERED: [UNRECOGNIZED DRUG - OTHER] CENTR SCH ×6 (17:00)
[2017-05-03] MEDS ORDERED: TPN CENTR SCH ×6 (17:00)
[2017-05-03] MEDS ORDERED: LIPID EMULSION CENTR SCH ×6 (17:00)
[2017-05-03] MEDS: Enoxaparin(*) 40 MG/0.4 ML SYR SUBCUT SCH (17:03)
[2017-05-03] MEDS: tiZANidine TAB* 2 MG PO SCH (22:36)
[2017-05-04] MEDS: Clindamycin 600 MG IVPREMIX(* 600 MG/50 ML SDV IV SCH ×3 (01:41→17:16)
[2017-05-04] MEDS: HYDROmorphone INJ* 2 MG/ML CARPUJECT SYRINGE IV SLOW PU PRN ×2 (01:45→18:26)
[2017-05-04] MEDS: Insulin GLARGINE(*) 1 UNITS UNIT SUBCUT SCH (04:10)
[2017-05-04 05:31] LABS: ABS Basophils 0 10^3/ul (0-0.2); ABS Eosinophils 0.1 10^3/ul (0-0.6); ABS Lymphocytes 0.6 10^3/ul (1.0-4.8); ABS Monocytes 0.6 10^3/ul (0-0.8); ABS Neutrophils 6.4 10^3/ul (1.5-7.7); ABS Nucleated RBC 0 10^3/ul; Eosinophil % 1.6 % (0-6); Hematocrit 25 % (35-47); Hemoglobin 8.3 g/dl (12.0-16.0); Lymphocyte % 7.6 % (25-47); Mean Corpuscular HGB Conc 33 g/dl (31-36); Mean Corpuscular Hemoglobin 27 pg (27-31); Mean Corpuscular Volume 83 fL (80-97); Mean Platelet Volume 8 um3 (7.4-10.4); Nucleated Red Blood Cells % 0.1; Platelet Count 155 10^3/ul (150-450); Red Blood Count 3.04 10^6/ul (4.0-5.4); Red Cell Distribution Width 17 % (10.5-15); White Blood Count 7.7 10^3/ul (3.5-10.8)
[2017-05-04] MEDS ORDERED: NS 0.9% IVPB SCH (06:00)
[2017-05-04] MEDS ORDERED: CIPROFLOXACIN IVPB SCH (06:00)
[2017-05-04] MEDS: Ciprofloxacin 400MG IVPREMIX(* 400 MG/200 ML BAG IVPB SCH ×2 (06:27→18:16)
[2017-05-04] MEDS: KCL 10 MEQ/50 ML IVPREMIX* 10 MEQ/50 ML BAG IV SCH ×6 (08:25→16:57)
[2017-05-04] MEDS: Insulin LISPRO* 1 UNITS UNIT SUBCUT SCH ×4 (08:40→21:48)
--- NOTE | 2017-05-04 08:47 | PN ---
Progress Note - Progress Note Date of Service: 05/04/17 Note: [facility] Progress Note Is awake and alert Generally weak SBP 111 HR 103 RR 25 SpO2 98 (NC) I/Os negative 469 ml Skin no diaphoresis, no cyanosis Sclerae anicteric Oral mucosa pink, moist Lungs good air entry, no wheezes, (+)rhonchi Cor RRR, no murmur, no rub Abd min distension, soft, less tender to palpation, LLQ with stoma, healed abdominal scar Ext chronic edema and skin changes RUE PICC Lt wrist PIV WBC 7.7 Hgb 8.3 Plt 155 Mg 1.8 K 3.1 Pi 2.8 BUN/Creat 14/0.66 Gluc 60-160 IMP: Severe Pancreatitis with Pancreatic Necrosis...pain subsiding Leucocytosis ..resolved Pulmonary Edema 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 (??acute now too??) Hx CAD with SD Hx PAF and NSVT...back in A Fib Hx Diastolic heart failure Hx Cerebellar stroke Hx Pituitary tumor Protein Calorie Malnutrition DM...patient quite hyperglycemic Hyperchloremia...better Hypophosphatemia...resolved Hypomagnesemia..resolved Anemia...s/p transfusion PRBC...adequate Hgb Hypoglycemia this AM Hypokalemia PLAN: TPN.....to increase dextrose content to goal today with TPN in formula D/C Lantus Insulin SS PRN All Na as acetate salt to continue Replete K Monitor electrolytes daily Additional Lasix today Continue IV Abx Continue NPO essentially Analgesia PRN Keep HOB raised DVT prophyl Discussed with Nurse and Multi-D team Discussed with Dr Alonso T>30 min, [facility] services rendered
[2017-05-04] MEDS: Pantoprazole IV* 40 MG IV SCH (11:20)
[2017-05-04] MEDS: Methimazole TAB* 5 MG PO SCH ×2 (11:48→22:36)
[2017-05-04] MEDS: Enoxaparin(*) 40 MG/0.4 ML SYR SUBCUT SCH (12:42)
[2017-05-04] MEDS ORDERED: Furosemide IV* 10 MG/ML 10 ML VIAL (100 MG) IV ONE (14:06)
[2017-05-04] MEDS: Ondansetron INJ* 2 MG/ML VIAL IV PRN (15:51)
[2017-05-04] MEDS: TPN CENTR SCH ×5 (17:16)
[2017-05-04] MEDS: LIPID EMULSION CENTR SCH ×5 (17:16)
[2017-05-04] MEDS: AMINO ACID CENTR SCH ×5 (17:16)
[2017-05-04] MEDS: [UNRECOGNIZED DRUG - OTHER] CENTR SCH ×5 (17:16)
[2017-05-04] MEDS: tiZANidine TAB* 2 MG PO SCH (22:36)
[2017-05-04] MEDS ORDERED: NS 0.9% 500 ML* 500 ML IV ONE (23:49)
[2017-05-05] MEDS: HYDROmorphone INJ* 2 MG/ML CARPUJECT SYRINGE IV SLOW PU PRN ×3 (00:40→21:26)
[2017-05-05] MEDS: Clindamycin 600 MG IVPREMIX(* 600 MG/50 ML SDV IV SCH (01:29)
[2017-05-05] MEDS: Ciprofloxacin 400MG IVPREMIX(* 400 MG/200 ML BAG IVPB SCH ×2 (05:29→17:55)
[2017-05-05] MEDS ORDERED: Furosemide IV* 10 MG/ML 2 ML VIAL (20 MG) IV ONE (05:41)
--- NOTE | 2017-05-05 05:43 | PN ---
Progress Note - Progress Note Date of Service: 05/05/17 Note: Called for increase work of breathing/rhonchorous breath sounds - will give 9 am lasix dose now.
[2017-05-05 05:48] LABS: ABS Basophils 0 10^3/ul (0-0.2); ABS Eosinophils 0.1 10^3/ul (0-0.6); ABS Lymphocytes 0.7 10^3/ul (1.0-4.8); ABS Monocytes 0.9 10^3/ul (0-0.8); ABS Neutrophils 6.5 10^3/ul (1.5-7.7); ABS Nucleated RBC 0 10^3/ul; Hematocrit 26 % (35-47); Hemoglobin 8.9 g/dl (12.0-16.0); Lymphocyte % 8.4 % (25-47); Mean Corpuscular HGB Conc 35 g/dl (31-36); Mean Corpuscular Hemoglobin 29 pg (27-31); Mean Corpuscular Volume 85 fL (80-97); Mean Platelet Volume 8 um3 (7.4-10.4); Nucleated Red Blood Cells % 0.1; Platelet Count 155 10^3/ul (150-450); Red Blood Count 3.05 10^6/ul (4.0-5.4); Red Cell Distribution Width 18 % (10.5-15); White Blood Count 8.3 10^3/ul (3.5-10.8)
[2017-05-05] MEDS ORDERED: Furosemide IV* 10 MG/ML VIAL (40 MG) ONE (05:52)
[2017-05-05] MEDS: Ondansetron INJ* 2 MG/ML VIAL IV PRN (06:01)
[2017-05-05] MEDS: Furosemide IV* 10 MG/ML VIAL (40 MG) IV SCH (08:24)
[2017-05-05] MEDS: Insulin LISPRO* 1 UNITS UNIT SUBCUT SCH ×4 (08:26→21:32)
[2017-05-05] MEDS: Pantoprazole IV* 40 MG IV SCH (09:13)
[2017-05-05] MEDS: Methimazole TAB* 5 MG PO SCH ×2 (09:19→21:30)
--- NOTE | 2017-05-05 10:26 | PN ---
Subjective Date of Service: 05/05/17 Interval History: Ms. Hurd reports feeling very tired, nauseaus and having intermittent abdominal pain. She denies chest pain or SOB. After conversing with her, she confirms that she would like to be DNR and would like her family member, Polina Breen, to be her HCP. Family History: Unchanged from Admission Social History: Unchanged from Admission Past Medical History: Unchanged from Admission Objective Active Medications: Dextrose (D50w Syringe 50 Ml*) 12.5 gm IV PUSH .FOR FS < 60 - SS PRN Enoxaparin Sodium (Lovenox(*)) 40 mg SUBCUT Q24H HARJIT Furosemide (Lasix Iv*) 40 mg IV DAILY HARJIT Heparin Sodium (Porcine) (Heparin Flush Picc/Ml/Cvc(*)) 1 - 3 ml FLUSH 0600, 1800 HARJIT Hydromorphone HCl (Dilaudid Inj*) 0.5 mg IV SLOW PU Q4H PRN Ciprofloxacin/Dextrose (Cipro 400 Mg Ivpremix(*)) 400 mg in 200 mls @ 200 mls/ hr IVPB 0600,1800 HARJIT Fat Emulsion Intravenous 250 ml/ Multivitamins 10 ml/ Trace Metals 1 ml/ Insulin Human Regular 40 units/ Amino Acid 4 .25/D25 TPN LEFTY* 1,261.4 mls @ 52.558 mls/hr CENTR 1700 HARJIT Insulin Human Lispro (Humalog*) 0 units SUBCUT ACHS HARJIT Methimazole (Tapazole Tab*) 10 mg PO BID HARJIT Ondansetron HCl (Zofran Inj*) 4 mg IV Q6H PRN Pantoprazole Sodium (Protonix Iv*) 40 mg IV Q24H HARJIT Prochlorperazine (Compazine Tab*) 5 mg PO Q8H PRN Promethazine HCl (Phenergan Tab*) 25 mg PO Q6H PRN Tizanidine HCl (Zanaflex Tab*) 2 mg PO BEDTIME HARJIT Vital Signs: Temp Pulse Resp BP Pulse Ox 96.6 F 100 22 125/59 98 05/05/17 06:18 05/05/17 06:18 05/05/17 09:13 05/05/17 06:18 05/05/17 06:18 Oxygen Devices in Use Now: Nasal Cannula Appearance: Female lying in bed, appears tired but in NAD Eyes: No Scleral Icterus Ears/Nose/Mouth/Throat: Mucous Membranes Moist Neck: Trachea Midline Respiratory: Symmetrical Chest Expansion and Respiratory Effort, Clear to Auscultation Cardiovascular: NL Sounds; No Murmurs; No JVD, No Edema Abdominal: NL Sounds; No Tenderness; No Distention Lymphatic: No Cervical Adenopathy Extremities: No Edema Skin: No Rash or Ulcers Neurological: Alert and Oriented x 3, - - Generalized weakness Result Diagrams: 05/05/17 05:30 05/05/17 05:30 Additional Lab and Data: Vital Signs: Temp Pulse Resp BP Pulse Ox 96.6 F 100 22 125/59 98 05/05/17 06:18 05/05/17 06:18 05/05/17 09:13 05/05/17 06:18 05/05/17 06:18 Microbiology and Other Data: . Assess/Plan/Problems-Billing Assessment: Ms. Hurd is an 81 yo female with PMH of paraplegia, sacral decubitus ulcer stage 4, neurogenic bladder with chronic Valera in place, HTN, hyperthyroidism, CAD, pituitary adenoma, ESBL in the urine presents with c/o abd pain and acute on chronic nausea found to have pancreatitis of unknown etiology. - Patient Problems (1) Acute pancreatitis Comment: - Improving somewhat though not able to tolerate oral intake, continues on TPN. Condition remains guarded. - Necrosis noted on CT abd 04/29/17. - Appreciate consultation from surgery and ID. Pt completed course of clindamycin and will continue cipro for one further day. - Etiology unclear, may be hypercalcemia (mildly elevated) versus med related ( had been on atorvastatin and tmp/smx). IgG4 normal. Trigyclerides wnl. (2) Diastolic heart failure Comment: - SOB with rales this morning, resolved now. - Acute on chronic diastolic CHF in setting of hydration for pancreatitis and inflamatory response. - Continue IV lasix. (3) Type II diabetes mellitus Comment: - BGs well controlled. - Hold metformin. Continue lispro SSI coverage with meals. (4) Hypercalcemia Comment: - Resolved with hydration. - Spep negative, Upep pending. (5) Hyperthyroidism Comment: - TSH WNL at 0.5 - Cont methimazole. (6) Hypophosphatemia Comment: - Resolved with supplementation. (7) Nausea Comment: - - This is a chronic problem for her and predates pancreatitis. - Anti-emetics available prn. (8) Hypertension Comment: - BP well controlled. - Continue lasix. (9) Acute kidney injury Comment: - Resolved. (10) Anemia in chronic illness Comment: - Stable after 2 units PRBC. - Monitor. (11) Decubitus ulcer Comment: - Chronic sacral decubitus ulcer. Stage 4, not thought to be infected. - Continue dressing changes per wound care. (12) Cerebellar infarct Comment: - History of CVA, from October 2016. Associated with chronic dizziness. - Resume ASA (13) Paraplegia Comment: - Prior cervical injury, WC bound. (14) Pituitary tumor Comment: - Missed appointment 04/26 9:30 AM in [place] to discuss with Neurosurgeon Dr. Bagley. Rearrange if needed when not in acute pancreatitis. - Pituitary tumor is previously known, but she has not seen her neurologist in 12 years MRI (2000) - identified pituitary mass measuring 1.2cm at that time. - Strong neurosurgery phone consultation on 11/10/[address] Bagley. He did not think the mass was related to her acute complaints. He was happy to see her in follow up in the pituitary clinic which can be reached at [phone] for an appointment. She does not require urgent intervention - Tumor appeared non-functional Oct 2016: slightly low TSH, high T4, nl FSH, LH , prolactin, and cortisol. (15) S/P colostomy Comment: - Diverting colostomy for chronic sacral decubitis ulcer (16) DVT prophylaxis Comment: - Lovenox. (17) Full code status Comment: Status and Disposition: Inpatient, Anticipate discharge to [facility] when medically stable. Patient will now be DNR and Polina Breen is her HCP.
--- NOTE | 2017-05-05 10:29 | PN ---
Progress Note - Progress Note Date of Service: 05/05/17 SOAP: Subjective: [CC: abd pain HPI: 82 year old woman with chronic decubitus ulcer and now with pancreatitis, had been improving abd pain and appetite, then developed worsening pain and leukocytosis, had CT that showed pancreatic necrosis. Still mid abd pain, does not radiate, nothing helps, sips of water causes nausea. No fever, rash, or diarrhea. Objective: Vital Signs Temp 35.9 C 05/05/17 06:18 Pulse 100 05/05/17 06:18 Resp 22 05/05/17 09:13 BP 125/59 05/05/17 06:18 Pulse Ox 98 05/05/17 06:18 Intake & Output 05/04/17 05/05/17 05/05/17 18:59 06:59 18:59 Intake Total 1117 0 Output Total 2250 1700 Balance -1133 -1700 Intake: IV Fluids 218 ABX - CLINDAMYCIN 148 Potassium 60meq 70 IVPB 297 ABX - CLINDAMYCIN 59 Potassium 60meq 238 TPN/PPN 602 Oral 0 0 Output: Cu[place]a 1950 1700 Colostomy 300 Other: # Bowel Movements 0 Gen:awakens to voice, answers questions, not in distress HEENT:MMD, no thrush Neck: no mass Heart:Regular and tachycardic Lungs: ant BS clear Abd:+BS mid abd tender to palpation, ostomy Skin: no rash Laboratory Results - last 24 hr 05/04/17 05/04/17 05/04/17 11:13 11:28 21:15 WBC RBC Hgb Hct MCV MCH MCHC RDW Plt Count MPV Neut % (Auto) Lymph % (Auto) [place] % (Auto) Eos % (Auto) Baso % (Auto) Absolute Neuts (auto) Absolute Lymphs (auto) Absolute Monos (auto) Absolute Eos (auto) Absolute Basos (auto) Absolute Nucleated RBC Nucleated RBC % Sodium Potassium Chloride Carbon Dioxide Anion Gap BUN Creatinine Est GFR ( Amer) Est GFR (Non-Af Amer) BUN/Creatinine Ratio Glucose POC Glucose (mg/dL) 309 H 87 135 H Calcium Ionized Calcium Phosphorus Magnesium Total Bilirubin AST ALT Alkaline Phosphatase Total Protein Albumin Globulin Albumin/Globulin Ratio 05/05/17 05/05/17 05/05/17 01:32 04:40 05:30 WBC RBC Hgb Hct MCV MCH MCHC RDW Plt Count MPV Neut % (Auto) Lymph % (Auto) [place] % (Auto) Eos % (Auto) Baso % (Auto) Absolute Neuts (auto) Absolute Lymphs (auto) Absolute Monos (auto) Absolute Eos (auto) Absolute Basos (auto) Absolute Nucleated RBC Nucleated RBC % Sodium Potassium Chloride Carbon Dioxide Anion Gap BUN Creatinine Est GFR ( Amer) Est GFR (Non-Af Amer) BUN/Creatinine Ratio Glucose POC Glucose (mg/dL) 128 H 130 H Calcium Ionized Calcium 5.06 Phosphorus Magnesium Total Bilirubin AST ALT Alkaline Phosphatase Total Protein Albumin Globulin Albumin/Globulin Ratio 05/05/17 05/05/17 05/05/17 05:30 05:30 07:00 WBC 8.3 RBC 3.05 L Hgb 8.9 L Hct 26 L MCV 85 MCH 29 MCHC 35 RDW 18 H Plt Count 155 MPV 8 Neut % (Auto) 78.9 Lymph % (Auto) 8.4 L [place] % (Auto) 11.4 H Eos % (Auto) 1.0 Baso % (Auto) 0.3 Absolute Neuts (auto) 6.5 Absolute Lymphs (auto) 0.7 L Absolute Monos (auto) 0.9 H Absolute Eos (auto) 0.1 Absolute Basos (auto) 0 Absolute Nucleated RBC 0 Nucleated RBC % 0.1 Sodium 134 Potassium 4.3 Chloride 107 Carbon Dioxide 23 Anion Gap 4 BUN 15 Creatinine 0.66 Est GFR ( Amer) 110.5 Est GFR (Non-Af Amer) 86.0 BUN/Creatinine Ratio 22.7 H Glucose TNP 137 H POC Glucose (mg/dL) Calcium 8.5 L Ionized Calcium Phosphorus 4.5 Magnesium 1.8 L Total Bilirubin 0.30 AST 18 ALT 5 L Alkaline Phosphatase 84 Total Protein 4.7 L Albumin 2.2 L Globulin 2.5 Albumin/Globulin Ratio 0.9 L Assessment: 1. acute pancreatitis complicated by necrosis 2. T2 diabetes 3. chronic cuenca catheter 4. chronic sacral decubitus ulcer Plan: 1. DC clindamycin (ordered), continue cipro x24 more hours 2. anti emetics 3. consider palliative care consult
[2017-05-05] MEDS: Enoxaparin(*) 40 MG/0.4 ML SYR SUBCUT SCH (14:02)
[2017-05-05] MEDS ORDERED: Furosemide IV* 10 MG/ML VIAL (40 MG) IV ONE (15:47)
[2017-05-05] MEDS: LIPID EMULSION CENTR SCH ×5 (17:51)
[2017-05-05] MEDS: TPN CENTR SCH ×5 (17:51)
[2017-05-05] MEDS: AMINO ACID CENTR SCH ×5 (17:51)
[2017-05-05] MEDS: [UNRECOGNIZED DRUG - OTHER] CENTR SCH ×5 (17:51)
[2017-05-05] MEDS: tiZANidine TAB* 2 MG PO SCH (21:30)
[2017-05-06] MEDS: Ciprofloxacin 400MG IVPREMIX(* 400 MG/200 ML BAG IVPB SCH ×2 (05:07→18:29)
[2017-05-06 05:18] LABS: ABS Basophils 0 10^3/ul (0-0.2); ABS Eosinophils 0.1 10^3/ul (0-0.6); ABS Lymphocytes 0.8 10^3/ul (1.0-4.8); ABS Monocytes 1.3 10^3/ul (0-0.8); ABS Neutrophils 5.8 10^3/ul (1.5-7.7); ABS Nucleated RBC 0 10^3/ul; Eosinophil % 1.4 % (0-6); Hematocrit 26 % (35-47); Hemoglobin 8.8 g/dl (12.0-16.0); Lymphocyte % 10.4 % (25-47); Mean Corpuscular HGB Conc 34 g/dl (31-36); Mean Corpuscular Hemoglobin 27 pg (27-31); Mean Corpuscular Volume 82 fL (80-97); Mean Platelet Volume 8 um3 (7.4-10.4); Nucleated Red Blood Cells % 0; Platelet Count 156 10^3/ul (150-450); Red Cell Distribution Width 17 % (10.5-15); White Blood Count 8.1 10^3/ul (3.5-10.8)
[2017-05-06 05:32] LABS: EGFR Non-African American 94.1 (>60)
[2017-05-06] MEDS: Insulin LISPRO* 1 UNITS UNIT SUBCUT SCH ×4 (07:42→21:31)
[2017-05-06] MEDS: Pantoprazole IV* 40 MG IV SCH (08:11)
[2017-05-06] MEDS: Furosemide IV* 10 MG/ML VIAL (40 MG) IV SCH (08:11)
[2017-05-06] MEDS: Aspirin Low Dose CHEW TAB* 81 MG PO SCH (08:11)
[2017-05-06] MEDS: Methimazole TAB* 5 MG PO SCH ×2 (08:11→21:31)
--- NOTE | 2017-05-06 09:19 | PN ---
Subjective Date of Service: 05/06/17 Interval History: Ms. Hurd states that she continues to feel tired and have nausea with abdominal pain at times. She reports that her breathing feels better thus far today. She denies other complaint. Family History: Unchanged from Admission Social History: Unchanged from Admission Past Medical History: Unchanged from Admission Objective Active Medications: Aspirin (Aspirin Low Dose Tab*) 81 mg PO DAILY HARJIT Dextrose (D50w Syringe 50 Ml*) 12.5 gm IV PUSH .FOR FS < 60 - SS PRN Enoxaparin Sodium (Lovenox(*)) 40 mg SUBCUT Q24H HARJIT Furosemide (Lasix Iv*) 40 mg IV DAILY HARJIT Heparin Sodium (Porcine) (Heparin Flush Picc/Ml/Cvc(*)) 1 - 3 ml FLUSH 0600, 1800 HARJIT Hydromorphone HCl (Dilaudid Inj*) 0.5 mg IV SLOW PU Q4H PRN Ciprofloxacin/Dextrose (Cipro 400 Mg Ivpremix(*)) 400 mg in 200 mls @ 200 mls/ hr IVPB 0600,1800 HARJIT Fat Emulsion Intravenous 250 ml/ Multivitamins 10 ml/ Trace Metals 1 ml/ Insulin Human Regular 40 units/ Amino Acid 4 .25/D25 TPN LEFTY* 1,261.4 mls @ 52.558 mls/hr CENTR 1700 HARJIT Insulin Human Lispro (Humalog*) 0 units SUBCUT ACHS HARJIT Methimazole (Tapazole Tab*) 10 mg PO BID HARJIT Ondansetron HCl (Zofran Inj*) 4 mg IV Q6H PRN Pantoprazole Sodium (Protonix Iv*) 40 mg IV Q24H HARJIT Prochlorperazine (Compazine Tab*) 5 mg PO Q8H PRN Promethazine HCl (Phenergan Tab*) 25 mg PO Q6H PRN Tizanidine HCl (Zanaflex Tab*) 2 mg PO BEDTIME [facility] Vital Signs: Temp Pulse Resp BP Pulse Ox 98.2 F 89 18 138/61 100 05/06/17 07:54 05/06/17 07:54 05/06/17 07:54 05/06/17 07:54 05/06/17 07:54 Oxygen Devices in Use Now: Nasal Cannula Appearance: Female lying in bed in NAD Eyes: No Scleral Icterus Ears/Nose/Mouth/Throat: Mucous Membranes Moist Neck: Trachea Midline Respiratory: Symmetrical Chest Expansion and Respiratory Effort, - - Rhonchi bilaterally Cardiovascular: NL Sounds; No Murmurs; No JVD Abdominal: - - BS +, soft, tenderness to palpation in L UQ Lymphatic: No Cervical Adenopathy Extremities: No Edema Skin: No Rash or Ulcers Neurological: Alert and Oriented x 3, NL Muscle Strength and Tone, - - Generalized weakness Nutrition: Taking PO's Result Diagrams: 05/06/17 05:04 05/06/17 05:04 Additional Lab and Data: . Microbiology and Other Data: . Assess/Plan/Problems-Billing Assessment: Ms. Hurd is an 81 yo female with PMH of paraplegia, sacral decubitus ulcer stage 4, neurogenic bladder with chronic Valera in place, HTN, hyperthyroidism, CAD, pituitary adenoma, ESBL in the urine presents with c/o abd pain and acute on chronic nausea found to have pancreatitis of unknown etiology. - Patient Problems (1) Acute pancreatitis Comment: - Improving somewhat, appears more awake today. Condition remains guarded. - Necrosis noted on CT abd 04/29/17. - Continue on TPN, offer clear liquids today. - Appreciate consultation from surgery and ID. Pt completed course of clindamycin and will continue cipro for one further day. - Etiology unclear, may be hypercalcemia (mildly elevated) versus med related ( had been on atorvastatin and tmp/smx). IgG4 normal. Trigyclerides wnl. (2) Diastolic heart failure Comment: - SOB with rales yesterday, improved with additional dose IV lasix. - Acute on chronic diastolic CHF in setting of hydration for pancreatitis and inflamatory response. - Continue IV lasix daily. (3) Type II diabetes mellitus Comment: - BGs well controlled. - Hold metformin. Continue lispro SSI coverage with meals. (4) Hypercalcemia Comment: - Resolved with hydration. - Spep negative, Upep pending. (5) Hyperthyroidism Comment: - TSH WNL at 0.5 - Cont methimazole. (6) Hypophosphatemia Comment: - Resolved with supplementation. (7) Nausea Comment: - Persistent. - This is a chronic problem for her and predates pancreatitis. - Anti-emetics available prn. (8) Hypertension Comment: - BP well controlled. - Continue lasix. (9) Acute kidney injury Comment: - Resolved. (10) Anemia in chronic illness Comment: - Stable after 2 units PRBC. - Monitor. (11) Decubitus ulcer Comment: - Chronic sacral decubitus ulcer. Stage 4, not thought to be infected. - Continue dressing changes per wound care. (12) Cerebellar infarct Comment: - History of CVA, from October 2016. Associated with chronic dizziness. - Resume ASA (13) Paraplegia Comment: - Prior cervical injury, WC bound. (14) Pituitary tumor Comment: - Missed appointment 04/26 9:30 AM in [place] to discuss with Neurosurgeon Dr. Bagley. Rearrange if needed when not in acute pancreatitis. - Pituitary tumor is previously known, but she has not seen her neurologist in 12 years MRI (2000) - identified pituitary mass measuring 1.2cm at that time. - Strong neurosurgery phone consultation on 11/10/[address] Bagley. He did not think the mass was related to her acute complaints. He was happy to see her in follow up in the pituitary clinic which can be reached at [phone] for an appointment. She does not require urgent intervention - Tumor appeared non-functional Oct 2016: slightly low TSH, high T4, nl FSH, LH , prolactin, and cortisol. (15) S/P colostomy Comment: - Diverting colostomy for chronic sacral decubitis ulcer (16) DVT prophylaxis Comment: - Lovenox. (17) Full code status Comment: Status and Disposition: Inpatient, Anticipate discharge to [facility] when medically stable. Patient will now be DNR and Polina Breen is her HCP.
[2017-05-06] MEDS: Enoxaparin(*) 40 MG/0.4 ML SYR SUBCUT SCH (14:48)
[2017-05-06] MEDS: KCL 10 MEQ/50 ML IVPREMIX* 10 MEQ/50 ML BAG IV SCH ×4 (14:48→19:41)
[2017-05-06] MEDS ORDERED: CLINIMIX E CENTR SCH ×6 (17:00)
[2017-05-06] MEDS ORDERED: BASE CENTR SCH ×6 (17:00)
[2017-05-06] MEDS: BASE CENTR SCH ×6 (17:54)
[2017-05-06] MEDS: CLINIMIX E CENTR SCH ×6 (17:54)
[2017-05-06] MEDS: HYDROmorphone INJ* 2 MG/ML CARPUJECT SYRINGE IV SLOW PU PRN (21:31)
[2017-05-06] MEDS: tiZANidine TAB* 2 MG PO SCH (21:31)
[2017-05-07] MEDS: Ciprofloxacin 400MG IVPREMIX(* 400 MG/200 ML BAG IVPB SCH ×2 (05:47→18:12)
[2017-05-07] MEDS: Furosemide IV* 10 MG/ML VIAL (40 MG) IV SCH ×2 (06:02→08:04)
--- NOTE | 2017-05-07 08:01 | PN ---
Subjective Date of Service: 05/07/17 Interval History: Ms. Hurd states that she feels worse today. She describes feeling more short of breath and having discomfort in the center of her chest. She also has abdominal pain that is somewhat more diffuse today. She was not able to tolerate clear liquids yesterday as it caused increased pain. Family History: Unchanged from Admission Social History: Unchanged from Admission Past Medical History: Unchanged from Admission Objective Active Medications: Aspirin (Aspirin Low Dose Tab*) 81 mg PO DAILY HARJIT Dextrose (D50w Syringe 50 Ml*) 12.5 gm IV PUSH .FOR FS < 60 - SS PRN Enoxaparin Sodium (Lovenox(*)) 40 mg SUBCUT Q24H HARJIT Furosemide (Lasix Iv*) 40 mg IV DAILY HARJIT Heparin Sodium (Porcine) (Heparin Flush Picc/Ml/Cvc(*)) 1 - 3 ml FLUSH 0600, 1800 HARJIT Hydromorphone HCl (Dilaudid Inj*) 0.5 mg IV SLOW PU Q4H PRN Ciprofloxacin/Dextrose (Cipro 400 Mg Ivpremix(*)) 400 mg in 200 mls @ 200 mls/ hr IVPB 0600,1800 HARJIT Fat Emulsion Intravenous 250 ml/ Dextrose 300 ml/Multivitamins 10 ml/ Trace Metals 1 ml/ Insulin Human Regular 40 units/ Amino Acid 4 .25/D10 TPN LEFTY* 1, 561.4 mls @ 65.058 mls/hr CENTR 1700 HARJIT Insulin Human Lispro (Humalog*) 0 units SUBCUT ACHS HARJIT Methimazole (Tapazole Tab*) 10 mg PO BID HARJIT Ondansetron HCl (Zofran Inj*) 4 mg IV Q6H PRN Pantoprazole Sodium (Protonix Iv*) 40 mg IV Q24H HARJIT Prochlorperazine (Compazine Tab*) 5 mg PO Q8H PRN Promethazine HCl (Phenergan Tab*) 25 mg PO Q6H PRN Tizanidine HCl (Zanaflex Tab*) 2 mg PO BEDTIME [facility] Vital Signs: Temp Pulse Resp BP Pulse Ox 98.2 F 116 20 146/69 96 05/07/17 02:58 05/07/17 06:34 05/07/17 06:34 05/07/17 06:34 05/07/17 06:34 Oxygen Devices in Use Now: Nasal Cannula Appearance: Female lying in bed appears tired but in NAD Eyes: No Scleral Icterus Ears/Nose/Mouth/Throat: Mucous Membranes Moist Neck: Trachea Midline Respiratory: Symmetrical Chest Expansion and Respiratory Effort, - - Coarse rhonchi throughout Cardiovascular: NL Sounds; No Murmurs; No JVD, No Edema Abdominal: - - Soft, tender to right lower and left upper quadrant Extremities: No Edema Skin: - - Decubitus ulcer Neurological: Alert and Oriented x 3, NL Muscle Strength and Tone Nutrition: Taking PO's Result Diagrams: 05/06/17 05:04 05/06/17 05:04 Additional Lab and Data: . Microbiology and Other Data: . Assess/Plan/Problems-Billing Assessment: Ms. Hurd is an 81 yo female with PMH of paraplegia, sacral decubitus ulcer stage 4, neurogenic bladder with chronic Valera in place, HTN, hyperthyroidism, CAD, pituitary adenoma, ESBL in the urine presents with c/o abd pain and acute on chronic nausea found to have pancreatitis of unknown etiology. - Patient Problems (1) Acute pancreatitis Comment: - More SOB with increased abdominal pain. Prognosis poor. - Check LFTs, lipase, BMP, CBC, CRP now. - Necrosis noted on CT abd 04/29/17. - Continue on TPN, unable to tolerate clears on 05/06/17. - Appreciate consultation from surgery and ID. Pt completed course of clindamycin and cipro. - Etiology unclear, may be hypercalcemia (mildly elevated) versus med related ( had been on atorvastatin and tmp/smx). IgG4 normal. Trigyclerides wnl. (2) Diastolic heart failure Comment: - Remains SOB. - Acute on chronic diastolic CHF in setting of hydration for pancreatitis and inflamatory response. - Check cxray today. Continue IV lasix daily with additional doses as needed. (3) Type II diabetes mellitus Comment: - BGs well controlled. - Hold metformin. Continue lispro SSI coverage with meals. (4) Hypercalcemia Comment: - Resolved with hydration. - Spep negative, Upep pending. (5) Hyperthyroidism Comment: - TSH WNL at 0.5 - Cont methimazole. (6) Hypophosphatemia Comment: - Resolved with supplementation. (7) Nausea Comment: - Persistent. - This is a chronic problem for her and predates pancreatitis. - Anti-emetics available prn. (8) Hypertension Comment: - BP well controlled. - Continue lasix. (9) Acute kidney injury Comment: - Resolved. (10) Anemia in chronic illness Comment: - Stable after 2 units PRBC. - Monitor. (11) Decubitus ulcer Comment: - Chronic sacral decubitus ulcer. Stage 4, not thought to be infected. - Continue dressing changes per wound care. (12) Cerebellar infarct Comment: - History of CVA, from October 2016. Associated with chronic dizziness. - Resume ASA (13) Paraplegia Comment: - Prior cervical injury, WC bound. (14) Pituitary tumor Comment: - Missed appointment 04/26 9:30 AM in [place] to discuss with Neurosurgeon Dr. Bagley. Rearrange if needed when not in acute pancreatitis. - Pituitary tumor is previously known, but she has not seen her neurologist in 12 years MRI (2000) - identified pituitary mass measuring 1.2cm at that time. - Strong neurosurgery phone consultation on 11/10/[address] Bagley. He did not think the mass was related to her acute complaints. He was happy to see her in follow up in the pituitary clinic which can be reached at [phone] for an appointment. She does not require urgent intervention - Tumor appeared non-functional Oct 2016: slightly low TSH, high T4, nl FSH, LH , prolactin, and cortisol. (15) S/P colostomy Comment: - Diverting colostomy for chronic sacral decubitis ulcer (16) DVT prophylaxis Comment: - Lovenox. (17) DNR (do not resuscitate) Comment: Status and Disposition: Inpatient, Anticipate discharge to [facility] if medically stable. Patient will now be DNR and Polina Breen is her HCP. Will continue goals of care conversation given extended illness and poor prognosis.
[2017-05-07] MEDS: Pantoprazole IV* 40 MG IV SCH (08:20)
--- NOTE | 2017-05-07 08:20 | RAD ---
INDICATION: Shortness of breath. COMPARISON: Comparison is made with prior chest x-ray studies from May 01, 2017 and May 02, 2017. TECHNIQUE: A portable view of the chest was obtained. FINDINGS: The heart appears within normal limits in size. There is a PICC present. The catheter tip projects over the right atrium. There is a right upper lobe infiltrate which appears new. There is suggestion of a left lower lobe infiltrate which appears unchanged. There is a new right pleural effusion. IMPRESSION: 1. NEW RIGHT UPPER LOBE INFILTRATE AND PROBABLE LEFT LOWER LOBE INFILTRATE UNCHANGED. 2. SMALL RIGHT PLEURAL EFFUSION.
[2017-05-07] MEDS: Methimazole TAB* 5 MG PO SCH ×3 (08:21→22:34)
[2017-05-07] MEDS: Aspirin Low Dose CHEW TAB* 81 MG PO SCH (08:21)
[2017-05-07] MEDS: HYDROmorphone INJ* 2 MG/ML CARPUJECT SYRINGE IV SLOW PU PRN ×2 (08:29→21:24)
[2017-05-07 09:57] LABS: ABS Basophils 0 10^3/ul (0-0.2); ABS Eosinophils 0 10^3/ul (0-0.6); ABS Lymphocytes 0.5 10^3/ul (1.0-4.8); ABS Monocytes 1.3 10^3/ul (0-0.8); ABS Neutrophils 7.9 10^3/ul (1.5-7.7); ABS Nucleated RBC 0 10^3/ul; Eosinophil % 0.3 % (0-6); Hematocrit 29 % (35-47); Hemoglobin 9.6 g/dl (12.0-16.0); Lymphocyte % 4.7 % (25-47); Mean Corpuscular HGB Conc 34 g/dl (31-36); Mean Corpuscular Hemoglobin 28 pg (27-31); Mean Corpuscular Volume 83 fL (80-97); Mean Platelet Volume 8 um3 (7.4-10.4); Nucleated Red Blood Cells % 0; Platelet Count 187 10^3/ul (150-450); Red Blood Count 3.47 10^6/ul (4.0-5.4); Red Cell Distribution Width 17 % (10.5-15); White Blood Count 9.7 10^3/ul (3.5-10.8)
[2017-05-07] MEDS: Insulin LISPRO* 1 UNITS UNIT SUBCUT SCH ×5 (10:04→22:48)
[2017-05-07 10:10] LABS: EGFR Non-African American 103.9 (>60)
[2017-05-07] MEDS ORDERED: Albuterol/Ipratropium NEB.SOL* Albuterol 2.5 MG/Ipratropium 0.5 MG 3 ML INH PRN (10:36)
[2017-05-07] MEDS ORDERED: Vancomycin per Pharmacy* NOTE FOLLOW UP PRN (11:16)
[2017-05-07] MEDS ORDERED: Vancomycin(*) 1,250 MG in NS 0.9% 250 ML* 250 ML IVPB ONE (11:30)
[2017-05-07] MEDS: Cefepime(*) 1 GM in PREMIX* 50 ML IVPB SCH ×2 (11:32→22:35)
[2017-05-07] MEDS: Enoxaparin(*) 40 MG/0.4 ML SYR SUBCUT SCH (12:39)
[2017-05-07] MEDS ORDERED: KCL 10 MEQ/50 ML IVPREMIX* 10 MEQ/50 ML BAG IV SCH (15:00)
[2017-05-07] MEDS: SODIUM CHLORIDE IVPB SCH ×2 (16:27→19:50)
[2017-05-07] MEDS: POTASSIUM CHLORIDE IVPB SCH ×2 (16:27→19:50)
[2017-05-07] MEDS: CLINIMIX E CENTR SCH ×6 (16:34)
[2017-05-07] MEDS: BASE CENTR SCH ×6 (16:34)
[2017-05-07] MEDS ORDERED: NS 0.9% 250 ML* 250 ML ONE ×2 (19:46→19:47)
[2017-05-07] MEDS: tiZANidine TAB* 2 MG PO SCH (22:34)
[2017-05-07] MEDS ORDERED: Furosemide IV* 10 MG/ML VIAL (40 MG) IV ONE (23:13)
[2017-05-07] MEDS ORDERED: LORazepam INJ* 2 MG/ML 1 ML VIAL IV PUSH ONE (23:14)
[2017-05-07] MEDS: Vancomycin(*) 750 MG in NS 0.9% 250 ML* 250 ML IVPB SCH (23:57)
[2017-05-08] MEDS: HYDROmorphone INJ* 2 MG/ML CARPUJECT SYRINGE IV SLOW PU PRN ×2 (04:34→12:36)
[2017-05-08] MEDS: Furosemide IV* 10 MG/ML VIAL (40 MG) IV SCH ×2 (05:47→11:58)
[2017-05-08] MEDS: Ciprofloxacin 400MG IVPREMIX(* 400 MG/200 ML BAG IVPB SCH (05:48)
[2017-05-08 06:57] LABS: EGFR Non-African American 87.5 (>60)
--- NOTE | 2017-05-08 07:57 | RAD ---
INDICATION: Hypoxia COMPARISON: None. TECHNIQUE: Single AP portable view of the chest was obtained. FINDINGS: Image quality is compromised due to the relative inferiority of a portable chest x-ray. Again seen is an appropriately positioned right-sided PICC line. There is cardiomegaly similar in appearance to the prior chest x-ray. There is patchy density obscuring the bilateral central mayra and involving the right upper lobe where there are air bronchograms. The pulmonary vasculature appears more engorged and indistinct than the prior chest x-ray. There is bibasilar costophrenic angle blunting. Visualized bones are normal for the patient's age. IMPRESSION: Overall worsening aeration when compared to the previous days chest x-ray with an appearance most consistent with worsening cardiogenic pulmonary edema including bibasilar pleural effusions. Potentially there is worsening pneumonia involving the right upper lobe with air bronchograms.
[2017-05-08] MEDS: Pantoprazole IV* 40 MG IV SCH (09:26)
[2017-05-08] MEDS: Insulin LISPRO* 1 UNITS UNIT SUBCUT SCH ×2 (09:26→12:21)
--- NOTE | 2017-05-08 11:52 | PN ---
Subjective Date of Service: 05/08/17 Interval History: Ms. Hurd nods her head at times but is otherwise unresponsive. Family History: Unchanged from Admission Social History: Unchanged from Admission Past Medical History: Unchanged from Admission Objective Active Medications: Albuterol/Ipratropium (Duoneb (Albuterol 2.5 Mg/Ipratropium 0.5 Mg)) 1 neb INH Q4H PRN Aspirin (Aspirin Low Dose Tab*) 81 mg PO DAILY HARJIT Dextrose (D50w Syringe 50 Ml*) 12.5 gm IV PUSH .FOR FS < 60 - SS PRN Enoxaparin Sodium (Lovenox(*)) 40 mg SUBCUT Q24H HARJIT Furosemide (Lasix Iv*) 40 mg IV DAILY HARJIT Heparin Sodium (Porcine) (Heparin Flush Picc/Ml/Cvc(*)) 1 - 3 ml FLUSH 0600, 1800 HARJIT Hydromorphone HCl (Dilaudid Inj*) 0.5 mg IV SLOW PU Q4H PRN Ciprofloxacin/Dextrose (Cipro 400 Mg Ivpremix(*)) 400 mg in 200 mls @ 200 mls/ hr IVPB 0600,1800 HARJIT Fat Emulsion Intravenous 250 ml/ Dextrose 300 ml/Multivitamins 10 ml/ Trace Metals 1 ml/ Insulin Human Regular 40 units/ Amino Acid 4 .25/D10 TPN LEFTY* 1, 561.4 mls @ 65.058 mls/hr CENTR 1700 HARJIT Cefepime HCl 1 gm/ IV Solution 50 mls @ 100 mls/hr IVPB Q12H HARJIT Vancomycin HCl 750 mg/ Sodium (Chloride) 250 mls @ 166.667 mls/hr IVPB Q12H HARJIT Dextrose 500 ml/ Amino Acids 500 ml/ Fat Emulsion Intravenous 250 ml/ Sodium Chloride 35 meq/ Potassium Chloride 30 meq/ Potassium Phosphate 15 mmole/ Calcium Gluconate 5 meq/ Magnesium Sulfate 5 meq/ Multivitamins 10 ml/ Trace Metals 1 ml/Insulin Human Regular 45 units / Nutrition (Parenteral) 1,302.1835 mls @ 54.258 mls/hr CENTR 1700 HARJIT Insulin Human Lispro (Humalog*) 0 units SUBCUT ACHS HARJIT Methimazole (Tapazole Tab*) 10 mg PO BID HARJIT Ondansetron HCl (Zofran Inj*) 4 mg IV Q6H PRN Pantoprazole Sodium (Protonix Iv*) 40 mg IV Q24H [facility] Pharmacy Consult (Vancomycin Per Pharmacy*) 1 note FOLLOW UP . PRN Pharmacy Profile Note (Vancomycin Trough Check) 1 note FOLLOW UP 1130 ONE Prochlorperazine (Compazine Tab*) 5 mg PO Q8H PRN Promethazine HCl (Phenergan Tab*) 25 mg PO Q6H PRN Tizanidine HCl (Zanaflex Tab*) 2 mg PO BEDTIME [facility] Vital Signs: Temp Pulse Resp BP Pulse Ox 97.4 F 87 17 84/45 100 05/08/17 07:44 05/08/17 11:15 05/08/17 11:15 05/08/17 11:15 05/08/17 11:15 Oxygen Devices in Use Now: High Flow Heated Nasal Cannula Appearance: Female lying in bed in NAD Eyes: No Scleral Icterus Ears/Nose/Mouth/Throat: Mucous Membranes Moist Neck: Trachea Midline Respiratory: Symmetrical Chest Expansion and Respiratory Effort, - - Rhonchi bilaterally Cardiovascular: NL Sounds; No Murmurs; No JVD, No Edema Abdominal: NL Sounds; No Tenderness; No Distention Lymphatic: No Cervical Adenopathy Extremities: No Edema Skin: No Rash or Ulcers Neurological: - - Opens eyes and nods head to verbal stimuli but is non-verbal Result Diagrams: 05/07/17 09:38 05/08/17 06:27 Additional Lab and Data: . Microbiology and Other Data: . Assess/Plan/Problems-Billing Assessment: Ms. Hurd is an 81 yo female with PMH of paraplegia, sacral decubitus ulcer stage 4, neurogenic bladder with chronic Valera in place, HTN, hyperthyroidism, CAD, pituitary adenoma, ESBL in the urine presents with c/o abd pain and acute on chronic nausea found to have pancreatitis of unknown etiology. - Patient Problems (1) Pneumonia Comment: - Worsening hypoxia and lethargy overnight, very poor prognosis. - Now in ICU on high flow O2. - Cxray 05/07/17 showing worsening consolidation in RUL with concern for new pneumonia. - Continue vanco and zosyn. (2) Acute pancreatitis Comment: - Prognosis poor, unable to tolerate oral intake and on TPN for 8 days with no improvement. - Necrosis noted on CT abd 04/29/17. - Appreciate consultation from surgery and ID. Pt completed course of clindamycin and cipro. - Etiology unclear, may be hypercalcemia (mildly elevated) versus med related ( had been on atorvastatin and tmp/smx). IgG4 normal. Trigyclerides wnl. (3) Diastolic heart failure Comment: - Persistent acute on chronic diastolic CHF in setting of hydration for pancreatitis and inflamatory response. - Hold lasix given SBP 80s. (4) Type II diabetes mellitus Comment: - BGs well controlled. - Hold metformin. Continue lispro SSI coverage with meals. (5) Hypercalcemia Comment: - Resolved with hydration. - Spep negative, Upep pending. (6) Hyperthyroidism Comment: - TSH WNL at 0.5 - Cont methimazole. (7) Hypophosphatemia Comment: - Resolved with supplementation. (8) Nausea Comment: - This is a chronic problem for her and predates pancreatitis. - Anti-emetics available prn. (9) Hypertension Comment: - Hypotensive now. - Hold lasix. (10) Acute kidney injury Comment: - Resolved. (11) Anemia in chronic illness Comment: - Stable after 2 units PRBC. - Monitor. (12) Decubitus ulcer Comment: - Chronic sacral decubitus ulcer. Stage 4, not thought to be infected. - Continue dressing changes per wound care. (13) Cerebellar infarct Comment: - History of CVA, from October 2016. Associated with chronic dizziness. - Resume ASA (14) Paraplegia Comment: - Prior cervical injury, WC bound. (15) Pituitary tumor Comment: - Missed appointment 04/26 9:30 AM in [place] to discuss with Neurosurgeon Dr. Bagley. Rearrange if needed when not in acute pancreatitis. - Pituitary tumor is previously known, but she has not seen her neurologist in 12 years MRI (2000) - identified pituitary mass measuring 1.2cm at that time. - Strong neurosurgery phone consultation on 11/10/[address] Bagley. He did not think the mass was related to her acute complaints. He was happy to see her in follow up in the pituitary clinic which can be reached at [phone] for an appointment. She does not require urgent intervention - Tumor appeared non-functional Oct 2016: slightly low TSH, high T4, nl FSH, LH , prolactin, and cortisol. (16) S/P colostomy Comment: - Diverting colostomy for chronic sacral decubitis ulcer (17) DVT prophylaxis Comment: - Lovenox. (18) DNR (do not resuscitate) Comment: Status and Disposition: Inpatient. Patient is DNR and Polina Breen is her HCP. Patient has acutely decompensated again overnight and has very poor prognosis. Plan for further discussions regarding goals of care with Ms. Breen today.
[2017-05-08] MEDS: Methimazole TAB* 5 MG PO SCH ×2 (11:58→22:14)
[2017-05-08] MEDS: Aspirin Low Dose CHEW TAB* 81 MG PO SCH (11:58)
[2017-05-08] MEDS: Cefepime(*) 1 GM in PREMIX* 50 ML IVPB SCH (12:06)
[2017-05-08] MEDS: Vancomycin(*) 750 MG in NS 0.9% 250 ML* 250 ML IVPB SCH (12:06)
[2017-05-08] MEDS ORDERED: Morphine INJ* 4 MG/ML 1 ML CARPUJECT IV PRN ×2 (12:27→15:18)
[2017-05-08] MEDS: Ondansetron INJ* 2 MG/ML VIAL IV PRN (12:36)
[2017-05-08] MEDS: Enoxaparin(*) 40 MG/0.4 ML SYR SUBCUT SCH (12:36)
--- NOTE | 2017-05-08 15:14 | PN ---
Progress Note - Progress Note Date of Service: 05/08/17 Note: Spoke at length with Ms. Hurd and her health care proxy regarding her prognosis and goals of care. Ms. Hurd would like to transition to comfort care only measures at this time. Her HCP is in agreement. Plan to discontinue all medications other than those to promote her continued comfort. Transfer out of ICU. Plan to involve Hospice tomorrow and Case Management regarding discharge planning if needed. Patient from [facility].
[2017-05-08] MEDS ORDERED: WATER CENTR SCH ×12 (17:00)
[2017-05-08] MEDS ORDERED: TPN CENTR SCH ×12 (17:00)
[2017-05-08] MEDS ORDERED: [UNRECOGNIZED DRUG - OTHER] CENTR SCH ×12 (17:00)
[2017-05-08] MEDS ORDERED: AMINO ACID INFUSION CENTR SCH ×12 (17:00)
[2017-05-08] MEDS ORDERED: DEXTROSE CENTR SCH ×12 (17:00)
[2017-05-08] MEDS: Morphine INJ* 4 MG/ML 1 ML SYRINGE (NEW SYRINGE VERSION) IV PRN (20:39)
[2017-05-08] MEDS ORDERED: Morphine INJ* 4 MG/ML 1 ML SYRINGE (NEW SYRINGE VERSION) IV ONE (20:53)
[2017-05-08] MEDS ORDERED: Morphine INJ* 4 MG/ML 1 ML SYRINGE (NEW SYRINGE VERSION) ONE (21:01)
[2017-05-08] MEDS: tiZANidine TAB* 2 MG PO SCH (22:14)
[2017-05-09] MEDS: Morphine INJ* 4 MG/ML 1 ML SYRINGE (NEW SYRINGE VERSION) IV PRN ×3 (02:23→13:42)
[2017-05-09] MEDS: Methimazole TAB* 5 MG PO SCH (09:46)
[2017-05-09] MEDS ORDERED: Vancomycin Trough Check NOTE FOLLOW UP ONE (11:30)
--- NOTE | 2017-05-09 12:00 | PN ---
Progress Note - Progress Note Date of Service: 05/09/17 Note: Please refer, for history and disease assessment, to my initial note on 05/02/17 regarding this patient. At the time of my initial visit the patient was too obtunded to participate in conversation or keep her eyes open. Today, she is more alert than she was then, and in the intervening week she has come around to understanding her dismal prognosis and has elected DNR/DNI and comfort care measures only. She has audible rales with respiration, and is very weak, only able to communicate in a whisper. Her po intake is very poor. She denies discomfort and is not in any apparent distress. Her abdomen is soft and diffusely tender. I asked her where she would like to be in the time she has remaining and she said she wants to remain in the hospital. I suspect she will only survive another 24 to 48 hours. If it is more expedient for the hospital, she could be returned to [facility] with plan for eventual sign on to hospice services, if the patient lives long enough. Thanks for asking me to see her.
--- NOTE | 2017-05-09 12:46 | PN ---
Subjective Date of Service: 05/09/17 Interval History: Patient seen and examined at bedside. Denies fever, chills, shortness of breath , chest discomfort. Pt is non-verbal but is able to nod head for communication. Pt is in agreeable to comfort care and return to [facility] today. Family History: Unchanged from Admission Social History: Unchanged from Admission Past Medical History: Unchanged from Admission Objective Active Medications: Albuterol/Ipratropium (Duoneb (Albuterol 2.5 Mg/Ipratropium 0.5 Mg)) 1 neb INH Q4H PRN Reason: SOB/WHEEZING Heparin Sodium (Porcine) (Heparin Flush Picc/Ml/Cvc(*)) 1 - 3 ml FLUSH 0600, 1800 HARJIT Hydromorphone HCl (Dilaudid Inj*) 0.5 mg IV SLOW PU Q4H PRN Reason: PAIN Methimazole (Tapazole Tab*) 10 mg PO BID HARJIT Morphine Sulfate (Morphine Inj (Syringe)*) 4 mg IV Q1H PRN Reason: pain/dyspnea Ondansetron HCl (Zofran Inj*) 4 mg IV Q6H PRN Reason: NAUSEA Prochlorperazine (Compazine Tab*) 5 mg PO Q8H PRN Reason: NAUSEA Promethazine HCl (Phenergan Tab*) 25 mg PO Q6H PRN Reason: NAUSEA Tizanidine HCl (Zanaflex Tab*) 2 mg PO BEDTIME [facility] Vital Signs - 8 hr 05/09/17 05/09/17 05/09/17 04:50 06:15 07:19 Pulse Rate Respiratory 16 16 12 Rate O2 Sat by Pulse Oximetry 05/09/17 05/09/17 07:20 09:47 Pulse Rate 94 Respiratory 12 14 Rate O2 Sat by Pulse 100 Oximetry Oxygen Devices in Use Now: Nasal Cannula - 2L Appearance: NAD, laying in bed Ears/Nose/Mouth/Throat: - - Dry Mucous Membranes Respiratory: Symmetrical Chest Expansion and Respiratory Effort, - - Rhonchi throughout bilateral Cardiovascular: NL Sounds; No Murmurs; No JVD, RRR Abdominal: - - Abdomen large and tender to palpation Skin: No Rash or Ulcers Neurological: - - Alert, unable to determine orientation as she is non-verbal Lines/Tubes/Other Access: Clean, Dry and Intact Valera, Clean, Dry and Intact PICC Line - midline, site benign, Clean, Dry and Intact Other Access - ostomy Result Diagrams: 05/07/17 09:38 05/08/17 06:27 Additional Lab and Data: . Microbiology and Other Data: . Assess/Plan/Problems-Billing Assessment: Ms. Hurd is an 81 yo female with PMH of paraplegia, sacral decubitus ulcer stage 4, neurogenic bladder with chronic Valera in place, HTN, hyperthyroidism, CAD, pituitary adenoma, ESBL in the urine presents with c/o abd pain and acute on chronic nausea found to have pancreatitis of unknown etiology. - Patient Problems (1) Comfort measures only status Code(s): Z51.5 - ENCOUNTER FOR PALLIATIVE CARE SNOMED Code(s): 52047133195189 Comment: - Pt and HCP have chosen comfort measures only (2) Pneumonia Code(s): J18.9 - PNEUMONIA, UNSPECIFIED ORGANISM SNOMED Code(s): 772315059 Comment: - Improving hypoxia and continues to have lethargy, very poor prognosis. - Cxray 05/07/17 showing worsening consolidation in RUL with concern for new pneumonia. - ABX discontinued in setting of comfort care (3) Acute pancreatitis Code(s): K85.90 - ACUTE PANCREATITIS WITHOUT NECROSIS OR INFECTION, UNSP SNOMED Code(s): 211988278 Comment: - Prognosis poor, unable to tolerate oral intake and on TPN for 8 days with no improvement. - Necrosis noted on CT abd 04/29/17. - Appreciate consultation from surgery and ID. Pt completed course of clindamycin and cipro. - Etiology unclear, may be hypercalcemia (mildly elevated) versus med related ( had been on atorvastatin and tmp/smx). IgG4 normal. Trigyclerides wnl. (4) Diastolic heart failure Code(s): I50.30 - UNSPECIFIED DIASTOLIC (CONGESTIVE) HEART FAILURE SNOMED Code (s): 009683346 Comment: - Persistent acute on chronic diastolic CHF in setting of hydration for pancreatitis and inflamatory response. - Hold lasix. (5) Hypercalcemia Code(s): E83.52 - HYPERCALCEMIA SNOMED Code(s): 58274199 Comment: - Resolved with hydration. - Spep negative, Upep pending. (6) Hyperthyroidism Code(s): E05.90 - THYROTOXICOSIS, UNSP WITHOUT THYROTOXIC CRISIS OR STORM SNOMED Code(s): 85107431 Comment: - TSH WNL at 0.5 - Cont methimazole. (7) Hypophosphatemia Code(s): E83.39 - OTHER DISORDERS OF PHOSPHORUS METABOLISM SNOMED Code(s): 5899513 Comment: - Resolved with supplementation. (8) Nausea Code(s): R11.0 - NAUSEA SNOMED Code(s): 509259642 Comment: - This is a chronic problem for her and predates pancreatitis. - Anti-emetics available prn. (9) Acute kidney injury Code(s): N17.9 - ACUTE KIDNEY FAILURE, UNSPECIFIED SNOMED Code(s): 03732811 Comment: - Resolved. (10) Cerebellar infarct Code(s): I63.9 - CEREBRAL INFARCTION, UNSPECIFIED SNOMED Code(s): 38261567 Comment: - History of CVA, from October 2016. Associated with chronic dizziness. (11) Anemia in chronic illness Code(s): D63.8 - ANEMIA IN OTHER CHRONIC DISEASES CLASSIFIED ELSEWHERE SNOMED Code(s): 568663980 Comment: - Stable after 2 units PRBC. - Monitor. (12) Decubitus ulcer Code(s): L89.90 - PRESSURE ULCER OF UNSPECIFIED SITE, UNSPECIFIED STAGE SNOMED Code(s): 979639279 Comment: - Chronic sacral decubitus ulcer. Stage 4, not thought to be infected. - Continue dressing changes per wound care. (13) Hypertension Code(s): I10 - ESSENTIAL (PRIMARY) HYPERTENSION SNOMED Code(s): 30381819 Comment: - Hypotensive now. - Hold lasix. (14) Paraplegia Code(s): G82.20 - PARAPLEGIA, UNSPECIFIED SNOMED Code(s): 88220554 Comment: - Prior cervical injury, WC bound. (15) Pituitary tumor Comment: - Missed appointment 04/26 9:30 AM in [place] to discuss with Neurosurgeon Dr. Bagley. - Pituitary tumor is previously known, but she has not seen her neurologist in 12 years MRI (2000) - identified pituitary mass measuring 1.2cm at that time. - Strong neurosurgery phone consultation on 11/10/[address] Bagley. He did not think the mass was related to her acute complaints. He was happy to see her in follow up in the pituitary clinic which can be reached at [phone] for an appointment. She does not require urgent intervention - Tumor appeared non-functional Oct 2016: slightly low TSH, high T4, nl FSH, LH , prolactin, and cortisol. (16) S/P colostomy Code(s): Z93.3 - COLOSTOMY STATUS SNOMED Code(s): 262146955 Comment: - Diverting colostomy for chronic sacral decubitis ulcer (17) Type II diabetes mellitus Comment: - BGs well controlled, glucose 130-220s. - Hold metformin. (18) DVT prophylaxis Code(s): FVP2026 - SNOMED Code(s): 547946421 Comment: (19) DNR (do not resuscitate) Status and Disposition: Inpatient. Patient is DNR and Polina Breen is her HCP. Patient has acutely decompensated and has very poor prognosis. Plan for discharge back to [facility] on Comfort Care.
[2017-05-09 13:30] VITALS: BP 112/52
--- NOTE | 2017-05-09 13:43 | DS ---
CC: [facility]; Dr. Viviana Davidson* DATE OF ADMISSION: 04/22/2017. DATE OF DISCHARGE: 05/09/2017. ATTENDING PHYSICIAN: Dr. Hernan Merino* (dictated by Evan Grace NP). PRIMARY CARE PHYSICIAN: Dr. Viviana Davidson and [facility]. PRIMARY DIAGNOSES: 1. Comfort care. 2. Acute pancreatitis of unclear etiology. 3. Pneumonia. 4. Sepsis. 5. Acute renal failure, resolved. 6. Hypercalcemia, resolved with hydration. 7. Hypophosphatemia, resolved with supplementation. SECONDARY DIAGNOSES: 1. Acute on chronic diastolic heart failure. 2. Diabetes mellitus. 3. Hyperthyroidism. 4. Nausea. 5. Hypertension. 6. Anemia of chronic disease. 7. Decubitus ulcer. 8. History of cerebellar infarct. 9. Paraplegia. 10. Pituitary tumor. 11. Status post colostomy. HISTORY OF PRESENT ILLNESS/HOSPITAL COURSE: Ms. Hurd is an 82-year-old female with a past medical history significant for diabetes mellitus, hypertension, CAD , diastolic heart failure, last known EF 50 to 55 percent, history of CVA, pituitary tumor, chronic indwelling Valera due to neurogenic bladder, paraplegia secondary to a cervical injury, hyperthyroidism, and chronic sacral decubitus who presented to the emergency room from [facility] with complaints of increasing dizziness. The patient had recently had her Furosemide increased from 40 mg to 80 mg. The patient had no complaints of abdominal pain or chest pain. She has noted a decreased appetite and oral intake 24 hours prior to her presentation. She is unsure if she has any pain below her rib cages. She has no sensation below that area due to her previous spinal injury. Upon presentation to the emergency room, the patient was found to have an elevated white blood cell count of 27,000. She appeared to be dehydrated. Her BUN and creatinine were elevated slightly above her baseline. In addition, her lipase was elevated and there were concerns for a UTI. The Hospitalists were asked to evaluate the patient for admission. While in the hospital, the patient was treated for pancreatitis with unclear etiology. It was felt it could possibly be related to her increased Furosemide. She received IV hydration. She also presented with sepsis as evidenced by acute renal failure and intermediate troponin suspected to be secondary to demand ischemia from her pancreatitis and underlying UTI. She had a urinary catheter replaced. She received IV hydration. She was also found to have an acute renal failure as it was felt to be multifactorial. She received IV fluids. Her Lasix was held. During her stay, she had received eight days of TPN and was ultimately admitted to the Intensive Care Unit for hypoxia and on high flow oxygen. She had a chest x-ray showing a right upper lobe pneumonia. She was started on Vancomycin and Zosyn. It was felt that the patient had a poor prognosis. She was unable to tolerate oral intake and had been on TPN. She continued to decompensate and a discussion was had with Ms. Hurd and her healthcare proxy, Polina Breen, who decided to pursue comfort care measures. The patient had a DNR and DNI in place. It was suspected that her survival would only be another 24 to 48 hours. Ms. Hurd will return to [facility] today with comfort care. Vital signs: Temperature 98.0, heart rate 94, respiratory rate 14, O2 sat 100 percent on two liters via nasal cannula, blood pressure 98/50. DISCHARGE PLAN: Ms. Hurd will be discharged to [facility] for comfort care measures. She will be on a comfort care diet. Activity is as tolerated. She can be placed on Morphine oral concentrate 5 mg oral every four hours as needed for pain and dyspnea, in addition to Lorazepam 0.5 mg oral every six hours as needed for agitation and anxiety. Due to her chronic nausea, also recommend Zofran 4 mg oral every six hours for nausea. [facility] did call [facility] for possible sign on next week if the patient survives longer than the next 24 to 48 hours. As far as her home medications, she can continue on her Zanaflex and Methimazole or these could be discontinued if the patient chooses. Discontinued medications include Meclizine, Metformin, aspirin, Bactrim, Furosemide, Atorvastatin, Percocet. The patient should be see by a provider in the next 24 hours at [facility]. This is a summarized report of a complex medical history. For further details, please see the entire medical record. Time for this discharge was approximately 50 minutes, greater than half of that was spent with the patient discussing discharge plans and instructions. CONDITION ON DISCHARGE: Guarded. EVAN A. WINKLEBLACK-BEY, FINANCIAL AID ADVISOR [id number]/[facility] #: [id number] WILBUR
== END 2017-05-09 15:00 | DRG 871 ==
LOC: ED 12:13 → MED 15:02 → MEDTELE 16:44 → MED 04-25 20:17 → ICU 04-30 11:30 → MED 05-04 20:52 → ICU 05-08 05:46 → MED 05-08 17:09
PROVIDERS: ADMIT Internal Medicine; ATTEND Internal Medicine
PROC: 3E0436Z Introduction of Nutritional Substance into Central Vein, Percutaneous Approach (ICD-10-PCS; principal; 2017-04-25)
PROC: 02HV33Z Insertion of Infusion Device into Superior Vena Cava, Percutaneous Approach (ICD-10-PCS; 2017-05-01)
PROC: 30233N1 Transfusion of Nonautologous Red Blood Cells into Peripheral Vein, Percutaneous Approach (ICD-10-PCS; 2017-05-03)
DX: A41.9 Sepsis, unspecified organism (principal); I50.33 Acute on chronic diastolic (congestive) heart failure; I47.2 Ventricular tachycardia; K85.90 Acute pancreatitis without necrosis or infection, unspecified; E46 Unspecified protein-calorie malnutrition; L89.154 Pressure ulcer of sacral region, stage 4; N17.9 Acute kidney failure, unspecified; J18.9 Pneumonia, unspecified organism; G82.20 Paraplegia, unspecified; I24.8 Other forms of acute ischemic heart disease; T83.518A Infection and inflammatory reaction due to other urinary catheter, initial encounter; E87.2 Acidosis; I11.0 Hypertensive heart disease with heart failure; E83.39 Other disorders of phosphorus metabolism; R65.20 Severe sepsis without septic shock; D63.8 Anemia in other chronic diseases classified elsewhere; E83.52 Hypercalcemia; E05.90 Thyrotoxicosis, unspecified without thyrotoxic crisis or storm; Z86.73 Personal history of transient ischemic attack (TIA), and cerebral infarction without residual deficits; Z90.49 Acquired absence of other specified parts of digestive tract; Z93.3 Colostomy status; I25.10 Atherosclerotic heart disease of native coronary artery without angina pectoris; E86.0 Dehydration; N31.9 Neuromuscular dysfunction of bladder, unspecified; Y73.1 Therapeutic (nonsurgical) and rehabilitative gastroenterology and urology devices associated with adverse incidents; Y92.9 Unspecified place or not applicable; Z66 Do not resuscitate; Z98.1 Arthrodesis status; Z88.1 Allergy status to other antibiotic agents; Z88.0 Allergy status to penicillin; Z88.8 Allergy status to other drugs, medicaments and biological substances; Z87.891 Personal history of nicotine dependence; Z82.49 Family history of ischemic heart disease and other diseases of the circulatory system; E03.9 Hypothyroidism, unspecified; D47.3 Essential (hemorrhagic) thrombocythemia; D35.2 Benign neoplasm of pituitary gland; I48.0 Paroxysmal atrial fibrillation; K86.89 Other specified diseases of pancreas; E87.8 Other disorders of electrolyte and fluid balance, not elsewhere classified; Z68.31 Body mass index [BMI] 31.0-31.9, adult; E11.65 Type 2 diabetes mellitus with hyperglycemia; E83.42 Hypomagnesemia; E87.6 Hypokalemia; Z51.5 Encounter for palliative care
CPT/HCPCS: 36415; 71045; 74176; 74178; 80048; 80053; 80076; 80202; 81003; 81015; 82306; 82330; 82565; 82570; 82607; 82728; 82784; 82947; 83540; 83550; 83605; 83690; 83735; 83880; 83970; 84100; 84155; 84165; 84300; 84443; 84478; 84484; 84520; 85025; 85610; 85730; 86140; 86850; 86900; 86901; 86922; 87040; 87077; 87086; 87186; 87641; 93005; 94760; 99284; A9270-GY; C1751; J0692; J0744; J1170; J1644; J1650; J1940; J2060; J2185; J2270; J2405; J3370; J3475; J3480; P9040; P9047; Q9967